=== PATIENT | female | born 1975 | race Caucasian/White ===

== ENCOUNTER 2022-08-02 11:06 | Emergency (ER) | payer MEDICARE, SELFPAY ==
--- NOTE | ~2022-08-02 | US_ITS ---
EXAMINATION: US ABDOMEN LIMITED CLINICAL INFORMATION: Right upper quadrant pain. COMPARISON: None available. TECHNIQUE: Real-time imaging of the right upper quadrant abdominal viscera. FINDINGS: PANCREAS: Normal. LIVER: Normal. The liver is normal in size. The liver contour is normal. Parenchymal echogenicity is normal. No focal hepatic lesion. There is no intrahepatic biliary duct dilatation seen. GALLBLADDER: Normal. The gallbladder is physiologically distended without evidence of stones, sludge, polyps, wall thickening or pericholecystic fluid. Sonographic Brock sign is negative. COMMON BILE DUCT: Normal in caliber measuring 0.6 cm in diameter. RIGHT KIDNEY: Normal. No hydronephrosis. No renal calculi or focal parenchymal lesions. The kidney measures 10.0 cm in maximum dimension. FREE FLUID: None. US/US abdomen limited IMPRESSION: Unremarkable right upper quadrant ultrasound.
[2022-08-02 11:28] VITALS: BP 122/85; PULSE 77; RESP 18; TEMP 36.6; O2SAT 98; BMI 21.5
[2022-08-02 12:12] LABS: MANUAL DIFF FLAG NO
[2022-08-02 12:16] LABS: Appearance Urine Clear; Color Urine Yellow; Glucose Urine UA Negative (Negative); Leukocyte Esterase Urine Negative (Negative); Nitrite Urine Negative (Negative); PH 7.5 (5.0-9.0); Specific Gravity - Urine 1.015 (1.005-1.025); UMIC TRIGGER UACC YES; Urine Blood Small (1+) (Negative); Urine Ketones Negative (Negative); Urine Protein Negative (Neg-Trace)
[2022-08-02 12:17] LABS: Basophils Absolute Auto 0.1 X10*3/uL (0.0-0.2); Basophils Percent Auto 0.8 % (0-2); Eosinophils Absolute Auto 0.3 X10*3/uL (0.0-0.4); Eosinophils Percent Auto 4.3 % (0-4); Hematocrit 44.4 % (37.0-47.0); Hemoglobin 14.7 g/dl (12.0-16.0); Imm Gran Abs Auto 0.02 X10*3/uL (0.00-0.03); Imm Gran Pct Auto 0.3 % (0.0-0.4); Lymphocytes Absolute Auto 2.8 X10*3/uL (1.2-4.9); Lymphocytes Percent Auto 35.8 % (20-40); Mean Corpuscular HGB Conc 33.1 g/dl (31.0-35.0); Mean Corpuscular Hemoglobin 31.6 pg (27.0-33.0); Mean Corpuscular Volume 95.5 fL (80.0-98.0); Mean Platelet Volume 10.1 fL (9.4-12.3); Monocytes Absolute Auto 0.5 X10*3/uL (0.1-1.2); Monocytes Percent Auto 6.8 % (2-11); Neutrophils Absolute Auto 4.1 x10*3/uL (2.0-8.3); Platelet Count 219 X10*3/uL (160-400); Red Blood Count 4.65 X10*6/uL (4.20-5.50); Red Cell Distribution Width 12.5 % (11.0-16.0); White Blood Count 7.9 X10*3/uL (4.8-10.8)
[2022-08-02 12:31] LABS: Bacteria Urine None Seen (None Seen); Hyaline Casts Urine 0-2 /LPF (0-2); Squamous Epithelial Cell Urine 0-2 /HPF (0-2); WBC Urine 0-5 /HPF (0-5)
[2022-08-02 12:32] LABS: Anion Gap 10 (12-20); Blood Urea Nitrogen 20 mg/dL (9-16); Calcium 10.3 mg/dL (8.4-10.2); Carbon Dioxide 31 mmol/L (22-29); Chloride 105 mmol/L (96-108); Creatinine Clr Calc Pharmacy 74.9; Estimated Glomerular Filt Rate > 60; Glucose Random 94 mg/dL (60-115); Potassium 5.1 mmol/L (3.3-5.1); Sodium 141 mmol/L (135-145)
--- OUTSIDE RECORDS SUMMARY | 2022-08-02 14:24 | XMS_ITS | Continuity of Care Document ---
Author Name Unknown Organization [facility] ter Address [address] [place] [address]- Care Team Providers Care Profile Mill Operator Tape Control Name Role Phone Itzel Martinez NP Primary Care Physician [phone] [id number] Date(s): 01/05/21 - 01/05/[address] [address]- Discharge Disposition: A-D/C Home Attending Physician: Jolly Armstrong MD Admitting Physician: Jolly Armstrong MD Referring Physician: Not on Staff, Referring MD Allergies, Adverse Reactions, Alerts Substance Reaction Severity Status sulfa drugs Active Medications Adderall By Mouth, 2 times a day, 0 Refills, Maintenance, 11/17/16 14:08:19 Start Date: 11/17/16 Status: Ordered aspirin 325 mg oral delayed release tablet 325 mg, 1, tablet, By Mouth, Daily, # 30 tablet, Refills 0, Maintenance, 01/04/21 11:31:00 EDT, Partial fill upon patient request if the prescription is for a schedule II opioid drug. Start Date: 01/04/21 Status: Ordered Coccyx Seat Cushion Coccyx Seat Cushion, See Instructions, # 1 units, Refills 0, Tot. Refills 0, Maintenance, Dispense 1 donut pillow to use PRN for tailbone pain. ICD-10 code: M53.3, 07/20/18 16:43:58 EDT, Compound Start Date: 07/20/18 Status: Ordered famotidine 20 mg oral tablet 20 mg, 1, tablet, By Mouth, Daily, # 30 tablet, Refills 0, Tot. Refills 0, Maintenance, 01/05/21 22:56:00 EDT, Route to Pharmacy Electronically, [facility] #[id number], Partial fill upon patientrequest if the prescription is for a schedule II op... Start Date: 01/05/21 Stop Date: 02/04/21 Status: Ordered ibuprofen 800 mg oral tablet 800 mg, 1, tablet, By Mouth, 3 times a day, # 90 tablet, Refills 0, Maintenance, 01/04/21 11:15:00 EDT, Partial fill upon patient request if the prescription is for a schedule II opioid drug. Start Date: 01/04/21 Status: Ordered oxyCODONE 5 mg oral capsule See Instructions, PRN as needed for pain, 1 capsule By Mouth Every 6 hours, 0 Refills, Maintenance,01/04/21 11:31:00 EDT, Capsule, Partial fill upon patient request if the prescription is for a schedule II opioid drug. Start Date: 01/04/21 Status: Ordered ProAir HFA 90 mcg/inh inhalation aerosol 1 puffs, Inhalation, 4 times a day, PRN as needed for wheezing, # 6.7 Gm, 0 Refills, Maintenance, 01/04/21 11:16:00 EDT, Aerosol, Partial fill upon patient request if the prescription is for a schedule II opioid drug. Start Date: 01/04/21 Status: Ordered Tums 500 mg oral tablet, chewable 250 mg, 0.5, tablet, Chew, 2 times a day, # 15 tablet, Refills 0, Maintenance, 01/04/21 11:16:00 EDT, Partial fill upon patient request if the prescription is for a schedule II opioid drug. Start Date: 01/04/21 Status: Ordered Results Radiology Reports * Exam Date Time Procedure Performing Provider Status 01/05/21 7:35 PM Chest 2 Views Frontal and Lat Ashley Quezada (Verified) Notes: (Chest 2 Views Frontal and Lat) Reason For Exam: dizziness, presyncope;Other: RESULT: Chest 2 Views Frontal and Lat Chest 2 Views Frontal and Lat Hx of Present Illness: Patient reports rectal bleedting this am. Had left knee surgery yesterday, spoke with the surgeon and anesthesiologist today, US performed with critical findings. Pt reports has had symptoms for appox 1 month- cramping, dizziness. Rectal bleeding last July; Reason: Other:; dizziness, presyncope; Clinical Question(s): Other: COMPARISON: None. FINDINGS: LINES AND TUBES: None. LUNGS AND PLEURA: Clear lungs. Normal pulmonary vascularity. No pleural effusion. No pneumothorax. HEART, MEDIASTINUM AND YONG: Heart is normal in size. Normal upper mediastinal and hilar contour. BONES AND SOFT TISSUES: No acute abnormality. IMPRESSION: No acute abnormality. WSN: [id number] Ordering Physician: Johnna Lopez Dictated By: Sofía Marie MD Dictated Date/Time: 01/05/21 7:36 pm Reviewed By: Sofía Marie MD Signed By: Sofía Marie MD Signed Date/Time: 01/05/21 7:36 pm Transcribed By: KALI Transcribed Date/Time: 01/05/21 7:35 pm Vital Signs Most recent to oldest [Reference Range]: 1 2 3 Height 163 cm (01/05/21 6:55 PM) 163 cm (01/05/21 5:17 PM) Weight 71.4 kg (01/05/21 6:55 PM) 71.4 kg (01/05/21 5:17 PM) Oxygen Saturation [94-100 %] 99 % (01/05/21 10:32 PM) 95 % (01/05/21 6:55 PM) 96 % (01/05/21 5:17 PM) Pulse Rate [55-90 bpm] 65 bpm (01/05/21 10:32 PM) 58 bpm (01/05/21 6:55 PM) 87 bpm (01/05/21 5:17 PM) Body Mass Index [18.5-24.99] 26.87 *H* (01/05/21 6:55 PM) Blood Pressure [90-138/55-84 mm Hg] 104/75mm Hg (01/05/21 10:32 PM) 123/78mm Hg (01/05/21 6:55 PM) 122/68mm Hg (01/05/21 5:17 PM) Respiratory Rate [16-30 br/min] 12 br/min *L* (01/05/21 10:32 PM) 11 br/min *L* (01/05/21 6:55 PM) 18 br/min (01/05/21 5:17 PM) Temperature [96.8-100.4 DegF] 98.3 DegF (01/05/21 10:32 PM) 98.4 DegF (01/05/21 5:17 PM) Mode of Delivery (Oxygen) Room air (01/05/21 10:32 PM) Room air (01/05/21 6:55 PM) Room air (01/05/21 5:17 PM) Blood pressure sites Arm, left (01/05/21 10:32 PM) Arm, left (01/05/21 6:55 PM) Arm, left (01/05/21 5:17 PM) Temperature Route Oral (01/05/21 10:32 PM) Oral (01/05/21 5:17 PM) Dry Weight 71.4 kg (01/05/21 6:55 PM) 71.4 kg (01/05/21 5:17 PM)
--- OUTSIDE RECORDS SUMMARY | 2022-08-02 14:24 | XMS_ITS | Continuity of Care Document ---
Author Name Unknown Organization [facility] Address [address] [place] [address]- Care Team Providers Care Welder Machine Operator Name Role Phone Juan MORATAYA, Itzel Kim Primary Care Physician Encounter [facility] Date(s): 05/27/20 - 06/03/20 [facility] [address] [place], [place] [address] Attending Physician: Diane Thakur DO Referring Physician: Itzel Martinez NP Allergies, Adverse Reactions, Alerts Substance Reaction Severity Status sulfa drugs Active Medications Adderall By Mouth, 2 times a day, 0 Refills, Maintenance, 11/17/16 14:08:19 Start Date: 11/17/16 Status: Ordered Coccyx Seat Cushion Coccyx Seat Cushion, See Instructions, # 1 units, Refills 0, Tot. Refills 0, Maintenance, Dispense 1 donut pillow to use PRN for tailbone pain. ICD-10 code: M53.3, 07/20/18 16:43:58 EDT, Compound Start Date: 07/20/18 Status: Ordered Naproxen By Mouth, 0 Refills, Maintenance, 01/04/17 11:11:35 Start Date: 01/04/17 Status: Ordered nortriptyline 25 mg oral capsule 25 mg, 1, capsule, By Mouth, Daily at bedtime, # 30 capsule, Refills 3, Tot. Refills 3, Maintenance, 03/19/17 8:34:50, Route to Pharmacy Electronically, [id number], [facility]- [address] Start Date: 03/19/17 Status: Ordered Vital Signs Most recent to oldest [Reference Range]: 1 Oxygen Saturation [94-100 %] 99 % (05/27/20 1:38 PM) Pulse Rate [55-90 bpm] 107 bpm *H* (05/27/20 1:38 PM) Blood Pressure [90-138/55-84 mm Hg] 131/ 75mm Hg (05/27/20 1:38 PM) Respiratory Rate [16-30 br/min] 16 br/mi n (05/27/20 1:38 PM) Temperature [96.8-100.4 DegF] 99.9 DegF (05/27/20 1:38 PM) Mode of Delivery (Oxygen) Room air (05/27/20 1:38 PM) Blood pressure sites Arm, right (05/27/20 1:38 PM) Temperature Route Temporal (05/27/20 1:38 PM)
--- OUTSIDE RECORDS SUMMARY | 2022-08-02 14:24 | XMS_ITS | Continuity of Care Document ---
Author Name Unknown Organization [facility] Address [address] [place], [place] [address], [address] [place] [address]- Care Team Providers Care Leveling Machine Operator Name Role Phone Itzel Martinez NP Primary Care Physician [phone] Encounter [facility] Date(s): 07/07/21 - 07/14/21 [facility] [address] [place] [address] Drive, [address] [place], [place] [address] Attending Physician: Abram Wilburn MD Referring Physician: Itzel Martinez NP Allergies, Adverse Reactions, Alerts Substance Reaction Severity Status erythromycin Active sulfa drugs Active Medications Adderall By Mouth, [...] 01/05/21 22:56:00 EDT, Route to Pharmacy Electronically, [facility] #[id number], Partial fill upon patientrequest if the prescription is for a schedule II op... Start Date: 01/05/21 Stop Date: 02/04/21 Status: Ordered fluticasone 50 mcg/inh inhalation powder Inhalation, 2 times a day, 0 Refills, Maintenance, 07/07/21 14:34:00 EDT, Partial fill upon patientrequest if the prescription is for a schedule II opioid drug. Start Date: 07/07/21 Status: Ordered ibuprofen 800 mg oral tablet [...] opioid drug. Start Date: 01/04/21 Status: Ordered Vital Signs Most recent to oldest [Reference Range]: 1 Height 163 cm (07/07/21 2:31 PM) Weight 71.4 kg (07/07/21 2:31 PM) Body Mass Index [18.5-24.99] 26.87 *H* (07/07/21 2:31 PM)
--- OUTSIDE RECORDS SUMMARY | 2022-08-02 14:24 | XMS_ITS | Continuity of Care Document ---
Author Name Unknown Organization [facility] Address [address] [place] [address] [address], [address] [place] [address]- Care Team Providers Care Mail Room Clerk Name Role Phone Itzel Martinez NP Primary Care Physician Encounter [facility] Date(s): 07/07/21 - 08/06/21 [facility] [address] [place] [address] Drive, [address] [place], [place] [address] Attending Physician: Robert Hyde Admitting Physician: AdmtrRobert Referring Physician: AdmtrRobert Allergies, Adverse Reactions, Alerts Substance Reaction Severity [...] 01/05/21 22:56:00 EDT, Route to Pharmacy Electronically, [facility] #[id number], Partial fill upon patientrequest if the prescription [...]
--- OUTSIDE RECORDS SUMMARY | 2022-08-02 14:24 | XMS_ITS | Continuity of Care Document ---
Author Name Unknown Organization [facility] Address [address] [place] [address]- Care Team Providers Care Clinical Lab Specialist Name Role Phone Juan MORATAYA, Itzel Kim Primary Care Physician Encounter [facility] Date(s): 05/27/20 - 06/26/20 [facility] [address] [place] [address]- Attending Physician: AdmRobert ortiz Admitting Physician: AdmtrRobert Referring Physician: Admtr, Ar8 Allergies, Adverse Reactions, Alerts Substance Reaction Severity [...] Maintenance, 03/19/17 8:34:50, Route to Pharmacy Electronically, [id number], [facility] [address] [facility] Start Date: 03/19/17 Status: Ordered
--- OUTSIDE RECORDS SUMMARY | 2022-08-02 14:24 | XMS_ITS | Continuity of Care Document ---
Author Name Unknown Organization [facility] Address [address] [place] [address] [address], [address] [place] [address]- Care Team Providers Care Cigar Wrapper Tender Automatic Name Role Phone Itzel Martinez NP Primary Care Physician Encounter [facility] [place] Date(s): 07/04/21 - 08/03/21 [facility] [address] [place] [address] Drive, [address] [place] [address]- Allergies, Adverse Reactions, Alerts Substance Reaction Severity [...] 01/05/21 22:56:00 EDT, Route to Pharmacy Electronically, [facility] #[id number], Partial fill upon patientrequest if the prescription [...]
--- OUTSIDE RECORDS SUMMARY | 2022-08-02 14:24 | XMS_ITS | Continuity of Care Document ---
Author Name Unknown Organization [facility] Address [address] [place] [address] [address], [address] [place] [address]- Care Team Providers Care Manager Internship Name Role Phone Itzel Martinez NP Primary Care Physician Encounter [facility] [facility] Date(s): 01/10/22 - 02/09/22 [facility] [address] [place] [address] Drive, [address] [place] [address]- Allergies, Adverse Reactions, Alerts Substance Reaction Severity [...] 01/05/21 22:56:00 EDT, Route to Pharmacy Electronically, [facility] #[id number], Partial fill upon patientrequest if the prescription [...] opioid drug. Start Date: 01/04/21 Status: Ordered Patient Care team information Care Team Personnel Name: Itzel Martinez NP Position: [facility] Outreach Member Role: PCP Address: Address: [address] [place] [address]- Care Team Related Persons Name: NORBERTO PAYNE Address: [address] [address]
[2022-08-02 14:56] LABS: Alanine Aminotransferase 22 U/L (0-31); Albumin Level 4.9 g/dL (3.5-5.0); Alkaline Phosphatase 79 U/L (39-117); Aspartate Amino Transferase 21 U/L (5-31); Bilirubin Direct 0.1 mg/dL (0.0-0.5); Bilirubin Total 0.6 mg/dL (0.0-1.0); Lipase 16 U/L (8-78); Total Protein 7.5 g/dL (6.5-8.0)
--- NOTE | 2022-08-02 14:58 | ED.ABDPAIN ---
HPI - Abdominal Pain General Chief Complaint: Abdominal Pain Stated Complaint: gal bladder attack Time Seen by Provider: 08/02/22 14:18 Source: patient and family () Mode of arrival: ambulatory History of Present Illness HPI narrative: 46-year-old female who presents with onset of sharp stabbing pain located in the right upper quadrant that she 1st experienced while in [place] of the past month. Patient then reports an additional 2 episodes without any associated fever, chills, nausea, vomiting. Patient states that she is on daily meloxicam for chronic neck pain as well as famotidine in the evening although she states that she has run out of this medication. Patient states she also occasionally has bourbon drinks as well as using spicy foods such as Tabasco. Related Data Previous Rx's Medication Instructions Recorded omeprazole 40 mg capsule,delayed 40 mg PO DAILY #30 caps 08/02/22 release Allergies Allergy/AdvReac Type Severity Reaction Status Date / Time erythromycin base Allergy Rash Verified 08/02/22 11:32 Sulfa (Sulfonamide Allergy Rash Verified 08/02/22 11:32 Antibiotics) Review of Systems Review of Systems Pertinent positives and negatives as stated in HPI PMFSH Past Medical History Source: nursing notes reviewed Social History Social History Alcohol intake: current Alcohol intake frequency: a few times a week Smoked in Last 30 Days: No Use of substances other than those prescribed or required for medical reasons: No Advance Directives: No Physical Exam ED Vital Signs: Vital Signs - 24 hr 08/02/22 11:28 Temperature 98 F Pulse Rate 77 Respiratory Rate 18 Blood Pressure 122/85 Pulse Oximetry 98 Oxygen Delivery Method Room Air BMI result Body Mass Index 21.5 VITAL SIGNS: Reviewed. GENERAL: Well developed, well nourished, in no acute distress. HEAD: Normocephalic/atraumatic EYES: PERRLA, EOMI EARS: Ext canals without abnormality OROPHARYNX: no oral lesions noted, posterior pharynx clear NECK: Supple, no adenopathy LUNGS: Normal breath sounds. No adventitious sounds or accessory muscle use. SpO2<98> CARDIOVASCULAR: Regular rate and rhythm without noted murmurs ABDOMEN: Soft, non-tender, non-distended with bowel sounds. MUSCULOSKELETAL: No tenderness, deformities, or effusions noted on gross inspection. EXTREMITIES: No cyanosis, clubbing or edema. SKIN: Inspection of the skin reveals no rashes NEUROLOGIC: Alert and oriented x 4. Strength and sensation to light touch were grossly intact x 4. Medical Decision Making Medical Decision Making MDM Narrative: 46-year-old female with history and clinical presentation suggestive of possible cholecystitis, pancreatitis, gastritis. Review of all investigations to include imaging studies and my interpretation is as patient has acute NSAID induced gastritis with possible beginnings ulcer. She is otherwise hemodynamically stable, is provided with a GI cocktail as well as Carafate. I have recommended to the patient that she hold off on using the meloxicam for 1 week, observed dietary changes, and start on the 40 mg of omeprazole that I have prescribed her daily. In addition, I have strongly recommended that she follow-up with her central supply supervisor. Differential Diagnosis Please see the discussion above Lab Data Please see the discussion above 08/02/22 11:57 08/02/22 11:57 Labs: Lab Results 08/02/22 08/02/22 08/02/22 Range/Units 11:57 11:57 11:57 WBC 7.9 (4.8-10.8) X10*3/uL RBC 4.65 (4.20-5.50) X10*6/uL Hgb 14.7 (12.0-16.0) g/dl Hct 44.4 (37.0-47.0) % MCV 95.5 (80.0-98.0) fL MCH 31.6 (27.0-33.0) pg MCHC 33.1 (31.0-35.0) g/dl RDW 12.5 (11.0-16.0) % Plt Count 219 (160-400) X10*3/uL MPV 10.1 (9.4-12.3) fL Immature Gran % (Auto) 0.3 (0.0-0.4) % Neut % (Auto) 52.0 (45-73) % Lymph % (Auto) 35.8 (20-40) % Mcnairy % (Auto) 6.8 (2-11) % Eos % (Auto) 4.3 H (0-4) % Baso % (Auto) 0.8 (0-2) % Lymph # (Auto) 2.8 (1.2-4.9) X10*3/uL Mcnairy # (Auto) 0.5 (0.1-1.2) X10*3/uL Eos # (Auto) 0.3 (0.0-0.4) X10*3/uL Baso # (Auto) 0.1 (0.0-0.2) X10*3/uL Abs Immat Gran (auto) 0.02 (0.00-0.03) X10*3/uL Absolute Neuts (auto) 4.1 (2.0-8.3) x10*3/uL Absolute Nucleated RBC 0.000 (0.0-0.012) X10*3/uL Nucleated RBC % (auto) 0.0 (0.0-0.2) /100WBC Sodium 141 (135-145) mmol/L Potassium 5.1 (3.3-5.1) mmol/L Chloride 105 (96-108) mmol/L Carbon Dioxide 31 H (22-29) mmol/L Anion Gap 10 L (12-20) BUN 20 H (9-16) mg/dL Creatinine 0.81 (0.5-1.4) mg/dL Estim Creat Clear Calc 74.9 Estimated GFR > 60 Random Glucose 94 (60-115) mg/dL Calcium 10.3 H (8.4-10.2) mg/dL Total Bilirubin 0.6 (0.0-1.0) mg/dL Direct Bilirubin 0.1 (0.0-0.5) mg/dL AST 21 (5-31) U/L ALT 22 (0-31) U/L Alkaline Phosphatase 79 (39-117) U/L Total Protein 7.5 (6.5-8.0) g/dL Albumin 4.9 (3.5-5.0) g/dL Lipase 16 (8-78) U/L Urine Color Yellow Urine Appearance Clear Urine pH 7.5 (5.0-9.0) Ur Specific [place] 1.015 (1.005-1.025) Urine Protein Negative (Neg-Trace) mg/dL Urine Glucose (UA) Negative (Negative) mg/dL Urine Ketones Negative (Negative) mg/dL Urine Blood Small (1+) H (Negative) Urine Nitrite Negative (Negative) Ur Leukocyte Esterase Negative (Negative) Urine RBC 3-5 H (0-2) /HPF Urine WBC 0-5 (0-5) /HPF Ur Squamous Epith Cells 0-2 (0-2) /HPF Urine Bacteria None Seen (None Seen) Hyaline Casts 0-2 (0-2) /LPF Radiology Impression Radiologist Impression: My interpretation is in agreement with radiology's impression of the imaging studies. Discharge Plan Discharge Clinical Impression: Gastritis, NSAID long-term use Patient Disposition: Home, Self-Care Instructions: Gastritis (ED), Diet for Stomach Ulcers and Gastritis (ED), Safe Use of NSAIDs (ED) Additional Instructions: 1. If possible sub using the meloxicam for 1 week and instead replace this with [id number] lidocaine patch as well as Tylenol 1000 mg every 6 hours. 2. I have given you a prescription for omeprazole, you should take this medication 30 minutes prior to eating or drinking anything 1st thing in the morning. 3. Please follow-up with your central supply supervisor in the next 1-2 days. Return to the ER for any worsening symptoms. Prescriptions: New omeprazole 40 mg capsule,delayed release(DR/EC) 40 mg PO DAILY Qty: 30 0RF Referrals: Itzel Martinez NP [Primary Care Provider] -
[2022-08-02] MEDS: Sucralfate Oral Suspension 1 GM/10 ML ORAL.SUSP PO (15:38)
[2022-08-02] MEDS: Acetaminophen 325 MG TABLET 975 MG PO (15:38)
[2022-08-02] MEDS: Lidocaine 4 % Patch ADH..PATCH 1 PATCH TRANSDERMA (15:38)
[2022-08-02] MEDS: Lidocaine HCl Viscous 2 % 15 ML SOLUTION 10 ML MUCOUS MEM (15:38)
[2022-08-02] MEDS: Magnesium Hydrox/Alum Hydrox 30 ML ORAL.SUSP PO (15:38)
== END 2022-08-02 15:50 | disposition home or self-care (01) ==
PROVIDERS: Emergency Provider Student in an Organized Health Care Education/Training Program; PCP Nurse Practitioner Family
DX: K29.70 Gastritis, unspecified, without bleeding (principal); Z79.1 Long term (current) use of non-steroidal anti-inflammatories (NSAID); R10.11 Right upper quadrant pain; Z79.899 Other long term (current) drug therapy
CPT/HCPCS: 36415; 76705; 80048; 80076; 81001; 83690; 85025; 99284

== ENCOUNTER 2024-04-08 11:23 | Outpatient (AMB) | payer MEDICARE, SELFPAY ==
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
[2024-04-08 11:36] VITALS: BP 98/68; PULSE 78; RESP 12; O2SAT 98; BMI 23.9
== END 2024-04-08 12:26 | disposition home or self-care (01) ==
PROVIDERS: PCP Internal Medicine; Visit Provider Internal Medicine
DX: Z76.89 Persons encountering health services in other specified circumstances (principal); M25.50 Pain in unspecified joint; E78.00 Pure hypercholesterolemia, unspecified

== ENCOUNTER 2024-04-08 12:38 | Outpatient (REF) | payer MEDICARE, SELFPAY ==
[2024-04-08 14:10] LABS: MANUAL DIFF FLAG NO
[2024-04-08 14:19] LABS: Basophils Percent Auto 0.5 % (0-2); Eosinophils Absolute Auto 0.2 X10*3/uL (0.0-0.4); Hematocrit 40.2 % (37.0-47.0); Hemoglobin 13.6 g/dl (12.0-16.0); Imm Gran Abs Auto 0.03 X10*3/uL (0.00-0.03); Imm Gran Pct Auto 0.4 % (0.0-0.4); Lymphocytes Absolute Auto 2.5 X10*3/uL (1.2-4.9); Lymphocytes Percent Auto 33.1 % (20-40); Mean Corpuscular HGB Conc 33.8 g/dl (31.0-35.0); Mean Corpuscular Hemoglobin 32.1 pg (27.0-33.0); Mean Corpuscular Volume 94.8 fL (80.0-98.0); Mean Platelet Volume 10.9 fL (9.4-12.3); Monocytes Absolute Auto 0.5 X10*3/uL (0.1-1.2); Monocytes Percent Auto 6.6 % (2-11); Neutrophils Absolute Auto 4.2 x10*3/uL (2.0-8.3); Neutrophils Percent Auto 56.4 % (45-73); Platelet Count 211 X10*3/uL (160-400); Red Blood Count 4.24 X10*6/uL (4.20-5.50); Red Cell Distribution Width 12.4 % (11.0-16.0); White Blood Count 7.4 X10*3/uL (4.8-10.8)
[2024-04-08 14:34] LABS: Estimated Average Glucose 103 mg/dL; Hemoglobin A1C 114.8535 umol/L; Hemoglobin A1c % 5.2 % (<6.0); Total Hemoglobin (HGBA1C) 3452.9138 umol/L
[2024-04-08 14:49] LABS: Alanine Aminotransferase 47 U/L (0-31); Albumin Level 4.6 g/dL (3.5-5.0); Alkaline Phosphatase 70 U/L (39-117); Anion Gap 8 (12-20); Aspartate Amino Transferase 32 U/L (5-31); Bilirubin Total 0.6 mg/dL (0.0-1.0); Blood Urea Nitrogen 20 mg/dL (9-16); Calcium 9.5 mg/dL (8.4-10.2); Carbon Dioxide 28 mmol/L (22-29); Chloride 110 mmol/L (96-108); Cholesterol 188 mg/dL (<200); Estimated Glomerular Filt Rate > 60; Glucose Random 88 mg/dL (60-115); HDL Cholesterol 64 mg/dL (>40); Iron 92 mcg/dL (30-160); LDL Cholesterol Calculated 112 mg/dL (<100); Percent Iron Saturation 28 % (15-50); Potassium 4.3 mmol/L (3.3-5.1); Sodium 142 mmol/L (135-145); Total Iron Binding Capacity 333 mcg/dL (228-428); Total Protein 6.9 g/dL (6.5-8.0); Triglycerides 60 mg/dL (<150); Unsaturated Iron Binding 241 ug/dL
[2024-04-08 14:56] LABS: TSH reflex Free T4 1.58 uIU/mL (0.32-4.0)
[2024-04-08 14:58] LABS: Erythrocyte Sedimentation Rate 3 MM/HR (0-20)
[2024-04-09 19:54] LABS: Lyme Abs Screen <0.90 index
[2024-04-09 20:13] LABS: CRP High Sensitivity 0.3 mg/L
[2024-04-11 15:39] LABS: Anti Nuclear Antibody Screen POSITIVE (NEGATIVE); Anti Nuclear Antibody Titer 1:40 titer
== END 2024-04-08 12:39 | disposition home or self-care (01) ==
LOC: HO.WFDLDS 12:38
PROVIDERS: Visit Provider Internal Medicine
DX: Z76.89 Persons encountering health services in other specified circumstances (principal); M25.50 Pain in unspecified joint; E78.00 Pure hypercholesterolemia, unspecified; R76.8 Other specified abnormal immunological findings in serum; M35.3 Polymyalgia rheumatica; R73.03 Prediabetes; Z13.0 Encounter for screening for diseases of the blood and blood-forming organs and certain disorders involving the immune mechanism
CPT/HCPCS: 80053; 80061; 83036; 83540; 84443; 85025; 85652; 86038; 86039; 86141; 86235; 86617; 86618; 96127; 99202

== ENCOUNTER 2024-04-29 10:26 | Outpatient (AMB) | payer MEDICARE, SELFPAY ==
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
[2024-04-29 10:38] VITALS: BP 98/68; PULSE 74; O2SAT 98; BMI 24.0
--- OUTSIDE RECORDS SUMMARY | 2024-04-29 11:25 | XMS_ITS | Encounter Summary ---
Author Organization [facility] Address [address] [place] [id number] Care Team Providers Care Second Cutter Name Role Phone No, Pcp (Do Not Change Name) Primary Care Provid er Unavailable Encounter Details Date Type Department Care Team (Late st Contact Info) Description 06/26/2018 Scanned Document [facility] at [address] [place] [address] [id number] Ramin Soares MD [address] [place] [id number] Social History Tobacco Use Types Packs/Day Years Used Date Smoking Tobacco: Never Assessed Comments Unknown Sex and Gender Information Value Date Recorded Sex Assigned at Not on file Legal Sex Female 12:53 PM EDT Gender Identity Not on file Sexual Orientation Not on file documented as of this encounter Plan of Treatment Not on file documented as of this encounter Visit Diagnoses Not on filedocumented in this encounter Care Teams Second Cutter Relationship Specialty Start Date End Date No, Pcp (Do Not Change Name) PCP - General 06/27/18 documented as of this encounter
--- OUTSIDE RECORDS SUMMARY | 2024-04-29 11:25 | XMS_ITS | Clinical Summary ---
Author Organization [address] Address [address] [place] [phone] Phone Care Team Providers Care Breadman Name Role Phone No, Pcp (Do Not Change Name) Primary Care Provid er Unavailable Allergies Active Allergy Reactions Criticality Noted Date Comments Erythromycin Rash Low 07/01/2018 Sulfa (Sulfonamide Antibiotics) Rash Low 0404/2018 Medications dextroamphetami ne-amphetamine (ADDERALL XR) 20 MG 24 hr capsule Take 20 mg by mouth Every morning @0700 Active naproxen (NAPROSYN) 500 MG tablet Take 500 mg by mouth 2 (two) times daily with breakfast and dinner Active albuterol (PROVENTIL, VENTOLIN) 2.5 mg /3 mL (0.083 %) nebulizer solution Take 1 ampule by nebulization every 6 (six) hours as needed for Wheezing Active fluticasone (VERAMYST) 27.5 mcg/actuation nasal spray 2 sprays by Nasal route daily Active Active Problems Problem Noted Date Diagnosed Date 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 Family History Medical History Relation Name Comments Cancer Father Hypertension Father Cancer Mother Relation Name Status Comments Father Mother Social History Tobacco Use Types Packs/Day Years Used Date Smoking Tobacco: Never Smokeless Tobacco: Never Alcohol Use Standard Drinks/Week Comments Yes 0 (1 standard drink = 0.6 oz pur e alcohol) Comments Unknown Sex and Gender Information Value Date Recorded Sex Assigned at Not on file Legal Sex Female 12:53 PM EDT Gender Identity Not on file Sexual Orientation Not on file Last Filed Vital Signs Vital Sign Reading Time Taken Comments Blood Pressure 118/72 07/01/2018 11:21 AM EDT Pulse - - Temperature - - Respiratory Rate - - Oxygen Saturation - - Inhaled Oxygen Concentration - - Weight 65.7 kg (144 lb 12.8 oz) 019 11:21 AM EDT Height 162.6 cm (5' 4 ) 07/01/2018 11:2 1 AM EDT Body Mass Index 24.85 07/01/2018 11:21 AM EDT Plan of Treatment Health Maintenance Due Date Last Done Comments HIV screening 08/10/1988 Hepatitis C screening 08/10/1993 Tetanus adult (Td q 10,TDAP once) 1995 Cervical cancer screening 08/10/1996 Breast cancer screening 2015 Lipid disorder screening 2015 Colon cancer screening, Colonoscopy 08/10/2020 Diabetes screening 08/10/2020 Influenza vaccine 11/01/2023 Covid-19 vaccine series (2023- season) 2023 RSV Discussion (1 - 1-dose 7 5+ series) 08/10/2050 Meningococcal Vaccine Aged Out No mars rory eligible based on patient's age to complete this topic Pneumococcal Vaccine Aged Out No long er eligible based on patient's age to complete this topic Insurance COMMERCIAL GENERIC COMMERCIAL GENERIC COMMERCIAL GENERIC Care Teams Breadman Relationship Specialty Start Date End Date No, Pcp (Do Not Change Name) PCP - General 06/27/18
--- OUTSIDE RECORDS SUMMARY | 2024-04-29 11:25 | XMS_ITS | Clinical Summary ---
Author Organization [facility] ity Address [address] [place] [address] Care Team Providers Care Roll Clamp Operator Name Role Phone Itzel Martinez AMBULATORY CARE Primary Care Provider [phone] Surgical History Surgery Date Site/Laterality Comments LITHOTRIPSY PROCEDURE:LITHOTRIPSY LYMPHANGIOMA EXCISION PROCEDURE:LYMPHANGIOMA EXCISION Medical History Medical History Date Comments Asthma DX:Asthma Social History Tobacco Use Types Packs/Day Years Used Date Smoking Tobacco: Never Smokeless Tobacco: Never Sex and Gender Information Value Date Recorded Sex Assigned at Not on file Gender Identity Not on file Sexual Orientation Not on file Obstetrics History Plan of Treatment Health Maintenance Due Date Last Done Comments Breast Cancer Screening 1975 DTaP,Tdap,and Td Vaccines (1 - Tdap) 08/10/1994 Hepatitis B Vaccines (1 of 3 - 19+ 3-dose series) 08/10/1994 Cervical Cancer Screening: P ap Smear 08/10/1996 Colorectal Cancer Screening: Colonoscopy 03/05/2022 Depression Screening 03/05/2022 HIV Screening 03/05/2022 Hepatitis C Screening 03/05/2022 Social Influencers of Health Screening 03/05/2022 COVID-19 Vaccine ( - 2023-2 5 season) 2023 Influenza Vaccine (#1) 2023 HIB Vaccines Aged Out No longer eligi ble based on patient's age to complete this topic HPV Vaccines Aged Out No longer eligi ble based on patient's age to complete this topic Hepatitis A Vaccines Aged Out No long er eligible based on patient's age to complete this topic IPV Vaccines Aged Out No longer eligi ble based on patient's age to complete this topic MMR Vaccines Aged Out No longer eligi ble based on patient's age to complete this topic Meningococcal ACWY Vaccine Aged Out N o longer eligible based on patient's age to complete this topic Pneumococcal Vaccine: Pediat rics (0 to 5 Years) and At-Risk Patients (6 to 64 Years) Aged Out No longer eligible b ased on patient's age to complete this topic RSV Immunization Patients Un génesis 20 months Aged Out No longer eligible b ased on patient's age to complete this topic Varicella Vaccines Aged Out No longer eligible based on patient's age to complete this topic Care Teams Roll Clamp Operator Relationship Specialty Start Date End Date Itzel Martinez FNP [address] [place] [phone] PCP - General Family Medicine 05/10/18
--- OUTSIDE RECORDS SUMMARY | 2024-04-29 11:25 | XMS_ITS | Encounter Summary ---
Author Organization [facility] and [facility] Address [address] [place] [phone] Care Team Providers Care Fluid Power Mechanic Name Role Phone No, Pcp (Do Not Change Name) Primary Care Provid er Unavailable Encounter Details Date Type Department Care Team (Late st Contact Info) Description 06/26/2018 Scanned Document [facility] at [address] [place] [address] [phone] Ramin Soares MD [address] [place] [phone] Social History Tobacco Use Types Packs/Day Years Used Date Smoking Tobacco: Never Assessed Comments Unknown Sex and Gender Information Value Date Recorded Sex Assigned at Not on file Legal Sex Female 12:53 PM EDT Gender Identity Not on file Sexual Orientation Not on file documented as of this encounter Plan of Treatment Not on file documented as of this encounter Procedures Procedure Name Priority Date/Time Associated Diagnosis Comments MRI RESULT SCAN Routine 05/30/2018 documented in this encounter Results * MRI Result Scan (05/30/2018) us Historical Provider IMG SCAN REPORTS Final Resul t documented in this encounter Visit Diagnoses Not on filedocumented in this encounter Care Teams Fluid Power Mechanic Relationship Specialty Start Date End Date No, Pcp (Do Not Change Name) PCP - General 06/27/18 documented as of this encounter
--- OUTSIDE RECORDS SUMMARY | 2024-04-29 11:25 | XMS_ITS | Clinical Summary ---
Author Organization [facility] Address [address] [place] [address] Care Team Providers Care Specimen Technician Name Role Phone Itzel Martinez NP Primary Care Provider [phone] Allergies Active Allergy Reactions Criticality Noted Date Comments Erythromycin Rash Low 05/10/2018 Sulfa Antibiotics Rash Low 05/10/2018 Medications Medication Sig Dispensed Refills Start Date End Date Status PROAIR HFA 108 (90 Base) MCG/ACT inhaler 0 03/08/2018 Active valACYclovir (VALTREX) 1000 MG tablet Take 2,000 mg by mouth every 12 (twelve) hours. 0 03/07/2018 Active levonorgestrel (MIRENA, 52 MG,) 20 MCG/24HR IUD as directed Intrauterine 0 Active fluticasone (FLONASE) 50 MCG/ACT nasal spray instill 2 sprays into each nostril once daily 0 03/07/2018 Active ADDERALL XR, 20MG, 20 MG 24 hr capsule Take 20 mg by mouth daily. 0 05/02/2018 Active amphetamine-dextroa mphetamine (ADDERALL XR, 25MG,) 25 MG 24 hr capsule Orally 0 Active Social History Tobacco Use Types Packs/Day Years Used Date Smoking Tobacco: Never Smokeless Tobacco: Never Sex and Gender Information Value Date Recorded Sex Assigned at Female 05/10/2018 12:15 PM EST Gender Identity Female 05/10/2018 12:15 PM EST Sexual Orientation Not on file Last Filed Vital Signs Vital Sign Reading Time Taken Comments Blood Pressure 114/75 12/06/2018 8:33 AM EDT Pulse - - Temperature 36.8 ??C (98.2 ??F) 02/09/2020 1:09 PM ES T Respiratory Rate - - Oxygen Saturation - - Inhaled Oxygen Concentration - - Weight 67.1 kg (148 lb) 02/09/2020 1:09 PM EST Height - - Body Mass Index - - Plan of Treatment Health Maintenance Due Date Last Done Comments Hepatitis B Vaccines (1 of 3 - 3-dose series) 1975 Hepatitis C Screening 1975 COVID-19 Vaccine (#1) 02/11/1976 Depression Screening 1987 Preventative Health Evaluation 08/10/1993 DTap / Tdap / Td (1 - Tdap) 08/10/1994 Cervical Cancer Screening (P ap Smear) 08/10/1996 Colon Cancer Screening (Colonoscopy) 08/10/2020 Influenza Vaccine (#1) 2023 Pneumococcal Vaccine Aged Out No long er eligible based on patient's age to complete this topic RSV Ped < 20 months Aged Out No longe r eligible based on patient's age to complete this topic Care Teams Specimen Technician Relationship Specialty Start Date End Date Itzel Martinez NP [address] [place] [phone] PCP - General Family Medicine 05/10/18
--- OUTSIDE RECORDS SUMMARY | 2024-04-29 11:25 | XMS_ITS | Encounter Summary ---
Author Organization [facility] and [facility] Address [address] [place] [phone] Care Team Providers Care Wire Drawer Name Role Phone No, Pcp (Do Not Change Name) Primary Care Provid er Unavailable Encounter Details Date Type Department Care Team (Late st Contact Info) Description 10/24/2018 Scanned Document [facility] at [address] [place] [address] [phone] Ramin Soares MD [address] [place] [phone] Social History Tobacco Use Types Packs/Day Years [...] on filedocumented in this encounter Care Teams Wire Drawer Relationship Specialty Start Date End Date No, Pcp (Do Not Change Name) PCP - General 06/27/18 documented as of this encounter
--- OUTSIDE RECORDS SUMMARY | 2024-04-29 11:25 | XMS_ITS | Encounter Summary ---
Author Organization [facility] and [facility] Address [address] [place] [phone] Care Team Providers Care Personal Lines Advisor Name Role Phone No, Pcp (Do Not Change Name) Primary Care Provid er Unavailable Encounter Details Date Type Department Care Team (Late st Contact Info) Description 07/03/2018 Scanned Document [facility] at [address] [place] [phone] Ramin Soares MD [address] [place] [phone] Social History Tobacco Use Types Packs/Day Years Used Date Smoking Tobacco: Never Smokeless Tobacco: Never Comments Unknown Sex and Gender Information Value Date Recorded Sex Assigned at Not on file Legal Sex Female 12:53 PM EDT Gender Identity Not on file Sexual Orientation Not on file documented as of this encounter Plan of Treatment Not on file documented as of this encounter Visit Diagnoses Not on filedocumented in this encounter Care Teams Personal Lines Advisor Relationship Specialty Start Date End Date No, Pcp (Do Not Change Name) PCP - General 06/27/18 documented as of this encounter
== END 2024-04-29 11:28 | disposition home or self-care (01) ==
PROVIDERS: PCP Internal Medicine; Visit Provider Internal Medicine
DX: M54.12 Radiculopathy, cervical region (principal); M48.02 Spinal stenosis, cervical region; R31.29 Other microscopic hematuria; M25.50 Pain in unspecified joint

== ENCOUNTER 2024-04-29 11:32 | Outpatient (REF) | payer MEDICARE, SELFPAY ==
--- OUTSIDE RECORDS SUMMARY | 2024-04-29 12:47 | XMS_ITS | Encounter Summary ---
Author Organization [facility] and [facility] Address [address] [place] [phone] Care Team Providers Care Agronomy Teacher Name Role Phone No, Pcp (Do Not Change Name) Primary Care Provid er Unavailable Encounter Details Date Type Department Care Team (Late st Contact Info) Description 10/24/2018 Scanned Document [facility] at [address] [place] [address] [phone] Ramin Soares MD [address] [place] [phone] Social History Tobacco Use Types Packs/Day Years [...] on filedocumented in this encounter Care Teams Agronomy Teacher Relationship Specialty Start Date End Date No, Pcp (Do Not Change Name) PCP - General 06/27/18 documented as of this encounter
--- OUTSIDE RECORDS SUMMARY | 2024-04-29 12:47 | XMS_ITS | Encounter Summary ---
Author Organization [facility] and [facility] Address [address] [place] [phone] Care Team Providers Care Elevator Serviceman Name Role Phone No, Pcp (Do Not Change Name) Primary Care Provid er Unavailable Encounter Details Date Type Department Care Team (Late st Contact Info) Description 06/26/2018 Scanned Document [facility] at [address] [place] [phone] Ramin Soares MD [address] [place] [phone] Social History Tobacco Use Types Packs/Day Years [...] on filedocumented in this encounter Care Teams Elevator Serviceman Relationship Specialty Start Date End Date No, Pcp (Do Not Change Name) PCP - General 06/27/18 documented as of this encounter
--- OUTSIDE RECORDS SUMMARY | 2024-04-29 12:47 | XMS_ITS | Clinical Summary ---
Author Organization [address] Address [address] [place] [phone] Phone Care Team Providers Care Stockbroker Name Role Phone No, Pcp (Do Not [...] GENERIC COMMERCIAL GENERIC COMMERCIAL GENERIC Care Teams Stockbroker Relationship Specialty Start Date End Date No, Pcp (Do Not Change Name) PCP - General 06/27/18
--- OUTSIDE RECORDS SUMMARY | 2024-04-29 12:47 | XMS_ITS | Encounter Summary ---
Author Organization [facility] Address [address] [place] [phone] Care Team Providers Care Commercial Maintenance Technician Name Role Phone No, Pcp (Do Not Change Name) Primary Care Provid er Unavailable Encounter Details Date Type Department Care Team (Late st Contact Info) Description 07/03/2018 Scanned Document [facility] at [address] [place] [address] [phone] Ramin Soares MD [address] [place] [phone] Social History Tobacco Use Types Packs/Day Years [...] on filedocumented in this encounter Care Teams Commercial Maintenance Technician Relationship Specialty Start Date End Date No, Pcp (Do Not Change Name) PCP - General 06/27/18 documented as of this encounter
--- OUTSIDE RECORDS SUMMARY | 2024-04-29 12:47 | XMS_ITS | Clinical Summary ---
Author Organization [facility] Address [address] [place] [address] Care Team Providers Care Service Transformer Repair Supervisor Name Role Phone Itzel Martinez NP Primary Care Provider Allergies Active Allergy Reactions Criticality Noted Date [...] age to complete this topic Care Teams Service Transformer Repair Supervisor Relationship Specialty Start Date End Date Itzel Martinez NP [address] [place] [phone] PCP - General Family Medicine 05/10/18
--- OUTSIDE RECORDS SUMMARY | 2024-04-29 12:48 | XMS_ITS | Encounter Summary ---
Author Organization [facility] and [facility] Address [address] [place] [phone] Care Team Providers Care Station Engineer Main Line Name Role Phone No, Pcp (Do Not Change Name) Primary Care Provid er Unavailable Encounter Details Date Type Department Care Team (Late st Contact Info) Description 06/26/2018 Scanned Document [facility] at [address] [place] [address] [phone] Ramin Soares MD [address] [place] [phone] Social History Tobacco Use Types Packs/Day Years [...] on filedocumented in this encounter Care Teams Station Engineer Main Line Relationship Specialty Start Date End Date No, Pcp (Do Not Change Name) PCP - General 06/27/18 documented as of this encounter
--- OUTSIDE RECORDS SUMMARY | 2024-04-29 12:48 | XMS_ITS | Clinical Summary ---
Author Organization [facility] ity Address [address] [place] [address] Care Team Providers Care Snow Fence Erector Name Role Phone Itzel Martinez MANAGER PROGRAM Primary Care Provider Surgical History Surgery Date Site/Laterality Comments LITHOTRIPSY [...] age to complete this topic Care Teams Snow Fence Erector Relationship Specialty Start Date End Date Itzel Martinez FNP [address] [place] [phone] PCP - General Family Medicine 05/10/18
[2024-04-29 14:52] LABS: Anion Gap 11 (12-20); Blood Urea Nitrogen 24 mg/dL (9-16); Calcium 9.8 mg/dL (8.4-10.2); Carbon Dioxide 27 mmol/L (22-29); Chloride 106 mmol/L (96-108); Estimated Glomerular Filt Rate > 60; Glucose Random 86 mg/dL (60-115); Potassium 4.3 mmol/L (3.3-5.1); Sodium 140 mmol/L (135-145)
[2024-05-03 22:14] LABS: Centromere Protein A Ab <11 SI (<11); Centromere Protein B Ab <11 SI (<11); Fibrillarin Ab <11 SI (<11); PM SCL 100 Ab <11 SI (<11); PM SCL 75 Ab <11 SI (<11); RNA Polymerase III RP11 Ab <11 SI (<11); RNA Polymerase III RP155 Ab <11 SI (<11); SCL-70 Extractable Nuclear Ab <11 SI (<11); Th-To Ab <11 SI (<11); U1 SNRNP RNP 70KD <11 SI (<11); U1 SNRNP RNP A <11 SI (<11); U1 SNRNP RNP C <11 SI (<11)
== END 2024-04-29 11:33 | disposition home or self-care (01) ==
LOC: HO.WFDLDS 11:32
PROVIDERS: Visit Provider Internal Medicine
DX: M54.12 Radiculopathy, cervical region (principal); M48.02 Spinal stenosis, cervical region; R31.29 Other microscopic hematuria; M25.50 Pain in unspecified joint; E78.00 Pure hypercholesterolemia, unspecified; R76.8 Other specified abnormal immunological findings in serum; M35.3 Polymyalgia rheumatica; Z87.442 Personal history of urinary calculi
CPT/HCPCS: 36415; 80048; 84182; 86235; 96127; 99212

== ENCOUNTER → 2024-05-08 07:23 | Outpatient (BNV) | payer MEDICARE, SELFPAY | PROVIDERS: PCP Internal Medicine; Visit Provider Radiology Diagnostic Radiology | DX: M48.00 Spinal stenosis, site unspecified (principal); M25.511 Pain in right shoulder | CPT/HCPCS: 72141; 73221 ==

== ENCOUNTER 2024-05-26 11:43 | Outpatient (AMB) | payer MEDICARE, SELFPAY ==
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
[2024-05-26 11:52] VITALS: BP 106/78; PULSE 92; RESP 12; O2SAT 96; BMI 23.6
--- OUTSIDE RECORDS SUMMARY | 2024-05-26 13:34 | XMS_ITS | Encounter Summary ---
Author Organization [facility] Address [address] [place] [phone] Care Team Providers Care Almond Huller Name Role Phone No, Pcp (Do Not Change Name) Primary Care Provid er Unavailable Encounter Details Date Type Department Care Team (Late st Contact Info) Description 07/03/2018 Scanned Document [facility] [address] [place] [phone] Ramin Soares MD [address] [place] [phone] Social History Tobacco Use Types Packs/Day Years [...] on filedocumented in this encounter Care Teams Almond Huller Relationship Specialty Start Date End Date No, Pcp (Do Not Change Name) PCP - General 06/27/18 documented as of this encounter
--- OUTSIDE RECORDS SUMMARY | 2024-05-26 13:34 | XMS_ITS | Clinical Summary ---
Author Organization [address] Address [address] [place] [phone] Phone Care Team Providers Care Entry Level Receptionist Name Role Phone No, Pcp (Do Not [...] age to complete this topic Pneumococcal Vaccine (2 - 49 years) Aged Out No longer eligible based on patient's age to complete this topic Insurance COMMERCIAL GENERIC COMMERCIAL GENERIC COMMERCIAL GENERIC Care Teams Entry Level Receptionist Relationship Specialty Start Date End Date No, Pcp (Do Not Change Name) PCP - General 06/27/18
--- OUTSIDE RECORDS SUMMARY | 2024-05-26 13:34 | XMS_ITS | Encounter Summary ---
Author Organization [facility] and [facility] Address [address] [place] [phone] Care Team Providers Care Photovoltaic Fabrication Technician Name Role Phone No, Pcp (Do Not Change Name) Primary Care Provid er Unavailable Encounter Details Date Type Department Care Team (Late st Contact Info) Description 10/24/2018 Scanned Document [facility] at [address] [place] [phone] Ramin Soares MD [address] [place] [phone] Social History Tobacco Use Types Packs/Day Years [...] on filedocumented in this encounter Care Teams Photovoltaic Fabrication Technician Relationship Specialty Start Date End Date No, Pcp (Do Not Change Name) PCP - General 06/27/18 documented as of this encounter
--- OUTSIDE RECORDS SUMMARY | 2024-05-26 13:34 | XMS_ITS | Encounter Summary ---
Author Organization [facility] Address [address] [place] [phone] Care Team Providers Care Regional Administrative Assistant Name Role Phone No, Pcp (Do Not Change Name) Primary Care Provid er Unavailable Encounter Details Date Type Department Care Team (Late st Contact Info) Description 06/26/2018 Scanned Document [facility] at [address] [place] [phone] Ramin Soares MD [address] [place] [phone] Social History Tobacco Use Types Packs/Day Years [...] on filedocumented in this encounter Care Teams Regional Administrative Assistant Relationship Specialty Start Date End Date No, Pcp (Do Not Change Name) PCP - General 06/27/18 documented as of this encounter
--- OUTSIDE RECORDS SUMMARY | 2024-05-26 13:34 | XMS_ITS | Encounter Summary ---
Author Organization [facility] Address [address] [place] [phone] Care Team Providers Care Stem Cleaning Machine Feeder Name Role Phone No, Pcp (Do Not Change Name) Primary Care Provid er Unavailable Encounter Details Date Type Department Care Team (Late st Contact Info) Description 06/26/2018 Scanned Document [facility] at [address] [place] [address] [phone] Ramin Soares MD [address] [place] [phone] Social History Tobacco Use Types Packs/Day Years [...] on filedocumented in this encounter Care Teams Stem Cleaning Machine Feeder Relationship Specialty Start Date End Date No, Pcp (Do Not Change Name) PCP - General 06/27/18 documented as of this encounter
--- OUTSIDE RECORDS SUMMARY | 2024-05-26 13:34 | XMS_ITS | Clinical Summary ---
Author Organization [facility] Address [address] [place] [address] Care Team Providers Care Datawarehouse Developer Name Role Phone Itzel Martinez NP Primary Care Provider [phone] Allergies Active Allergy Reactions Criticality Noted Date [...] age to complete this topic Care Teams Datawarehouse Developer Relationship Specialty Start Date End Date Itzel Martinez NP [address] [place] [phone] PCP - General Family Medicine 05/10/18
--- OUTSIDE RECORDS SUMMARY | 2024-05-26 13:35 | XMS_ITS | Clinical Summary ---
Author Organization [facility] ity Address [address] [place] [address] Care Team Providers Care Telecommunications Network Engineer Name Role Phone Itzel Martinez PROTECTIVE SERVICES CASE WORKER Primary Care Provider [phone] Surgical History Surgery Date Site/Laterality Comments LITHOTRIPSY PROCEDURE:LITHOTRIPSY LYMPHANGIOMA EXCISION PROCEDURE:LYMPHANGIOMA EXCISION Medical History Medical History Date Comments Asthma DX:Asthma Social History Tobacco Use Types Packs/Day Years Used Date Smoking Tobacco: Never Smokeless Tobacco: Never Comments Unknown Sex and Gender Information Value Date Recorded Sex Assigned at Not on file Legal Sex Female 7:49 AM EST Gender Identity Not on file Sexual Orientation [...] patient's age to complete this topic Meningococcal B Vacine Aged Out No lo nger eligible based on patient's age to complete [...] age to complete this topic Care Teams Telecommunications Network Engineer Relationship Specialty Start Date End Date Itzel Martinez FNP [address] [place] [phone] PCP - General Family Medicine 05/10/18
== END 2024-05-26 16:14 | disposition home or self-care (01) ==
PROVIDERS: PCP Internal Medicine; Visit Provider Internal Medicine
DX: M25.511 Pain in right shoulder (principal); G89.29 Other chronic pain

== ENCOUNTER → 2024-05-26 11:43 | Outpatient (BNVA) | payer MEDICARE, SELFPAY | PROVIDERS: PCP Internal Medicine; Visit Provider Internal Medicine | DX: M25.511 Pain in right shoulder (principal); G89.29 Other chronic pain | CPT/HCPCS: 99212 ==

== ENCOUNTER 2024-06-26 07:50 | Outpatient (AMB) | payer MEDICARE, SELFPAY ==
--- OUTSIDE RECORDS SUMMARY | 2024-06-26 07:53 | XMS_ITS | Clinical Summary ---
Author Organization [address] Address [address] [place] [phone] Phone Care Team Providers Care Diversified Crops Farmer Name Role Phone No, Pcp (Do Not [...] 08/10/2020 Influenza vaccine 11/01/2023 Covid-19 vaccine series (2023-25 season) 2023 RSV Immunization (1 - 1-dose 75+ series) 08/10/2050 Meningococcal Vaccine Aged Out No mars rory eligible based on patient's age to complete this topic Pneumococcal Vaccine (2 - 49 years) Aged Out No longer eligible based on patient's age to complete this topic Insurance COMMERCIAL GENERIC COMMERCIAL GENERIC COMMERCIAL GENERIC Care Teams Diversified Crops Farmer Relationship Specialty Start Date End Date No, Pcp (Do Not Change Name) PCP - General 06/27/18
--- OUTSIDE RECORDS SUMMARY | 2024-06-26 07:53 | XMS_ITS | Encounter Summary ---
Author Organization [facility] and [facility] Address [address] [place] [phone] Care Team Providers Care Engine Lathe Operator Name Role Phone No, Pcp (Do Not Change Name) Primary Care Provid er Unavailable Encounter Details Date Type Department Care Team (Late st Contact Info) Description 07/03/2018 Scanned Document [facility] at [address] [place] [address] [phone] Ramin Soares MD [address] [place] [phone] Social History Tobacco Use Types Packs/Day Years [...] on filedocumented in this encounter Care Teams Engine Lathe Operator Relationship Specialty Start Date End Date No, Pcp (Do Not Change Name) PCP - General 06/27/18 documented as of this encounter
--- OUTSIDE RECORDS SUMMARY | 2024-06-26 07:53 | XMS_ITS | Clinical Summary ---
Author Organization [facility] Address [address] [place] [address] Care Team Providers Care Bleacher Kraft Pulp Name Role Phone Itzel Martinez NP Primary Care Provider [phone] Allergies Active Allergy Reactions Criticality Noted Date [...] age to complete this topic Care Teams Bleacher [employer]raft Pulp Relationship Specialty Start Date End Date Itzel Martinez NP [address] [place] [phone] PCP - General Family Medicine 05/10/18
--- OUTSIDE RECORDS SUMMARY | 2024-06-26 07:53 | XMS_ITS | Encounter Summary ---
Author Organization [facility] Address [address] [place] [phone] Care Team Providers Care Correctional Maintenance Technician Name Role Phone No, Pcp (Do Not Change Name) Primary Care Provid er Unavailable Encounter Details Date Type Department Care Team (Late st Contact Info) Description 10/24/2018 Scanned Document [facility] at [address] [place] [address] [phone] Ramin Soares MD [address] [place] [phone] Social History Tobacco Use Types Packs/Day Years [...] on filedocumented in this encounter Care Teams Correctional Maintenance Technician Relationship Specialty Start Date End Date No, Pcp (Do Not Change Name) PCP - General 06/27/18 documented as of this encounter
--- OUTSIDE RECORDS SUMMARY | 2024-06-26 07:53 | XMS_ITS | Encounter Summary ---
Author Organization [facility] and [facility] Address [address] [place] [phone] Care Team Providers Care Rehabilitation Services Manager Name Role Phone No, Pcp (Do Not Change Name) Primary Care Provid er Unavailable Encounter Details Date Type Department Care Team (Late st Contact Info) Description 06/26/2018 Scanned Document [facility] at [address] [place] [address] [phone] Ramin Soares MD [address] [place] [phone] Social History Tobacco Use Types Packs/Day Years [...] on filedocumented in this encounter Care Teams Rehabilitation Services Manager Relationship Specialty Start Date End Date No, Pcp (Do Not Change Name) PCP - General 06/27/18 documented as of this encounter
--- OUTSIDE RECORDS SUMMARY | 2024-06-26 07:53 | XMS_ITS | Encounter Summary ---
Author Organization [facility] and [facility] Address [address] [place] [phone] Care Team Providers Care Internet Site Designer Name Role Phone No, Pcp (Do Not Change Name) Primary Care Provid er Unavailable Encounter Details Date Type Department Care Team (Late st Contact Info) Description 06/26/2018 Scanned Document [facility] at [address] [place] [address] [phone] Ramin Soares MD [address] [place] [phone] Social History Tobacco Use Types Packs/Day Years [...] on filedocumented in this encounter Care Teams Internet Site Designer Relationship Specialty Start Date End Date No, Pcp (Do Not Change Name) PCP - General 06/27/18 documented as of this encounter
--- OUTSIDE RECORDS SUMMARY | 2024-06-26 07:53 | XMS_ITS | Clinical Summary ---
Author Organization [facility] ity Address [address] [place] [address] Care Team Providers Care Mechanic Recovery Name Role Phone Itzel Martinez THERMITE WELDER Primary Care Provider [phone] Surgical History Surgery Date Site/Laterality Comments LITHOTRIPSY [...] age to complete this topic Care Teams Mechanic Recovery Relationship Specialty Start Date End Date Itzel Martinez FNP [address] [place] [phone] PCP - General Family Medicine 05/10/18
--- NOTE | 2024-06-26 08:14 | A.OFFVIS_ITS ---
Intake Visit Reasons: history of kidney stones Intake Note: New patient presents today for initial visit for history of kidney stones Urology Medication:none Blood Thinner:none Antibiotic Allergies:Sulfa Allergies erythromycin base Allergy (Verified 06/26/24 08:31) Rash Sulfa (Sulfonamide Antibiotics) Allergy (Verified 06/26/24 08:31) Rash PFSH Medical History Broken bones Anxiety Asthma Rupture of rotator cuff of shoulder Back pain Neck pain GIANNA positive Herniated disc, cervical Back disorder High cholesterol Kidney stones Surgical History H/O knee surgery H/O lumpectomy Family History Mother Cancer Hypertension Paternal Grandfather Cancer Paternal Grandmother Cancer Diabetes Father Hypertension High cholesterol Cardiovascular disease Social History Household Members: None Both parents involved: No Caregiver staying overnight: No Housing: House Are you a primary director of health care marketing to a significant other at home: No Do you presently have visiting nurse or other home services: No 75 years or older and lives alone: No Alcohol intake: current Alcohol intake frequency: a few times a week Patient Tobacco Use Status: Never used Tobacco e-Cigarette/Vaping Use: Never Used Second Hand Smoke Exposure: No Current occupational status: disabled Cognitive needs: No Hearing needs: No Vision needs: No Results AMB Urinalysis, Automated UA Leukoctes 0 Elías/uL Last Edit by Kelly Shelton on 06/26/24 10:52 UA Nitrite Negative Last Edit by Kelly Shelton on 06/26/24 10:52 UA Urobilinogen 3.5 mg/dL Last Edit by Kelly Shelton on 06/26/24 10:52 UA Protein 0 mg/dL Last Edit by Kelly Shelton on 06/26/24 10:52 UA pH 6.5 Last Edit by Kelly Shelton on 06/26/24 10:52 UA Blood 10 Miguel/uL Last Edit by Kelly Shelton on 06/26/24 10:52 UA Specific Dilliner 1.005 Last Edit by Kelly Shelton on 06/26/24 10:52 UA Ketone Negative Last Edit by Kelly Shelton on 06/26/24 10:52 UA Bilirubin 0 mg/dL Last Edit by Kelly Shelton on 06/26/24 10:52 UA Glucose 0 mg/dL Last Edit by Kelly Shelton on 06/26/24 10:52 Assessment & Plan Assessment & Plan Orders: Orders AMB Urinalysis Automated Today Z13.9 - Encounter for screening, unspecified Coding
== END 2024-06-26 09:19 | disposition home or self-care (01) ==
LOC: HO.HUSH 07:51
PROVIDERS: PCP Internal Medicine; Visit Provider Urology
DX: Z13.9 Encounter for screening, unspecified (principal)

== ENCOUNTER → 2024-06-26 07:50 | Outpatient (BNVA) | payer MEDICARE, SELFPAY | PROVIDERS: PCP Internal Medicine; Visit Provider Urology | DX: R32 Unspecified urinary incontinence (principal); R31.9 Hematuria, unspecified | CPT/HCPCS: 81003; 99202 ==

== ENCOUNTER 2024-06-30 10:13 | Outpatient (REF) | payer MEDICARE, SELFPAY ==
--- NOTE | ~2024-06-30 | XR_ITS ---
EXAMINATION: XR HIP 2 OR MORE VIEWS LEFT, XR FEMUR 2 VIEWS LEFT, XR PELVIS 3 OR MORE VIEWS HISTORY: R10.2 - Pelvic and perineal pain COMPARISON: There are no prior studies for comparison. FINDINGS: AP and oblique views of the pelvis, 2 views of the left hip, and AP and lateral views of the left femur are submitted. Osseous mineralization is normal. There is no fracture or dislocation. The joint spaces are maintained. An IUD is noted in the midline of the pelvis. XR/XR hip LT min 2V IMPRESSION: No evidence of fracture of the pelvis, left hip, or left femur. Electronically signed by: Vikram Avendano MD 06/30/2024 12:24 PM EDT
--- NOTE | ~2024-06-30 | XR_ITS ---
EXAMINATION: XR HIP 2 OR MORE VIEWS LEFT, XR FEMUR 2 VIEWS LEFT, XR PELVIS 3 OR MORE VIEWS HISTORY: R10.2 - Pelvic and perineal pain COMPARISON: There are no prior studies for comparison. FINDINGS: AP and oblique views of the pelvis, 2 views of the left hip, and AP and lateral views of the left femur are submitted. Osseous mineralization is normal. There is no fracture or dislocation. The joint spaces are maintained. An IUD is noted in the midline of the pelvis. XR/XR pelvis min 3V IMPRESSION: No evidence of fracture of the pelvis, left hip, or left femur. Electronically signed by: Vikram Avendano MD 06/30/2024 12:24 PM EDT
--- NOTE | ~2024-06-30 | XR_ITS ---
EXAMINATION: XR HIP 2 OR MORE VIEWS LEFT, XR FEMUR 2 VIEWS LEFT, XR PELVIS 3 OR MORE VIEWS HISTORY: R10.2 - Pelvic and perineal pain COMPARISON: There are no prior studies for comparison. FINDINGS: AP and oblique views of the pelvis, 2 views of the left hip, and AP and lateral views of the left femur are submitted. Osseous mineralization is normal. There is no fracture or dislocation. The joint spaces are maintained. An IUD is noted in the midline of the pelvis. XR/XR femur LT 2V IMPRESSION: No evidence of fracture of the pelvis, left hip, or left femur. Electronically signed by: Vikram Avendano MD 06/30/2024 12:24 PM EDT
--- OUTSIDE RECORDS SUMMARY | 2024-06-30 13:27 | XMS_ITS | Clinical Summary ---
Author Organization [facility] Address [address] [place] [address] Care Team Providers Care Crocheter Hand Name Role Phone Itzel Martinez NP Primary Care Provider [phone] Allergies Active Allergy Reactions Criticality Noted Date [...] age to complete this topic Care Teams Crocheter Hand Relationship Specialty Start Date End Date Itzel Martinez NP [address] [place] [phone] PCP - General Family Medicine 05/10/18
--- OUTSIDE RECORDS SUMMARY | 2024-06-30 13:27 | XMS_ITS | Clinical Summary ---
Author Organization [address] Address [address] [place] [phone] Phone Care Team Providers Care Parking Line Painter Name Role Phone No, Pcp (Do Not [...] GENERIC COMMERCIAL GENERIC COMMERCIAL GENERIC Care Teams Parking Line Painter Relationship Specialty Start Date End Date No, Pcp (Do Not Change Name) PCP - General 06/27/18
--- OUTSIDE RECORDS SUMMARY | 2024-06-30 13:27 | XMS_ITS | Encounter Summary ---
Author Organization [facility] and [facility] Address [address] [place] [phone] Care Team Providers Care It Data Architect Name Role Phone No, Pcp (Do Not Change Name) Primary Care Provid er Unavailable Encounter Details Date Type Department Care Team (Late st Contact Info) Description 10/24/2018 Scanned Document [facility] at [address] [place] [address] [phone] Ramin Soares MD [address] [place] [phone] Social History Tobacco Use Types Packs/Day Years [...] on filedocumented in this encounter Care Teams It Data Architect Relationship Specialty Start Date End Date No, Pcp (Do Not Change Name) PCP - General 06/27/18 documented as of this encounter
--- OUTSIDE RECORDS SUMMARY | 2024-06-30 13:28 | XMS_ITS | Encounter Summary ---
Author Organization [facility] Address [address] [place] [phone] Care Team Providers Care Tobacco Sample Puller Name Role Phone No, Pcp (Do Not Change Name) Primary Care Provid er Unavailable Encounter Details Date Type Department Care Team (Late st Contact Info) Description 07/03/2018 Scanned Document [facility] at [address] [place] [address] [phone] Ramin Soares MD [address] [place] [phone] Social History Tobacco Use Types Packs/Day Years [...] on filedocumented in this encounter Care Teams Tobacco Sample Puller Relationship Specialty Start Date End Date No, Pcp (Do Not Change Name) PCP - General 06/27/18 documented as of this encounter
--- OUTSIDE RECORDS SUMMARY | 2024-06-30 13:28 | XMS_ITS | Encounter Summary ---
Author Organization [facility] and [facility] Address [address] [place] [phone] Care Team Providers Care Tobacco Baler Name Role Phone No, Pcp (Do Not Change Name) Primary Care Provid er Unavailable Encounter Details Date Type Department Care Team (Late st Contact Info) Description 06/26/2018 Scanned Document [facility] at [address] [place] [address] [phone] Ramin Soares MD [address] [place] [phone] Social History Tobacco Use Types Packs/Day Years [...] filedocumented in this encounter Care Teams Tobacco Baler Relationship Specialty Start Date End Date No, Pcp (Do Not Change Name) PCP - General 06/27/18 documented as of this encounter
--- OUTSIDE RECORDS SUMMARY | 2024-06-30 13:28 | XMS_ITS | Clinical Summary ---
Author Organization [facility] ity Address [address] [place] [address] Care Team Providers Care Energy Advisor Name Role Phone Itzel Martinez STAGE SETTINGS PAINTER Primary Care Provider [phone] Surgical History Surgery Date Site/Laterality Comments LITHOTRIPSY [...] age to complete this topic Care Teams Energy Advisor Relationship Specialty Start Date End Date Itzel Martinez FNP [address] [place] [phone] PCP - General Family Medicine 05/10/18
--- OUTSIDE RECORDS SUMMARY | 2024-06-30 13:28 | XMS_ITS | Encounter Summary ---
Author Organization [facility] Address [address] [place] [phone] Care Team Providers Care Despatch Clerk Name Role Phone No, Pcp (Do Not Change Name) Primary Care Provid er Unavailable Encounter Details Date Type Department Care Team (Late st Contact Info) Description 06/26/2018 Scanned Document [facility] at [address] [place] [address] [phone] Ramin Soares MD [address] [place] [phone] Social History Tobacco Use Types Packs/Day Years [...] on filedocumented in this encounter Care Teams Despatch Clerk Relationship Specialty Start Date End Date No, Pcp (Do Not Change Name) PCP - General 06/27/18 documented as of this encounter
== END 2024-06-30 10:14 | disposition home or self-care (01) ==
LOC: HO.HMGCX 10:13
PROVIDERS: PCP Internal Medicine; Visit Provider Internal Medicine
DX: M25.552 Pain in left hip (principal); R10.2 Pelvic and perineal pain; M51.9 Unspecified thoracic, thoracolumbar and lumbosacral intervertebral disc disorder; S73.02 Obturator subluxation and dislocation of hip; W01.0XXA Fall on same level from slipping, tripping and stumbling without subsequent striking against object, initial encounter; Y93.9 Activity, unspecified; Y92.59 Other trade areas as the place of occurrence of the external cause; Y99.9 Unspecified external cause status
CPT/HCPCS: 72190; 73502; 73552; 99212

== ENCOUNTER 2024-06-30 10:13 | Outpatient (AMB) | payer MEDICARE, SELFPAY ==
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
[2024-06-30 10:19] VITALS: BP 112/80; PULSE 93; RESP 14; O2SAT 97; BMI 23.3
--- OUTSIDE RECORDS SUMMARY | 2024-06-30 11:23 | XMS_ITS | Clinical Summary ---
Author Organization [address] Address [address] [place] [phone] Phone Care Team Providers Care Livestock Buyer Name Role Phone No, Pcp (Do Not [...] GENERIC COMMERCIAL GENERIC COMMERCIAL GENERIC Care Teams Livestock Buyer Relationship Specialty Start Date End Date No, Pcp (Do Not Change Name) PCP - General 06/27/18
--- OUTSIDE RECORDS SUMMARY | 2024-06-30 11:23 | XMS_ITS | Clinical Summary ---
Author Organization [facility] ity Address [address] [place] [address] Care Team Providers Care Art Framing Manager Name Role Phone Itzel Martinez TAPE WEAVER Primary Care Provider [phone] Surgical History Surgery Date Site/Laterality Comments LITHOTRIPSY [...] age to complete this topic Care Teams Art Framing Manager Relationship Specialty Start Date End Date Itzel Martinez FNP [address] [place] [phone] PCP - General Family Medicine 05/10/18
--- OUTSIDE RECORDS SUMMARY | 2024-06-30 11:23 | XMS_ITS | Encounter Summary ---
Author Organization [facility] Address [address] [place] [phone] Care Team Providers Care Chopper Feeder Name Role Phone No, Pcp (Do Not Change Name) Primary Care Provid er Unavailable Encounter Details Date Type Department Care Team (Late st Contact Info) Description 06/26/2018 Scanned Document [facility] at [address] [place] [phone] Ramin Soares MD [address] [place] [phone] Social History Tobacco Use Types Packs/Day Years [...] on filedocumented in this encounter Care Teams Chopper Feeder Relationship Specialty Start Date End Date No, Pcp (Do Not Change Name) PCP - General 06/27/18 documented as of this encounter
--- OUTSIDE RECORDS SUMMARY | 2024-06-30 11:23 | XMS_ITS | Encounter Summary ---
Author Organization [facility] Address [address] [place] [phone] Care Team Providers Care Animal Rescuer Name Role Phone No, Pcp (Do Not Change Name) Primary Care Provid er Unavailable Encounter Details Date Type Department Care Team (Late st Contact Info) Description 10/24/2018 Scanned Document [facility] at [address] [place] [address] [phone] Ramin Soares MD [address] [place] [phone] Social History Tobacco Use Types Packs/Day Years [...] on filedocumented in this encounter Care Teams Animal Rescuer Relationship Specialty Start Date End Date No, Pcp (Do Not Change Name) PCP - General 06/27/18 documented as of this encounter
--- OUTSIDE RECORDS SUMMARY | 2024-06-30 11:23 | XMS_ITS | Clinical Summary ---
Author Organization [facility] Address [address] [place] [address] Care Team Providers Care Real Estate Teacher Name Role Phone Itzel Martinez NP Primary Care Provider [phone] Allergies Active Allergy Reactions Criticality Noted Date [...] age to complete this topic Care Teams Real Estate Teacher Relationship Specialty Start Date End Date Itzel Martinez NP [address] [place] [phone] PCP - General Family Medicine 05/10/18
--- OUTSIDE RECORDS SUMMARY | 2024-06-30 11:23 | XMS_ITS | Encounter Summary ---
Author Organization [facility] Address [address] [place] [phone] Care Team Providers Care Certified Caregiver Name Role Phone No, Pcp (Do Not Change Name) Primary Care Provid er Unavailable Encounter Details Date Type Department Care Team (Late st Contact Info) Description 06/26/2018 Scanned Document [facility] at [address] [place] [address] [phone] Ramin Soares MD [address] [place] [phone] Social History Tobacco Use Types Packs/Day Years [...] on filedocumented in this encounter Care Teams Certified Caregiver Relationship Specialty Start Date End Date No, Pcp (Do Not Change Name) PCP - General 06/27/18 documented as of this encounter
--- OUTSIDE RECORDS SUMMARY | 2024-06-30 11:23 | XMS_ITS | Encounter Summary ---
Author Organization [facility] Address [address] [place] [phone] Care Team Providers Care Industrial Laborer Name Role Phone No, Pcp (Do Not Change Name) Primary Care Provid er Unavailable Encounter Details Date Type Department Care Team (Late st Contact Info) Description 07/03/2018 Scanned Document [facility] at [address] [place] [address] [phone] Ramin Soares MD [address] [place] [phone] Social History Tobacco Use Types Packs/Day Years [...] on filedocumented in this encounter Care Teams Industrial Laborer Relationship Specialty Start Date End Date No, Pcp (Do Not Change Name) PCP - General 06/27/18 documented as of this encounter
== END 2024-06-30 11:17 | disposition home or self-care (01) ==
LOC: HO.HMCFM 10:14
PROVIDERS: PCP Internal Medicine; Visit Provider Internal Medicine
DX: M51.9 Unspecified thoracic, thoracolumbar and lumbosacral intervertebral disc disorder (principal); R10.2 Pelvic and perineal pain; M25.552 Pain in left hip

== ENCOUNTER → 2024-06-30 11:51 | Outpatient (BNV) | payer MEDICARE, SELFPAY | PROVIDERS: PCP Internal Medicine; Visit Provider Radiology Diagnostic Radiology | DX: R10.2 Pelvic and perineal pain (principal); M25.552 Pain in left hip | CPT/HCPCS: 72190; 73502; 73552 ==

== ENCOUNTER 2024-07-28 16:15 | Outpatient (REF) | payer MEDICARE, SELFPAY ==
--- NOTE | ~2024-07-28 | US_ITS ---
EXAMINATION: US KIDNEY BILATERAL HISTORY: N20.0 - Calculus of kidney TECHNIQUE: Real-time grayscale ultrasound imaging of the kidneys was performed and images were reviewed. COMPARISON: Correlation is made with the right upper quadrant ultrasound dated 08/02/2022. FINDINGS: Right kidney: The right kidney measures 7.7 x 4.4 x 4.4 cm. Renal parenchymal echotexture and thickness are normal. There are no masses. There is no hydronephrosis or renal calculi. Left Kidney: The left kidney measures 10.0 x 4.6 x 4.4 cm. Renal parenchymal echotexture and thickness are normal. There are no masses. No calculi are identified. There is mild fullness of the pelvis without definite hydronephrosis. US/US renal BI IMPRESSION: Mild fullness of the left renal pelvis. Otherwise unremarkable renal ultrasound. Electronically signed by: Vikram Avendano MD 07/30/2024 12:50 PM EDT
--- OUTSIDE RECORDS SUMMARY | 2024-07-28 18:56 | XMS_ITS | Encounter Summary ---
Author Organization [facility] Address [address] [place] [phone] Care Team Providers Care Technical Business Analyst Name Role Phone No, Pcp (Do Not Change Name) Primary Care Provid er Unavailable Encounter Details Date Type Department Care Team (Late st Contact Info) Description 10/24/2018 Scanned Document [facility] at [address] [place] [address] [phone] Ramin Soares MD [address] [place] [phone] Social History Tobacco Use Types Packs/Day Years [...] on filedocumented in this encounter Care Teams Technical Business Analyst Relationship Specialty Start Date End Date No, Pcp (Do Not Change Name) PCP - General 06/27/18 documented as of this encounter
--- OUTSIDE RECORDS SUMMARY | 2024-07-28 18:56 | XMS_ITS | Encounter Summary ---
Author Organization [facility] Address [address] [place] [phone] Care Team Providers Care Registered Physical Therapist Name Role Phone No, Pcp (Do Not Change Name) Primary Care Provid er Unavailable Encounter Details Date Type Department Care Team (Late st Contact Info) Description 06/26/2018 Scanned Document [facility] at [address] [place] [address] [phone] Ramin Soares MD [address] [place] [phone] Social History Tobacco Use Types Packs/Day Years [...] on filedocumented in this encounter Care Teams Registered Physical Therapist Relationship Specialty Start Date End Date No, Pcp (Do Not Change Name) PCP - General 06/27/18 documented as of this encounter
--- OUTSIDE RECORDS SUMMARY | 2024-07-28 18:56 | XMS_ITS | Clinical Summary ---
Author Organization [address] Address [address] [place] [phone] Phone Care Team Providers Care Mental Health Assistant Name Role Phone No, Pcp (Do [...] cancer screening, Colonoscopy 08/10/2020 Diabetes screening 08/10/2020 Covid-19 vaccine series ( - 2023-25 season) 2023 Influenza vaccine 12/01/2024 RSV Immunization (1 - 1-dose 75+ series) 08/10/2050 Meningococcal Vaccine Aged Out No mars rory eligible based on patient's age to complete this topic Pneumococcal Vaccine (2 - 49 years) Aged Out No longer eligible based on patient's age to complete this topic Insurance COMMERCIAL GENERIC COMMERCIAL GENERIC COMMERCIAL GENERIC Care Teams Mental Health Assistant Relationship Specialty Start Date End Date No, Pcp (Do Not Change Name) PCP - General 06/27/18
--- OUTSIDE RECORDS SUMMARY | 2024-07-28 18:56 | XMS_ITS | Clinical Summary ---
Author Organization [facility] Address [address] [place] [address] Care Team Providers Care Route Sales Specialist Name Role Phone Itzel Martinez NP Primary Care Provider [phone] Allergies Active Allergy Reactions Criticality Noted Date [...] age to complete this topic Care Teams Route Sales Specialist Relationship Specialty Start Date End Date Itzel Martinez NP [address] [place] [phone] PCP - General Family Medicine 05/10/18
--- OUTSIDE RECORDS SUMMARY | 2024-07-28 18:56 | XMS_ITS | Encounter Summary ---
Author Organization [facility] Address [address] [place] [phone] Care Team Providers Care Scholastic Aptitude Test Grader Name Role Phone No, Pcp (Do Not Change Name) Primary Care Provid er Unavailable Encounter Details Date Type Department Care Team (Late st Contact Info) Description 06/26/2018 Scanned Document [facility] [address] [place] [phone] Ramin Soares MD [address] [place] [phone] Social History Tobacco Use Types Packs/Day Years [...] on filedocumented in this encounter Care Teams Scholastic Aptitude Test Grader Relationship Specialty Start Date End Date No, Pcp (Do Not Change Name) PCP - General 06/27/18 documented as of this encounter
--- OUTSIDE RECORDS SUMMARY | 2024-07-28 18:56 | XMS_ITS | Encounter Summary ---
Author Organization [facility] Address [address] [place] [phone] Care Team Providers Care Cigarette Examiner Name Role Phone No, Pcp (Do Not Change Name) Primary Care Provid er Unavailable Encounter Details Date Type Department Care Team (Late st Contact Info) Description 07/03/2018 Scanned Document [facility] at [address] [place] [phone] Ramin Soares MD [address] [place] [phone] Social History Tobacco Use Types Packs/Day Years [...] on filedocumented in this encounter Care Teams Cigarette Examiner Relationship Specialty Start Date End Date No, Pcp (Do Not Change Name) PCP - General 06/27/18 documented as of this encounter
--- OUTSIDE RECORDS SUMMARY | 2024-07-28 18:56 | XMS_ITS | Clinical Summary ---
Author Organization [facility] ity Address [address] [place] [address] Care Team Providers Care Last Marker Name Role Phone Itzel Martinez Primary Care Provider [phone] Surgical History Surgery Date Site/Laterality Comments LITHOTRIPSY [...] - 2023-2 5 season) 2023 Influenza Vaccine (Season Ended) 2024 HIB Vaccines Aged Out No longer eligi [...] age to complete this topic Meningococcal B Vaccine Aged Out No l onger eligible based on patient's age to complete [...] age to complete this topic Care Teams Last Marker Relationship Specialty Start Date End Date Itzel Martinez FNP [address] [place] [phone] PCP - General Family Medicine 05/10/18
== END 2024-07-28 16:16 | disposition home or self-care (01) ==
LOC: HO.US 16:15
PROVIDERS: PCP Internal Medicine; Visit Provider Urology
DX: N20.0 Calculus of kidney (principal)
CPT/HCPCS: 76775

== ENCOUNTER → 2024-07-28 16:18 | Outpatient (BNV) | payer MEDICARE, SELFPAY | PROVIDERS: PCP Internal Medicine; Visit Provider Radiology Diagnostic Radiology | DX: N20.0 Calculus of kidney (principal) | CPT/HCPCS: 76775 ==

== ENCOUNTER 2024-07-29 09:16 | Outpatient (AMB) | payer MEDICARE, SELFPAY ==
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
[2024-07-29 09:28] VITALS: BP 96/70; PULSE 74; RESP 12; O2SAT 97; BMI 23.9
--- OUTSIDE RECORDS SUMMARY | 2024-07-29 10:06 | XMS_ITS | Encounter Summary ---
Author Organization [facility] Address [address] [place] [phone] Care Team Providers Care Canvas Baster Jumpbasting Name Role Phone No, Pcp (Do Not Change Name) Primary Care Provid er Unavailable Encounter Details Date Type Department Care Team (Late st Contact Info) Description 10/24/2018 Scanned Document [facility] at [address] [place] [address] [phone] Ramin Soares MD [address] [place] [phone] Social History Tobacco Use Types Packs/Day Years [...] on filedocumented in this encounter Care Teams Canvas Baster Jumpbasting Relationship Specialty Start Date End Date No, Pcp (Do Not Change Name) PCP - General 06/27/18 documented as of this encounter
--- OUTSIDE RECORDS SUMMARY | 2024-07-29 10:06 | XMS_ITS | Clinical Summary ---
Author Organization [facility] ity Address [address] [place] [address] Care Team Providers Care Agile Tester Name Role Phone Itzel Martinez Primary Care Provider [phone] Surgical History Surgery Date Site/Laterality Comments LITHOTRIPSY [...] age to complete this topic Care Teams Agile Tester Relationship Specialty Start Date End Date Itzel Martinez FNP [address] [place] [phone] PCP - General Family Medicine 05/10/18
--- OUTSIDE RECORDS SUMMARY | 2024-07-29 10:06 | XMS_ITS | Clinical Summary ---
Author Organization [address] Address [address] [place] [phone] Phone Care Team Providers Care Patient Care Nursing Assistant Name Role Phone No, Pcp (Do [...] GENERIC COMMERCIAL GENERIC COMMERCIAL GENERIC Care Teams Patient Care Nursing Assistant Relationship Specialty Start Date End Date No, Pcp (Do Not Change Name) PCP - General 06/27/18
--- OUTSIDE RECORDS SUMMARY | 2024-07-29 10:06 | XMS_ITS | Encounter Summary ---
Author Organization [facility] Address [address] [place] [phone] Care Team Providers Care Obstetrics Tech Name Role Phone No, Pcp (Do Not Change Name) Primary Care Provid er Unavailable Encounter Details Date Type Department Care Team (Late st Contact Info) Description 07/03/2018 Scanned Document [facility] at [address] [place] [phone] Ramin Soares MD [address] [place] [phone] Social History Tobacco Use Types Packs/Day Years [...] on filedocumented in this encounter Care Teams Obstetrics Tech Relationship Specialty Start Date End Date No, Pcp (Do Not Change Name) PCP - General 06/27/18 documented as of this encounter
--- OUTSIDE RECORDS SUMMARY | 2024-07-29 10:06 | XMS_ITS | Clinical Summary ---
Author Organization [facility] Address [address] [place] [address] Care Team Providers Care Firmware Test Engineer Name Role Phone Itzel Martinez NP Primary Care Provider [phone] Allergies Active Allergy Reactions Criticality Noted Date [...] age to complete this topic Care Teams Firmware Test Engineer Relationship Specialty Start Date End Date Itzel Martinez NP [address] [place] [phone] PCP - General Family Medicine 05/10/18
--- OUTSIDE RECORDS SUMMARY | 2024-07-29 10:06 | XMS_ITS | Encounter Summary ---
Author Organization [facility] Address [address] [place] [phone] Care Team Providers Care Horseback Riding Instructor Name Role Phone No, Pcp (Do Not Change Name) Primary Care Provid er Unavailable Encounter Details Date Type Department Care Team (Late st Contact Info) Description 06/26/2018 Scanned Document [facility] at [address] [place] [address] [phone] Ramin Soares MD [address] [place] [phone] Social History Tobacco Use Types Packs/Day Years [...] on filedocumented in this encounter Care Teams Horseback Riding Instructor Relationship Specialty Start Date End Date No, Pcp (Do Not Change Name) PCP - General 06/27/18 documented as of this encounter
--- OUTSIDE RECORDS SUMMARY | 2024-07-29 10:06 | XMS_ITS | Encounter Summary ---
Author Organization [facility] Address [address] [place] [phone] Care Team Providers Care Bulk Folder Name Role Phone No, Pcp (Do Not Change Name) Primary Care Provid er Unavailable Encounter Details Date Type Department Care Team (Late st Contact Info) Description 06/26/2018 Scanned Document [facility] at [address] [place] [phone] Ramin Soares MD [address] [place] [phone] Social History Tobacco Use Types Packs/Day Years [...] on filedocumented in this encounter Care Teams Bulk Folder Relationship Specialty Start Date End Date No, Pcp (Do Not Change Name) PCP - General 06/27/18 documented as of this encounter
== END 2024-07-29 09:59 | disposition home or self-care (01) ==
LOC: HO.HMCFM 09:17
PROVIDERS: PCP Internal Medicine; Visit Provider Internal Medicine
DX: S73.12 Ischiocapsular (ligament) sprain of hip (principal); M67.951 Unspecified disorder of synovium and tendon, right thigh

== ENCOUNTER → 2024-07-29 09:16 | Outpatient (BNVA) | payer MEDICARE, SELFPAY | PROVIDERS: PCP Internal Medicine; Visit Provider Internal Medicine | DX: S73.12 Ischiocapsular (ligament) sprain of hip (principal); M67.951 Unspecified disorder of synovium and tendon, right thigh; M25.552 Pain in left hip; K58.9 Irritable bowel syndrome, unspecified; W01.0XXD Fall on same level from slipping, tripping and stumbling without subsequent striking against object, subsequent encounter | CPT/HCPCS: 99212 ==

== ENCOUNTER 2024-08-08 09:51 | Outpatient (AMB) | payer MEDICARE, SELFPAY ==
--- NOTE | 2024-08-08 10:06 | A.SPINEOV_ITS ---
Intake Visit Reasons: intervertebral disc disorder Intake Note: Ms. Rocha is here today c/o low back pain. 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 The pain is severe 12/10. The pain started after a fall with the mall on 06/20/2024. She fell on a puddle of water and since that time she is significantly reduced in her daily activities. ADL activities are hard to perform. She can not walk for prolonged distances. She states that she has numbness especially on the frontal side of her thighs. An electric shocks down predominantly her left leg. In the past, she was seen by Dr. Dickinson for neck problems and apparently she was offered an anterior diskectomy and fusion. She states that she has neck pain and difficulty using her arms. She has been trying all forms of conservative treatments. 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 She is currently also in physical therapy. She is involved in a lawsuit. PMH: Prediabetes, polymyalgia, polyarthralgia, right shoulder pain, right shoulder pain Medications: Atorvastatin, famotidine, meloxicam, valacyclovir Allergies: Erythromycin Social history: Nonsmoker. Two children. Physical Exam: She is able to get out of the chair without difficulties. She walks with small steps. She states it hurts in her lower back. Straight leg raise is negative bilaterally. There is grade 4/5 weakness of the right deltoid muscle. Remainder of muscle exam is intact. Sensory exam reviews diffuse numbness of her right leg and left anterior thigh. In fact, there is a sensory level approximately at T4. Reflexes are symmetrically intact. No pathological reflexes. Radiological Studies: MRI of the lumbar spine done at [facility] on 07/09/2024 shows mild degenerative changes. More importantly, there is no nerve or central canal stenosis. An MRI of the cervical spine of 02/16/2023 shows hyperintense signal in the dorsal spinal cord at C5-C6. There is no spinal cord compression. Impression/Plan: This patient has diffuse back pain, difficulty walking and bilateral leg pains with numbness without a surgical abnormality on the MRI. When I tried to explain to the patient that I am not able to help her surgically she got defensive and aggressive. She accused me of only asking if she had a lawsuit pendin and not examining her either. Both accusations were falls. She wanted to have a treatment plan. She is already doing all forms of conservative management and I again explained to her that I do not see he has surgical abnormality. She made various more accusations of me being a bad surgeon and that she will make sure I do not have a 5 star review anymore by putting up a bad review. She also accused me of working together with the insurance companies to make sure that she will not get paid any money. I told her I do not accept this aggressive behavior just because she was not satisfied with my answer that surgery is not indicated. She states she will go to [facility] and I hope she will find what she is looking for. She has just started from further follow-up. Thank you for allowing me to participate in your patients care. total time spent was 50 minutes in counseling ,coordination of plan, personal review of imaging, surgical decision making and subsequent plan Linden Segal MD, PhD Spine Fellowship Trained Neurosurgeon Director, [facility] Coding Level of Care Code New Pt Level 4 (62085) Diagnoses Acute bilateral back pain M54.9
--- OUTSIDE RECORDS SUMMARY | 2024-08-08 10:13 | XMS_ITS | Encounter Summary ---
Author Organization [facility] Address [address] [place] [phone] Care Team Providers Care Food And Beverage Director Name Role Phone No, Pcp (Do Not Change Name) Primary Care Provid er Unavailable Encounter Details Date Type Department Care Team (Late st Contact Info) Description 06/26/2018 Scanned Document [facility] at [address] [place] [address] [phone] Ramin Soares MD [address] [place] [phone] Social History Tobacco Use Types Packs/Day Years [...] on filedocumented in this encounter Care Teams Food And Beverage Director Relationship Specialty Start Date End Date No, Pcp (Do Not Change Name) PCP - General 06/27/18 documented as of this encounter
--- OUTSIDE RECORDS SUMMARY | 2024-08-08 10:13 | XMS_ITS | Clinical Summary ---
Author Organization [facility] Address [address] [place] [address] Care Team Providers Care Office Mover Name Role Phone Itzel Martinez NP Primary Care Provider [phone] Allergies Active Allergy Reactions Criticality Noted Date [...] age to complete this topic Care Teams Office Mover Relationship Specialty Start Date End Date Itzel Martinez NP [address] [place] [phone] PCP - General Family Medicine 05/10/18
--- OUTSIDE RECORDS SUMMARY | 2024-08-08 10:13 | XMS_ITS | Clinical Summary ---
Author Organization [address] Address [address] [place] [phone] Phone Care Team Providers Care Web Design Specialist Name Role Phone No, Pcp (Do Not [...] GENERIC COMMERCIAL GENERIC COMMERCIAL GENERIC Care Teams Web Design Specialist Relationship Specialty Start Date End Date No, Pcp (Do Not Change Name) PCP - General 06/27/18
--- OUTSIDE RECORDS SUMMARY | 2024-08-08 10:13 | XMS_ITS | Encounter Summary ---
Author Organization [facility] Address [address] [place] [phone] Care Team Providers Care Vice President Talent Management Name Role Phone No, Pcp (Do Not Change Name) Primary Care Provid er Unavailable Encounter Details Date Type Department Care Team (Late st Contact Info) Description 07/03/2018 Scanned Document [facility] at [address] [place] [address] [phone] Ramin Soares MD [address] [place] [phone] Social History Tobacco Use Types Packs/Day Years [...] on filedocumented in this encounter Care Teams Vice President Talent Management Relationship Specialty Start Date End Date No, Pcp (Do Not Change Name) PCP - General 06/27/18 documented as of this encounter
--- OUTSIDE RECORDS SUMMARY | 2024-08-08 10:13 | XMS_ITS | Clinical Summary ---
Author Organization [facility] ity Address [address] [place] [address] Care Team Providers Care Poultry Sexer Name Role Phone Itzel Martinez Primary Care Provider [phone] Surgical History Surgery Date Site/Laterality Comments LITHOTRIPSY [...] age to complete this topic Care Teams Poultry Sexer Relationship Specialty Start Date End Date Itzel Martinez FNP [address] [place] [phone] PCP - General Family Medicine 05/10/18
--- OUTSIDE RECORDS SUMMARY | 2024-08-08 10:13 | XMS_ITS | Encounter Summary ---
Author Organization [facility] and [facility] Address [address] [place] [phone] Care Team Providers Care Cartography/Mapping Technician Name Role Phone No, Pcp (Do Not Change Name) Primary Care Provid er Unavailable Encounter Details Date Type Department Care Team (Late st Contact Info) Description 10/24/2018 Scanned Document [facility] at [address] [place] [phone] Ramin Soares MD [address] [place] [phone] Social History Tobacco Use Types Packs/Day Years [...] on filedocumented in this encounter Care Teams Cartography/Mapping Technician Relationship Specialty Start Date End Date No, Pcp (Do Not Change Name) PCP - General 06/27/18 documented as of this encounter
--- OUTSIDE RECORDS SUMMARY | 2024-08-08 10:13 | XMS_ITS | Encounter Summary ---
Author Organization [facility] and [facility] Address [address] [place] [phone] Care Team Providers Care Ferry Terminal Supervisor Name Role Phone No, Pcp (Do Not Change Name) Primary Care Provid er Unavailable Encounter Details Date Type Department Care Team (Late st Contact Info) Description 06/26/2018 Scanned Document [facility] at [address] [place] [address] [phone] Ramin Soares MD [address] [place] [phone] Social History Tobacco Use Types Packs/Day Years [...] on filedocumented in this encounter Care Teams Ferry Terminal Supervisor Relationship Specialty Start Date End Date No, Pcp (Do Not Change Name) PCP - General 06/27/18 documented as of this encounter
== END 2024-08-08 10:31 | disposition home or self-care (01) ==
LOC: HO.HNS 09:52
PROVIDERS: PCP Internal Medicine; Visit Provider Neurological Surgery
DX: M54.9 Dorsalgia, unspecified (principal)
CPT/HCPCS: 99204

== ENCOUNTER → 2024-08-08 09:51 | Outpatient (BNVA) | payer MEDICARE, SELFPAY | PROVIDERS: PCP Internal Medicine; Visit Provider Neurological Surgery | DX: M54.9 Dorsalgia, unspecified (principal) | CPT/HCPCS: 99202 ==

== ENCOUNTER 2024-08-18 14:29 | Outpatient (AMB) | payer MEDICARE, SELFPAY ==
--- OUTSIDE RECORDS SUMMARY | 2024-08-18 14:33 | XMS_ITS | Encounter Summary ---
Author Organization [facility] Address [address] [place] [phone] Care Team Providers Care Photo Mask Cleaner Name Role Phone No, Pcp (Do Not Change Name) Primary Care Provid er Unavailable Encounter Details Date Type Department Care Team (Late st Contact Info) Description 10/24/2018 Scanned Document [facility] at [address] [place] [address] [phone] Ramin Soares MD [address] [place] [phone] Social History Tobacco Use Types Packs/Day Years [...] on filedocumented in this encounter Care Teams Photo Mask Cleaner Relationship Specialty Start Date End Date No, Pcp (Do Not Change Name) PCP - General 06/27/18 documented as of this encounter
--- OUTSIDE RECORDS SUMMARY | 2024-08-18 14:33 | XMS_ITS | Encounter Summary ---
Author Organization [facility] and [facility] Address [address] [place] [phone] Care Team Providers Care Document Reviewer Name Role Phone No, Pcp (Do Not Change Name) Primary Care Provid er Unavailable Encounter Details Date Type Department Care Team (Late st Contact Info) Description 06/26/2018 Scanned Document [facility] at [address] [place] [address] [phone] Ramin Soares MD [address] [place] [phone] Social History Tobacco Use Types Packs/Day Years [...] on filedocumented in this encounter Care Teams Document Reviewer Relationship Specialty Start Date End Date No, Pcp (Do Not Change Name) PCP - General 06/27/18 documented as of this encounter
--- OUTSIDE RECORDS SUMMARY | 2024-08-18 14:33 | XMS_ITS | Encounter Summary ---
Author Organization [facility] Address [address] [place] [phone] Care Team Providers Care Telephone Worker Name Role Phone No, Pcp (Do Not Change Name) Primary Care Provid er Unavailable Encounter Details Date Type Department Care Team (Late st Contact Info) Description 07/03/2018 Scanned Document [facility] at [address] [place] [address] [phone] Ramin Soares MD [address] [place] [phone] Social History Tobacco Use Types Packs/Day Years [...] on filedocumented in this encounter Care Teams Telephone Worker Relationship Specialty Start Date End Date No, Pcp (Do Not Change Name) PCP - General 06/27/18 documented as of this encounter
--- OUTSIDE RECORDS SUMMARY | 2024-08-18 14:33 | XMS_ITS | Clinical Summary ---
Author Organization [facility] Address [address] [place] [address] Care Team Providers Care Outside Machinist Supervisor Name Role Phone Itzel Martinez NP Primary Care Provider [phone] Allergies Active Allergy Reactions Criticality Noted Date [...] age to complete this topic Care Teams Outside Machinist Supervisor Relationship Specialty Start Date End Date Itzel Martinez NP [address] [place] [phone] PCP - General Family Medicine 05/10/18
--- OUTSIDE RECORDS SUMMARY | 2024-08-18 14:33 | XMS_ITS | Clinical Summary ---
Author Organization [facility] ity Address [address] [place] [address] Care Team Providers Care Auto Hiker Name Role Phone Itzel Martinez Primary Care Provider [phone] Surgical History Surgery Date Site/Laterality Comments LITHOTRIPSY [...] age to complete this topic Care Teams Auto Hiker Relationship Specialty Start Date End Date Itzel Martinez FNP [address] [place] [phone] PCP - General Family Medicine 05/10/18
--- OUTSIDE RECORDS SUMMARY | 2024-08-18 14:33 | XMS_ITS | Clinical Summary ---
Author Organization [address] Address [address] [place] [phone] Phone Care Team Providers Care Professional Poker Player Name Role Phone No, Pcp (Do Not [...] GENERIC COMMERCIAL GENERIC COMMERCIAL GENERIC Care Teams Professional Poker Player Relationship Specialty Start Date End Date No, Pcp (Do Not Change Name) PCP - General 06/27/18
--- OUTSIDE RECORDS SUMMARY | 2024-08-18 14:33 | XMS_ITS | Encounter Summary ---
Author Organization [facility] and [facility] Address [address] [place] [phone] Care Team Providers Care Exotic Dancer Name Role Phone No, Pcp (Do Not Change Name) Primary Care Provid er Unavailable Encounter Details Date Type Department Care Team (Late st Contact Info) Description 06/26/2018 Scanned Document [facility] at [address] [place] [address] [phone] Ramin Soares MD [address] [place] [phone] Social History Tobacco Use Types Packs/Day Years [...] on filedocumented in this encounter Care Teams Exotic Dancer Relationship Specialty Start Date End Date No, Pcp (Do Not Change Name) PCP - General 06/27/18 documented as of this encounter
--- NOTE | 2024-08-18 14:49 | MHC.OFFVIS ---
Intake Visit Reasons: Cysto/ US Intake Note: Patient presents today for a cystoscopy/US follow up Renal US 07/28 Urology Medication:none Blood Thinner:none Antibiotic Allergies:Sulfa Allergies erythromycin base Allergy (Verified 08/18/24 14:50) Rash Sulfa (Sulfonamide Antibiotics) Allergy (Verified 08/18/24 14:50) Rash Medication List - Last Reconciled 08/18/24 by Lindsey Kim MD acetaminophen (Tylenol Extra Strength) 500 mg PO Q6H PRN albuterol sulfate 90 mcg/actuation inhalation atorvastatin 20 mg PO DAILY famotidine 40 mg PO DAILY meloxicam 15 mg PO DAILY valacyclovir 4,000 mg PO ONCE vibegron (Gemtesa) 75 mg PO DAILY HPI Comments Details: 08/18/24--here for office cystoscopy. Yulisa was initially evaluated on 06/26/24 with complaints of urinary incontinence and hematuria. Cystoscopy findings-within normal limits. Discussed trial of gemtesa for lower urinary tract symptoms. Results: Renal US- Within normal limits: mild fullness of the pelvis left kidney, without definite hydronephrosis, not clinically significant. PFSH Medical History Broken bones Anxiety Asthma Rupture of rotator cuff of shoulder Back pain Neck pain GIANNA positive Herniated disc, cervical Back disorder High cholesterol Kidney stones Surgical History H/O knee surgery H/O lumpectomy Family History Mother Cancer Hypertension Paternal Grandfather Cancer Paternal Grandmother Cancer Diabetes Father Hypertension High cholesterol Cardiovascular disease Social History Household Members: None Both parents involved: No Caregiver staying overnight: No Housing: House Are you a primary resident care director to a significant other at home: No Do you presently have visiting nurse or other home services: No 75 years or older and lives alone: No Alcohol intake: current Alcohol intake frequency: a few times a week Patient Tobacco Use Status: Never used Tobacco e-Cigarette/Vaping Use: Never Used Second Hand Smoke Exposure: No Current occupational status: disabled Cognitive needs: No Hearing needs: No Vision needs: No Review of Systems Const All systems reviewed & are unremarkable except as noted in HPI and below Reports no additional complaints Eyes Reports no additional complaints ENT Reports no additional complaints Card Reports no additional complaints Resp Reports no additional complaints GI Reports no additional complaints Reports as per HPI Musc Reports no additional complaints Skin/Breast Reports system reviewed and no additional complaints, except as documented Neuro Reports no additional complaints Psych Reports no additional complaints Endo Reports no additional complaints Gian/Lymph Reports no additional complaints Aller/Immun Reports no additional complaints Office Procedures Cystoscopy Consent Discussed risk and benefit or proposed procedure with the patient. Information consent for procedure given to the patient. Discussed technical aspects, risks, benefits and alternatives in full. Addressed all of the patient's questions and concerns regarding the procedure. The patient demonstrated knowledge and understanding. They wish to proceed with this procedure. Preparation The patient was prepped in the usual manner. A analytics senior manager was present and in the room. Genitalia was prepped with betadine solution in a sterile manner. Lidocaine Jelly 2% was placed into the urethra and 16Fr flexible Olympus cystoscope was inserted into the meatus after adequate lubrication. Procedure Time out per protocol performed. Speculum used as indicated for adequate visualization of urethra, the flexible cystoscope is passed transurethrally: The bladder was inspected in its entirety with utilization retroflexion displaying: Tumor(s): no suspicious bladder lesions visualized Trabeculation: NA Mucosal Erthema: NA Orifices: normal shape and position Urethra: normal Cystoscopy findings: WNL [id number] DISPOSABLE SCOPE URO-G FLEXIBLE SCOPE Procedure code (CPT) selection complete Office Meds lidocaine HCl 2 % mucosal jelly in applicator Performing Provider: Lindsey Kim MD [facility] Administered by: Tigre Roberts LPN on 08/18/24 15:07 Dose Route Admin Location Dispensed Lot Number Expiration Date [facility] Critical Care Unit Nurse 10 mL intra-urethral 20 mL ciprofloxacin HCl 500 mg tablet Performing Provider: Lindsey Kim MD Performing [facility] Administered by: Tigre Roberts LPN on 08/18/24 15:07 Dose Route Admin Location Dispensed Lot Number Expiration Date [facility] Critical Care Unit Nurse 500 mg PO 1 tab phenazopyridine 200 mg tablet Performing Provider: Lindsey Kim MD Per[facility] Administered by: Tigre Roberts LPN on 08/18/24 15:07 Dose Route Admin Location Dispensed Lot Number Expiration Date [facility] Critical Care Unit Nurse 200 mg PO 1 tab Results AMB Urinalysis, Automated UA Leukoctes 0 Elías/uL Last Edit by Crystal Shelton on 08/18/24 16:38 UA Nitrite Negative Last Edit by Crystal Shelton on 08/18/24 16:38 UA Urobilinogen 3.5 mg/dL Last Edit by Crystal Shelton on 08/18/24 16:38 UA Protein 0 mg/dL Last Edit by Crystal Shelton on 08/18/24 16:38 UA pH 6.0 Last Edit by Crystal Shelton on 08/18/24 16:38 UA Blood 200 Miguel/uL Last Edit by Crystal Shelton on 08/18/24 16:38 UA Specific Hubbard 1.015 Last Edit by Crystal Shelton on 08/18/24 16:38 UA Ketone Negative Last Edit by Crystal Shelton on 08/18/24 16:38 UA Bilirubin 0 mg/dL Last Edit by Crystal Shelton on 08/18/24 16:38 UA Glucose 0 mg/dL Last Edit by Crystal Shelton on 08/18/24 16:38 Results Reviewed Results Reviewed: Laboratory Last Values Urine pH (Auto) 6.0 08/18/24 15:01 Specific Hubbard (Auto) 1.015 08/18/24 15:01 Urine Protein (Auto) 0 mg/dL 08/18/24 15:01 Glucose (UA)(Auto) 0 mg/dL 08/18/24 15:01 Urine Ketones (Auto) Negative 08/18/24 15:01 Urine Blood (Auto) 200 Miguel/uL 08/18/24 15:01 Urine Nitrite (Auto) Negative 08/18/24 15:01 Urine Bilirubin (Auto) 0 mg/dL 08/18/24 15:01 Urine Urobilinogen (Auto) 3.5 mg/dL 08/18/24 15:01 Leukocyte Esterase (Auto) 0 Elías/uL 08/18/24 15:01 Date of Service: 07/28/24 EXAMINATION: US KIDNEY BILATERAL HISTORY: N20.0 - Calculus of kidney TECHNIQUE: Real-time grayscale ultrasound imaging of the kidneys was performed and images were reviewed. COMPARISON: Correlation is made with the right upper quadrant ultrasound dated 08/02/2022. FINDINGS: Right kidney: The right kidney measures 7.7 x 4.4 x 4.4 cm. Renal parenchymal echotexture and thickness are normal. There are no masses. There is no hydronephrosis or renal calculi. Left Kidney: The left kidney measures 10.0 x 4.6 x 4.4 cm. Renal parenchymal echotexture and thickness are normal. There are no masses. No calculi are identified. There is mild fullness of the pelvis without definite hydronephrosis. IMPRESSION: Mild fullness of the left renal pelvis. Otherwise unremarkable renal ultrasound. Assessment & Plan Assessment & Plan (1) Urinary incontinence: Code(s): R32 - Unspecified urinary incontinence Category: Medical (2) Hematuria: Code(s): R31.9 - Hematuria, unspecified Category: Medical Plan gemtesa 75 mg daily Orders: Orders AMB Cystoscopy 08/18/24 R31.29 - Other microscopic hematuria AMB Urinalysis Automated 08/18/24 Z13.9 - Encounter for screening, unspecified Medications: New vibegron (Gemtesa) 75 mg PO DAILY 90 tabs 3RF meloxicam 15 mg PO DAILY 14 tabs 0RF Patient Instructions: The patient had an opportunity to ask questions regarding treatment plan. The patient expressed understanding and agreement with the above treatment plan. The patient is aware they should contact our office by phone for worsening of their current condition or the appearance of new symptoms. Compliance is encouraged with any medications and followup testing that is ordered. It is a privilege to be allowed the opportunity to participate in the urologic care of your patient. If you have any questions or concerns regarding treatment for the above conditions please do not hesitate to contact me. The office telephone contact is [phone]. This note is constructed in part using voice recognition software. While every effort has been made to ensure accuracy doctor of dental medicine errors may have been included. Yours sincerely, Lindsey Kim MD Coding Level of Care Code Est Pt Level 4 (78931) Diagnoses Urinary incontinence R32 Hematuria R31.9 CPT Codes Cystoscopy - CPT: 74370-[id number] ([id number])
== END 2024-08-18 16:10 | disposition home or self-care (01) ==
LOC: HO.HUSH 14:30
PROVIDERS: PCP Internal Medicine; Visit Provider Urology
DX: R31.29 Other microscopic hematuria (principal); Z13.9 Encounter for screening, unspecified
CPT/HCPCS: 52000; 99214

== ENCOUNTER → 2024-08-18 14:29 | Outpatient (BNVA) | payer MEDICARE, SELFPAY | PROVIDERS: PCP Internal Medicine; Visit Provider Urology | DX: R32 Unspecified urinary incontinence (principal); R31.9 Hematuria, unspecified | CPT/HCPCS: 52000; 81003; 99212 ==

== ENCOUNTER 2024-10-09 11:02 | Outpatient (AMB) | payer MEDICARE, SELFPAY ==
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
[2024-10-09 11:23] VITALS: BP 115/80; PULSE 71; O2SAT 99; BMI 24.3
--- OUTSIDE RECORDS SUMMARY | 2024-10-09 11:45 | XMS_ITS | Clinical Summary ---
Author Organization [facility] ity Address [address] [place] [address] Care Team Providers Care Casing Cleaner Name Role Phone Itzel Martinez AUDIO NARRATOR Primary Care Provider [phone] Surgical History Surgery Date Site/Laterality Comments LITHOTRIPSY [...] 2023-2 5 season) 2023 Influenza Vaccine (#1) 2024 HIB Vaccines Aged Out No longer [...] 5 Years) and At-Risk Patients (6 to 49 Years) Aged Out No longer eligible b ased on patient's age to complete this topic RSV Immunization Patients Un génesis 20 months Aged Out No longer eligible b ased on patient's age to complete this topic Varicella Vaccines Aged Out No longer eligible based on patient's age to complete this topic Care Teams Casing Cleaner Relationship Specialty Start Date End Date Itzel Martinez FNP [address] [place] [phone] PCP - General Family Medicine 05/10/18
--- OUTSIDE RECORDS SUMMARY | 2024-10-09 11:45 | XMS_ITS | Clinical Summary ---
Author Organization [facility] Address [address] [place] [address] Care Team Providers Care Cw Operator Name Role Phone Itzel Martinez NP Primary Care Provider [phone] Allergies Active Allergy Reactions Criticality Noted Date [...] AM EDT Pulse - - Temperature 36.8 C (98.2 F) 02/09/2020 1:09 PM EST Respiratory Rate - - Oxygen Saturation - [...] Cancer Screening (Colonoscopy) 08/10/2020 Influenza Vaccine (#1) 2024 Pneumococcal Vaccine Aged Out No long er eligible based on patient's age to complete this topic RSV Ped < 20 months Aged Out No longe r eligible based on patient's age to complete this topic Care Teams Cw Operator Relationship Specialty Start Date End Date Itzel Martinez NP [address] [place] [phone] PCP - General Family Medicine 05/10/18
--- OUTSIDE RECORDS SUMMARY | 2024-10-09 11:45 | XMS_ITS | Clinical Summary ---
Author Organization [address] Address [address] [place] [phone] Phone Care Team Providers Care Synthetic Chemist Name Role Phone No, Pcp (Do Not [...] GENERIC COMMERCIAL GENERIC COMMERCIAL GENERIC Care Teams Synthetic Chemist Relationship Specialty Start Date End Date No, Pcp (Do Not Change Name) PCP - General 06/27/18
== END 2024-10-09 12:14 | disposition home or self-care (01) ==
LOC: HO.RHE 11:03
PROVIDERS: PCP Internal Medicine; Visit Provider Student in an Organized Health Care Education/Training Program
DX: R76.8 Other specified abnormal immunological findings in serum (principal)
CPT/HCPCS: 99205

== ENCOUNTER → 2024-10-09 11:02 | Outpatient (BNVA) | payer MEDICARE, SELFPAY | PROVIDERS: PCP Internal Medicine; Visit Provider Student in an Organized Health Care Education/Training Program | DX: R76.8 Other specified abnormal immunological findings in serum (principal) | CPT/HCPCS: 99202 ==

== ENCOUNTER 2024-10-09 12:18 | Outpatient (REF) | payer MEDICARE, SELFPAY ==
[2024-10-09 13:08] LABS: Appearance Urine Clear; Glucose Urine UA Negative (Negative); PH >= 9.0 (5.0-9.0); Specific Gravity - Urine 1.020 (1.005-1.025); UMIC TRIGGER UA YES
[2024-10-09 13:31] LABS: Total Protein Urine Random < 7 mg/dL (<12)
[2024-10-10 19:18] LABS: SM/Ribonucleoprotein Ab <1.0 NEG AI (<1.0 NEG); Smith Protein <1.0 NEG AI (<1.0 NEG)
== END 2024-10-09 12:19 | disposition home or self-care (01) ==
LOC: HO.10HDL 12:18
PROVIDERS: Visit Provider Student in an Organized Health Care Education/Training Program
DX: R76.8 Other specified abnormal immunological findings in serum (principal)
CPT/HCPCS: 36415; 81001; 82570; 84156; 85652; 86140; 86160; 86225; 86235

== ENCOUNTER 2024-10-23 15:20 | Outpatient (AMB) | payer MEDICARE, SELFPAY ==
--- OUTSIDE RECORDS SUMMARY | 2024-10-23 15:24 | XMS_ITS | Clinical Summary ---
Author Organization [facility] Address [address] [place] [address] Care Team Providers Care Boat Motor Mechanic Name Role Phone Itzel Martinez NP Primary Care Provider [phone] Allergies Active Allergy Reactions Criticality Noted Date [...] age to complete this topic Care Teams Boat Motor Mechanic Relationship Specialty Start Date End Date Itzel Martinez NP [address] [place] [phone] PCP - General Family Medicine 05/10/18
--- OUTSIDE RECORDS SUMMARY | 2024-10-23 15:24 | XMS_ITS | Clinical Summary ---
Author Organization [facility] ity Address [address] [place] [address] Care Team Providers Care Seam Stayer Name Role Phone Itzel Martinez PRODUCTION COORDINATOR Primary Care Provider [phone] Surgical History Surgery Date Site/Laterality Comments LITHOTRIPSY [...] Smear 08/10/1996 Colorectal Cancer Screening: Colonoscopy 03/05/2022 HIV Screening 03/05/2022 Hepatitis C Screening 03/05/2022 Social Influencers of Health Screening 03/05/2022 COVID-19 Vaccine ( - 2023-2 5 season) 2023 Depression Screening 04/02/2024 Influenza Vaccine (#1) 2024 HIB Vaccines Aged [...] age to complete this topic Care Teams Seam Stayer Relationship Specialty Start Date End Date Itzel Martinez FNP [address] [place] [phone] PCP - General Family Medicine 05/10/18
--- OUTSIDE RECORDS SUMMARY | 2024-10-23 15:24 | XMS_ITS | Clinical Summary ---
Author Organization [facility] Address [address] [place] [address] Phone Care Team Providers Care Hydraulic Rubbish Compactor Mechanic Name Role Phone HowardJanae cartagena Primary Care Provider [phone] Encounters Date Type Department Care Team Description 10/08/2024 Telephone [facility] Medicine Department [address] [place] [phone] Claudio Fan MD 10/06/2024 10:43 AM EDT - 10/06/2024 11:59 PM EDT Hospital Encounter [facility] MRI [address] [place] [address] Senait Mars, Bilateral hip pain Discharge Disposition: Home 10/06/2024 10:21 AM EDT - 10/06/2024 10:42 AM EDT Hospital Encounter [facility] MRI [address] [place] [address] Senait Mars, RT Bilateral hip pain Discharge Disposition: Home 10/06/2024 Travel 09/25/2024 9:58 AM EDT - 09/25/2024 11:59 PM EDT Hospital Encounter [facility] [address] [place] [address] Bilateral hip pain Discharge Disposition: Home 09/25/2024 9:10 AM EDT Office Visit [facility] Sports Medicine Department [address] [place] [phone] 09/25/2024 8:30 AM EDT Consult [facility] Department [address] [place] [phone] Charlie De La O MD Sacroiliac dysfunction [M53.3] (Primary Dx); Bilateral hip pain; 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 09/25/2024 Travel from Last 3 Months Social History Tobacco Use Types Packs/Day Years Used Date Smoking Tobacco: Never Smokeless Tobacco: Never Tobacco Cessation:Counseling Given: Not Answered Comments Unknown Sex and Gender Information Value Date Recorded Sex Assigned at Not on file Legal Sex Female 11:10 AM EDT Gender Identity Not on file Sexual Orientation Not on file Last Filed Vital Signs Vital Sign Reading Time Taken Comments Blood Pressure - - Pulse - - Temperature 36.6 C (97.9 F) 09/25/2024 8:41 AM EDT Respiratory Rate - - Oxygen Saturation - - Inhaled Oxygen Concentration - - Weight 64 kg (141 lb 1.5 oz) 10/06/2024 10:47 AM EDT Height 163.5 cm (5' 4.37 ) 09/25/2024 8:41 AM ED T Body Mass Index 23.94 09/25/2024 8:41 AM EDT Plan of Treatment Upcoming Encounters Date Type Department Care Team (Late st Contact Info) Description 11/18/2024 3:30 PM EDT Office Visit [facility] Medicine Department [address] [place] [phone] Charlie De La O MD [address] [place] [address] Health Maintenance Due Date Last Done Comments HIV Screening 1975 MMR Vaccines (1 of 1 - Standard series) 08/10/1976 Varicella Vaccines (1 of 2 - 13+ 2-dose series) 08/10/1988 Hepatitis C Screening 08/10/1993 Hepatitis B Vaccines (1 of 3 - 19+ 3-dose series) 08/10/1994 COVID-19 Vaccine ( - season) 2023 04/12/2021, 08/26/2020, 08/04/2020 DTaP/Tdap/Td Vaccines (3 - Td or Tdap) 10/30/2024 05/02/2024, 09/21/2006 Influenza Vaccine (#1) 2024 , 03/22/2021, 12/12/2016, Additional history exists HIB Vaccines Aged Out No longer eligi [...] patient's age to complete this topic Meningococcal Vaccine Aged Out No mars rory eligible based on patient's age to complete this topic Pneumococcal Vaccine: Pediatrics (0 to 5 Years) and At-Risk Patients (6 to 49 Years) Aged Out No longer eligible based on patient's age to complete this topic Rotavirus Vaccines Aged Out No longer eligible based on patient's age to complete this topic Procedures Procedure Name Priority Date/Time Associated Diagnosis Comments MR HIP LEFT WO CONTRAST Routine 10/07/19 12:40 PM EDT Bilateral hip pain MR HIP RIGHT WO CONTRAST Routine 10/06/2024 12:39 PM EDT Bilateral hip pain CHG US GUIDANCE NEEDLE PLACEMENT IMG S&I Routine 09/25/2024 12:13 PM EDT Bilateral hip pain IL ARTHROCENTESIS ASPIR&/INJ MAJOR JT/BURSA W/US Routine 09/25/2024 11:25 AM EDT Bilateral hip pain XR PELVIS 3+ VIEWS Routine 09/25/2024 10 :11 AM EDT Bilateral hip pain US SPORTS MED. JOINT - LIMITED Routine 09/25/2024 9:05 AM EDT Bilateral hip pain from Last 3 Months Results * MR Hip Left WO Contrast (10/06/2024 12:40 PM EDT) Anatomical Region Laterality Modality Lower Extremities, Hip Left Magnetic Resonance 10/06/2024 12:1 0 PM EDT Impressions 10/07/2024 10:55 PM EDT IMPRESSION: 1. Labral degeneration as described. 2. May be tiny subchondral cyst along the anterior lip of the acetabulum. 3. Slightly diminished lateral acetabular coverage of the femoral head. 4. Mild convexity along the anterior femoral head-neck junction, which may predispose the patient to CAM type femoral acetabular impingement. END OF IMPRESSION Narrative 10/07/2024 10:55 PM EDT PROCEDURE: MR HIP LEFT WO CONTRAST ACTIONABLE FINDINGS: None INDICATION: chronic hip pain COMPARISON: Radiographs dated 05/28/2024 TECHNIQUE: Multiplanar, multisequence MR imaging was performed through the left hip. Some sequences contain the contralateral hip for comparison purposes. Axial T1 images were obtained through the femoral condyles for femoral anteversion calculation. FINDINGS: PROXIMAL FEMUR: The femoral head is spherical. There are no subchondral cysts. The bone marrow signal is normal. Radial reformats along the axis of the femoral neck reveal slight convexity along the anterior femoral head-neck junction (14:21, 18:2, 16:30). ACETABULUM: The acetabular contour is normal. Lateral femoral head coverage is slightly deficient. Anterior femoral head coverage is normal. There may be a tiny subchondral cyst along the anterior lip of the acetabulum (16:35). There are no rim osteophytes. ARTICULAR CARTILAGE: Femoral Head: No cartilage defects or areas of cartilage delamination. Acetabulum: No cartilage defects or areas of cartilage delamination. LABRUM: Intrasubstance intermediate signal is noted within the anterior labrum (14:20), likely degenerative. The anterior superior labrum appears diminutive in size (14:19), likely degenerative. The anterior inferior labrum demonstrates intrasubstance intermediate signal (18:12), likely degenerative. There are no paralabral cysts. Procedure Note Ranjit Alaniz MD - 10/07/2024 PROCEDURE: MR HIP LEFT WO CONTRAST ACTIONABLE FINDINGS: None INDICATION: chronic hip pain COMPARISON: Radiographs dated 05/28/2024 TECHNIQUE: Multiplanar, multisequence MR imaging was performed throughthe left hip. Some sequences contain the contralateral hip for comparisonpurposes. Axial T1 images were obtained through the femoral condyles forfemoral anteversion calculation. FINDINGS: PROXIMAL FEMUR: The femoral head is spherical. There are no subchondralcysts. The bone marrow signal is normal. Radial reformats along the axisof the femoral neck reveal slight convexity along the anterior femoralhead-neck junction (14:21, 18:2, 16:30). ACETABULUM: The acetabular contour is normal. Lateral femoral headcoverage is slightly deficient. Anterior femoral head coverage is normal.There may be a tiny subchondral cyst along the anterior lip of theacetabulum (16:35). There are no rim osteophytes. ARTICULAR CARTILAGE: Femoral Head: No cartilage defects or areas of cartilage delamination. Acetabulum: No cartilage defects or areas of cartilage delamination. LABRUM: Intrasubstance intermediate signal is noted within the anteriorlabrum (14:20), likely degenerative. The anterior superior labrum appearsdiminutive in size (14:19), likely degenerative. The anterior inferiorlabrum demonstrates intrasubstance intermediate signal (18:12), likelydegenerative. There are no paralabral cysts. IMPRESSION IMPRESSION: 1. Labral degeneration as described. 2. May be tiny subchondral cyst along the anterior lip of theacetabulum. 3. Slightly diminished lateral acetabular coverage of the femoral head. 4. Mild convexity along the anterior femoral head-neck junction, which maypredispose the patient to CAM type femoral acetabular impingement. END OF IMPRESSION Claudio Fan MD IMG MRI PROCEDURES Final Result * MR Hip Right WO Contrast (10/06/2024 12:39 PM EDT) Anatomical Region Laterality Modality Lower Extremities, Hip Right Magnetic Resonance 10/06/2024 11:4 7 AM EDT Impressions 10/07/2024 10:54 PM EDT IMPRESSION: 1. Labral degeneration with tear as described. 2. Mild lateral undercoverage of the femoral head. 3. Right ischiofemoral impingement. 4. Mild stress-related changes surrounding the left semimembranosus and conjoined tendons near their insertions onto the ischial tuberosity. 5. Mild chondromalacia of the posterior weightbearing articular surface. END OF IMPRESSION Narrative 10/07/2024 10:54 PM EDT PROCEDURE: MR HIP RIGHT WO CONTRAST ACTIONABLE FINDINGS: None INDICATION: chronic hip pain COMPARISON: Radiograph dated September 25, 2024 TECHNIQUE: Multiplanar, multisequence noncontrast MR imaging was performed through the right hip. Some sequences contain the contralateral hip for comparison purposes. Axial T1 images were obtained through the femoral condyles for femoral anteversion calculation. FINDINGS: PROXIMAL FEMUR: The femoral head is spherical. There are no subchondral cysts. The bone marrow signal is normal. Radial reformats along the axis of the femoral neck reveal normal head/neck junction anatomy. ACETABULUM: The acetabular contour is normal. Lateral femoral head coverage is slightly deficient. Anterior femoral head coverage is normal. There are no subchondral cystic changes. There are no rim osteophytes. ARTICULAR CARTILAGE: Femoral Head: No cartilage defects or areas of cartilage delamination. There may be mild cartilage thinning of the posterior weightbearing portion. Acetabulum: No cartilage defects or areas of cartilage delamination. There may be mild cartilage thinning of the posterior weightbearing portion. LABRUM: There are no paralabral cysts. The anterior labrum appears diminutive, with undercutting curvilinear high signal, likely representing a degenerative tear (17:2, 7:16). The anterior superior labrum appears diminutive in size with intrasubstance high signal (17:3), likely degenerative. The superior labrum appears somewhat hypertrophic with intermediate intrasubstance signal (17:7), which may be degenerative. OTHER: Edema is noted within the right quadratus femoris, with associated narrowing of the ischiofemoral interval, likely presenting ischiofemoral impingement. Mild edema is seen surrounding the left ischial tuberosity near the attachment of the semimembranosus and the conjoined tendons (23:20). Trace free fluid is noted in the deep pelvis, likely physiologic. There are likely multiple tiny nabothian cysts, with the largest measuring up to 5 mm in size. An IUD is noted within the uterus. FEMORAL VERSION: Right 23 degrees. Left 17 degrees. Procedure Note Ranjit Alaniz MD - 10/07/2024 PROCEDURE: MR HIP RIGHT WO CONTRAST ACTIONABLE FINDINGS: None INDICATION: chronic hip pain COMPARISON: Radiograph dated September 25, 2024 TECHNIQUE: Multiplanar, multisequence noncontrast MR imaging wasperformed through the right hip. Some sequences contain the contralateralhip for comparison purposes. Axial T1 images were obtained through thefemoral condyles for femoral anteversion calculation. FINDINGS: PROXIMAL FEMUR: The femoral head is spherical. There are no subchondralcysts. The bone marrow signal is normal. Radial reformats along the axisof the femoral neck reveal normal head/neck junction anatomy. ACETABULUM: The acetabular contour is normal. Lateral femoral headcoverage is slightly deficient. Anterior femoral head coverage is normal.There are no subchondral cystic changes. There are no rim osteophytes. ARTICULAR CARTILAGE: Femoral Head: No cartilage defects or areas of cartilage delamination.There may be mild cartilage thinning of the posterior weightbearingportion. Acetabulum: No cartilage defects or areas of cartilage delamination. Theremay be mild cartilage thinning of the posterior weightbearing portion. LABRUM: There are no paralabral cysts. The anterior labrum appearsdiminutive, with undercutting curvilinear high signal, likely representinga degenerative tear (17:2, 7:16). The anterior superior labrum appearsdiminutive in size with intrasubstance high signal (17:3), likelydegenerative. The superior labrum appears somewhat hypertrophic withintermediate intrasubstance signal (17:7), which may be degenerative. OTHER: Edema is noted within the right quadratus femoris, with associatednarrowing of the ischiofemoral interval, likely presenting ischiofemoralimpingement. Mild edema is seen surrounding the left ischial tuberositynear the attachment of the semimembranosus and the conjoined tendons(23:20). Trace free fluid is noted in the deep pelvis, likely physiologic. Thereare likely multiple tiny nabothian cysts, with the largest measuring up to5 mm in size. An IUD is noted within the uterus. FEMORAL VERSION: Right 23 degrees. Left 17 degrees. IMPRESSION IMPRESSION: 1. Labral degeneration with tear as described. 2. Mild lateral undercoverage of the femoral head. 3. Right ischiofemoral impingement. 4. Mild stress-related changes surrounding the left semimembranosus andconjoined tendons near their insertions onto the ischial tuberosity. 5. Mild chondromalacia of the posterior weightbearing articular surface. END OF IMPRESSION us Claudio Fan MD IMG MRI PROCEDURES Final Result * G US GUIDANCE NEEDLE PLACEMENT IMG S&I (09/25/2024 12:13 PM EDT) Charlie Browne MD - 09/25/2024 12:13 PM EDT Charlie De La O MD 09/26/2024 4:28 PM USG R SIJ injection on 09/25/2024 12:13 PM Hip muscles: R SI joint Indications: pain and diagnostic Details: 21 G needle, ultrasound-guided Medications: 40 mg methylPREDNISolone acetate 40 mg/mL; 10 mL ROPivacaine 5 mg/mL (0.5 %) Outcome: tolerated well, no immediate complications Procedure, treatment alternatives, risks and benefits explained, specific risks discussed. Consent was given by the patient. Immediately prior to procedure a time out was called to verify the correct patient, procedure, equipment, technician support association and site/side marked as required. Patient was prepped and draped in the usual sterile fashion. us Charlie De La O MD IN CLINIC/BEDSIDE ORDERA BLES Final Result * IL ARTHROCENTESIS ASPIR&/INJ MAJOR JT/BURSA W/US (09/25/2024 11:25 AM EDT) Charlie Browne MD - 09/25/2024 11:25 AM EDT Charlie De La O MD 09/26/2024 4:28 PM USG R hip injection on 09/25/2024 11:25 AM Indications: pain Details: 22 G needle, ultrasound-guided anterior approach Medications: 30 mg ketorolac 30 mg/mL (1 mL); 10 mL ROPivacaine 5 mg/mL (0.5 %) Outcome: tolerated well, no immediate complications Procedure, treatment alternatives, risks and benefits explained, specific risks discussed. Consent was given by the patient. Immediately prior to procedure a time out was called to verify the correct patient, procedure, equipment, technician support association and site/side marked as required. Patient was prepped and draped in the usual sterile fashion. us Charlie De La O MD IN CLINIC/BEDSIDE ORDERA BLES Final Result * XR Pelvis 3+ Views (09/25/2024 10:11 AM EDT) Anatomical Region Laterality Modality Body, Pelvis Digital Radiogra phy 09/25/2024 1:2 1 PM EDT Impressions 09/25/2024 1:23 PM EDT IMPRESSION: Normal pelvic radiographs. END OF IMPRESSION Narrative 09/25/2024 1:23 PM EDT PROCEDURE: XR PELVIS 3+ VIEWS ACTIONABLE FINDINGS: None INDICATION: hip pain COMPARISON: MRI dated 07/09/24. TECHNIQUE: 4 views of the pelvis. FINDINGS: Both femoral heads are round and project appropriately within the acetabula. Femoral head coverage is normal. Joint spaces are normal. No fracture or focal osseous lesions are seen. Other findings: None. Procedure Note Saulo Alexandre MD - 09/25/2024 PROCEDURE: XR PELVIS 3+ VIEWS ACTIONABLE FINDINGS: None INDICATION: hip pain COMPARISON: MRI dated 07/09/24. TECHNIQUE: 4 views of the pelvis. FINDINGS: Both femoral heads are round and project appropriately within theacetabula. Femoral head coverage is normal. Joint spaces are normal. No fracture or focal osseous lesions are seen. Other findings: None. IMPRESSION IMPRESSION: Normal pelvic radiographs. END OF IMPRESSION us Claudio Fan MD IMG XR PROCEDURES Final Result * US SM Joint - Limited (09/25/2024 9:05 AM EDT) Narrative [facility] - 09/25/2024 9:05 AM EDT Please see image section of visit note for details/results. us Charlie De La O MD IMG US PROCEDURES Final Result [facility] from Last 3 Months Insurance [facility] MEDICARE [facility] MEDICARE Care Teams Hydraulic Rubbish Compactor Mechanic Relationship Specialty Start Date End Date Janae Lawrence [address] [place] [id number] PCP - General 09/22/24
--- OUTSIDE RECORDS SUMMARY | 2024-10-23 15:24 | XMS_ITS | Clinical Summary ---
Author Organization [address] Address [address] [place] [phone] Phone Care Team Providers Care Correctional Counselor Name Role Phone No, Pcp (Do Not [...] GENERIC COMMERCIAL GENERIC COMMERCIAL GENERIC Care Teams Correctional Counselor Relationship Specialty Start Date End Date No, Pcp (Do Not Change Name) PCP - General 06/27/18
--- OUTSIDE RECORDS SUMMARY | 2024-10-23 15:24 | XMS_ITS | Encounter Summary ---
Author Organization [facility] Address [address] [place] [address] [place] [phone] Phone Care Team Providers Care Acid Blower Name Role Phone Tila Haile Leroy NURSING OFFICER Unavailable [phone] Gilma Carrasco MD Unavailable Itzel Martinez NURSING OFFICER Unavailable [phone] Itzel Martinez NP Primary Care Provider [phone] Janae Lawrence MD Primary Care Provider Encounter Details Date Type Department Care Team (Late st Contact Info) Description 10/05/2021 Procedure Pass [facility]oscopy Admitting Dept Virtual Department [address] [place] [id number] Social History Tobacco Use Types Packs/Day Years Used Date Smoking Tobacco: Never Smokeless Tobacco: Never Alcohol Use Standard Drinks/Week Comments Yes 0 (1 standard drink = 0.6 oz pur e alcohol) OCC Comments No Sex and Gender Information Value Date Recorded Sex Assigned at Female 03/08/2020 9:32 AM EST Legal Sex Female 4:40 PM EST Gender Identity Female 03/08/2020 9:32 AM EST Sexual Orientation Don't know 01/28/2024 2: 03 PM EDT documented as of this encounter Plan of Treatment Upcoming Encounters Date Type Department Care Team (Late st Contact Info) Description 10/31/2024 8:45 AM EDT Office Visit [facility] [address] [place] [address] [place] [address] Janae Lawrence MD [address] [place] [address] Toney Loco, PT [address] [place] [address] 11/06/2024 10:15 AM EDT Office Visit [facility] [address] [place] [address] Janae Lawrence MD [address] [place] [address] Toney Loco, PT [address] [place] [address] 11/13/2024 9:30 AM EDT Office Visit [facility] [address] [place] [address] Janae Lawrence MD [address] [place] [address] Toney Lcoo, PT [address] [place] [address] 11/19/2024 10:15 AM EDT Office Visit [facility] [address] [place] [address] Janae Lawrence MD [address] [place] [address] Toney Loco, PT [address] [place] [address] 11/21/2024 8:45 AM EDT Office Visit [facility] [address] [place] [address] Janae Lawrence MD [address] [place] [address] Toney Loco, PT [address] [place] [address] 11/25/2024 9:30 AM EDT Office Visit [facility] [address] [place] [address] Janae Lawrence MD [address] [place] [address] Toeny Loco, PT [address] [place] [address] 11/27/2024 8:45 AM EDT Office Visit [facility] [address] [place] [address] aJnae Lawrence MD [address] [place] [address] Toney Loco, PT [address] [place] [address] documented as of this encounter Visit Diagnoses Not on filedocumented in this encounter Care Teams Acid Blower Relationship Specialty Start Date End Date Itzel Martinez NP [address] [place] [address] PCP - General Family Medicine 02/09/17 04/15/24 Janae Lawrence MD [address] [place] [address] PCP - General Internal Medicine 04/16/24 Tila Haile NP [address] [place] [phone] Historical LMR Provider 01/21/17 Gilma Carrasco MD 22 [facility], [address] [address] Historical LMR Provider 01/21/17 Itzel Martinez NP [address] [place] [address] Historical LMR Provider 01/21/17 documented as of this encounter Additional Source Comments The information contained in this document represents components of the legal health record. It is not the complete legal health record.[facility]
[2024-10-23 15:25] VITALS: BP 112/62; PULSE 75; O2SAT 98; BMI 24.3
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
== END 2024-10-23 15:58 | disposition home or self-care (01) ==
LOC: HO.RHE 15:21
PROVIDERS: PCP Internal Medicine; Visit Provider Student in an Organized Health Care Education/Training Program
DX: R76.8 Other specified abnormal immunological findings in serum (principal); R31.29 Other microscopic hematuria
CPT/HCPCS: 99212

== ENCOUNTER → 2024-10-23 15:20 | Outpatient (BNVA) | payer MEDICARE, SELFPAY | PROVIDERS: PCP Internal Medicine; Visit Provider Student in an Organized Health Care Education/Training Program | DX: R76.8 Other specified abnormal immunological findings in serum (principal); M25.50 Pain in unspecified joint; R31.29 Other microscopic hematuria | CPT/HCPCS: 99212 ==

== ENCOUNTER 2024-10-27 07:56 | Outpatient (AMB) | payer MEDICARE, SELFPAY ==
--- NOTE | 2024-10-27 07:59 | A.OFFVIS_ITS ---
Intake Visit Reasons: medication review Intake Note: Patient presents today for a follow up on medications * Renal US 07/28 Urology Medication:Gemtesa Blood Thinner:none Antibiotic Allergies:Sulfa Combo Welder Required: No Accompanied by: Self / Same As Patient Allergies erythromycin base Allergy (Verified 10/27/24 08:00) Rash Sulfa (Sulfonamide Antibiotics) Allergy (Verified 10/27/24 08:00) Rash Medication List - Last Reconciled 10/27/24 by Lindsey Kim MD acetaminophen (Tylenol Extra Strength) 500 mg PO Q6H PRN albuterol sulfate 90 mcg/actuation inhalation atorvastatin 20 mg PO DAILY famotidine 40 mg PO DAILY meloxicam 15 mg PO DAILY valacyclovir 4,000 mg PO ONCE vibegron (Gemtesa) 75 mg PO DAILY HPI Comments Details: 10/27/24-- Yulisa is a 49-year-old female who is followed for microscopic hematuria and overactive bladder symptoms. She had office cystoscopy on 08/18/2024 which was within normal limits. Renal ultrasound on 07/29/2024 within normal limits. She was started on Gemtesa for overactive bladder symptoms. 08/18/24--here for office cystoscopy. Yulisa was initially evaluated on 06/26/24 with complaints of urinary incontinence and hematuria. Cystoscopy findings-within normal limits. Discussed trial of gemtesa for lower urinary tract symptoms. Results: Renal US- Within normal limits: mild fullness of the pelvis left kidney, without definite hydronephrosis, not clinically significant. [facility] Medical History Broken bones Anxiety Asthma Rupture of rotator cuff of shoulder Back pain Neck pain GIANNA positive Herniated disc, cervical Back disorder High cholesterol Kidney stones Surgical History H/O knee surgery H/O lumpectomy Family History Mother Cancer Hypertension Paternal Grandfather Cancer Paternal Grandmother Cancer Diabetes Father Hypertension High cholesterol Cardiovascular disease Social History Household Members: None Both parents involved: No Caregiver staying overnight: No Housing: House Are you a primary care assistant to a significant other at home: No Do you presently have visiting nurse or other home services: No 75 years or older and lives alone: No Alcohol intake: current Comment: A few times a year. Patient Tobacco Use Status: Never used Tobacco e-Cigarette/Vaping Use: Never Used Second Hand Smoke Exposure: No Current occupational status: disabled Cognitive needs: No Hearing needs: No Vision needs: No Results AMB Urinalysis, Automated UA Leukoctes 0 Elías/uL Last Edit by Kelly Shelton on 10/27/24 16:32 UA Nitrite Negative Last Edit by Kelly Shelton on 10/27/24 16:32 UA Urobilinogen 3.5 mg/dL Last Edit by Kelly Shelton on 10/27/24 16:32 UA Protein 0 mg/dL Last Edit by Kelly Shelton on 10/27/24 16:32 UA pH 6.0 Last Edit by Kelly Shelton on 10/27/24 16:32 UA Blood 25 Miguel/uL Last Edit by Kelly Shelton on 10/27/24 16:32 UA Specific [place] 1.005 Last Edit by Kelly Shelton on 10/27/24 16:32 UA Ketone Negative Last Edit by Kelly Shelton on 10/27/24 16:32 UA Bilirubin 0 mg/dL Last Edit by Kelly Shelton on 10/27/24 16:32 UA Glucose 0 mg/dL Last Edit by Kelly Shelton on 10/27/24 16:32 Results Reviewed Results Reviewed: Date of Service: 07/28/24 EXAMINATION: US KIDNEY BILATERAL HISTORY: N20.0 - Calculus of kidney TECHNIQUE: Real-time grayscale ultrasound imaging of the kidneys was performed and images were reviewed. COMPARISON: Correlation is made with the right upper quadrant ultrasound dated 08/02/2022. FINDINGS: Right kidney: The right kidney measures 7.7 x 4.4 x 4.4 cm. Renal parenchymal echotexture and thickness are normal. There are no masses. There is no hydronephrosis or renal calculi. Left Kidney: The left kidney measures 10.0 x 4.6 x 4.4 cm. Renal parenchymal echotexture and thickness are normal. There are no masses. No calculi are identified. There is mild fullness of the pelvis without definite hydronephrosis. IMPRESSION: Mild fullness of the left renal pelvis. Otherwise unremarkable renal ultrasound. Assessment & Plan Assessment & Plan (1) Kidney stones: Code(s): N20.0 - Calculus of kidney Category: Medical (2) Hematuria: Code(s): R31.9 - Hematuria, unspecified Category: Medical (3) Hematuria: Code(s): R31.9 - Hematuria, unspecified Category: Medical (4) Hematuria: Code(s): R31.9 - Hematuria, unspecified Category: Medical Orders: Orders Urine Cytology Today R31.29 - Other microscopic hematuria Basic Metabolic Panel Today R31.9 - Hematuria, unspecified Blood Urea Nitrogen Today R31.9 - Hematuria, unspecified CT urogram Today R31.9 - Hematuria, unspecified Creatinine Today R31.9 - Hematuria, unspecified AMB Urinalysis Automated Today Z13.9 - Encounter for screening, unspecified Coding Diagnoses Kidney stones N20.0 Hematuria R31.9
--- OUTSIDE RECORDS SUMMARY | 2024-10-27 07:59 | XMS_ITS | Clinical Summary ---
Author Organization [facility] Address [address] [place] [address] Care Team Providers Care Implementation Project Coordinator Name Role Phone Itzel Martinez NP Primary Care Provider [phone] Allergies Active Allergy Reactions Criticality Noted Date [...] age to complete this topic Care Teams Implementation Project Coordinator Relationship Specialty Start Date End Date Itzel Martinez NP [address] [place] [phone] PCP - General Family Medicine 05/10/18
--- OUTSIDE RECORDS SUMMARY | 2024-10-27 07:59 | XMS_ITS | Clinical Summary ---
Author Organization [facility] ity Address [address] [place] [address] Care Team Providers Care Planetarium Technician Name Role Phone Itzel Martinez LIVE GAMES DEALER Primary Care Provider [phone] Surgical History Surgery Date Site/Laterality Comments LITHOTRIPSY [...] age to complete this topic Care Teams Planetarium Technician Relationship Specialty Start Date End Date Itzel Martinez FNP [address] [place] [phone] PCP - General Family Medicine 05/10/18
--- OUTSIDE RECORDS SUMMARY | 2024-10-27 07:59 | XMS_ITS | Clinical Summary ---
Author Organization [facility] Address [address] [place] [address] Phone Care Team Providers Care Marketing Budget Analyst Name Role Phone HowardJanae cartagena Primary Care Provider Encounters Date Type Department Care Team Description 10/08/2024 Telephone [facility] Sports Medicine Department [address] [place] [phone] Claudio Fan MD 10/06/2024 10:43 AM EDT - 10/06/2024 11:59 PM EDT Hospital Encounter [facility] [address] [place] [address] Senait Mars, Bilateral hip pain Discharge Disposition: Home 10/06/2024 10:21 AM EDT - 10/06/2024 10:42 AM EDT Hospital Encounter [facility] [address] [place] [address] Senait Mars, RT Bilateral hip pain Discharge Disposition: Home 10/06/2024 Travel 09/25/2024 9:58 AM EDT - 09/25/2024 11:59 PM EDT Hospital Encounter [facility] [address] [place] [address] Bilateral hip pain Discharge Disposition: Home 09/25/2024 9:10 AM EDT Office Visit [facility] Medicine Department [address] [place] [phone] 09/25/2024 8:30 AM EDT Consult [facility] Department [address] [place] [address] Charlie De La O MD Sacroiliac dysfunction [...] Description 11/18/2024 3:30 PM EDT Office Visit [facility] Medicine Department [address] [place] [phone] Charlie De La O MD [address] [place] [address] Health Maintenance Due Date Last Done Comments [...] 09/25/2024 12:13 PM EDT Bilateral hip pain [place] ARTHROCENTESIS ASPIR&/INJ MAJOR JT/BURSA W/US Routine 09/25/2024 [...] type femoral acetabular impingement. END OF IMPRESSION Clauido Fan MD IMG MRI PROCEDURES Final Result [...] to verify the correct patient, procedure, equipment, desktop support technician and site/side marked as required. Patient was prepped and draped in the usual sterile fashion. us Charlie De La O MD IN CLINIC/BEDSIDE ORDERA BLES Final Result * [place] ARTHROCENTESIS ASPIR&/INJ MAJOR JT/BURSA W/US (09/25/2024 11:25 [...] to verify the correct patient, procedure, equipment, desktop support technician and site/side marked as required. Patient was [...] - Limited (09/25/2024 9:05 AM EDT) Narrative [facility] - 09/25/2024 9:05 AM EDT Please see image section of visit note for details/results. us Charlie De La O MD IMG US PROCEDURES Final Result [facility] from Last 3 Months Insurance [facility] MEDICARE [facility] MEDICARE Care Teams Marketing Budget Analyst Relationship Specialty Start Date End Date Janae Lawrence [address] [place] [id number] PCP - General 09/22/24
--- OUTSIDE RECORDS SUMMARY | 2024-10-27 07:59 | XMS_ITS | Clinical Summary ---
Author Organization [address] Address [address] [place] [phone] Phone Care Team Providers Care Medical Record Clerk Name Role Phone No, Pcp (Do [...] GENERIC COMMERCIAL GENERIC COMMERCIAL GENERIC Care Teams Medical Record Clerk Relationship Specialty Start Date End Date No, Pcp (Do Not Change Name) PCP - General 06/27/18
== END 2024-10-27 08:48 | disposition home or self-care (01) ==
LOC: HO.HUSH 07:57
PROVIDERS: PCP Internal Medicine; Visit Provider Urology
DX: Z13.9 Encounter for screening, unspecified (principal)

== ENCOUNTER 2024-10-27 07:56 | Outpatient (REF) | payer MEDICARE, SELFPAY ==
--- OUTSIDE RECORDS SUMMARY | 2024-10-27 08:47 | XMS_ITS | Encounter Summary ---
Author Organization [facility] Address [address] [place] [address] [place] [address] Phone Care Team Providers Care Shellfish Dredge Operator Name Role Phone Tila Haile Leroy FORWARDER OPERATOR Unavailable [phone] Gilma Carrasco MD Unavailable Itzel Martinez FORWARDER OPERATOR Unavailable [phone] Itzel Martinez NP Primary Care Provider [phone] Janae Lawrence MD Primary Care Provider [phone] Encounter Details Date Type Department Care Team (Late st Contact Info) Description 10/05/2021 Procedure Pass [facility] Endoscopy Admitting Dept Virtual Department [address] [place] [address] Social History Tobacco Use Types Packs/Day Years [...] Description 10/31/2024 8:45 AM EDT Office Visit [facility] [address] [place] [address] [place] [id number] Janae Lawrence MD [address] [place] [address] Toney Loco, PT [address] [place] [address] [email or web address] 11/06/2024 10:15 AM EDT Office Visit [facility] [address] [place] [address] Janae Lawrence MD [address] [place] [address] Toney Loco, PT [address] [place] [address] [email or web address] 11/13/2024 9:30 AM EDT Office Visit [facility] [address] [place] [address] Janae Lawrence MD [address] [place] [address] Toney Loco, PT [address] [place] [address] [email or web address] 11/19/2024 10:15 AM EDT Office Visit [facility] [address] [place] [address] Janae Lawrence MD [address] [place] [address] Toney Loco, PT [address] [place] [address] [email or web address] 11/21/2024 8:45 AM EDT Office Visit [facility] [address] [place] [address] Janae Lawrence MD [address] [place] [address] Toney Loco, PT [address] [place] [address] 11/25/2024 9:30 AM EDT Office Visit [facility] [address] [place] [address] Janae Lawrence MD [address] [place] [address] Toney Loco, PT [address] [place] [address] 11/27/2024 8:45 AM EDT Office Visit [facility] [address] [place] [address] Janae Lawrence MD [address] [place] [address] Toney Loco, PT [address] [place] [address] documented as of this encounter Visit Diagnoses Not on filedocumented in this encounter Care Teams Shellfish Dredge Operator Relationship Specialty Start Date End Date Itzel Martinez NP [address] [place] [address] PCP - General Family Medicine 02/09/17 04/15/24 Janae Lawrence MD [address] [place] [address] PCP - General Internal Medicine 04/16/24 Tila Haile NP [address] [place] [address] Historical LMR Provider 01/21/17 Gilma Carrasco MD 22 [facility], [address] [address] Historical LMR Provider 01/21/17 Itzel Martinez NP [address] [place] [address] Historical LMR Provider 01/21/17 documented as of this encounter Additional Source Comments The information contained in this document represents components of the legal health record. It is not the complete legal health record.[facility]
== END 2024-10-27 07:57 | disposition home or self-care (01) ==
LOC: HO.LAB 07:56
PROVIDERS: PCP Internal Medicine; Visit Provider Urology
DX: R31.29 Other microscopic hematuria (principal); N20.0 Calculus of kidney; Z13.9 Encounter for screening, unspecified; Z79.899 Other long term (current) drug therapy
CPT/HCPCS: 81003; 88112; 99212

== ENCOUNTER 2024-11-04 09:48 | Outpatient (REF) | payer MEDICARE, SELFPAY ==
--- OUTSIDE RECORDS SUMMARY | 2024-11-04 10:14 | XMS_ITS | Clinical Summary ---
Author Organization [address] Address [address] [place] [phone] Phone Care Team Providers Care Office Rental Clerk Name Role Phone No, Pcp (Do [...] GENERIC COMMERCIAL GENERIC COMMERCIAL GENERIC Care Teams Office Rental Clerk Relationship Specialty Start Date End Date No, Pcp (Do Not Change Name) PCP - General 06/27/18
--- OUTSIDE RECORDS SUMMARY | 2024-11-04 10:14 | XMS_ITS | Clinical Summary ---
Author Organization [facility] Address [address] [place] [address] Phone Care Team Providers Care Radiologic Technician Name Role Phone Itzel Martinez HAIRSPRING STAKER Primary Care Provider [phone] Surgical History Surgery Date Site/Laterality Comments LITHOTRIPSY [...] on file Obstetrics History Plan of Treatment Upcoming Encounters Date Type Department Care Team (Late st Contact Info) Description 11/12/2024 1:00 PM EDT Office Visit Neurosurgery [facility] [address] [place] [address] Thomas Enriquez, [address] [place] [address] [place], [place] [id number] 12/08/2024 8:30 AM EDT Office Visit Orthopedic Surgery - [place] [address] [place] [address] Thomas Ramos MD [address] [place] [address] [place], [place] [id number] Health Maintenance Due Date Last Done Comments Breast Cancer Screening 1975 DTaP,Tdap,and Td Vaccines (1 - Tdap) 08/10/1994 Hepatitis B Vaccines (1 of 3 - 19+ 3-dose series) 08/10/1994 Cervical Cancer Screening: P ap Smear 08/10/1996 Colorectal Cancer Screening: Colonoscopy 03/05/2022 HIV Screening 03/05/2022 Hepatitis C Screening 03/05/2022 Medicare Annual Wellness Visit 03/05/2022 Social Influencers of Health Screening 03/05/2022 COVID-19 Vaccine (1 - 2023-2 5 season) 2023 Depression Screening [...] patient's age to complete this topic Insurance MEDICARE BLUE CROSS - [place] MEDICARE ADVANTAGE Care Teams Radiologic Technician Relationship Specialty Start Date End Date Itzel Martinez FNP [address] [place] [phone] PCP - General Family Medicine 05/10/18
--- OUTSIDE RECORDS SUMMARY | 2024-11-04 10:14 | XMS_ITS | Clinical Summary ---
Author Organization [facility] Address [address] [place] [address] Care Team Providers Care Rehabilitation Services Aide Name Role Phone Itzel Martinez NP Primary Care Provider [phone] Allergies Active Allergy Reactions Criticality Noted Date [...] age to complete this topic Care Teams Rehabilitation Services Aide Relationship Specialty Start Date End Date Itzel Martinez NP [address] [place] [phone] PCP - General Family Medicine 05/10/18
--- OUTSIDE RECORDS SUMMARY | 2024-11-04 10:14 | XMS_ITS | Encounter Summary ---
Author Organization [facility] Address [address] [place] [address] [place] [phone] Phone Care Team Providers Care Clin Asst Name Role Phone Tila Haile Leroy CARTRIDGE LOADER Unavailable [phone] Gilma Carrasco MD Unavailable Itzel Martinez CARTRIDGE LOADER Unavailable [phone] Itzel Martinez NP Primary Care Provider [phone] Janae Lawrence MD Primary Care Provider [phone] Encounter Details Date Type Department Care Team (Late st Contact Info) Description 10/05/2021 Procedure Pass [facility] Endoscopy Admitting Dept Virtual Department [address] [place] [address] Social History Tobacco Use Types Packs/Day Years [...] Encounters Date Type Department Care Team (Late Contact Info) Description 11/06/2024 10:15 AM EDT Office Visit [facility] [address] [place] [address] Janae Lawrence MD [address] [place] [address] Toney Loco, PT [address] [place] [address] 11/13/2024 9:30 AM EDT Office Visit [facility] [address] [place] [address] Janae Lawrence MD [address] [place] [address] Toney Loco, PT [address] [place] [address] 11/19/2024 10:15 AM EDT Office Visit [facility] [address] [place] [address] Janae Lawrence MD [address] [place] [address] Toney Loco, PT [address] [place] [address] 11/21/2024 8:45 AM EDT Office Visit [facility] [address] [place] [address] Janae Lawrence MD [address] [place] [address] Toney Loco, PT [address] [place] [address] 11/25/2024 9:30 AM EDT Office Visit [facility] [address] [place] [address] Janae Lawrence MD [address] [place] [address] Toney Loco, PT [address] [place] [address] 11/27/2024 8:45 AM EDT Office Visit [facility] [address] [place] [address] Janae Lawrence MD [address] [place] [address] Toney Loco, PT [address] [place] [address] documented as of this encounter Visit Diagnoses Not on filedocumented in this encounter Care Teams Clin Asst Relationship Specialty Start Date End Date Itzel Martinez NP [address] [place] [address] PCP - General Family Medicine 02/09/17 04/15/24 Janae Lawrence MD [address] [place] [address] PCP - General Internal Medicine 04/16/24 Tila Haile NP [address] [place] [address] Historical LMR Provider 01/21/17 Gilma Carrasco MD 22 [facility], [address] [address] Historical LMR Provider 01/21/17 Itzel Martinez NP [address] [place] [address] Historical LMR Provider 01/21/17 documented as of this encounter Additional Source Comments The information contained in this document represents components of the legal health record. It is not the complete legal health record.[facility]
[2024-11-04 11:01] LABS: Anion Gap 9 (12-20); Blood Urea Nitrogen 14 mg/dL (9-16); Calcium 9.2 mg/dL (8.4-10.2); Carbon Dioxide 28 mmol/L (22-29); Chloride 108 mmol/L (96-108); Estimated Glomerular Filt Rate > 60; Potassium 4.0 mmol/L (3.3-5.1); Sodium 141 mmol/L (135-145)
== END 2024-11-04 09:49 | disposition home or self-care (01) ==
LOC: HO.10HDL 09:48
PROVIDERS: Visit Provider Urology
DX: R31.9 Hematuria, unspecified (principal)
CPT/HCPCS: 36415; 80048

== ENCOUNTER 2024-12-16 15:28 | Outpatient (AMB) | payer MEDICARE, SELFPAY ==
--- OUTSIDE RECORDS SUMMARY | 2024-05-02 16:30 | XMS_ITS | Encounter Summary ---
Author Organization [facility] Address [address] [facility] [address] [place] [address] Phone Care Team Providers Care Conduit Mechanic Name Role Phone MicTila foster Leroy WHITE SOURER Unavailable [phone] Gilma Carrasco MD Unavailable Itzel Martinez WHITE SOURER Unavailable [phone] Janae Lawrence MD Primary Care Provider Encounter Details Date Type Department Care Team (Late st Contact Info) Description 05/02/2024 3:30 PM [facility] Hospital Encounter [facility] [address] [place] [address] [phone] Talia Moy, COUNSELOR AIDE [address] [place] [address] [email or web address] Social History Tobacco Use Types Packs/Day Years [...] 7:02 AM EDT Agustina Mckeon RN * [place] Suicide Severity Rating Scale (Screener/Recent Self-Report) Question Answer Date of Assessment Author 1. Wish to be (Past 1 Month) No 06/22/2024 7:02 AM EDT Matthieu Dillon RN 2. Non-Specific Active Suicidal Thoughts (Past 1 Month) No 06/22/2024 7:02 AM EDT Matthieu Dillon RN 6. Suicidal Behavior (Lifetime) No 06/22/2024 7:02 AM EDT Matthieu Dillon RN documented as of this encounter Plan of Treatment Upcoming Encounters Date Type Department Care Team (Late st Contact Info) Description 12/18/2024 10:00 AM EDT Office Visit [facility] [address] [place] [address] Janae Lawrence MD [address] [place] [address] [phone] Mindy Genao, PT 8 [place] [address] 12/25/2024 1:00 PM EDT Office Visit [facility] [address] [place] [address] Janae Lawrence MD [address] [place] [address] Mindy Genao, PT 8 [place] [address] 12/30/2024 2:00 PM EDT Office Visit [facility] [address] [place] [address] Janae Lawrence MD [address] [place] [address] Toney Loco, PT [address] [place] [address] 01/15/2025 8:45 AM EDT Office Visit [facility] [address] [place] [address] Janae Lawrence MD [address] [place] [address] Toney Loco, PT [address] [place] [address] 01/22/2025 8:00 AM EDT Office Visit [facility] [address] [place] [address] Janae Lawrence MD [address] [place] [address] Toney Loco, PT 8 [place] [address] 01/27/2025 8:00 AM EDT Office Visit [facility] [address] [place] [address] Jnaae Lawrence MD [address] [place] [address] Toney Loco, PT [address] [place] [address] [email or web address] 02/03/2025 11:00 AM EST Office Visit [facility] [address] [place] [address] Janae Lawrence MD [address] [place] [address] Toney Loco, PT [address] [place] [address] [email or web address] 02/06/2025 8:00 AM EST Office Visit [facility] [address] [place] [address] Janae Lawrence MD [address] [place] [address] Toney Loco, PT [address] [place] [address] documented as of this encounter Procedures Procedure [...] clinician's provided indication for this examination in Epic: Trauma; r/o retained cat claw COMPARISON: None available. Procedure Note Nahid Goel MBBS - 05/02/2024 XR HAND 3 OR MORE VIEWS (RIGHT) Referring clinician's provided indication for this examination in [facility]:Trauma; r/o retained cat claw COMPARISON: None available. IMPRESSION: FINDINGS/IMPRESSION: No fracture. Normal alignment. Normal joint spaces. No soft tissueswelling. No Radiopaque foreign body. Talia Moy COUNSELOR AIDE IMG XR UPPER EXTREMITY Final Result documented in this encounter Visit Diagnoses Not on filedocumented in this encounter Care Teams Conduit Mechanic Relationship Specialty Start Date End Date Janae Lawrence MD [address] [place] [address] PCP - General Internal Medicine 04/16/24 Tila Haile NP [address] [place] [address] Historical LMR Provider 01/21/17 Gilma Carrasco MD [address] [place] [address] Historical LMR Provider 01/21/17 Itzel Martinez NP [address] [place] [address] Historical LMR Provider 01/21/17 documented as of this encounter Additional Source Comments The information contained in this document represents components of the legal health record. It is not the complete legal health record.[facility]
--- OUTSIDE RECORDS SUMMARY | 2024-12-08 09:20 | XMS_ITS | Encounter Summary ---
Author Organization [facility] Address [address] [place] [address] [place] [address] Phone Care Team Providers Care Cupola Melter Name Role Phone Tila Haile Leroy HALF BACKER Unavailable [phone] Gilma Carrasco MD Unavailable Itzel Martinez HALF BACKER Unavailable [phone] Janae Lawrence MD Primary Care Provider Reason for Visit * Reason Comments Sinusitis With puffy face and ear crackling and pain and pressure in the face x 3 weeks Encounter Details Date Type Department Care Team (Late st Contact Info) Description 12/08/2024 9:20 AM EDT Office Visit [facility] at [address] [address] Nelly Mcneil, [address] [address] [email or web address] Acute bacterial sinusitis (Primary Dx) Social History Tobacco Use Types Packs/Day Years Used Date Smoking Tobacco: Never Smokeless Tobacco: Never Tobacco Cessation:Counseling Given: Not Answered Alcohol Use Standard Drinks/Week Comments Yes 0 [...] PM EDT documented as of this encounter Last Filed Vital Signs Vital Sign Reading Time Taken Comments Blood Pressure 113/81 12/08/2024 9:26 AM EDT Pulse 64 12/08/2024 9:26 AM EDT Temperature 37.3 C (99.1 F) 12/08/2024 9:26 AM EDT Respiratory Rate 16 12/08/2024 9:26 AM EDT Oxygen Saturation 96% 12/08/2024 9:26 AM EDT Inhaled Oxygen Concentration - - Weight 67.1 kg (148 lb) 12/08/2024 9:26 AM EDT Height 162.6 cm (5' 4 ) 12/08/2024 9:26 AM EDT Body Mass Index 25.4 12/08/2024 9:26 AM EDT documented in this encounter Patient Instructions * Patient Instructions* Nelly Mcneil FNP - 12/08/2024 9:20 AM EDT REST DRINK PLENTY OF FLUIDS.STAY WELL HYDRATED. WARM SALT WATER GARGLES 4 X A DAY. TYLENOL SUDAFED FLONASE SALINE NASAL SPRAY DRINK HOT WATER WITH SLICE OF FRESH NAVYA, FRESH LEMON AND HONEY IN IT. WARM COMPRESSES TO FACE. * Attachments The following attachments cannot be sent through Care Everywhere. * Sinusitis: Acute ([place]ri [place]ankan) documented in this encounter Progress Notes * Nelly Mcneil FNP - 12/08/2024 9:20 AM EDT Images from the original note were not included. Subjective: Patient ID: Yulisa Rocha is a 49 y.o. female. Pt complain of 3 weeks of nasal congestion, pressure/pain face, puffy around the eyes, ears crackling. Review of Systems Constitutional: Positive for fatigue. Negative for fever. HENT: Positive for congestion and ear pain. Negative for sore throat. Eyes: Negative for pain. Respiratory: Negative for cough and shortness of breath. Cardiovascular: Negative for chest pain. Gastrointestinal: Negative for abdominal pain, constipation, diarrhea, nausea and vomiting. Genitourinary: Negative for dysuria and flank pain. Neurological: Negative for dizziness, light-headedness and headaches. Hematological: Negative for adenopathy. All other systems reviewed and are negative. Skin: Negative for color change. Musculoskeletal: Negative for joint pain, back pain and neck pain. Vitals: 12/08/24 0926 BP: 113/81 BP Location: Left arm Pulse: 64 Resp: 16 Temp: 37.3 ??C (99.1 ??F) TempSrc: Temporal SpO2: 96% Weight: 67.1 kg (148 lb) Height: 162.6 cm (5' 4 ) Objective: Physical Exam Vitals and nursing note reviewed. Constitutional: General: She is not in acute distress. Appearance: Normal appearance. She is not ill-appearing, toxic-appearing or diaphoretic. HENT: Head: Normocephalic and atraumatic. Right Ear: Tympanic membrane, ear canal and external ear normal. Left Ear: Tympanic membrane, ear canal and external ear normal. Nose: Congestion and rhinorrhea present. Comments: Injected nares Mouth/Throat: Mouth: Mucous membranes are moist. Pharynx: Oropharynx is clear. No oropharyngeal exudate or posterior oropharyngeal erythema. Eyes: General: Right eye: No discharge. Left eye: No discharge. Extraocular Movements: Extraocular movements intact. Conjunctiva/sclera: Conjunctivae normal. Pupils: Pupils are equal, round, and reactive to light. Comments: Puffy below eyes Cardiovascular: Rate and Rhythm: Normal rate and regular rhythm. Pulses: Normal pulses. Heart sounds: Normal heart sounds. Pulmonary: Effort: Pulmonary effort is normal. Breath sounds: Normal breath sounds. Abdominal: General: Abdomen is flat. Musculoskeletal: General: Normal range of motion. Cervical back: Normal range of motion and neck supple. No tenderness. Lymphadenopathy: Cervical: No cervical adenopathy. Skin: General: Skin is warm and dry. Neurological: General: No focal deficit present. Mental Status: She is alert and oriented to person, place, and time. Mental status is at baseline. Psychiatric: Mood and Affect: Mood normal. Behavior: Behavior normal. Thought Content: Thought content normal. Judgment: Judgment normal. Results for orders placed or performed in visit on 12/08/24 POCT COVID-19 RT-PCR/Influenza A & B/RSV (DVS Intelestreamheid) Result Value Ref Range RSV PCR Negative Negative SARS-CoV-2 (COVID-19) Negative Negative POC Influenza A PCR Negative Negative POC Influenza B PCR Negative Negative Procedure: Procedures Assessment/Plan: Diagnosis Plan 1. Acute bacterial sinusitis Assessment and Plan: Well appearing pt in nad complaining of sinusitis symptoms for 3 weeks. Rx augmentin Discussed and agreed on pharm and non pharm plan of care. Recheck if worsening or no better 2-3 days. documented in this encounter Plan of Treatment Upcoming Encounters Date Type Department Care Team (Late st Contact Info) Description 12/18/2024 10:00 AM EDT Office Visit [facility] [address] [place] [address] Janae Lawrence MD [address] [place] [address] Mindy Genao, PT [address] [place] [address] 12/25/2024 1:00 PM EDT Office Visit [facility] [address] [place] [address] Janae Lawrence MD [address] [place] [address] Mindy Genao, PT [address] [place] [address] 12/30/2024 2:00 PM EDT Office Visit [facility] [address] [place] [address] Janae Lawrence MD [address] [place] [address] Toney Loco, PT [address] [place] [address] 01/15/2025 8:45 AM EDT Office Visit [facility] [address] [place] [address] Janae Lawrence MD [address] [place] [address] Toney Loco, PT [address] [place] [address] 01/22/2025 8:00 AM EDT Office Visit [facility] [address] [place] [address] Janae Lawrence MD [address] [place] [address] Toney Loco, PT [address] [place] [address] 01/27/2025 8:00 AM EDT Office Visit [facility] [address] [place] [address] Janae Lawrence MD [address] [place] [address] Toney Loco, PT [address] [place] [address] [email or web address] 02/03/2025 11:00 AM EST Office Visit [facility] [address] [place] [address] Janae Lawrence MD [address] [place] [address] Toney Loco, PT [address] [place] [address] [email or web address] 02/06/2025 8:00 AM EST Office Visit [facility] [address] [place] [address] Janae Lawrence MD [address] [place] [address] Toney Loco, PT [address] [place] [address] [email or web address] documented as of this encounter Procedures Procedure Name Priority Date/Time Associated Diagnosis Comments POCT COVID-19 RT-PCR/INFLUENZA A & B/RSV CEPHEID Routine 12/08/2024 9:32 AM EDT documented in this encounter Results * POCT COVID-19 RT-PCR/Influenza A & B/RSV (Cepheid) (12/08/2024 9:32 AM EDT) [facility] RSV PCR Negative Negative [facility] SARS-CoV-2 (COVID-19) Negative Negative [facility] Influenza A PCR Negative Negative [facility] Influenza B PCR Negative Negative [facility] 12/08/2024 9:32 AM EDT 12/08/2024 10:12 AM EDT Nelly Mcneil ELECTRONIC ASSEMBLER POINT OF CARE TEST ORDERABL ES Final Result [facility] [address] [address], [facility] [phone] documented in this encounter Visit Diagnoses Diagnosis Acute bacterial sinusitis- Primary Acute sinusitis, unspecified documented in this encounter Care Teams Cupola Melter Relationship Specialty Start Date End Date Janae Larwence MD [address] [place] [address] PCP - General Internal Medicine 04/16/24 Tila Haile NP [address] [place] [address] Historical LMR Provider 01/21/17 Gilma Carrasco MD [address] [place] [address] [address] [place] [address] Historical LMR Provider 01/21/17 Itzel Martinez NP [address] [place] [address] Historical LMR Provider 01/21/17 documented as of this encounter Additional Source Comments The information contained in this document represents components of the legal health record. It is not the complete legal health record.[facility]
--- OUTSIDE RECORDS SUMMARY | 2024-12-11 13:15 | XMS_ITS | Encounter Summary ---
Author Organization [facility] Address [address] [facility] [address] [place] [address] Phone Care Team Providers Care Avionics Engineer Name Role Phone MicTila foster Leroy NUT PROCESS HELPER Unavailable [phone] Gilma Carrasco MD Unavailable Itzel Martinez NUT PROCESS HELPER Unavailable [phone] Janae Lawrence MD Primary Care Provider [phone] Reason for Visit * Physical Therapy (Routine) - Authorized Specialty Diagnoses / Procedures Referred By Contac t Referred To Contact Physical Therapy Diagnoses Encounter for rehabilitation Fabiana Brandt, NUT PROCESS HELPER [address] [place] [address] Phone: tel: fax: [facility] [address] [place] [address] Phone: tel: Referral ID Status Reason Start Date Expiration Date V isits Requested Visits Authorized [id number] Authorized 02/19/2024 02/18/2025 99 99 Encounter Details Date Type Department Care Team (Late st Contact Info) Description 12/11/2024 1:15 PM EDT Office Visit [facility] [address] [place] [address] Janae Lawrence MD [address] [place], [place] [id number] Toney Loco, PT [address] [place] [address] [email or web address] Acute bilateral low back pain, unspecified whether sciatica present (Primary Dx) Social History Tobacco Use Types [...] PM EDT documented as of this encounter Progress Notes * Toney Loco, PT - 12/11/2024 1:15 PM EDT Physical Therapy Treatment Note Patient Name: Yulisa Rocha Date of : 1975 This patient has attended 20 visits since the onset Physical Therapy. Referring MD: Janae Lawrence MD [address] [place] [address] Acute bilateral low back pain, unspecified whether sciatica present [M54.50] Precautions: Pain Subjective comments: Did well after my appointment with Mindy. I had some relief after that treatment. It lasted until late the next day. I feel like the effects of the shot in the hip has worn off. It's back to really hurting again and I continue to struggle with walking. I also had an episode of severe pain in my leftlower leg that woke me up a few nights ago. It was pretty bad. It last about 20min. I was able to go back to sleep and it didn't come back. Pain comments pre-treatment: - 6/10 in (B)ischial - 7/10 in LB Objective Measures: N/A Interventions: See encounter report for minutes associated with each intervention. Self-care: - Discussed pt's current status and symptoms since previous session - Pt detailing most recent interaction with new Doctor regarding her hip diagnoses - Pt expressing Manual: - Pt supine: Deep STM to (B)paracervicals, UT and suboccipitals - Manual cervical traction Not performed: Manual: - Pt sidelying (R): Deep STM to (L)paralumbars, QL - Manual stretch to (L)QL Traction: - 55lb max/25lb min, 90sec on/10sec off x 15min at 90/90 w/ 20deg angle of pull Self-care: - Discussion of pt's current status and progress to date Exercise: - Pt supine: Deep STM to (B)quad, TFL - Long axis distraction to (B)acetabular joint - Pt supine: Grade 3 inferior glide mobs to (R)acetabular joint - Grade 3 lateral glide stretch to (R)acetabular joint - Garde 3 inferolateral glides to (R)acetabular joint - Deep STM to (R)psoas - Active release to (R)psoas Exercise: - VR of HEP - Abdominal bracing with stabilizer 5reps x 10sec - Supine may w/ stabilizer 2 x 2reps each leg - Standing hip abd 2 x 5reps(B) - Standing hip ext 2 x 5reps(B) - Instructed pt in lumbar self-traction in hooklying - Cues for proper technique - Dispensed HEP sheet Exercise: - Supine clamshell L1 2 x 6reps - Isometric hip add 1 x 10reps w/ 5sec holds - Abdominal bracing 1 x 5reps w/ 5sec holds - Cues for proper technique - Dispensed HEP sheet for above exercises plus glue sets Manual: - Pt supine: MET to pelvis for (R)posterior innominate rotation correction - MET to pelvis for (L)anterior innominate rotation correction - MET to pelvis for (R)inflare correction - Deep STM to (B)iliopsoas, emphasis on (R) - Deep STM to (R)quad and TFL - Long axis distraction (R) acetabular joint Manual: - Pt supine: Deep STM to (R)quad, TFL w/ rolling pin - Long axis distraction to (R))acetabular joints - Grade 3 inferior glides to (R)acetabular joint - Grade 3 lateral glides to (R)acetabular joint Home Exercise Program: Exercises - Supine Gluteal Sets - 1 x daily - 7 x weekly - 3 sets - 5 reps - 5sec hold - Supine Transversus Abdominis Bracing - Hands on Stomach - 1 x daily - 7 x weekly - 3 sets - 5 reps - 10sec hold - Supine Hip Adduction Isometric with Ball - 1 x daily - 3-4 x weekly - 3 sets - 5 reps - 5sec hold - Hooklying Clamshell with Resistance - 1 x daily - 3-4 x weekly - 3 sets - 5 reps - 1-2sec hold - Supine Bridge - 1 x daily - 3-4 x weekly - 3 sets - 5 reps - 5sec hold - Hooklying Lumbar Traction - 1 x daily - 7 x weekly - 1 sets - 10 reps - 15sec hold - Standing Hip Abduction with Resistance at Ankles and Counter Support - 1 x daily - 3 x weekly - 2-3 sets - 5 reps - 1-2sec hold - Standing 3-Way Leg Reach with Resistance at Ankles and Counter Support - 1 x daily - 3 x weekly -2-3 sets - 5 reps - 1-2sec hold - Marching with Resistance - 1 x daily - 3 x weekly - 3 sets - 5 reps - 1-2sec hold Assessment: Tolerated treatment well. Pt reporting successful treatment session with Mindy Genao who was able toaddress SI joint dysfunction as well as provide some relief from LBP. Unfortunately, symptom reliefonly lasting approx 2days. Would benefit from continued treatment while navigating healthcare system in trying to obtain surgical intervention. Plan: Manual therapy to pelvis to address SI joint dysfunction, LBP and cervical pain. Toney Loco, [place] [id number] documented in this encounter Plan of Treatment Upcoming Encounters Date Type Department Care Team (Late st Contact Info) Description 12/18/2024 10:00 AM EDT Office Visit [address] [address] Janae Lawrence MD [address] [place] [address] Mindy Genao, PT [address] [place] [address] 12/25/2024 1:00 PM EDT Office Visit [address] [place] [address] Janae Lawrecne MD [address] [place] [address] Mindy Genao, PT [address] [place] [address] 12/30/2024 2:00 PM EDT Office Visit [address] [address] Janae Lawrence MD [address] [place] [address] Toney Loco, PT [address] [place] [address] 01/15/2025 8:45 AM EDT Office Visit [address] [place] [address] Janae Lawrence MD [address] [place] [address] Toney Loco, PT [address] [place] [address] 01/22/2025 8:00 AM EDT Office Visit [facility] [address] [place] [address] Janae Lawrence MD [address] [place] [address] Toney Loco, PT [address] [place] [address] 01/27/2025 8:00 AM EDT Office Visit [facility] [address] [place] [address] Janae Lawrence MD [address] [place] [address] Toney Loco, PT [address] [place] [address] 02/03/2025 11:00 AM EST Office Visit [facility] [address] [place] [address] Janae Lawrence MD [address] [place] [address] Toney Loco, PT [address] [place] [address] 02/06/2025 8:00 AM EST Office Visit [facility] [address] [place] [address] Janae Lawrence MD [address] [place] [address] Toney Loco, PT [address] [place] [address] documented as of this encounter Visit Diagnoses Diagnosis Acute bilateral low back pain, unspecified whether sciatica present- Primary documented in this encounter Care Teams Avionics Engineer Relationship Specialty Start Date End Date Janae Lawrence MD [address] [place] [address] PCP - General Internal Medicine 04/16/24 Tila Haile NP [address] [place] [address] [email or web address] Historical LMR Provider 01/21/17 Gilma Carrasco MD [address] [place] [id number] [email or web address] Historical LMR Provider 01/21/17 Itzel Martinez NP [address] [place] [address] Historical LMR Provider 01/21/17 documented as of this encounter Additional Source Comments The information contained in this document represents components of the legal health record. It is not the complete legal health record.[facility]
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
[2024-12-16 15:36] VITALS: BP 144/82; PULSE 73; RESP 12; TEMP 37; BMI 25.1
[2024-12-16 15:39] VITALS: BP 128/76
--- OUTSIDE RECORDS SUMMARY | 2024-12-16 18:50 | XMS_ITS | Encounter Summary ---
Author Organization [facility] Address [address] [facility] [address] [place] [address] Phone Care Team Providers Care Drug Inspector Name Role Phone MicTila foster Leroy HEALTH INFORMATION DIRECTOR Unavailable [phone] Gilma Carrasco MD Unavailable Itzel Martinez HEALTH INFORMATION DIRECTOR Unavailable [phone] Janae Lawrence MD Primary Care Provider Encounter Details Date Type Department Care Team (Late st Contact Info) Description 06/22/2024 Procedure Pass [facility], [address] [address] Social History Tobacco Use Types Packs/Day Years [...] 7:02 AM EDT Agustina Mckeon RN * [place] Suicide Severity Rating Scale (Screener/Recent Self-Report) Question Answer Date of Assessment Author 1. Wish to be (Past 1 Month) No 06/22/2024 7:02 AM EDT Matthieu Dillon, CHARO 2. Non-Specific Active Suicidal Thoughts (Past 1 Month) No 06/22/2024 7:02 AM EDT Matthieu Dillon, CHARO 6. Suicidal Behavior (Lifetime) No 06/22/2024 7:02 AM EDT Matthieu Dillon RN documented as of this encounter Plan of Treatment Upcoming Encounters Date Type Department Care Team (Late st Contact Info) Description 12/18/2024 10:00 AM EDT Office Visit [facility] [address] [place] [address] Janae Lawrence MD [address] [place] [address] Mindy Genao, PT [address] [place] [address] 12/25/2024 1:00 PM EDT Office Visit [facility] [address] [place] [address] Janae Lawrence MD [address] [place] [address] Mindy Genao, PT [address] [place] [address] [email or web address] 12/30/2024 2:00 PM EDT Office Visit [facility] [address] [place] [address] Janae Lawrence MD [address] [place] [address] Toney Loco, PT [address] [place] [address] [email or web address] 01/15/2025 8:45 AM EDT Office Visit [facility] [address] [place] [address] Janae Lawrence MD [address] [place] [address] Toney Loco, PT [address] [place] [address] [email or web address] 01/22/2025 8:00 AM EDT Office Visit [facility] [address] [place] [address] Janae Lawrence MD [address] [place] [address] Toney Loco, PT [address] [place] [address] [email or web address] 01/27/2025 8:00 AM EDT Office Visit [address] [place] [address] Janae Lawrence MD [address] [place] [address] Toney Loco, PT [address] [place] [address] 02/03/2025 11:00 AM EST Office Visit [facility] [address] [place] [address] Janae Lawrence MD [address] [place] [address] Toney Loco, PT [address] [place] [address] 02/06/2025 8:00 AM EST Office Visit [facility] [address] [place] [address] Janae Lawrence MD [address] [place] [address] Toney Loco, PT [address] [place] [address] documented as of this encounter Visit Diagnoses Not on filedocumented in this encounter Care Teams Drug Inspector Relationship Specialty Start Date End Date Janae Lawrence MD [address] [place] [address] PCP - General Internal Medicine 04/16/24 Tila Haile NP [address] [place] [address] Historical LMR Provider 01/21/17 Gilma Carrasco MD [address] [address] Historical LMR Provider 01/21/17 Itzel Martinez NP [address] [place] [address] Historical LMR Provider 01/21/17 documented as of this encounter Additional Source Comments The information contained in this document represents components of the legal health record. It is not the complete legal health record.[facility]
--- OUTSIDE RECORDS SUMMARY | 2024-12-16 18:50 | XMS_ITS | Encounter Summary ---
Author Organization [facility] Address [address] [facility] [address] [place] [address] Phone Care Team Providers Care Tomb Maker Helper Name Role Phone Tila Haile HEAD CAGER Unavailable [phone] Gilma Carrasco MD Unavailable Itzel Martinez HEAD CAGER Unavailable [phone] Itzel Martinez NP Primary Care Provider [phone] Janae Lawrence MD Primary Care Provider Encounter Details Date Type Department Care Team (Late st Contact Info) Description 02/22/2024 Procedure Pass [facility] - [address] [place] [address] Social History Tobacco Use Types Packs/Day Years [...] as food, clothing, or medical care? No 01/28/2024 In the past 12 months have y ou been in a relationship with a person who hurts, threatens, or tries to control you? No 01/28/2024 Are you denied basic needs s uch as food, clothing, or medical care? No 01/28/2024 In the past 12 months have y ou been in a relationship with a person who hurts, threatens, or tries to control you? No 01/28/2024 Comments No Sex and Gender Information Value [...] Description 12/18/2024 10:00 AM EDT Office Visit [address] [place] [address] Janae Lawrence MD [address] [place] [address] Mindy Genao, PT [address] [place] [address] 12/25/2024 1:00 PM EDT Office Visit [address] [place] [address] Janae Lawrence MD [address] [place] [address] Mindy Genao, PT [address] [place] [address] 12/30/2024 2:00 PM EDT Office Visit [address] [place] [address] Janae Lawrence MD [address] [place] [address] Toney Loco, PT [address] [place] [address] 01/15/2025 8:45 AM EDT Office Visit [facility] [address] [place] [address] Janae Lawrence MD [address] [place] [address] Toney Loco, PT [address] [place] [address] 01/22/2025 8:00 AM EDT Office Visit [facility] [address] [place] [address] Janae Lawrence MD [address] [place] [address] Toney Loco, PT [address] [place] [address] 01/27/2025 8:00 AM EDT Office Visit [facility] [address] [place] [address] Janae Lawrence MD [address] [place] [address] Toney Loco, PT [address] [place] [address] 02/03/2025 11:00 AM EST Office Visit [facility] [address] [place] [address] Janae Lawrence MD [address] [place] [address] Toney Loco, PT [address] [place] [address] 02/06/2025 8:00 AM EST Office Visit [facility] [address] [place] [address] Janae Lawrence MD [address] [place] [address] Toney Loco, PT [address] [place] [address] [email or web address] documented as of this encounter Visit Diagnoses Not on filedocumented in this encounter Care Teams Tomb Maker Helper Relationship Specialty Start Date End Date Itzel Martinez, HEAD CAGER [address] [place] [address] PCP - General Family Medicine 02/09/17 04/15/24 Janae Lawrence MD [address] [place] [address] PCP - General Internal Medicine 04/16/24 Tila Haile NP [address] [place] [address] [email or web address] Historical LMR Provider 01/21/17 Gilma Carrasco MD [address] [facility], [address] [place] [address] Historical LMR Provider 01/21/17 Itzel Martinez NP [address] [place] [address] Historical LMR Provider 01/21/17 documented as of this encounter Additional Source Comments The information contained in this document represents components of the legal health record. It is not the complete legal health record.[facility]
--- OUTSIDE RECORDS SUMMARY | 2024-12-16 18:50 | XMS_ITS | Encounter Summary ---
Author Organization [facility] Address [address] [place] [address] [place] [address] Phone Care Team Providers Care Chisel Worker Name Role Phone Mariam Cooper CNM Unavailable Tila Haile PHARMACEUTICAL PROCESS ENGINEER Unavailable [phone] Katelynn Ruiz PHARMACEUTICAL PROCESS ENGINEER Unavailable Tang Reed MD Unavailable Gilma Carrasco MD Unavailable Itzel Martinez PHARMACEUTICAL PROCESS ENGINEER Unavailable [phone] Elena Eason MD Unavailable [phone] Cruz Roberson MD Unavailable Nova Acevedo MD Unavailable Mar Keene MD Unavailable Rachel Saleem MD Unavailable [phone] Itzel Martinez PHARMACEUTICAL PROCESS ENGINEER Primary Care Provider Robert Michele MD Unavailable Cecil Barillas MD Unavailable Janae Lawrence MD Primary Care Provider [phone] Reason for Referral * MRI/CAT Scan - Closed Specialty Diagnoses / Procedures Referred By Contac t Referred To Contact Radiology Diagnoses Coccyx pain Procedures CT Pelvis Jose Dickinson MD Phone: tel: Referral ID Status Reason Start Date Expiration Date Visits Re quested Visits Authorized [id number] Closed 08/08/2018 08/09/2019 1 1 Encounter Details Date Type Department Care Team (Late Contact Info) Description 08/05/2018 Ancillary Orders Virtual Department [address] [place] [address] Jose Dickinson MD [address] [place] [address] Coccyx pain Social History Tobacco Use Types Packs/Day Years Used Date Smoking Tobacco: Never Assessed Comments Unknown Sex and Gender Information Value Date Recorded Sex Assigned at Female 03/08/2020 9:32 AM EST Legal Sex Female 4:40 PM EST Gender Identity Female 03/08/2020 9:32 AM EST Sexual Orientation Don't know 01/28/2024 2: 03 PM EDT documented as of this encounter Functional Status documented as of this encounter Plan of Treatment Upcoming Encounters Date Type Department Care Team (Late st Contact Info) Description 12/18/2024 10:00 AM EDT Office Visit [facility] [address] [place] [address] Janae Lawrence MD [address] [place] [address] Mindy Genao, PT 8 [place] [address] 12/25/2024 1:00 PM EDT Office Visit [facility] [address] [place] [address] Janae Lawrence MD [address] [place] [address] Mindy Genao, PT 8 [place] [address] 12/30/2024 2:00 PM EDT Office Visit [facility] [address] [place] [address] Janae Lawrence MD [address] [place] [address] Toney Loco, PT 8 [place] [address] 01/15/2025 8:45 AM EDT Office Visit [facility] [address] [place] [address] Janae Lawrence MD [address] [place] [address] Toney Loco, PT 8 [place] [address] 01/22/2025 8:00 AM EDT Office Visit [facility] [address] [place] [address] Janae Lawrence MD [address] [place] [address] Toney Loco, PT 8 [place] [address] 01/27/2025 8:00 AM EDT Office Visit [facility] [address] [place] [address] Janae Lawrence MD [address] [place] [address] Toney Loco, PT 8 [place] [address] 02/03/2025 11:00 AM EST Office Visit [facility] [address] [place] [address] Janae Lawrence MD [address] [place] [address] Toney Loco, PT 8 [place] [address] 02/06/2025 8:00 AM EST Office Visit [facility] [address] [place] [address] Janae Lawrence MD [address] [place] [address] Toney Loco, PT 8 [place] [address] documented as of this encounter Results * CT PELVIS WITHOUT CONTRAST (08/12/2018 1:55 PM EDT) Anatomical Region Laterality Modality Pelvis Computed Tomogra phy 08/12/2018 1:47 PM EDT Impressions 08/12/2018 2:11 PM EDT No findings to account for the patient's coccygeal pain. TOTAL CTDIvol: 6.2 mGy POS - [id number] Narrative 08/12/2018 2:11 PM EDT COMPARISON: Lumbar spine radiographs 02/09/2017. CT abdomen pelvis 10/19/2008. TECHNIQUE: CT pelvis without IV/oral contrast. Multiplanar reformatted images generated. Automated exposure control utilized. 3-D rendering was performed not requiring post processing on an independent workstation with concurrent supervision. 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 Genitourinary: Bladder is nondistended. No adnexal masses. Retroflexed uterus with IUD in place. Uterine volume has significantly decreased in size. No discrete mass identified. Gastrointestinal tract: Normal. Peritoneum/retroperitoneum: No ascites, fluid collections or lymphadenopathy. Incidental multiple pelvic phleboliths again noted Musculoskeletal: Decrease in size of the small umbilical hernia. No significant bony degenerative changes. No suspicious lytic/blastic bone lesions or acute fracture. Procedure Note Blossom Green MD - 08/12/2018 COMPARISON: Lumbar spine radiographs 02/09/2017. CT abdomen [id number]/19/2008. TECHNIQUE: CT pelvis without IV/oral contrast. Multiplanar reformattedimages generated. Automated exposure control utilized. 3-D rendering wasperformed not requiring post processing on an independent workstation withconcurrent supervision. 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 Genitourinary: Bladder is nondistended. No adnexal masses. Retroflexeduterus with IUD in place. Uterine volume has significantly decreased insize. No discrete mass identified. Gastrointestinal tract: Normal. Peritoneum/retroperitoneum: No ascites, fluid collections orlymphadenopathy. Incidental multiple pelvic phleboliths again noted Musculoskeletal: Decrease in size of the small umbilical hernia. Nosignificant bony degenerative changes. No suspicious lytic/blastic bonelesions or acute fracture. IMPRESSION: No findings to account for the patient's coccygeal pain. TOTAL CTDIvol: 6.2 mGy POS - [id number] Jose Dickinson MD IMG CT XSPECIALTY OR DERABLES Final Result documented in this encounter Visit Diagnoses Diagnosis Coccyx pain Other disorder of coccyx Coccyx pain Other disorder of coccyx documented in this encounter Care Teams Chisel Worker Relationship Specialty Start Date End Date Itzel Martinez NP [address] [place] [address] PCP - General Family Medicine 02/09/17 04/15/24 Janae Lawrence MD [address] [facility] [address] [place] [address] PCP - General Internal Medicine 04/16/24 Mariam Cooper CNM [address] [place] [address] Historical LMR Provider 01/21/17 2 Tila Haile NP 30 [place] [address] [email or web address] Historical LMR Provider 01/21/17 Katelynn Ruiz NP [address] [place] [address] [email or web address] Historical LMR Provider 01/21/17 04/09/21 Tang Reed MD [address] [place] [address], 2nd [place] [address] Historical LMR Provider 01/21/17 04/09/21 Gilma Carrasco MD [address] [place] [address] Historical LMR Provider 01/21/17 Itzel Martinez NP [address] [place] [address] Historical LMR Provider 01/21/17 Elena Eason MD [address] [place] [address] Historical LMR Provider 01/21/17 2 Cruz Roberson MD [address] [place] [address] Historical LMR Provider 01/21/17 04/09/21 Nova Acevedo MD [address] [place] [phone] Historical LMR Provider 01/21/17 2 Mar Keene MD 22 [facility], [address] [place] [address] [email or web address] Historical LMR Provider 01/21/17 04/09/21 Rachel Saleem MD [address] [place] [phone] Historical LMR Provider 01/21/17 2 Robert Michele MD 70 [place] [address] [email or web address] Insurance Assigned Provider 07/06/18 12/07/18 Cecil Barillas MD [address] [place] [address] [address] [place] [address] [email or web address] Insurance Assigned Provider 12/07/18 07/09/19 documented as of this encounter Additional Source Comments The information contained in this document represents components of the legal health record. It is not the complete legal health record.[facility]
--- OUTSIDE RECORDS SUMMARY | 2024-12-16 18:50 | XMS_ITS | Encounter Summary ---
Author Organization [facility] Address [address] [place] [address] [place] [address] Phone Care Team Providers Care Hip Hop Dancer Name Role Phone Mariam Cooper CNM Unavailable Tila Haile AUTOMATION TENDER Unavailable [phone] Katelynn Ruiz NP Unavailable Tang Reed MD Unavailable Gilma Carrasco MD Unavailable Itzel Martinez AUTOMATION TENDER Unavailable [phone] Elena Eason MD Unavailable [phone] Cruz Roberson MD Unavailable Nova Acevedo MD Unavailable Mar Keene MD Unavailable Rachel Saleem MD Unavailable [phone] Itzel Martinez AUTOMATION TENDER Primary Care Provider Janae Lawrence MD Primary Care Provider Encounter Details Date Type Department Care Team (Late st Contact Info) Description 02/15/2021 Ancillary Orders [facility] [address] Floor, [address] [place], [place] [phone] Itzel Martinez, AUTOMATION TENDER [address] [place] [address] Near syncope Social History Tobacco Use Types Packs/Day Years [...] Description 12/18/2024 10:00 AM EDT Office Visit [place] [facility] [address] [place] [address] Janae Lawrence MD [address] [place] [address] Mindy Gneao, PT 8 [place] [address] 12/25/2024 1:00 PM EDT Office Visit [place] [facility] [address] [place] [address] Janae Lawrence MD [address] [place] [address] Mindy Genao, PT 8 [place] [address] 12/30/2024 2:00 PM EDT Office Visit [place] [facility] [address] [place] [address] Janae Lawrence MD [address] [place] [address] Toney Loco, PT 8 [place] [address] 01/15/2025 8:45 AM EDT Office Visit [place] [facility] [address] [place] [address] Janae Lawrence MD [address] [place] [address] Tnoey Loco, PT 8 [place] [address] 01/22/2025 8:00 AM EDT Office Visit [place] [facility] [address] [place] [address] Janae Lawrence MD [address] [place] [address] Toney Loco, PT 8 [place] [address] 01/27/2025 8:00 AM EDT Office Visit [place] [facility] [address] [place] [address] Janae Lawrence MD [address] [place] [address] Toney Loco, PT 8 [place] [address] 02/03/2025 11:00 AM EST Office Visit [place] [facility] [address] [place] [address] Janae Lawrence MD [address] [place] [address] Toney Loco, PT 8 [place] [address] 02/06/2025 8:00 AM EST Office Visit [place] [facility] [address] [place] [address] Janae Lawrence MD [address] [place] [address] Toney Loco, PT 8 [place] [address] [email or web address] Scheduled Orders Name Type Priority Associated Diagnoses Orddann r Schedule MCT (Mobile Cardiac Telemetry) Cardiac Monitors Routine Near syncope Expected: 01/10/2021, Expires: 07/11/2021 documented as of this encounter Visit Diagnoses Diagnosis Near syncope documented in this encounter Care Teams Hip Hop Dancer Relationship Specialty Start Date End Date Itzel Martinez NP 70 [place] [address] PCP - General Family Medicine 02/09/17 04/15/24 Janae Lawrence MD [address] [place] [phone] PCP - General Internal Medicine 04/16/24 Mariam Cooper CNM [address] [place] [address] Historical LMR Provider 01/21/17 2 Tila Haile NP [address] [place] [address] [email or web address] Historical LMR Provider 01/21/17 Katelynn Ruiz NP [address] [place] [address] [email or web address] Historical LMR Provider 01/21/17 04/09/21 Tang Reed MD [address] [place] [address], 2[address] [place] [address] [email or web address] Historical LMR Provider 01/21/17 04/09/21 Gilma Carrasco MD [address] [place] [address], [address] [place] [address] Historical LMR Provider 01/21/17 Itzel Martinez NP [address] [place] [address] Historical LMR Provider 01/21/17 Elena Eason MD [address], [place] [address] Historical LMR Provider 01/21/17 2 Cruz Roberson MD [address] [place] [address] Historical LMR Provider 01/21/17 04/09/21 Nova Acevedo MD [address] [place] [phone] Historical LMR Provider 01/21/17 2 Mar Keene MD [address] [place] [address] Historical LMR Provider 01/21/17 04/09/21 Rachel Saleem MD [address], [place] [address] Historical LMR Provider 01/21/17 2 documented as of this encounter Additional Source Comments The information contained in this document represents components of the legal health record. It is not the complete legal health record.[facility]
--- OUTSIDE RECORDS SUMMARY | 2024-12-16 18:50 | XMS_ITS | Encounter Summary ---
Author Organization [facility] Address [address] [place] [address] [place] [address] Phone Care Team Providers Care Government Auditor Name Role Phone Mariam Cooper CNM Unavailable Tila Haile BAND HEAD SAW OPERATOR Unavailable [phone] Katelynn Ruiz BAND HEAD SAW OPERATOR Unavailable Tang Reed MD Unavailable Gilma Carrasco MD Unavailable Itzel Martinez BAND HEAD SAW OPERATOR Unavailable [phone] Elena Eason MD Unavailable Cruz Roberson MD Unavailable Nova Acevedo MD Unavailable Mar Keene MD Unavailable Rachel Saleem MD Unavailable [phone] Itzel Martinez BAND HEAD SAW OPERATOR Primary Care Provider Janae Lawrence MD Primary Care Provider Encounter Details Date Type Department Care Team (Late st Contact Info) Description 03/14/2021 Procedure [facility] [address] [place] [address] Social History Tobacco Use Types Packs/Day Years [...] Description 12/18/2024 10:00 AM EDT Office Visit [facility] [address] [place] [address] Janae Lawrence MD 140 [place] [address] Mindy Genao, PT 8 [place] [address] 12/25/2024 1:00 PM EDT Office Visit [facility] [address] [place] [address] Janae Lawrence MD 140 [place] [address] Mindy Genao, PT 8 [place] [address] 12/30/2024 2:00 PM EDT Office Visit [facility] [address] [place] [address] Janae Lawrence MD 140 [place] [address] Toney Loco, PT 8 [place] [address] 01/15/2025 8:45 AM EDT Office Visit [facility] [address] [place] [address] Janae Lawrence MD 140 [place] [address] Toney Loco, PT 8 [place] [address] 01/22/2025 8:00 AM EDT Office Visit [facility] [address] [place] [address] Janae Lawrence MD 140 [place] [address] Toney Loco, PT 8 [place] [address] 01/27/2025 8:00 AM EDT Office Visit [facility] [address] [place] [address] Janae Lawrence MD 140 [place] [address] Toney Loco, PT 8 [place] [address] 02/03/2025 11:00 AM EST Office Visit [facility] [address] [place] [address] Janae Lawrence MD 140 [place] [address] Toney Loco, PT 8 [place] [address] 02/06/2025 8:00 AM EST Office Visit [facility] [address] [place] [address] Janae Lawrence MD 140 [place] [address] Toney Loco, PT 8 [place] [address] documented as of this encounter Visit Diagnoses Not on filedocumented in this encounter Care Teams Government Auditor Relationship Specialty Start Date End Date Itzel Martinez BAND HEAD SAW OPERATOR [address] [place] [address] PCP - General Family Medicine 02/09/17 04/15/24 Janae Lawrence MD [address] [place] [phone] PCP - General Internal Medicine 04/16/24 Mariam Cooper CNM [address] [place] [address] Historical LMR Provider 01/21/17 2 Tila Haile NP [address] [place] [address] [email or web address] Historical LMR Provider 01/21/17 Katelynn Ruiz NP [address] [place] [address] [email or web address] Historical LMR Provider 01/21/17 04/09/21 Tang Reed MD [address] [place] [address], 2nd [place] [address] Historical LMR Provider 01/21/17 04/09/21 Gilma Carrasco MD [address] [place] [address] Historical LMR Provider 01/21/17 Itzel Martinez BAND HEAD SAW OPERATOR [address] [place] [address] Historical LMR Provider 01/21/17 Elena Eason MD [address] [place] [address] Historical LMR Provider 01/21/17 2 Cruz Roberson MD [address] [place] [address] Historical LMR Provider 01/21/17 04/09/21 Nova Acevedo MD [address] [place] [phone] Historical LMR Provider 01/21/17 2 Mar Keene MD [address] [place] [address] Historical LMR Provider 01/21/17 04/09/21 Rachel Sale[facility] [place] [address] Historical LMR Provider 01/21/17 2 documented as of this encounter Additional Source Comments The information contained in this document represents components of the legal health record. It is not the complete legal health record.[facility]
--- OUTSIDE RECORDS SUMMARY | 2024-12-16 18:50 | XMS_ITS | Encounter Summary ---
Author Organization [facility] Address [address] [place] [address] [place] [address] Phone Care Team Providers Care Ios Architect Name Role Phone Mariam Cooper CNM Unavailable Tila Haile RN CHRONIC Unavailable [phone] Katelynn Ruiz RN CHRONIC Unavailable Tang Reed MD Unavailable Gilma Carrasco MD Unavailable Itzel Martinez RN CHRONIC Unavailable [phone] Elena Eason MD Unavailable [phone] Cruz Roberson MD Unavailable Nova Acevedo MD Unavailable Mar Keene MD Unavailable Rachel Saleem MD Unavailable [phone] Itzel Martinez RN CHRONIC Primary Care Provider Janae Lawrence MD Primary Care Provider [phone] Encounter Details Date Type Department Care Team (Latest Contact Info) Description 03/07/2021 Transcribe Orders [facility] [address] [place], [place] [phone] Lorraine Membreno PA [address] [place], [place] [phone] Diarrhea, unspecified type (Primary Dx) Social History Tobacco Use Types [...] Description 12/18/2024 10:00 AM EDT Office Visit [facility] [address] [place] [address] Janae Lawrence MD 140 [place] [address] Mindy Genao, PT 8 [place] [address] 12/25/2024 1:00 PM EDT Office Visit [address] [place] [address] Janae Lawrence MD [address] [place] [address] Mindy Genao, PT 8 [place] [address] 12/30/2024 2:00 PM EDT Office Visit [address] [place] [address] Janae Lawrence MD [address] [place] [address] Toney Loco, PT 8 [place] [address] 01/15/2025 8:45 AM EDT Office Visit [facility] [address] [place] [address] Janae Lawrence MD [address] [place] [address] Toney Loco, PT 8 [place] [address] 01/22/2025 8:00 AM EDT Office Visit [facility] [address] [place] [address] Janae Lawrence MD [address] [place] [address] Toney Loco, PT 8 [place] [address] 01/27/2025 8:00 AM EDT Office Visit [facility] [address] [place] [address] Janae Lawrence MD [address] [place] [address] Toney Loco, PT 8 [place] [address] 02/03/2025 11:00 AM EST Office Visit [facility] [address] [place] [address] Janae Lawrence MD 140 [place] [address] Toney Loco, PT 8 [place] [address] 02/06/2025 8:00 AM EST Office Visit [facility] [address] [place] [address] Janae Lawrence MD [address] [place] [address] Toney Loco, PT 8 [place] [address] [email or web address] documented as of this encounter Results * (ABNORMAL) CBC and differential (03/07/2021 12:23 PM EST) WBC 6.92 4.00 - 11.00 K/uL [facility] RBC 4.45 3.72 - 5.30 M/uL [facility] HGB 15.0 10.6 - 15.5 g/dL [facility] HCT 44.2 32.0 - 45.0 % [facility] PLT 243 140 - 430 K/uL [facility] MCV 99.3(H) 78.0 - 97.0 fL [facility] MCH 33.7(H) 25.0 - 33.0 pg [facility] MCHC 33.9 32.0 - 36.0 g/dL [facility] RDW 12.1 11.0 - 16.0 % [facility] MPV 11.1 8.4 - 12.8 fl [facility] NRBC 0.00 0 /100 WBCs [facility] ABSOLUTE NRBC 0.00 0 K/uL [facility] DIFF METHOD Auto [facility] NEUTS 66.9 43.0 - 75.0 % [facility] LYMPHS 23.4 18.2 - 47.4 % [facility] MONOS 6.6 4.00 - 11.00 % [facility] EOS 2.2 0.0 - 8.0 % [facility] BASOS 0.6 0.0 - 2.0 % [facility] Granulocytes, immature (%) 0.3 0.0 - 0.9 % [facility] ABSOLUTE NEUTS 4.63 1.80 - 7.70 K/uL [facility] ABSOLUTE LYMPHS 1.62 1.00 - 3.10 K/uL [facility] ABSOLUTE MONOS 0.46 0.20 - 0.80 K/uL [facility] ABSOLUTE EOS 0.15 0.00 - 0.80 K/uL [facility] ABSOLUTE BASOS 0.04 0.00 - 0.09 K/uL [facility] Granulocytes, immature 0.02 0.00 - 0.05 K/uL [facility] Blood 03/07/2021 12:2 3 PM EST 03/07/2021 12:27 PM EST Lorraine GUDINO [facility] BLOOD ORDERABLES Final Result Performing Organization Address [facility] de Phone Number [address] [address] * Immunoglobulin A (03/07/2021 12:23 PM EST) IgA 292 70 - 400 mg/dL [facility] Blood 03/07/2021 12:2 3 PM EST 03/07/2021 12:27 PM EST Lorraine GUDINO LAB BLOOD ORDERABLES Final Result Performing Organization Address [facility] de Phone Number [address] [address] * Tissue transglutaminase IgA (03/07/2021 12:23 PM EST) TTG IGA ANTIBODY <1.2 <4.0 (Negative) U/mL [facility] Blood 03/07/2021 12:2 3 PM EST 03/07/2021 12:27 PM EST Lorraine GUDINO LAB BLOOD ORDERABLES Final Result Performing Organization Address [facility] de Phone Number [facility] [address] [place] [address] documented in this encounter Visit Diagnoses Diagnosis Diarrhea, unspecified type- Primary documented in this encounter Care Teams Ios Architect Relationship Specialty Start Date End Date Itzel Martinez NP [address] [place] [address] PCP - General Family Medicine 02/09/17 04/15/24 Janae Lawrence MD [address] [place] [address] PCP - General Internal Medicine 04/16/24 Mariam Cooper CNM [address] [place] [address] Historical LMR Provider 01/21/17 2 Tila Haile NP 30 [place] [address] [email or web address] Historical LMR Provider 01/21/17 Katelynn Ruiz NP [address] [place] [address] [email or web address] Historical LMR Provider 01/21/17 04/09/21 Tang Reed MD [address] [place] [address], [address] [place] [address] Historical LMR Provider 01/21/17 04/09/21 Gilma Carrasco MD [address] [place] [address] Historical LMR Provider 01/21/17 Itzel Martinez NP [address] [place] [address] Historical LMR Provider 01/21/17 Elena Eason MD [address] [address] Historical LMR Provider 01/21/17 2 Cruz Roberson MD [address] [place] [address] [email or web address] Historical LMR Provider 01/21/17 04/09/21 Nova Acevedo MD [address] [place] [phone] Historical LMR Provider 01/21/17 2 Mar Keene MD [address] [place] [address] [email or web address] Historical LMR Provider 01/21/17 04/09/21 Rachel Saleem MD [address] [address] Historical LMR Provider 01/21/17 2 documented as of this encounter Additional Source Comments The information contained in this document represents components of the legal health record. It is not the complete legal health record.[facility]
--- OUTSIDE RECORDS SUMMARY | 2024-12-16 18:50 | XMS_ITS | Encounter Summary ---
Author Organization [facility] Address [address] [place] [id number] Care Team Providers Care After School Program Director Name Role Phone No, Pcp (Do Not Change Name) Primary Care Provid er Unavailable Encounter Details Date Type Department Care Team (Late st Contact Info) Description 06/26/2018 Scanned Document [facility] [address] [place] [phone] Ramin Soares MD [address] [place] [phone] Social History Tobacco Use Types Packs/Day Years [...] on filedocumented in this encounter Care Teams After School Program Director Relationship Specialty Start Date End Date No, Pcp (Do Not Change Name) PCP - General 06/27/18 documented as of this encounter
--- OUTSIDE RECORDS SUMMARY | 2024-12-16 18:50 | XMS_ITS | Encounter Summary ---
Author Organization [facility] Address [address] [place] [address] [place] [phone] Phone Care Team Providers Care Grievance And Appeals Coordinator Name Role Phone Mic, Tila Harper SUPERVISOR [employer] Unavailable [phone] Gilma Carrasco MD Unavailable Itzel Martinez SUPERVISOR [employer] Unavailable [phone] Itzel Martinez NP Primary Care Provider [phone] Janae Lawrence MD Primary Care Provider Encounter Details Date Type Department Care Team (Latest Contact Info) Description 09/27/2021 Transcribe Orders [facility] [address] [place] [address] Thomas Ray MD [address] [address] [email or web address] Diarrhea, unspecified type (Primary Dx) Social History [...] Description 12/18/2024 10:00 AM EDT Office Visit [facility] [address] [place] [address] Janae Lawrence MD [address] [place] [address] Mindy Genao, PT [address] [place] [address] 12/25/2024 1:00 PM EDT Office Visit [facility] [address] [place] [address] Janae Lawrence MD [address] [place] [address] Mindy Genao, PT [address] [place] [address] 12/30/2024 2:00 PM EDT Office Visit [facility] [address] [place] [address] Janae Lawrence MD [address] [place] [address] Toney Loco, PT [address] [place] [address] 01/15/2025 8:45 AM EDT Office Visit [facility] [address] [place] [address] Janae Lawrence MD [address] [place] [address] Toney Loco, PT [address] [place] [address] 01/22/2025 8:00 AM EDT Office Visit [facility] [address] [place] [address] Janae Lawrence MD [address] [place] [address] Toney Loco, PT [address] [place] [address] 01/27/2025 8:00 AM EDT Office Visit [facility] [address] [place] [address] Janae Lawrence MD [address] [place] [address] Toney Loco, PT [address] [place] [address] 02/03/2025 11:00 AM EST Office Visit [facility] [address] [place] [address] Janae Lawrence MD [address] [place] [address] Toney Loco, PT [address] [place] [address] 02/06/2025 8:00 AM EST Office Visit [facility] [address] [place] [address] Janae Lawrence MD [address] [place] [address] Toney Loco, PT [address] [place] [address] documented as of this encounter Results * C-Reactive Protein (09/27/2021 10:27 AM EDT) C REACTIVE PROTEIN <3.0 0.0 - 4.0 mg/L [facility] Blood 09/27/2021 10:2 7 AM EDT 09/27/2021 10:29 AM EDT us Thomas Ray MD LAB BLOOD ORDERABLES Final Res ult Performing Organization Address [facility] Co de Phone Number [address] [address] * CBC (09/27/2021 10:27 AM EDT) WBC 6.28 4.00 - 11.00 K/uL [facility] RBC 4.19 3.72 - 5.30 M/uL [facility] HGB 13.5 10.6 - 15.5 g/dL [facility] HCT 40.3 32.0 - 45.0 % [facility] PLT 235 140 - 430 K/uL [facility] MCV 96.2 78.0 - 97.0 fL [facility] MCH 32.2 25.0 - 33.0 pg [facility] MCHC 33.5 32.0 - 36.0 g/dL [facility] RDW 11.8 11.0 - 16.0 % [facility] MPV 11.1 8.4 - 12.8 fl [facility] NRBC 0.00 0 /100 WBCs [facility] ABSOLUTE NRBC 0.00 0 K/uL [facility] Blood 09/27/2021 10:2 7 AM EDT 09/27/2021 10:29 AM EDT us Thomas Ray MD LAB BLOOD ORDERABLES Final Res ult Performing Organization Address [facility] Co de Phone Number [address] [address] documented in this encounter Visit Diagnoses Diagnosis Diarrhea, unspecified type- Primary documented in this encounter Care Teams Grievance And Appeals Coordinator Relationship Specialty Start Date End Date Itzel Martinez NP [address] [place] [address] PCP - General Family Medicine 02/09/17 04/15/24 Janae Lawrence MD [address] [place] [address] PCP - General Internal Medicine 04/16/24 Tila Haile NP [address] [place] [address] [email or web address] Historical LMR Provider 01/21/17 Gilma Carrasco MD 22 [facility] [address] [place] [address] [email or web address] Historical LMR Provider 01/21/17 Itzel Martinez NP [address] [place] [address] Historical LMR Provider 01/21/17 documented as of this encounter Additional Source Comments The information contained in this document represents components of the legal health record. It is not the complete legal health record.[facility]
--- OUTSIDE RECORDS SUMMARY | 2024-12-16 18:50 | XMS_ITS | Encounter Summary ---
Author Organization [facility] Address [address] [place] [phone] Care Team Providers Care Railroad Track Repair Supervisor Name Role Phone No, Pcp (Do Not Change Name) Primary Care Provid er Unavailable Encounter Details Date Type Department Care Team (Late st Contact Info) Description 06/26/2018 Scanned Document [facility] at [address] [place] [phone] Ramin Soares MD [address] [place] [phone] Social History Tobacco Use Types Packs/Day Years [...] on filedocumented in this encounter Care Teams Railroad Track Repair Supervisor Relationship Specialty Start Date End Date No, Pcp (Do Not Change Name) PCP - General 06/27/18 documented as of this encounter
--- OUTSIDE RECORDS SUMMARY | 2024-12-16 18:50 | XMS_ITS | Clinical Summary ---
Author Organization [facility] Address [address] [place] [address] [place] [phone] Phone Care Team Providers Care Accounting Support Specialist Name Role Phone Mic Tila Harper PODIATRY TEACHER Unavailable [phone] Gilma Carrasco MD Unavailable Kennedy Alegre PODIATRY TEACHER Unavailable [phone] Janae Lawrence MD Primary Care Provider Allergies Active Allergy Reactions Criticality Noted Date Comments Erythromycin Rash Low 08/05/2018 Sulfa (Sulfonamide Antibiotics) Rash Low 08/2018 Medications naproxen (NAPROSYN) 500 MG tablet Take 500 mg by mouth 2 (two) times a day with meals. Active albuterol 90 mcg/actuation inhaler Inhale 2 puffs into the lungs every 6 (six) hours as needed for wheezing. Active fluticasone propionate (FLONASE) 50 mcg/actuation nasal spray 03/07/20 18 Active ADDERALL XR 20 mg 24 hr capsule Take by mouth daily. 0 10/24/19 19 Active levonorgestrel (MIRENA) 20 mcg/24 hours (5 yrs) 52 mg intrauterine device as directed Intrauterine Active acyclovir (ZOVIRAX) 5 % ointment Apply topically as needed. Active ibuprofen (ADVIL,MOTRIN) 800 MG tablet Take 800 mg by mouth every 6 (six) hours as needed for pain (specific location in comments). Active famotidine (PEPCID) 40 MG tablet Take 40 mg by mouth daily. Active TURMERIC ORAL Take 1 capsule by mouth daily. Active atorvastatin (LIPITOR) 20 MG tablet Take 20 mg by mouth daily. 09/24/19 22 Active dicyclomine (BENTYL) 20 mg tablet 10/27/19 22 Active albuterol sulfate (PROAIR HFA INHL) Inhale into the lungs. 01/05/20 21 Active lactulose bulk (CONSTULOSE) 10 gram/15 mL solution TAKE 15ML BY MOUTH ONCE FOR 1 DAY 12/13/19 22 Active traMADoL (ULTRAM) 50 mg tablet 12/30/19 22 Active meloxicam (MOBIC) 15 MG tablet Take 1 tablet by mouth every morning. 05/27/19 24 Active triamcinolone acetonide 0.1 % cream 06/01/19 24 Active meloxicam (MOBIC) 15 MG tablet Take 1 tablet (15 mg total) by mouth daily. 30 tablet 06/23/19 25 Active vibegron (GEMTESA) 75 mg tablet Take 75 mg by mouth. 08/19/19 25 Active amoxicillin-clav ulanate (AUGMENTIN) 875-125 mg per tablet Take 1 tablet (875 mg of amoxicillin total) by mouth 2 (two) times a day for 10 days. Take w food, yogurt, probiotics. Finish all. 20 tablet 12/09/19 25 025 Active valACYclovir (VALTREX) 1000 MG tablet 12/19/19 20 025 Discontinu ed(No longer taking) valACYclovir (VALTREX) 500 MG tablet Take 1 tablet (500 mg total) by mouth 2 (two) times a day for 3 days. 6 tablet 12/09/19 25 025 Hospital, Clinic, or Other Facility Administered Medication Ordered Dose Route Frequency Start Date End Date Status levonorgestreL (MIRENA) 20 mcg/24 hours (7 yrs) 52 mg intrauterine device 1 each 1 each Utrn Every 6 years 10/27/2021 Active Active Problems Problem Noted Date Diagnosed Date Hypocomplementemia 03/09/2020 Assessment & Plan (03/09/2020 7:47 PM EST): I have explained to Yulisa that low complements may have been present since because I do not have any prior readings for comparison. It may be a risk factor for her to develop one of the systemic rheumatic diseases associated with positive GIANNA and low complements such as systemic lupus erythematosus, Sjogren's syndrome, mixed connective tissue disease, rheumatoid arthritis, vasculitis, polymyositis or dermatomyositis or others. I have reassured her that at this time she does not have any of those diseases and offered her a second opinion rheumatology consultation if interested. She prefers to get a new set of lab work and review them with me in person. Hyperglycemia 03/09/2020 Assessment & Plan (03/09/2020 7:56 PM EST): Yulisa reported that she fasted on the day of testing and her glucose is slightly higher than normal. I encouraged her to follow low concentrated sugars diet and if glucose remains elevated consider formal HbA1c checkup and PCP/diabetic nurse educator/gauge machine operator consult. GIANNA positive 03/08/2020 Assessment & Plan (03/09/2020 7:35 PM EST): I have reviewed with Yulisa that borderline positive GIANNA in itself does not constitute any diagnosis however may put her at risk for developing one of the systemic rheumatic diseases associated with positive GIANNA such as systemic lupus erythematosus, Sjogren's syndrome, scleroderma, rheumatoid arthritis, polymyositis, dermatomyositis etc. at some point in the future. I stressed importance of well-balanced nutritionally diet. Proper hydration. Adherence to age-appropriate screenings and preventive strategies. Daily sun protection particularly during spring and summer months to avoid sunburns. Gentle, regular exercise routine as tolerated and periodic checkup every 6-12 months or earlier if necessary. Family history of rheumatoid arthritis 0 Assessment & Plan (03/09/2020 7:45 PM EST): I reviewed with Yulisa the fact that having first-degree family member with rheumatoid arthritis increases her own risk by about 25% however she has a second degree family member with rheumatoid arthritis which is putting her at much smaller risk for developing it. I did agree to order rheumatoid factor and CCP antibody. Osteoarthritis of multiple joints 02/09/2020 Assessment & Plan (03/09/2020 7:38 PM EST): I reviewed with Yulisa that most of her symptoms suggest progressive osteoarthritis however several features make it suspicious for possible inflammatory component therefore I took the liberty of getting x-rays of her hands along with labs-she has not done them yet. Due to her complaints of severe pain within the clavicles and acromioclavicular joints I requested x-rays of those joints today. Joint protection, energy conservation. Gentle, regular exercise routine. Avoid falls, injuries, overuse. Keep body weight in ideal range for her height. She may benefit from topical cream such as Arnica, Biofreeze, Aspercreme versus medicated patches such as salonpas, icy hot patch 2-3 times daily and if necessary at bedtime x 3 weeks. Assessment & Plan (02/10/2020 10:25 AM EST): I reviewed with Yulisa that most of her symptoms suggest progressive osteoarthritis however several features make it suspicious for possible inflammatory component therefore I took the liberty of getting x-rays of her hands along with new labs. Joint protection, energy conservation. Gentle, regular exercise routine. Avoid falls, injuries, overuse. Keep body weight in ideal range for her height. She may benefit from topical cream such as Arnica, Biofreeze, Aspercreme versus medicated patches such as salonpas, icy hot patch 2-3 times daily and if necessary at bedtime x 3 weeks. Spinal stenosis of cervical region 02/09/2020 Assessment & Plan (03/09/2020 7:40 PM EST): She wants to search for a neurosurgeon in [place] since her prior surgeon is moving to [place]. She hopes to discuss possible surgical approach since she failed extensive PT, chiropractic treatments, traction and epidural steroid injections. Assessment & Plan (02/10/2020 10:28 AM EST): She is scheduled to meet with neurosurgeon later today to address possible surgical approach since she failed extensive PT, chiropractic treatments, traction and epidural steroid injections. Brachial plexopathy 02/09/2020 Assessment & Plan (03/09/2020 7:43 PM EST): Per her report secondary to cervical spinal stenosis-hoping for improvement after discussing surgical options with neurosurgeon. Due to progressing and severe pain in multiple regions of her body I offered her a small dose of amitriptyline 5-10 mg nightly and provided her with pamphlet on its side effects to review and discuss what ever we did not get to it since she was preoccupied with missing values from her lab reports, lack of results for cryoglobulins and urinalysis ... Assessment & Plan (02/10/2020 10:43 AM EST): Per her report secondary to cervical spinal stenosis-hoping for improvement after discussing surgical options with neurosurgeon. Due to progressing and severe pain in multiple regions of her body I offered her a small dose of amitriptyline 5-10 mg nightly and provided her with pamphlet on its side effects to review and discuss on next visit in 2 weeks. Hiatal hernia 02/09/2020 Assessment & Plan (02/10/2020 10:27 AM EST): Avoid late, large and spicy meals. Avoid oral NSAID, coffee, chocolate, Coke, soda etc. Mild intermittent asthma without complication Assessment & Plan (02/10/2020 10:23 AM EST): To new inhalers as prescribed. Avoid known allergens. Kidney stones 02/09/2020 Assessment & Plan (02/10/2020 10:30 AM EST): Proper hydration reviewed and strongly encouraged. [facility] current use of non -steroidal anti-inflammatories (NSAID) 02/09/2020 Assessment & Plan (03/09/2020 7:57 PM EST): Take the lowest dose, with least frequency, for shortest time. Remember to take it always with food. Favor topical over oral preparations. Assessment & Plan (02/10/2020 10:33 AM EST): Take the lowest dose, with least frequency, for shortest time. Remember to take it always with food. Favor topical over oral preparations. 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 Hair loss 02/09/2020 Assessment & Plan (02/10/2020 10:32 AM EST): Proper vitamins from group B intake and if unable to via diet consider additional supplementation-particularly B1, B2 and B6 Raynaud's disease without gangrene 02/09/2020 Assessment & Plan (02/10/2020 10:22 AM EST): Keep warm, dress in layers. Optimize stress management strategies. Avoid vasoconstrictors in OTC products for cold/flu and sinus. Migraine with aura and without status migrainosu s 02/09/2020 Assessment & Plan (02/10/2020 10:30 AM EST): Keep diary of headaches with modifying factors. Proper hydration. Icing, resting, sleep hygiene, regular relaxation/meditation sessions. Recognize early signs of aura to prevent headache from developing. Vitamin D insufficiency 02/09/2020 Assessment & Plan (02/10/2020 10:23 AM EST): Serum level requested to make sure that she does not need adjustment in supplementation. Myalgia 02/09/2020 Assessment & Plan (02/10/2020 10:31 AM EST): Gentle, regular stretching and muscle strengthening exercises as tolerated. Well-balanced nutritionally diet-rich in fresh fruits and vegetables, electrolytes, micro and ultra elements. Chronic fatigue 02/09/2020 Assessment & Plan (02/10/2020 10:33 AM EST): Balance rest and activity. Sleep hygiene. Well-balanced nutritionally diet. Proper hydration. Keep up-to-date with age-appropriate screenings and preventive strategies. Avoid sick contacts, falls, injuries. Gentle, regular exercise as tolerated. Keep engaged in regular hobbies/favorite activities. Cervical high risk HPV (human papillomavirus) te st positive 08/15/2018 Overview (07/18/2023): 2019 - letter sent advising pap in one year, also on recall list 09/2021 - NILM/HPV+ --> neg ECC 06/2023 -NILM/HPV neg Repeat in 1 year Encounters Date Type Department Care Team Description 12/11/2024 1:15 PM EDT Office Visit [facility] [address] [place] [address] Janae Lawrence MD West, Teingo, PT Acute bilateral low back pain, unspecified whether sciatica present (Primary Dx) 12/08/2024 9:20 AM EDT Office Visit [facility] at [address] [address] Nelly Mcneil, STEAM TRAP MAN Acute bacterial sinusitis (Primary Dx) 12/04/2024 8:30 AM EDT Office Visit [facility] [address] [place] [address] Janae Lawrence MD Engel, Lori A, PT Acute bilateral low back pain, unspecified whether sciatica present (Primary Dx) 11/27/2024 8:45 AM EDT Office Visit [facility] [address] [place] [address] Janae Lawrence MD West, Teingo, PT Acute bilateral low back pain, unspecified whether sciatica present (Primary Dx); Bilateral hip pain 11/25/2024 9:55 AM EDT Office Visit [address] [place] [address] Janae Lawrence MD West, Teingo, PT Acute bilateral low back pain, unspecified whether sciatica present (Primary Dx) 11/19/2024 10:15 AM EDT Office Visit [facility] [address] [place] [address] Janae Lawrence MD West, Teingo, PT Bilateral hip pain (Primary Dx); Acute bilateral low back pain, unspecified whether sciatica present 11/13/2024 9:30 AM EDT Office Visit [facility] [address] [place] [address] Janae Lawrence MD West, Teingo, PT Bilateral hip pain (Primary Dx); Acute bilateral low back pain, unspecified whether sciatica present 11/06/2024 10:15 AM EDT Office Visit [facility] [address] [place] [address] Janae Lawrence MD West, Teingo, PT Bilateral hip pain (Primary Dx); Acute bilateral low back pain, unspecified whether sciatica present 10/31/2024 8:45 AM EDT Office Visit [facility] [address] [place] [address] Janae Lawrence MD West, Teingo, PT Bilateral hip pain (Primary Dx); Acute bilateral low back pain, unspecified whether sciatica present 10/31/2024 Plan of Care Documentation [facility] [address] [place] [address] 10/23/2024 8:45 AM EDT Office Visit [address] [place] [address] Janae Lawrence MD West, Teingo, PT Bilateral hip pain (Primary Dx); Acute bilateral low back pain, unspecified whether sciatica present 10/10/2024 8:00 AM EDT Office Visit [facility] [address] [place] [address] Janae Lawrence MD West, Teingo, PT Bilateral hip pain (Primary Dx); Acute bilateral low back pain, unspecified whether sciatica present 10/08/2024 3:30 PM EDT Office Visit [facility] [address] [place] [address] Janae Lawrence MD West, Teingo, PT Bilateral hip pain (Primary Dx) 09/26/2024 8:45 AM EDT Office Visit [facility] [address] [place] [address] Janae Lawrence MD West, Teingo, PT Bilateral hip pain (Primary Dx); Acute bilateral low back pain, unspecified whether sciatica present 09/24/2024 3:30 PM EDT Office Visit [facility] [address] [place] [address] Janae Lawrence MD West, Teingo, PT Bilateral hip pain (Primary Dx) 09/17/2024 3:30 PM EDT Office Visit [facility] [address] [place] [address] Janae Lawrence MD West, Teingo, PT Bilateral hip pain (Primary Dx) from Last 3 Months Immunizations Immunization Administration Dates Next Due COVID-19 (Pre-01/22) Pfizer Vaccine, mRNA, PF 08/04/2020 [id number] 03/01/2009 INFLUENZA, SPLIT VIRUS, TRIV ALENT W/ PRESERVATIVE IM 12/15/2012,12/14/2010 Influenza Quadrivalent Prese rvative Free IM 04/13/2022,03/22/2021,12/12/2016,2015,02/12/2015 Tdap 05/02/2024,09/21/2006 Family History Medical History Relation Comments Hypertension Father Colon cancer Paternal Grandfather Skin cancer Paternal Grandmother Relation Status Comments Father Maternal Grandfather Maternal Grandmother Paternal Grandfather Paternal Grandmother Social History Tobacco Use Types Packs/Day Years [...] Don't know 01/28/2024 2: 03 PM EDT Last Filed Vital Signs Vital Sign Reading [...] Mass Index 25.4 12/08/2024 9:26 AM EDT Plan of Treatment Upcoming Encounters Date Type Department Care Team (Late st Contact Info) Description 12/18/2024 10:00 AM EDT Office Visit [address] [place] [address] Janae Lawrence MD [address] [place] [address] Mindy Genao, PT [address] [place] [address] 12/25/2024 1:00 PM EDT Office Visit [address] [place] [address] Janae Lawrence MD [address] [place] [address] Mindy Genao, PT [address] [place] [address] 12/30/2024 2:00 PM EDT Office Visit [facility] [address] [place] [address] Janae Lawrence MD [address] [place] [address] Toney Loco, PT [address] [place] [address] 01/15/2025 8:45 AM EDT Office Visit [facility] [address] [place] [address] Janae Lawrence MD [address] [place] [address] Toney Loco, PT [address] [place] [address] 01/22/2025 8:00 AM EDT Office Visit [facility] [address] [place] [address] Janae Lawrence MD [address] [place] [address] Toney Loco, PT [address] [place] [address] 01/27/2025 8:00 AM EDT Office Visit [facility] [address] [place] [address] Janae Lawrence MD [address] [place] [address] Toney Loco, PT [address] [place] [address] 02/03/2025 11:00 AM EST Office Visit [facility] [address] [place] [address] Janae Lawrence MD [address] [place] [address] Toney Loco, PT [address] [place] [address] [email or web address] 02/06/2025 8:00 AM EST Office Visit [facility] [address] [place] [address] Janae Lawrence MD [address] [place] [address] Toney Loco, PT [address] [place] [address] Health Maintenance Due Date Last Done Comments MENINGOCOCCAL VACCINES (ACWY) (1 - Risk 2-dose series) 08/10/1977 MENINGOCOCCAL VACCINES (B) (1 of 5 - Increased Risk) 08/10/1985 DEPRESSION SCREENING 1987 PNEUMOCOCCAL VACCINES (0-49 years) (1 of 2 - PCV) 08/10/1994 COLOGUARD 08/10/2020 FIT TEST 08/10/2020 FOBT 08/10/2020 SIGMOIDOSCOPY 08/10/2020 VIRTUAL COLONOSCOPY 08/10/2020 LIPID PANEL 12/12/2021 12/12/2016 SCREENING FOR DIABETES 02/18/2023 02/19/2020 PAP SMEAR 06/06/2024 06/07/2023, 10/01, 08/06/2018, Additional history exists INFLUENZA VACCINE (#1) 2024 , 03/22/2021, 12/12/2016, Additional history exists COVID-19 VACCINE (2024- season) 2024 04/12/2021, 08/26/2020, 08/04/2020 MAMMOGRAM 08/12/2026 08/12/2024, 11/01, 11/22/2021 IUD 10/27/2029 10/27/2021 COLONOSCOPY 10/06/2031 10/05/2021, 12/11/2018 COLORECTAL CANCER SCREENING 10/06/2031 Adult Td,Tdap Booster 05/02/2034 05/02/2024, 007 HEPATITIS C SCREENING Completed 07/18/2023 HIV ONE-TIME SCREENING (18-65 YEARS) Completed 07/18/2023 SMOKING STATUS SCREENING (Once After 26 Yrs) Completed 12/08/2024 HEPATITIS A VACCINES Aged Out No long er eligible based on patient's age to complete this topic HIB VACCINES Aged Out No longer eligi ble based on patient's age to complete this topic Medical Devices Implanted Type Area Banking Representative Device Identifier Shelf Expiration Date Model / Serial / Lot Iud Implanted: (Quantity not on file) Intrauterine Device Procedures Procedure Name Priority Date/Time Associated Diagnosis Comments POCT COVID-19 RT-PCR/INFLUENZA A & B/RSV CEPHEID Routine 12/08/2024 9:32 AM EDT BI MAMMOGRAM SCREENING WITH TOMOSYNTHESIS WITH CAD (BILATERAL) Routine 08/12/2024 9:59 AM EDT Breast screening HEPATITIS C ANTIBODY, QUALITATIVE Routine 07/18/2023 10:04 AM EDT Need for hepatitis C screening test PAP TEST Routine 06/07/2023 12:00 AM EST ENDOSCOPY, COLON 10/05/2021 11:2 5 AM EDT from Last 3 Months or Most Recently Relevant to Health Maintenance Results * POCT COVID-19 RT-PCR/Influenza A & B/RSV (Cepheid) (12/08/2024 9:32 AM EDT) [facility] RSV PCR Negative Negative [facility] SARS-CoV-2 (COVID-19) Negative Negative [facility] Influenza A PCR Negative Negative [facility] Influenza B PCR Negative Negative [facility] 12/08/2024 9:32 AM EDT 12/08/2024 10:12 AM EDT us Nellyivy Mcneil STEAM TRAP MAN POINT OF CARE TEST ORDERABL ES Final Result [facility] AT [address] [address], [facility] [phone] * BI MAMMOGRAM SCREENING WITH TOMOSYNTHESIS WITH CAD (BILATERAL) (08/12/2024 9:59 AM EDT) Anatomical Region Laterality Modality Breast Left, Breast Right, Breast Bilateral Bila teral Mammography 08/13/2024 5:56 AM EDT Impressions 08/13/2024 5:57 AM EDT No mammographic evidence of malignancy in either breast. Annual screening mammography is recommended. BI-RADS 1 NEGATIVE The patient will be notified of the results and recommendations. Narrative 08/13/2024 5:57 AM EDT BI MAMMOGRAM SCREENING WITH TOMOSYNTHESIS WITH CAD (BILATERAL) Additional patient information: Screening. COMPARISON: Comparison is made with relevant prior imaging. Breast composition: The breasts are heterogeneously dense, which may obscure small masses. FINDINGS: No abnormal masses, suspicious calcifications, or other significant findings are identified mammographically in either breast. Procedure Note Korin Cisneros MD - 08/13/2024 BI MAMMOGRAM SCREENING WITH TOMOSYNTHESIS WITH CAD (BILATERAL) Additional patient information: Screening. COMPARISON: Comparison is made with relevant prior imaging. Breast composition: The breasts are heterogeneously dense, which mayobscure small masses. FINDINGS: No abnormal masses, suspicious calcifications, or other significantfindings are identified mammographically in either breast. IMPRESSION: No mammographic evidence of malignancy in either breast. Annual screening mammography is recommended. BI-RADS 1 NEGATIVE The patient will be notified of the results and recommendations. us Kennedy Alegre PODIATRY TEACHER IMG MG EXAMS Final Result * Hepatitis C antibody, qualitative (07/18/2023 10:04 AM EDT) HCV NON-REACTIV E NON-REACTI VE [facility] Blood 07/18/2023 10:0 4 AM EDT 07/18/2023 10:06 AM EDT us Mar Keene MD LAB BLOOD ORDERABLES Final Result [address] [address] * Pap Test (06/07/2023 12:00 AM EST) 06/07/2023 06/08/2023 9:0 5 AM EST Narrative SEE NARRATIVE - 06/19/2023 12:24 PM EDT [address] [address] Taximeter Repairer: Ellen Martinez MD STOPE MINER Cytology Report FINAL DIAGNOSIS A. PAP SMEAR (SUREPATH) CE: SPECIMEN ADEQUACY: Satisfactory for evaluation; transformation zone present. INTERPRETATION: NEGATIVE FOR INTRAEPITHELIAL LESION OR MALIGNANCY. Electronically Signed Out By: Ellen Martinez MD By his/her signature above, the pathologist listed as making the Final Diagnosis certifies that he/she has personally reviewed this case and confirmed or corrected the diagnosis. The Pap test is a screening test primarily for squamous cancers and precursors and has associated false-negative and false-positive results. New technologies such as liquid-based preparations may decrease but will not eliminate all false-negative results. Regular sampling and follow-up of unexplained clinical signs and symptoms are recommended to minimize false negative results. PROCEDURES/ADDENDA HPV Testing (Requested) Ordered Date: 06/08/2023 A. PAP SMEAR (SUREPATH) CE: Human Papilloma Virus Test NEGATIVE for high-risk Human Papilloma Virus types 16, 18, 45 and the Other high risk probe set (Includes 31, 33, 35, 39, 51, 52, 56, 58, 59, 66, 68) Note: Testing performed by [employer]fung[employer] HR-HPV analysis. Clinical correlation is advised. This HPV test was performed at [facility], [address] [place] [address]. This test has been FDA approved for both SurePath and ThinPrep cervical cytology specimens. The accuracy and precision of this test for all other specimen sources has been verified in the Cytopathology Laboratory of the [facility] and has not been cleared or approved by the U.S. Food and Drug Administration. Clinical correlation is advised. CLINICAL HISTORY Date of Last Menstrual Period: Not Provided Menstrual History: Loly-Menopausal Unknown Contraceptive History: IUD Infection History: HPV: OTHER HIGH RISK, 2021 Other Clinical Conditions: Screening Pap SPECIMEN SOURCE A: PAP SMEAR (SUREPATH) CE Patient Name: MARCELALAYULISA : 1975 (Age: 47) Sex: F Institution: [facility] Location: [facility] Date of Collection: 06/07/2023 Date of Reported: 06/19/2023 12:24 Results to: Mar Keene MD Mar Keene MD CYTOLOGY ORDERABLES Final Result SEE NARRATIVE * ENDOSCOPY, COLON (10/05/2021 11:25 AM EDT) Narrative Transcriptions Jacqui Ray MD - 10/05/2021 11:25 AM EDT Patient Name: Yulisa Rocha Attending MD:: JACQUI RAY MD Procedure Date: 10/05/2021 11:25 AM Date of : 1975 Age: 46 Admit Type: Outpatient Gender: Female Room: [facility] EN 04 Referring MD: KENNEDY ALEGRE NP Exam Type: Colonoscopy Indications: Abdominal pain in the left lower quadrant,Abdominal pain in the left upper quadrant, Chronic diarrhea, Hematochezia, Weight loss Medications: Propofol per Anesthesia Procedure: Informed consent was obtained from the patientafter discussion of the indications, limitations, alternatives, benefits, and risks of the procedure. Risks specifically discussed include but are not limited to medication reactions, missed lesions, bleeding, perforation, or the need for emergent surgery. Throughout the procedure, the patient's blood pressure, pulse, end-tidal CO2, and oxygensaturations were monitored continuously. The Olympus pediatric variable colonoscopePCF-[id number] #4 was introduced through the anus and advanced tothe terminal ileum, with identification of theappendiceal orifice and IC valve. The colonoscopy was performed without difficulty. The patient tolerated the procedure well. The quality of the bowelpreparation was good. The terminal ileum, ileocecal valve, appendiceal orifice, and rectum werephotographed. Complications: No immediate complications. Estimated blood loss: Minimal. Findings: The perianal and digital rectal examinations were normal. Pertinent negatives include normalsphincter tone. The terminal ileum appeared normal. A 10 mm polyp was found in the cecum. The polyp was sessile. The polyp was removed with a cold snare. Resection and retrieval were complete. Estimatedblood loss was minimal. Normal mucosa was found in the entire colon.Biopsies for histology were taken with a cold forceps fromthe ascending colon, transverse colon and descendingcolon for evaluation of microscopic colitis. Estimatedblood loss: 5 mL. Retroflexion in the right colon was performed. Non-bleeding internal hemorrhoids were found during retroflexion. The hemorrhoids were moderate andGrade II (internal hemorrhoids that prolapse but reduce spontaneously). A few small-mouthed diverticula were found in the descending colon. The exam was otherwise without abnormality ondirect and retroflexion views. Impression: - The examined portion of the ileum was normal. - One 10 mm polyp in the cecum, removed with a cold snare. Resected and retrieved. - Normal mucosa in the entire examined colon.Biopsied. - Non-bleeding internal hemorrhoids. - Diverticulosis in the descending colon. - The examination was otherwise normal on directand retroflexion views. Recommendation: - I will send results of your biopsy to you andyour referring physician or provider. If you do notreceive notification within 3 weeks, please call ouroffice. - Repeat colonoscopy in 5 years for surveillancebased on pathology results. - Return to GI office as previously scheduled. JACQUI RAY MD 10/05/2021 11:51:34 AM This report has been signed electronically. Number of Addenda: 0 Note Initiated On: 10/05/2021 11:25 AM Procedure Code(s): --- Professional --- 28371, Colonoscopy, flexible; with removal of tumor(s), polyp(s), or other lesion(s) by snare technique 45463, 59, Colonoscopy, flexible; with biopsy, single or multiple --- Technical --- 31710, Colonoscopy, flexible; with removal of tumor(s), polyp(s), or other lesion(s) by snare technique 25611, 59, Colonoscopy, flexible; with biopsy, single or multiple Diagnosis Code(s): --- Professional --- K64.1, Second degree hemorrhoids K63.5, Polyp of colon R10.32, Left lower quadrant pain R10.12, Left upper quadrant pain K52.9, Noninfective gastroenteritis and colitis, unspecified K92.1, Melena (includes Hematochezia) R63.4, Abnormal weight loss K57.30, Diverticulosis of large intestine without perforation or abscess without bleeding --- Technical --- K64.1, Second degree hemorrhoids K63.5, Polyp of colon R10.32, Left lower quadrant pain R10.12, Left upper quadrant pain K52.9, Noninfective gastroenteritis and colitis, unspecified K92.1, Melena (includes Hematochezia) R63.4, Abnormal weight loss K57.30, Diverticulosis of large intestine without perforation or abscess without bleeding CPT copyright 2020 [employer]. All rights reserved. The codes documented in this report are preliminary and upon cartridge loading operator reviewmay be revised to meet current compliance requirements. Procedure Date: 10/05/2021 11:25:[address] [place] [address] Kennedy Alegre NP GI PROCEDURE ORDERABLES Final R esult from Last 3 Months or Most Recently Relevant to Health Maintenance Insurance MEDICARE PART A & B [employer] MEDEX SUPPLEMENT MEDICARE PART A & B [employer] MEDEX SUPPLEMENT MEDICARE PART A & B [employer] MEDEX SUPPLEMENT MEDICARE PART A & B [employer] MEDEX SUPPLEMENT MEDICARE PART A & B [employer] MEDEX SUPPLEMENT MEDICARE PART A & B [facility] MEDEX SUPPLEMENT MEDICARE PART A & B [employer] MEDEX SUPPLEMENT MEDICARE PART A & B [employer] MEDEX SUPPLEMENT MEDICARE PART A & B [employer] MEDEX SUPPLEMENT [facility] MEDICARE PART A & B Group [employer] CROSS MEDEX SUPPLEMENT Care Teams Accounting Support Specialist Relationship Specialty Start Date End Date Janae Lawrence MD [address] [place] [address] PCP - General Internal Medicine 04/16/24 Tila Haile NP [address] [place] [address] [email or web address] Historical LMR Provider 01/21/17 Gilma Carrasco MD [address] [place] [address] [address] [place] [address] Historical LMR Provider 01/21/17 Kennedy Alegre NP [address] [place] [address] Historical LMR Provider 01/21/17 Additional Source Comments The information contained in this document represents components of the legal health record. It is not the complete legal health record.[facility]
--- OUTSIDE RECORDS SUMMARY | 2024-12-16 18:50 | XMS_ITS | Encounter Summary ---
Author Organization [facility] Address [address] [facility] [address] [place] [address] Phone Care Team Providers Care Salon Leader Name Role Phone MiciTla foster Leroy HOOK AND EYE ATTACHER Unavailable [phone] Gilma Carrasco MD Unavailable Itzel Martinez HOOK AND EYE ATTACHER Unavailable [phone] Janae Lawrence MD Primary Care Provider Encounter Details Date Type Department Care Team (Late st Contact Info) Description 06/22/2024 Procedure Pass [facility], Ct Scan - [address] [id number] Social History Tobacco Use Types Packs/Day Years [...] 7:02 AM EDT Agustina Mckeon RN * Mower Suicide Severity Rating Scale (Screener/Recent Self-Report) Question [...] Description 12/18/2024 10:00 AM EDT Office Visit [facility] [address] [place] [address] Janae Lawrence MD [address] [place] [address] Mindy Genao, PT 8 [place] [address] 12/25/2024 1:00 PM EDT Office Visit [facility] [address] [place] [address] Janae Lawrence MD [address] [place] [address] Mindy Genao, PT 8 [place] [address] 12/30/2024 2:00 PM EDT Office Visit [facility] 8 [place] [address] Janae Lawrence MD [address] [place] [address] Toney Loco, PT 8 [place] [address] 01/15/2025 8:45 AM EDT Office Visit [facility] 8 [place] [address] Janae Lawrence MD [address] [place] [address] Toney Loco, PT 8 [place] [address] 01/22/2025 8:00 AM EDT Office Visit [facility] 8 [place] [address] Janae Lawrence MD [address] [place] [address] Toney Loco, PT 8 [place] [address] 01/27/2025 8:00 AM EDT Office Visit [facility] 8 [place] [address] Janae Lawrence MD [address] [place] [address] Toney Loco, PT 8 [place] [address] 02/03/2025 11:00 AM EST Office Visit [facility] [address] [place] [address] Janae Lawrence MD [address] [place] [address] Toney Loco, PT 8 [place] [address] 02/06/2025 8:00 AM EST Office Visit [facility] [address] [place] [address] Janae Lawrence MD [address] [place] [address] Toney Loco, PT 8 [place] [address] documented as of this encounter Visit Diagnoses Not on filedocumented in this encounter Care Teams Salon Leader Relationship Specialty Start Date End Date Janae Lawrence MD 70 [place] [address] PCP - General Internal Medicine 04/16/24 Tila Haile NP [address] [place] [address] Historical LMR Provider 01/21/17 Gilma Carrasco MD [address] [address] Historical LMR Provider 01/21/17 Itzel Martinez NP 70 [place] [address] Historical LMR Provider 01/21/17 documented as of this encounter Additional Source Comments The information contained in this document represents components of the legal health record. It is not the complete legal health record.[facility]
--- OUTSIDE RECORDS SUMMARY | 2024-12-16 18:50 | XMS_ITS | Encounter Summary ---
Author Organization [facility] Address [address] [place] [address] [place] [address] Phone Care Team Providers Care Sex Therapist Name Role Phone Tila Haile Leroy HARVESTING CONTRACTOR Unavailable [phone] Gilma Carrasco MD Unavailable Itzel Martinez HARVESTING CONTRACTOR Unavailable [phone] Itzel Martinez NP Primary Care Provider [phone] Janae Lawrence MD Primary Care Provider Encounter Details Date Type Department Care Team (Late st Contact Info) Description 10/05/2021 Procedure Pass [facility] Endoscopy Admitting Dept Virtual Department 30 [place] [address] Social History Tobacco Use Types Packs/Day Years [...] Department Care Team (Late Contact Info) Description 12/18/2024 10:00 AM EDT Office Visit [facility] [address] [place] [address] [place] [address] Janae Lawrence MD [address] [place] [address] Mindy Genao, PT 8 [place] [address] [email or web address] 12/25/2024 1:00 PM EDT Office Visit [facility] [address] [place] [address] Janae Lawrence MD [address] [place] [address] Mindy Genao, PT 8 [place] [address] [email or web address] 12/30/2024 2:00 PM EDT Office Visit [address] [place] [address] Janae Lawrence MD [address] [place] [address] Toney Loco, PT 8 [place] [address] [email or web address] 01/15/2025 8:45 AM EDT Office Visit [facility] [address] [place] [address] Janae Lawrence MD [address] [place] [address] Toney Loco, PT 8 [place] [address] [email or web address] 01/22/2025 8:00 AM EDT Office Visit [address] [place] [address] Janae Lawrence MD [address] [place] [address] Toney Loco, PT 8 [place] [address] [email or web address] 01/27/2025 8:00 AM EDT Office Visit [facility] [address] [place] [address] Janae Lawrence MD [address] [place] [address] Toney Loco, PT 8 [place] [address] [email or web address] 02/03/2025 11:00 AM EST Office Visit [facility] [address] [place] [address] Janae Lawrence MD [address] [place] [address] Toney Loco, PT 8 [place] [address] 02/06/2025 8:00 AM EST Office Visit [facility] [address] [place] [address] Janae Lawrence MD [address] [place] [address] Toney Loco, PT 8 [place] [address] documented as of this encounter Visit Diagnoses Not on filedocumented in this encounter Care Teams Sex Therapist Relationship Specialty Start Date End Date Itzel Martinez NP 70 [place] [address] PCP - General Family Medicine 02/09/17 04/15/24 Janae Lawrence MD 70 [place] [address] PCP - General Internal Medicine 04/16/24 Tila Haile NP 30 [place] [address] [email or web address] Historical LMR Provider 01/21/17 Gilma Carrasco MD 22 [facility] 102 [place] [address] [email or web address] Historical LMR Provider 01/21/17 Itzel Martinez NP [address] [place] [address] Historical LMR Provider 01/21/17 documented as of this encounter Additional Source Comments The information contained in this document represents components of the legal health record. It is not the complete legal health record.[facility]
--- OUTSIDE RECORDS SUMMARY | 2024-12-16 18:50 | XMS_ITS | Encounter Summary ---
Author Organization [facility] Address [address] [place] [address] [place] [address] Phone Care Team Providers Care Engineer Rf Deployment Name Role Phone Mariam Cooper CNM Unavailable Tila Haile ACUTE CARE REGISTERED NURSE Unavailable [phone] Katelynn Ruiz ACUTE CARE REGISTERED NURSE Unavailable Tang Reed MD Unavailable Gilma Carrasco MD Unavailable Itzel Martinez ACUTE CARE REGISTERED NURSE Unavailable [phone] Elena Eason MD Unavailable [phone] Cruz Roberson MD Unavailable Nova Acevedo MD Unavailable Mar Keene MD Unavailable Rachel Saleem MD Unavailable [phone] Itzel Martinez ACUTE CARE REGISTERED NURSE Primary Care Provider Robert Michele MD Unavailable Cecil Barillas MD Unavailable Janae Lawrence MD Primary Care Provider Encounter Details Date Type Department Care Team (Late st Contact Info) Description 08/07/2018 Ancillary Orders Virtual Department 30 [place] [address] Liss Florian MD 70 [place] [address] Flank pain Social History Tobacco Use Types Packs/Day Years Used Date Smoking Tobacco: Never Smokeless Tobacco: Never Alcohol Use Standard Drinks/Week Comments Yes 0 (1 standard drink = 0.6 oz pur e alcohol) Comments No Sex and Gender Information Value [...] Description 12/18/2024 10:00 AM EDT Office Visit [address] [place] [address] Janae Lawrence MD 140 [place] [address] Mindy Genao, PT 8 [place] [address] [email or web address] 12/25/2024 1:00 PM EDT Office Visit [facility] [address] [place] [address] Janae Lawrence MD 140 [place] [address] Mindy Genao, PT 8 [place] [address] [email or web address] 12/30/2024 2:00 PM EDT Office Visit [address] [place] [address] Janae Lawrence MD [address] [place] [address] Toney Loco, PT 8 [place] [address] [email or web address] 01/15/2025 8:45 AM EDT Office Visit [facility] [address] [place] [address] Janae Lawrence MD [address] [place] [address] Toney Loco, PT 8 [place] [address] 01/22/2025 8:00 AM EDT Office Visit [facility] [address] [place] [address] Janae Lawrence MD 140 [place] [address] Toney Loco, PT 8 [place] [address] 01/27/2025 8:00 AM EDT Office Visit [facility] [address] [place] [address] Janae Lawrence MD [address] [place] [address] Toney Loco, PT 8 [place] [address] [email or web address] 02/03/2025 11:00 AM EST Office Visit [facility] [address] [place] [address] Janae Lawrence MD 140 [place] [address] Toney Loco, PT 8 [place] [address] [email or web address] 02/06/2025 8:00 AM EST Office Visit [facility] [address] [place] [address] Janae Lawrence MD 140 [place] [address] Toney Loco, PT 8 [place] [address] [email or web address] documented as of this encounter Visit Diagnoses Diagnosis Flank pain Abdominal pain, unspecified site documented in this encounter Care Teams Engineer Rf Deployment Relationship Specialty Start Date End Date Itzel Martinez NP 70 [place] [address] PCP - General Family Medicine 02/09/17 04/15/24 Janae Lawrence MD [address] [place] [phone] PCP - General Internal Medicine 04/16/24 Mariam Cooper CNM [address] [place] [address] Historical LMR Provider 01/21/17 2 Tila Haile NP [address] [place] [address] [email or web address] Historical LMR Provider 01/21/17 Katelynn Ruiz NP [address] [place] [address] [email or web address] Historical LMR Provider 01/21/17 04/09/21 Tang Reed MD [address] [facility] 2nd [place] [address] [email or web address] Historical LMR Provider 01/21/17 04/09/21 Gilma Carrasco MD [address] [place] [address] [email or web address] Historical LMR Provider 01/21/17 Itzel Martinez NP [address] [place] [address] Historical LMR Provider 01/21/17 Elena Eason MD [address], [place] [address] Historical LMR Provider 01/21/17 2 Cruz Roberson MD [address] [place] [address] [email or web address] Historical LMR Provider 01/21/17 04/09/21 Nova Acevedo MD [address] [place] [phone] Historical LMR Provider 01/21/17 2 Mar Keene MD [address] [place] [address] [email or web address] Historical LMR Provider 01/21/17 04/09/21 Rachel Saleem MD [address], [place] [address] Historical LMR Provider 01/21/17 2 Robert Michele MD [address] [place] [address] [email or web address] Insurance Assigned Provider 07/06/18 12/07/18 Cecil Barillas MD [address] [facility] [address] [place] [address] [email or web address] Assigned Provider 12/07/18 07/09/19 documented as of this encounter Additional Source Comments The information contained in this document represents components of the legal health record. It is not the complete legal health record.[facility]
--- OUTSIDE RECORDS SUMMARY | 2024-12-16 18:50 | XMS_ITS | Encounter Summary ---
Author Organization [facility] Address [address] [place] [address] [place] [address] Phone Care Team Providers Care Paid Search Manager Name Role Phone Tila Haile FOOD TRAY ASSEMBLER Unavailable [phone] Gilma Carrasco MD Unavailable Itzel Martinez FOOD TRAY ASSEMBLER Unavailable [phone] Itzel Martinez NP Primary Care Provider [phone] Janae Lawrence MD Primary Care Provider Encounter Details Date Type Department Care Team (Latest Contact Info) Description 10/24/[address] [facility] [address] 2[address] [place] [address] Thomas Ray MD [address] [address] [email or web address] Diarrhea, unspecified type (Primary Dx); Blood in stool Social History Tobacco Use Types Packs/Day Years [...] Description 12/18/2024 10:00 AM EDT Office Visit [facility] [address] [place] [address] Janae Lawrence MD 140 [place] [address] Mindy Genao, PT 8 [place] [address] 12/25/2024 1:00 PM EDT Office Visit [facility] [address] [place] [address] Janae Lawrence MD 140 [place] [address] Mindy Genao, PT 8 [place] [address] 12/30/2024 2:00 PM EDT Office Visit [facility] [address] [place] [address] Janae Lawrence MD 140 [place] [address] Toney Loco, PT 8 [place] [address] 01/15/2025 8:45 AM EDT Office Visit [facility] [address] [place] [address] Janae Lawrence MD 140 [place] [address] Toney Loco, PT 8 [place] [address] 01/22/2025 8:00 AM EDT Office Visit [facility] [address] [place] [address] Janae Lawrence MD 140 [place] [address] Toney Loco, PT 8 [place] [address] 01/27/2025 8:00 AM EDT Office Visit [facility] [address] [place] [address] Janae Lawrence MD 140 [place] [address] Toney Loco, PT 8 [place] [address] 02/03/2025 11:00 AM EST Office Visit [facility] [address] [place] [address] Janae Lawrence MD 140 [place] [address] Toney Loco, PT 8 [place] [address] 02/06/2025 8:00 AM EST Office Visit [facility] [address] [place] [address] Janae Lawrence MD 140 [place] [address] Toney Loco, PT 8 [place] [address] documented as of this encounter Results * Pancreatic Elastase, Stool (10/25/2021 7:51 AM EDT) Pancreatic Elastase, Feces >500 >200 (Normal) mcg/g [facility]/PATH [address]PERIOR DR Stool (Stool) 10/25/2021 7:5 1 AM EDT 10/25/2021 7:53 AM EDT us Thomas Ray MD BODY FLUIDS AND STOOLS ORDERAB LES Final Result Performing Organization Address City/[facility]/ZIP Co de Phone Number [facility] [address] [place] [address] * Calprotectin, stool (10/25/2021 7:51 AM EDT) STOOL CALPROTECTIN 22 mcg/g [facility] Comment: (NOTE) Reference Range: <50 Normal 50-120 Borderline >120 Elevated Calprotectin in Crohn's disease and ulcerative colitis can be five to several thousand times above the reference population (50 mcg/g or less). Levels are usually 50 mcg/g or less in healthy patients and with irritable bowel syndrome. Repeat testing in 4-6 weeks is suggested for borderline values. Stool (Stool) 10/25/2021 7:5 1 AM EDT 10/25/2021 7:53 AM EDT us Thomas Ray MD BODY FLUIDS AND STOOLS ORDERAB LES Final Result Performing Organization Address [facility] Co de Phone Number [employer]/[facility] [address] [place] [address] documented in this encounter Visit Diagnoses Diagnosis Diarrhea, unspecified type- Primary Blood in stool documented in this encounter Care Teams Paid Search Manager Relationship Specialty Start Date End Date Itzel Martinez NP [address] [place] [address] PCP - General Family Medicine 02/09/17 04/15/24 Janea Lawrence MD 70 [place] [address] PCP - General Internal Medicine 04/16/24 Tila Haile NP [address] [place] [address] [email or web address] Historical LMR Provider 01/21/17 Gilma Carrasco MD 22 [facility] [address] [place] [address] [email or web address] Historical LMR Provider 01/21/17 Itzel Martinez NP [address] [place] [address] Historical LMR Provider 01/21/17 documented as of this encounter Additional Source Comments The information contained in this document represents components of the legal health record. It is not the complete legal health record.[facility]
--- OUTSIDE RECORDS SUMMARY | 2024-12-16 18:50 | XMS_ITS | Clinical Summary ---
Author Organization [address] Address [address] [place] [phone] Phone Care Team Providers Care Airplane Pilot Supervisor Name Role Phone No, Pcp (Do [...] 08/10/2020 Diabetes screening 08/10/2020 Covid-19 vaccine series (2023- season) 2024 Influenza vaccine 12/01/2024 RSV Immunization (1 - 1-dose 75+ series) 08/10/2050 Meningococcal B Vaccine Aged Out No l onger eligible based on patient's age to complete this topic Meningococcal Vaccine Aged Out No mars rory eligible based on patient's age to complete this topic Pneumococcal Vaccine (2 - 49 years) Aged Out No longer eligible based on patient's age to complete this topic Insurance COMMERCIAL GENERIC COMMERCIAL GENERIC COMMERCIAL GENERIC Care Teams Airplane Pilot Supervisor Relationship Specialty Start Date End Date No, Pcp (Do Not Change Name) PCP - General 06/27/18
--- OUTSIDE RECORDS SUMMARY | 2024-12-16 18:50 | XMS_ITS | Encounter Summary ---
Author Organization [facility] Address [address] [place] [address] [place] [address] Phone Care Team Providers Care Radioisotope Technician Name Role Phone Mariam Cooper CNM Unavailable Tila Haile SEWER CLEANER Unavailable [phone] Katelynn Ruiz SEWER CLEANER Unavailable aTng Reed MD Unavailable Gilma Carrasco MD Unavailable Itzel Martinez SEWER CLEANER Unavailable [phone] Elena Eason MD Unavailable Cruz Roberson MD Unavailable Nova Acevedo MD Unavailable Mar Keene MD Unavailable Rachel Saleem MD Unavailable [phone] Itzel Martinez SEWER CLEANER Primary Care Provider Robert Michele MD Unavailable Cecil Barillas MD Unavailable Janae Lawrence MD Primary Care Provider [phone] Encounter Details Date Type Department Care Team (Late st Contact Info) Description 02/08/2017 Ancillary Orders [facility], X-Ray - [address] [id number] Dusty Wu PA [address] [place] [address] Lumbar sprain, subsequent encounter Social History Tobacco Use Types Packs/Day Years [...] Description 12/18/2024 10:00 AM EDT Office Visit [facility] [address] [place] [address] Janae Lawrence MD [address] [place] [address] Mindy Genao, PT 8 [place] [address] 12/25/2024 1:00 PM EDT Office Visit [facility] [address] [place] [address] Janae Lawrence MD [address] [place] [address] Mindy Genao, PT 8 [place] [address] 12/30/2024 2:00 PM EDT Office Visit [facility] [address] [place] [address] Janae Lawrence MD [address] [place] [address] Toney Loco, PT 8 [place] [address] 01/15/2025 8:45 AM EDT Office Visit [facility] [address] [place] [address] Janae Lawrence MD [address] [place] [address] Toney Loco, PT 8 [place] [address] [email or web address] 01/22/2025 8:00 AM EDT Office Visit [facility] [address] [place] [address] Janae Lawrence MD [address] [place] [address] Toney Loco, PT 8 [place] [address] [email or web address] 01/27/2025 8:00 AM EDT Office Visit [facility] [address] [place] [address] Janae Lawrence MD [address] [place] [address] Toney Loco, PT 8 [place] [address] [email or web address] 02/03/2025 11:00 AM EST Office Visit [facility] [address] [place] [address] Janae Lawrence MD [address] [place] [address] Toney Loco, PT 8 [place] [address] [email or web address] 02/06/2025 8:00 AM EST Office Visit [facility] [address] [place] [address] Janae Lawrence MD [address] [place] [address] Toney Loco, PT [address] [place] [address] [email or web address] documented as of this encounter Results * XR LUMBOSACRAL SPINE 4 OR MORE VIEWS (02/09/2017 12:48 PM EST) Anatomical Region Laterality Modality L-spine Radiographic Katie ging 02/09/2017 12:5 6 PM EST Impressions 02/09/2017 12:59 PM EST Stable appearance relative to prior outside imaging. Mild degenerative changes/spurring in the lumbar spine noted along the endplates. No compression fracture or acute subluxation is seen. S/S: Lumbar sprain and strain, low back pain POS - [id number] Narrative 02/09/2017 12:59 PM EST COMPARISON: Outside lumbar spine x-ray November 06, 2014 FINDINGS: AP, lateral, both oblique, and coned-down views of the lumbar spine are obtained. There is mild diffuse lumbar spurring present which is similar to that seen previously. There is preservation of disc space height. No compression fracture or acute subluxation is seen. No pars defects are noted. An IUD is evident. The SI joints are unremarkable. The pedicles appear intact. Procedure Note Jonn Rocha MD - 02/09/2017 COMPARISON: Outside lumbar spine x-ray November 06, 2014 FINDINGS: AP, lateral, both oblique, and coned-down views of the lumbar spine areobtained. There is mild diffuse lumbar spurring present which is similar to thatseen previously. There is preservation of disc space height. No compression fracture or acute subluxation is seen. No pars defects are noted. An IUD is evident. The SI joints are unremarkable. The pedicles appear intact. IMPRESSION: Stable appearance relative to prior outside imaging. Mild degenerativechanges/spurring in the lumbar spine noted along the endplates. Nocompression fracture or acute subluxation is seen. S/S: Lumbar sprain and strain, low back pain POS - [id number] us Dusty GUDINO IMG XR SPINE Final Result documented in this encounter Visit Diagnoses Diagnosis Lumbar sprain, subsequent encounter Lumbar sprain, subsequent encounter documented in this encounter Care Teams Radioisotope Technician Relationship Specialty Start Date End Date Itzel Martinez NP [address] [place] [address] PCP - General Family Medicine 02/09/17 04/15/24 Janae Lawrence MD 230 [facility] [address] [place] [address] PCP - General Internal Medicine 04/16/24 Mariam Cooper CNM [address] [place] [address] Historical LMR Provider 01/21/17 2 Tila Haile NP [address] [place] [address] [email or web address] Historical LMR Provider 01/21/17 Katelynn Ruiz NP [address] [place] [address] [email or web address] Historical LMR Provider 01/21/17 04/09/21 Tang Reed MD [address] [place] [address], [address] [place] [address] Historical LMR Provider 01/21/17 04/09/21 Gilma Carrasco MD [address] [place] [address], [address] [place] [address] Historical LMR Provider 01/21/17 Itzel Martinez NP [address] [place] [address] Historical LMR Provider 01/21/17 Elena Eason MD [address], [place] [address] Historical LMR Provider 01/21/17 2 Cruz Roberson MD [address] [place] [address] [email or web address] Historical LMR Provider 01/21/17 04/09/21 Nova Acevedo MD [address] [place] [phone] Historical LMR Provider 01/21/17 2 Mar Keene MD [address] [place] [address] [email or web address] Historical LMR Provider 01/21/17 04/09/21 Rachel Saleem MD [address], [place] [address] Historical LMR Provider 01/21/17 2 Robert Michele MD [address] [place] [address] [email or web address] Insurance Assigned Provider 07/06/18 12/07/18 Cecil Barillas MD [address] [place] [address] [place] [address] [email or web address] Assigned Provider 12/07/18 07/09/19 documented as of this encounter Additional Source Comments The information contained in this document represents components of the legal health record. It is not the complete legal health record.[facility]
--- OUTSIDE RECORDS SUMMARY | 2024-12-16 18:50 | XMS_ITS | Encounter Summary ---
Author Organization [facility] Address [address] [place] [phone] Care Team Providers Care Driver Trainer Name Role Phone No, Pcp (Do Not Change Name) Primary Care Provid er Unavailable Encounter Details Date Type Department Care Team (Late st Contact Info) Description 07/03/2018 Scanned Document [facility] [address] [place] [phone] Ramin Soares MD [address] [place] [phone] Social History Tobacco Use Types Packs/Day Years [...] on filedocumented in this encounter Care Teams Driver Trainer Relationship Specialty Start Date End Date No, Pcp (Do Not Change Name) PCP - General 06/27/18 documented as of this encounter
--- OUTSIDE RECORDS SUMMARY | 2024-12-16 18:50 | XMS_ITS | Encounter Summary ---
Author Organization [facility] Address [address] [facility] [address] [place] [address] Phone Care Team Providers Care Complaint Adjuster Name Role Phone MicTila foster Leroy MEDICAL TECHNOLOGIST PRN Unavailable [phone] Gilma Carrasco MD Unavailable Itzel Martinez MEDICAL TECHNOLOGIST PRN Unavailable [phone] Janae Lawrence MD Primary Care Provider Encounter Details Date Type Department Care Team (Late st Contact Info) Description 06/22/2024 Procedure Pass [facility], Ct Scan - [address] [id number] Social History Tobacco Use Types Packs/Day Years [...] 7:02 AM EDT Agustina Mckeon RN * Richardson Suicide Severity Rating Scale (Screener/Recent Self-Report) Question [...] Description 12/18/2024 10:00 AM EDT Office Visit [facility] [address] [place] [address] Janae Lawrence MD [address] [place] [address] Mindy Genao, PT 8 [place] [address] 12/25/2024 1:00 PM EDT Office Visit [facility] [address] [place] [address] Janae Lawrence MD [address] [place] [address] Mindy Genao, PT 8 [place] [address] 12/30/2024 2:00 PM EDT Office Visit [facility] [address] [place] [address] Janae Lawrence MD [address] [place] [address] Toney Loco, PT 8 [place] [address] 01/15/2025 8:45 AM EDT Office Visit [facility] 8 [place] [address] Janae Lawrence MD [address] [place] [address] Toney Loco, PT 8 [place] [address] 01/22/2025 8:00 AM EDT Office Visit [facility] 8 [place] [address] Janae Lawrence MD [address] [place] [address] Toney Loco, PT 8 [place] [address] 01/27/2025 8:00 AM EDT Office Visit [facility] [address] [place] [address] Janae Lawrence MD [address] [place] [address] Toney Loco, PT 8 [place] [address] 02/03/2025 11:00 AM EST Office Visit [facility] [address] [place] [address] Janae Lawrence MD [address] [place] [address] Toney Loco, PT 8 [place] [address] 02/06/2025 8:00 AM EST Office Visit [facility] [address] [place] [address] Janae Lawrence MD [address] [place] [address] Toney Loco, PT 8 [place] [address] documented as of this encounter Visit Diagnoses Not on filedocumented in this encounter Care Teams Complaint Adjuster Relationship Specialty Start Date End Date Janae Lawrence MD 70 [place] [address] PCP - General Internal Medicine 04/16/24 Tila Haile NP [address] [place] [address] Historical LMR Provider 01/21/17 Gilma Carrasco MD [address] [address] Historical LMR Provider 01/21/17 Itzel Martinez NP 70 [place] [address] Historical LMR Provider 01/21/17 documented as of this encounter Additional Source Comments The information contained in this document represents components of the legal health record. It is not the complete legal health record.[facility]
--- OUTSIDE RECORDS SUMMARY | 2024-12-16 18:50 | XMS_ITS | Encounter Summary ---
Author Organization [facility] Address [address] [place] [address] [place] [address] Phone Care Team Providers Care Drapery Worker Name Role Phone Mariam Cooper CNM Unavailable Tila Haile INSURANCE ASSOCIATE Unavailable [phone] Katelynn Ruiz INSURANCE ASSOCIATE Unavailable Tang Reed MD Unavailable Gilma Carrasco MD Unavailable Itzel Martinez INSURANCE ASSOCIATE Unavailable [phone] Elena Eason MD Unavailable Cruz Roberson MD Unavailable Nova Acevedo MD Unavailable Mar Keene MD Unavailable Rachel Saleem MD Unavailable [phone] Itzel Martinez INSURANCE ASSOCIATE Primary Care Provider Robert Michele MD Unavailable Cecil Barillas MD Unavailable Janae Lawrence MD Primary Care Provider Encounter Details Date Type Department Care Team (Late st Contact Info) Description 08/07/2018 Ancillary Orders Virtual Department [address] [place] [address] Liss Florian MD [address] [place] [address] Flank pain; Calculus of kidney with calculus of ureter Social History Tobacco Use Types Packs/Day Years [...] Description 12/18/2024 10:00 AM EDT Office Visit [address] [place] [address] Janae Lawrence MD [address] [place] [address] Mindy Genao, PT 8 [place] [address] 12/25/2024 1:00 PM EDT Office Visit [address] [address] Janae Lawrence MD [address] [place] [address] Mindy Genao, PT 8 [place] [address] 12/30/2024 2:00 PM EDT Office Visit [address] [place] [address] Janae Lawrence MD [address] [place] [address] Toney Loco, PT 8 [place] [address] 01/15/2025 8:45 AM EDT Office Visit [facility] [address] [place] [address] Janae Lawrence MD [address] [place] [address] Toney Loco, PT 8 [place] [address] 01/22/2025 8:00 AM EDT Office Visit [facility] [address] [place] [address] Janae Lawrence MD [address] [place] [address] Toney Loco, PT 8 [place] [address] 01/27/2025 8:00 AM EDT Office Visit [facility] [address] [place] [address] Janae Lawrence MD [address] [place] [address] Toney Loco, PT 8 [place] [address] 02/03/2025 11:00 AM EST Office Visit [facility] [address] [place] [address] Janae Lawrence MD [address] [place] [address] Toney Loco, PT 8 [place] [address] 02/06/2025 8:00 AM EST Office Visit [facility] 8 [place] [address] Janae Lawrence MD [address] [place] [address] Toney Loco, PT 8 [place] [address] documented as of this encounter Results * US Kidneys (08/08/2018 10:28 AM EDT) Anatomical Region Laterality Modality Abdomen, Kidney Ultrasound 08/08/2018 4:23 PM EDT Impressions 08/08/2018 4:26 PM EDT 1. Nonobstructing left lower pole renal calculus measures 0.4 cm. 2. Multiple additional bilateral echogenic foci without shadowing or twinkle artifact could represent tiny nonobstructing stones. POS - [id number] Narrative 08/08/2018 4:26 PM EDT EXAM: US KIDNEYS ULTRASOUND KIDNEYS COMPARISON: None FINDINGS: RIGHT KIDNEY: The right kidney is within normal limits for size and measures 10.2 cm in sagittal dimension. Parenchyma is within normal limits. Cortical thickness and echogenicity are within normal limits. No hydronephrosis, focal lesions, or shadowing stones. Multiple echogenic foci seen without shadowing or twinkle artifact. LEFT KIDNEY: The left kidney is within normal limits for size and measures 11.1 cm in sagittal dimension. Parenchyma is within normal limits. Cortical thickness and echogenicity are within normal limits. No hydronephrosis or focal lesions. Echogenic focus with typical artifact in the upper pole of the left kidney measuring 0.4 cm. Multiple additional echogenic foci seen without shadowing or twinkle artifact. Procedure Note Carlos Arias MD - 08/08/2018 EXAM: US KIDNEYS ULTRASOUND KIDNEYS COMPARISON: None FINDINGS: RIGHT KIDNEY: The right kidney is within normal limits for size andmeasures 10.2 cm in sagittal dimension. Parenchyma is within normallimits. Cortical thickness and echogenicity are within normal limits. Nohydronephrosis, focal lesions, or shadowing stones. Multiple echogenicfoci seen without shadowing or twinkle artifact. LEFT KIDNEY: The left kidney is within normal limits for size and [id number] cm in sagittal dimension. Parenchyma is within normal limits.Cortical thickness and echogenicity are within normal limits. Nohydronephrosis or focal lesions. Echogenic focus with typical artifact inthe upper pole of the left kidney measuring 0.4 cm. Multiple additionalechogenic foci seen without shadowing or twinkle artifact. IMPRESSION: 1. Nonobstructing left lower pole renal calculus measures 0.4 cm. 2. Multiple additional bilateral echogenic foci without shadowing ortwinkle artifact could represent tiny nonobstructing stones. POS - [id number] Liss Florian MD [facility] US RENAL Final Result documented in this encounter Visit Diagnoses Diagnosis Flank pain Abdominal pain, unspecified site Calculus of kidney with calculus of ureter Flank pain Abdominal pain, unspecified site Calculus of kidney with calculus of ureter documented in this encounter Care Teams Drapery Worker Relationship Specialty Start Date End Date Itzel Martinez NP [address] [place] [address] PCP - General Family Medicine 02/09/17 04/15/24 Janae Lawrence MD 230 [facility] [address] [place] [phone] PCP - General Internal Medicine 04/16/24 Mariam Cooper CNM [address] [place] [address] Historical LMR Provider 01/21/17 2 Tila Haile NP 30 [place] [address] [email or web address] Historical LMR Provider 01/21/17 Katelynn Ruiz NP [address] [place] [address] [email or web address] Historical LMR Provider 01/21/17 04/09/21 Tang Reed MD [address] [place] [address], [address] [place] [address] Historical LMR Provider 01/21/17 04/09/21 Gilma Carrasco MD [address] [place] [address] Historical LMR Provider 01/21/17 Itzel Martinez NP [address] [place] [address] Historical LMR Provider 01/21/17 Elena Eason MD [address], [place] [address] Historical LMR Provider 01/21/17 2 Cruz Roberson MD [address] [place] [address] Historical LMR Provider 01/21/17 04/09/21 Nova Acevedo MD [address] [place] [phone] Historical LMR Provider 01/21/17 2 Mar Keene MD [address] [place] [address] [email or web address] Historical LMR Provider 01/21/17 04/09/21 Rachel Saleem MD [address], [place] [phone] Historical LMR Provider 01/21/17 2 Robert Michele MD [address] [place] [address] [email or web address] Insurance Assigned Provider 07/06/18 12/07/18 Cecil Barillas MD [address] [place] [phone] [email or web address] Insurance Assigned Provider 12/07/18 07/09/19 documented as of this encounter Additional Source Comments The information contained in this document represents components of the legal health record. It is not the complete legal health record.[facility]
--- OUTSIDE RECORDS SUMMARY | 2024-12-16 18:50 | XMS_ITS | Clinical Summary ---
Author Organization [facility] Address [address] [place] [address] Phone Care Team Providers Care Manager Latin Name Role Phone Janae [place] Primary Care Provider [phone] Encounters Date Type Department Care Team Description 11/21/2024 9:01 AM EDT - 11/21/2024 11:59 PM EDT Hospital Encounter [address] [address] Mindy Catalan RT Bilateral hip pain Discharge Disposition: Home 11/21/2024 Travel 11/18/2024 3:40 PM EDT Office Visit [facility] Department [address] [place] [phone] 11/18/2024 3:30 PM EDT Office Visit [facility] Department [address] [place] [phone] Charlie De La O MD Hip impingement syndrome, right [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] (Primary Dx); Bilateral hip pain; Psoas tendinitis, right hip [M76.11] 11/18/2024 Travel 11/14/2024 Orders Only [facility] Department [address] [place] [phone] Mee Kim PA-C 10/08/2024 Telephone [facility] Department [address] [place] [phone] Claudio Fan MD 10/06/2024 10:43 AM EDT - 10/06/2024 11:59 PM EDT Hospital Encounter [facility] [address] [place] [address] Senait Mars, RT Bilateral hip pain Discharge Disposition: Home 10/06/2024 10:21 AM EDT - 10/06/2024 10:42 AM EDT Hospital Encounter [facility] MRI [address] [place] [address] Senait Mars, RT Bilateral hip pain Discharge Disposition: Home 10/06/2024 Travel 09/25/2024 9:58 AM EDT - 09/25/2024 11:59 PM EDT Hospital Encounter [facility] [address] [place] [address] Bilateral hip pain Discharge Disposition: Home 09/25/2024 9:10 AM EDT Office Visit [facility] Department [address] [place] [address] 09/25/2024 8:30 AM EDT Consult [facility] Department [address] [place] [address] Charlie De La O MD Sacroiliac dysfunction [...] Pressure - - Pulse - - Temperature 37.4 C (99.3 F) 11/18/2024 3:29 PM EDT Respiratory Rate - - Oxygen Saturation - - Inhaled Oxygen Concentration - - Weight 64 kg (141 lb 1.5 oz) 10/06/2024 10:47 AM EDT Height 163.5 cm (5' 4.37 ) 09/25/2024 8:41 AM ED T Body Mass Index 23.94 09/25/2024 8:41 AM EDT Plan of Treatment Upcoming Encounters Date Type Department Care Team (Late st Contact Info) Description 12/24/2024 1:30 PM EDT Consult [facility] Department [address] [place] [address] Mansoor Mccullough MD [address] [place] [address] Health Maintenance Due Date Last Done Comments HIV Screening 1975 MMR Vaccines (1 of 1 - Standard series) 08/10/1976 Varicella Vaccines (1 of 2 - 13+ 2-dose series) 08/10/1988 Hepatitis C Screening 08/10/1993 Hepatitis B Vaccines (1 of 3 - 19+ 3-dose series) 08/10/1994 DTaP/Tdap/Td Vaccines (3 - Td or Tdap) 10/30/2024 05/02/2024, 09/21/2006 Influenza Vaccine (#1) 2024 3, 03/22/2021, 12/12/2016, Additional history exists HIB Vaccines Aged Out No longer eligi ble based on patient's age to complete this topic HPV Vaccines (No Doses Required) Completed Hepatitis A Vaccines Aged Out No long [...] Procedure Name Priority Date/Time Associated Diagnosis Comments CT HIPS JAIMES BILATERAL WO IV CONTRAST POST PROC Routine 11/21/2024 11:00 AM EDT Bilateral hip pain [facility] AMB ORT TENDON SHEATH INJECTION Routine 11/18/2024 4:20 PM EDT Hip impingement syndrome, right [M25.851] Psoas tendinitis, right hip [M76.11] [employer]. JOINT - LIMITED Routine 11/18/2024 3:35 PM EDT Bilateral hip pain MR HIP LEFT WO CONTRAST Routine 10/06/2024 12:40 PM EDT Bilateral hip pain MR HIP RIGHT WO CONTRAST Routine 10/06/2024 12:39 PM EDT Bilateral hip pain CHG US GUIDANCE NEEDLE PLACEMENT IMG S&I Routine 09/25/2024 12:13 PM EDT Bilateral hip pain NH ARTHROCENTESIS ASPIR&/INJ MAJOR JT/BURSA W/US Routine 09/25/2024 11:25 AM EDT Bilateral hip pain XR PELVIS 3+ VIEWS Routine 09/25/2024 10 :11 AM EDT Bilateral hip pain [employer] ([employer]) MED. JOINT - LIMITED Routine 09/25/2024 9:05 AM EDT Bilateral hip pain from Last 3 Months Results * CT Hips Jaimes Bilateral WO IV Contrast Post Proc (11/21/2024 11:00 AM EDT) Anatomical Region Laterality Modality Lower Extremities, Hip Left Computed Tomography 11/21/2024 11:1 8 AM EDT Impressions 11/21/2024 11:39 PM EDT IMPRESSION: Femoral and acetabular version as described. END OF IMPRESSION Narrative 11/21/2024 11:39 PM EDT PROCEDURE: CT HIPS JAIMES BILATERAL WO IV CONTRAST POST PROC ACTIONABLE FINDINGS: None INDICATION: Vinod protocol. Eval right hip anatomy 3D bone model for consideration of hip arthroscopy vs. replacement. COMPARISON: Bilateral hip MRI studies on 10/06/2024. TECHNIQUE: Helical 3mm images were performed from the acetabular roofs through the femoral condyles without IV contrast. 3D models with volume rendering and MIP were performed on an independent workstation. FINDINGS: Right: Femoral version 2D (Vinod Method): 36 degrees. Femoral version 3D (Reikeras Method): 26 Acetabular version (1 cm below the acetabular dome): anteverted. Acetabular version (center of femoral head): anteverted. Femoral head/neck offset (radial reformat): Normal offset, with an alpha angle of approximately 49 degrees (13:41). Decreased lateral coverage of the femoral head by the acetabulum. Left: Femoral version 2D (Jaimes Method): 30 degrees. Femoral version 3D (Reikeras Method): 22 degrees Acetabular version (1 cm below the acetabular dome): anteverted. Acetabular version (center of femoral head): anteverted. Femoral head/neck offset (radial reformat): Normal offset, with an alpha angle of proximal 51 degrees (14:35). Borderline decreased lateral coverage of the femoral head by the acetabulum. The 3D models better demonstrate the femoroacetabular relationships. Other observations: -Mild degenerative changes of the bilateral sacroiliac joints along the anterior inferior aspects. -Narrowing of the right ischiofemoral interval, similar to prior. -Evidence of enthesopathy along the iliac crest. Mild endplate bony proliferative changes of the lumbar spine. -IUD within the uterus. Multiple phleboliths. Small fat-containing periumbilical hernia. Procedure Note Claudio Charlton MD PhD - 11/21/2024 PROCEDURE: CT HIPS JAIMES BILATERAL WO IV CONTRAST POST PROC ACTIONABLE FINDINGS: None INDICATION: Vinod protocol. Eval right hip anatomy 3D bone model forconsideration of hip arthroscopy vs. replacement. COMPARISON: Bilateral hip MRI studies on 10/06/2024. TECHNIQUE: Helical 3mm images were performed from the acetabular roofsthrough the femoral condyles without IV contrast. 3D models with volumerendering and MIP were performed on an independent workstation. FINDINGS: Right: Femoral version 2D (Jaimes Method): 36 degrees. Femoral version 3D (Reikeras Method): 26 Acetabular version (1 cm below the acetabular dome): anteverted. Acetabular version (center of femoral head): anteverted. Femoral head/neck offset (radial reformat): Normal offset, with an alphaangle of approximately 49 degrees (13:41). Decreased lateral coverage of the femoral head by the acetabulum. Left: Femoral version 2D (Jaimes Method): 30 degrees. Femoral version 3D (Reikeras Method): 22 degrees Acetabular version (1 cm below the acetabular dome): anteverted. Acetabular version (center of femoral head): anteverted. Femoral head/neck offset (radial reformat): Normal offset, with an alphaangle of proximal 51 degrees (14:35). Borderline decreased lateral coverage of the femoral head by theacetabulum. The 3D models better demonstrate the femoroacetabular relationships. Other observations: -Mild degenerative changes of the bilateral sacroiliac joints along theanterior inferior aspects. -Narrowing of the right ischiofemoral interval, similar to prior. -Evidence of enthesopathy along the iliac crest. Mild endplate bonyproliferative changes of the lumbar spine. -IUD within the uterus. Multiple phleboliths. Small fat-containingperiumbilical hernia. IMPRESSION IMPRESSION: Femoral and acetabular version as described. END OF IMPRESSION us Charlie De La O MD IMG CT PROCEDURES Final Result * Tendon Sheath Injection (11/18/2024 4:20 PM EDT) [facility] Charlie De La O MD - 11/18/2024 4:20 PM EDT Charlie De La O MD 11/18/2024 5:24 PM Tendon Sheath Injection (Right hip psoas and ischiofemoral spcace) on 11/18/2024 4:20 PM Indications: pain, diagnostic and therapeutic benefit Details: 25 G needle, ultrasound-guided Medications: 7 mg ROPivacaine 0.2 %; 7 mL lidocaine PF 1 %; 30 mg ketorolac 30 mg/mL (1 mL); 40 mg methylPREDNISolone acetate 40 mg/mL Outcome: tolerated well, no immediate complications Procedure, treatment alternatives, risks and benefits explained, specific risks discussed. Consent was given by the patient. Immediately prior to procedure a time out was called to verify the correct patient, procedure, equipment, support teacher and site/side marked as required. Patient was prepped and draped in the usual sterile fashion. us Charlie De La O MD IN CLINIC/BEDSIDE ORDERA BLES Final Result * US SM Joint - Limited (11/18/2024 3:35 PM EDT) Only the most recent of2 resultswithin the time period is included. Narrative [facility] - 11/18/2024 3:35 PM EDT Please see image section of visit note for details/results. us Charlie De La O MD IMG US PROCEDURES Final Result [facility] * MR Hip Left WO Contrast (10/06/2024 [...] impingement. END OF IMPRESSION Claudio Fan MD IM MRI PROCEDURES Final Result * MR Hip [...] MD IMG MRI PROCEDURES Final Result * CHG US GUIDANCE NEEDLE PLACEMENT IMG S&I (09/25/2024 [...] to verify the correct patient, procedure, equipment, support teacher and site/side marked as required. Patient was [...] to verify the correct patient, procedure, equipment, support teacher and site/side marked as required. Patient was prepped and draped in the usual sterile fashion. us Charlie De La O MD IN CLINIC/BEDSIDE ORDERA BLES Final Result * XR Pelvis 3+ Views (09/25/2024 10:11 AM EDT) Anatomical Region Laterality Modality Body, Pelvis Digital Radiogra phy 09/25/2024 1:21 PM EDT Impressions 09/25/2024 1:23 PM EDT [...] Fan MD IMG XR PROCEDURES Final Result from Last 3 Months Insurance [facility] MEDICARE [facility] MEDICARE Care Teams Manager Latin Relationship Specialty Start Date End Date Janae [place] [address] [place] [id number] [facility] - General 09/22/24
--- OUTSIDE RECORDS SUMMARY | 2024-12-16 18:50 | XMS_ITS | Encounter Summary ---
Author Organization [facility] Address [address] [place] [address] [place] [address] Phone Care Team Providers Care Scalper Operator Name Role Phone Mariam Cooper CNM Unavailable Tila Haile FISHING ROD ASSEMBLER Unavailable [phone] Katelynn Ruiz FISHING ROD ASSEMBLER Unavailable Tang Reed MD Unavailable Gilma Carrasco MD Unavailable Itzel Martinez FISHING ROD ASSEMBLER Unavailable [phone] Elena Eason MD Unavailable [phone] Cruz Roberson MD Unavailable Nova Acevedo MD Unavailable Mar Keene MD Unavailable [phone] Rachel Saleem MD Unavailable Itzel Martinez FISHING ROD ASSEMBLER Primary Care Provider Robert Michele MD Unavailable Cecil Barillas MD Unavailable Janae [place] MD Primary Care Provider Reason for Referral * MRI/CAT Scan - Closed Specialty Diagnoses / Procedures Referred By Contac t Referred To Contact Radiology Diagnoses Blood in stool Mucus in stool Change in stool Procedures CT Abdomen/Pelvis Thomas Ray MD Phone: tel: fax: [email or web address] Referral ID Status Reason Start Date Expiration Date Visits Re quested Visits Authorized [id number] Closed 08/07/2018 08/08/2019 1 1 Encounter Details Date Type Department Care Team (Latest Contact Info) Description 11/28/2018 Transcribe Orders Virtual Department [address] [place] [address] Thomas Ray MD [address] [address] [email or web address] Blood in stool (Primary Dx); Mucus in stool; Change in stool Social History Tobacco Use Types [...] Description 12/18/2024 10:00 AM EDT Office Visit [facility] [address] [place] [address] Janae [place] MD [address] [place] [address] Mindy Genao, PT [address] [place] [address] 12/25/2024 1:00 PM EDT Office Visit [facility] [address] [place] [address] Janae [place] MD [address] [place], [place] [phone] Mindy Genao, PT [address] [place] [address] [email or web address] 12/30/2024 2:00 PM EDT Office Visit [facility] [address] [place] [address] Janae [place] MD [address] [place] [address] Toney Loco, PT [address] [place] [address] [email or web address] 01/15/2025 8:45 AM EDT Office Visit [facility] [address] [place] [address] Janae [place] MD [address] [place] [address] Toney Loco, PT [address] [place] [address] [email or web address] 01/22/2025 8:00 AM EDT Office Visit [facility] [address] [place] [address] Janae [place] MD [address] [place] [address] Toney Loco, PT [address] [place] [address] [email or web address] 01/27/2025 8:00 AM EDT Office Visit [facility] [address] [place] [address] Janae [place] MD [address] [place] [address] Toney Loco, PT [address] [place] [address] [email or web address] 02/03/2025 11:00 AM EST Office Visit [facility] [address] [place] [address] Janae [place] MD [address] [place] [address] Toney Loco, PT [address] [place] [address] [email or web address] 02/06/2025 8:00 AM EST Office Visit [facility] [address] [place] [address] Janae [place] MD [address] [place] [address] Toney Loco, PT [address] [place] [address] [email or web address] documented as of this encounter Results * CT ABDOMEN/PELVIS WITH CONTRAST (12/17/2018 11:35 AM EDT) Anatomical Region Laterality Modality Abdomen, Pelvis Computed Tomogra phy 12/17/2018 12:3 9 PM EDT Impressions 12/17/2018 1:04 PM EDT 1. No evidence of acute pathology in the abdomen or pelvis. No explanation for the patient's signs and symptoms. 2. Nonobstructing bilateral nephrolithiasis, more extensive on the left than right. 3. The distal portion of the IUD is intimately associated with the wall of the fundus of the uterus anteriorly to the left of midline. This may be clinically insignificant but can be correlated clinically. TOTAL CTDIvol: 5.70 mGy POS - [id number] Narrative 12/17/2018 1:04 PM EDT HISTORY: Abdominal pain, change in bowel habits, heme positive stool. COMPARISON: CT pelvis 08/12/[address] abdomen/pelvis 10/19/2008. TECHNIQUE: CT abdomen and pelvis with IV and oral contrast. Multiplanar reformatted images generated. Automated exposure control utilized. FINDINGS: Lower hemithoraces: No significant abnormalities. GI: No marked bowel distention or evidence of bowel wall thickening. No free air or organized collections. Liver/spleen: Liver and spleen appear normal. Pancreas/biliary: The pancreas appears normal. No evidence of biliary ductal dilatation. Adrenals/: Adrenals appear normal. Kidneys remain normal in size and enhance normally. Probable 2 mm calculus in the upper pole of the right kidney near the junction with the interpolar region. Approximately four calculi demonstrated within the left kidney. One is linear in shape, located in the upper pole, measuring 5 mm x 2 mm. The others measure 2-3 mm. No pelvocaliectasis. Ureters normal in caliber. New tiny calcification closely associated with the anterior superior wall of the urinary bladder. IUD present within the uterus. The uterus is retroverted. A distal portion of the IUD is intimately associated with the anterior aspect of the wall of the fundus of the uterus to the left of midline. Lymph node/lymphatics: No measurable lymphadenopathy. Cardiovascular: No significant abnormalities. Musculoskeletal: Subcentimeter sclerotic focus within the right side of the body of L3, possibly a bone island. Procedure Note Watson Thompson MD - 12/17/2018 HISTORY: Abdominal pain, change in bowel habits, heme positive stool. COMPARISON: CT pelvis 08/12/[address] abdomen/pelvis 10/19/2008. TECHNIQUE: CT abdomen and pelvis with IV and oral contrast. Multiplanarreformatted images generated. Automated exposure control utilized. FINDINGS: Lower hemithoraces: No significant abnormalities. GI: No marked bowel distention or evidence of bowel wall thickening. Nofree air or organized collections. Liver/spleen: Liver and spleen appear normal. Pancreas/biliary: The pancreas appears normal. No evidence of biliaryductal dilatation. Adrenals/: Adrenals appear normal. Kidneys remain normal in size andenhance normally. Probable 2 mm calculus in the upper pole of the rightkidney near the junction with the interpolar region. Approximately fourcalculi demonstrated within the left kidney. One is linear in shape,located in the upper pole, measuring 5 mm x 2 mm. The others measure 2-3mm. No pelvocaliectasis. Ureters normal in caliber. New tinycalcification closely associated with the anterior superior wall of theurinary bladder. IUD present within the uterus. The uterus isretroverted. A distal portion of the IUD is intimately associated withthe anterior aspect of the wall of the fundus of the uterus to the left ofmidline. Lymph node/lymphatics: No measurable lymphadenopathy. Cardiovascular: No significant abnormalities. Musculoskeletal: Subcentimeter sclerotic focus within the right side ofthe body of L3, possibly a bone island. IMPRESSION: 1. No evidence of acute pathology in the abdomen or pelvis. Noexplanation for the patient's signs and symptoms. 2. Nonobstructing bilateral nephrolithiasis, more extensive on the leftthan right. 3. The distal portion of the IUD is intimately associated with the wallof the fundus of the uterus anteriorly to the left of midline. This maybe clinically insignificant but can be correlated clinically. TOTAL CTDIvol: 5.70 mGy POS - [id number] Thomas Ray MD IMG CT ABD/PELVIS Final Result documented in this encounter Visit Diagnoses Diagnosis Blood in stool- Primary Mucus in stool Nonspecific abnormal finding in stool contents Change in stool Blood in stool Mucus in stool Nonspecific abnormal finding in stool contents Change in stool documented in this encounter Care Teams Scalper Operator Relationship Specialty Start Date End Date Itzel Martinez NP [address] [place] [address] PCP - General Family Medicine 02/09/17 04/15/24 Janae [place] MD [address] [facility] [address] [place] [phone] PCP - General Internal Medicine 04/16/24 Mariam Cooper CNM [address] [place] [address] Historical LMR Provider 01/21/17 2 Tila Haile NP [address] [place] [address] [email or web address] Historical LMR Provider 01/21/17 Katelynn Ruiz NP [address] [place] [address] [email or web address] Historical LMR Provider 01/21/17 04/09/21 Tang Reed MD [address] [place] [address], [address] [place] [address] Historical LMR Provider 01/21/17 04/09/21 Gilma Carrasco MD [address] [place] [address] Historical LMR Provider 01/21/17 Itzel Martinez NP [address] [place] [address] Historical LMR Provider 01/21/17 Elena Eason MD [address], [place] [address] Historical LMR Provider 01/21/17 2 Cruz Roberson MD [address] [place] [address] Historical LMR Provider 01/21/17 04/09/21 Nova Acevedo MD [address] [place] [address] Historical LMR Provider 01/21/17 2 Mar Keene MD 22 [facility] [address] [place] [address] [email or web address] Historical LMR Provider 01/21/17 04/09/21 Rachel Saleem MD [address] [place] [phone] Historical LMR Provider 01/21/17 2 Robert Michele MD [address] [place] [address] [email or web address] Insurance Assigned Provider 07/06/18 12/07/18 Cecil Barillas MD [address] [place] [address] [address] [place] [phone] [email or web address] Insurance Assigned Provider 12/07/18 07/09/19 documented as of this encounter Additional Source Comments The information contained in this document represents components of the legal health record. It is not the complete legal health record.[facility]
--- OUTSIDE RECORDS SUMMARY | 2024-12-16 18:50 | XMS_ITS | Encounter Summary ---
Author Organization [facility] Address [address] [place] [address] [place] [address] Phone Care Team Providers Care Network Development Coordinator Name Role Phone Tila Haile Leroy PATIENT CARE NURSING ASSISTANT Unavailable [phone] Gilma Carrasco MD Unavailable Itzel Martinez PATIENT CARE NURSING ASSISTANT Unavailable [phone] Itzel Martinez NP Primary Care Provider [phone] Janae [place] MD Primary Care Provider Encounter Details Date Type Department Care Team (Late st Contact Info) Description 10/27/2021 Procedure Pass [facility] [address] [place] [address] Social History Tobacco Use Types Packs/Day Years [...] Description 12/18/2024 10:00 AM EDT Office Visit [facility] [address] [place] [address] Janae [place] MD [address] [place] [address] Mindy Genao, PT [address] [place] [address] 12/25/2024 1:00 PM EDT Office Visit [facility] [address] [place] [address] Janae [place] MD [address] [place] [address] Mindy Genao, PT [address] [place] [address] 12/30/2024 2:00 PM EDT Office Visit [facility] [address] [place] [address] Janae [place] MD [address] [place] [address] Toney Loco, PT [address] [place] [address] 01/15/2025 8:45 AM EDT Office Visit [facility] [address] [place] [address] Janae [place] MD [address] [place] [address] Toney Loco, PT 8 [place] [address] 01/22/2025 8:00 AM EDT Office Visit [facility] [address] [place] [address] Janae [place] MD [address] [place] [address] Toney Loco, PT [address] [place] [address] 01/27/2025 8:00 AM EDT Office Visit [facility] [address] [place] [address] Janae [place] MD [address] [place] [address] Toney Loco, PT [address] [place] [address] 02/03/2025 11:00 AM EST Office Visit [facility] [address] [place] [address] Janae [place] MD [address] [place] [address] Toney Loco, PT [address] [place] [address] 02/06/2025 8:00 AM EST Office Visit [facility] [address] [place] [address] Janae [place] MD [address] [place] [address] Toney Loco, PT [address] [place] [address] documented as of this encounter Visit Diagnoses Not on filedocumented in this encounter Care Teams Network Development Coordinator Relationship Specialty Start Date End Date Itzel Martinez NP [address] [place] [address] PCP - General Family Medicine 02/09/17 04/15/24 Janae [place] MD [address] [place] [address] PCP - General Internal Medicine 04/16/24 Tila Haile NP [address] [place] [address] [email or web address] Historical LMR Provider 01/21/17 Gilma Carrasco MD [address] [place] [address] [address] [place] [address] [email or web address] Historical LMR Provider 01/21/17 Itzel Martinez NP [address] [place] [address] Historical LMR Provider 01/21/17 documented as of this encounter Additional Source Comments The information contained in this document represents components of the legal health record. It is not the complete legal health record.[facility]
--- OUTSIDE RECORDS SUMMARY | 2024-12-16 18:50 | XMS_ITS | Encounter Summary ---
Author Organization [facility] Address [address] [place] [id number] Care Team Providers Care Utilization Review Specialist Name Role Phone No, Pcp (Do Not Change Name) Primary Care Provid er Unavailable Encounter Details Date Type Department Care Team (Late st Contact Info) Description 10/24/2018 Scanned Document [facility] at [address] [place] [id number] Ramin Soares MD [address] [place] [phone] Social History Tobacco Use Types Packs/Day Years [...] on filedocumented in this encounter Care Teams Utilization Review Specialist Relationship Specialty Start Date End Date No, Pcp (Do Not Change Name) PCP - General 06/27/18 documented as of this encounter
--- OUTSIDE RECORDS SUMMARY | 2024-12-16 18:50 | XMS_ITS | Encounter Summary ---
Author Organization [facility] Address [address] [place] [address] [place] [address] Phone Care Team Providers Care Upholstery Instructor Name Role Phone Mariam Cooper CNM Unavailable Tila Haile ELECTRICIAN RECTIFIER MAINTENANCE Unavailable [phone] Katelynn Ruiz NP Unavailable Tang Reed MD Unavailable Gilma Carrasco MD Unavailable Itzel Martinez ELECTRICIAN RECTIFIER MAINTENANCE Unavailable [phone] Elena Eason MD Unavailable [phone] Cruz Roberson MD Unavailable Nova Acevedo MD Unavailable Mar Keene MD Unavailable Rachel Saleem MD Unavailable [phone] Itzel Martinez ELECTRICIAN RECTIFIER MAINTENANCE Primary Care Provider Robert Michele MD Unavailable Cecil Barillas MD Unavailable Janae [place] MD Primary Care Provider [phone] Encounter Details Date Type Department Care Team (Latest Contact Info) Description 02/09/2017 Transcribe Orders [facility] [address] [place] [address] Itzel Martinez, ELECTRICIAN RECTIFIER MAINTENANCE [address] [place] [address] Fatigue, unspecified type (Primary Dx) Social History Tobacco [...] Description 12/18/2024 10:00 AM EDT Office Visit [facility] [address] [place] [address] Janae [place] MD 140 [place] [address] Mindy Genao, PT 8 [place] [address] 12/25/2024 1:00 PM EDT Office Visit [facility] [address] [place] [address] Janae [place] MD [address] [place] [address] Mindy Genao, PT 8 [place] [address] 12/30/2024 2:00 PM EDT Office Visit [facility] [address] [place] [address] Janae [place] MD [address] [place] [address] Toney Loco, PT 8 [place] [address] 01/15/2025 8:45 AM EDT Office Visit [facility] [address] [place] [address] Janae [place] MD [address] [place] [address] Toney Loco, PT 8 [place] [address] 01/22/2025 8:00 AM EDT Office Visit [facility] [address] [place] [address] Janae [place] MD 140 [place] [address] Toney Loco, PT 8 [place] [address] 01/27/2025 8:00 AM EDT Office Visit [facility] [address] [place] [address] Janae [place] MD [address] [place] [address] Toney Loco, PT 8 [place] [address] 02/03/2025 11:00 AM EST Office Visit [facility] [address] [place] [address] Janae [place] MD [address] [place] [address] Toney Loco, PT 8 [place] [address] 02/06/2025 8:00 AM EST Office Visit [facility] [address] [place] [address] Janae [place] MD [address] [place] [address] Toney Loco, PT 8 [place] [address] [email or web address] documented as of this encounter Results * (ABNORMAL) Basic metabolic panel (02/09/2017 1:46 PM EST) SODIUM 137 133 - 146 mmol/L [facility] CHLORIDE 99 96 - 108 mmol/L [facility] POTASSIUM 3.6 3.3 - 5.1 mmol/L [facility] CO2 26 21 - 35 mmol/L [facility] BUN 12 6 - 19 mg/dL [facility] CREATININE 0.60 0.5 - 1.5 mg/dL [facility] GLUCOSE 100(H) 70 - 99 mg/dL [facility] CALCIUM 8.8 8.4 - 10.3 mg/dL [facility] EGFR >60 60 - 1000 mL/min/1.7 3m2 [facility] Comment:Abnormal if <60. If patient is -Irish, multiply the result by 1.21. ANION GAP 16 10 - 20 mmol/L [facility] Blood 02/09/2017 1:46 PM EST 02/09/2017 1:48 PM EST us Itzel Martinez NP LAB BLOOD ORDERABLES Final Resu lt [facility] [address] [place] [address] documented in this encounter Visit Diagnoses Diagnosis Fatigue, unspecified type- Primary documented in this encounter Care Teams Upholstery Instructor Relationship Specialty Start Date End Date Itzel Martinez NP [address] [place] [address] PCP - General Family Medicine 02/09/17 04/15/24 Janae [place] MD [address] [facility] [address] [place] [address] PCP - General Internal Medicine 04/16/24 Mariam Cooper CNM [address] [place] [address] Historical LMR Provider 01/21/17 2 Tila Haile ELECTRICIAN RECTIFIER MAINTENANCE [address] [place] [address] [email or web address] Historical LMR Provider 01/21/17 Katelynn Ruiz NP [address] [place] [address] [email or web address] Historical LMR Provider 01/21/17 04/09/21 Tang Reed MD [address] [place] [address], [address] [place] [address] [email or web address] Historical LMR Provider 01/21/17 04/09/21 Gilma Carrasco MD [address] [place] [address] Historical LMR Provider 01/21/17 Itzel Martinez NP 70 [place] [address] Historical LMR Provider 01/21/17 Elena Eason MD [address], [place] [address] Historical LMR Provider 01/21/17 2 Cruz Roberson MD [address] [place] [address] Historical LMR Provider 01/21/17 04/09/21 Nova Acevedo MD [address] [place] [address] Historical LMR Provider 01/21/17 2 Mar Keene MD [address] [facility], [address] [place] [address] [email or web address] Historical LMR Provider 01/21/17 04/09/21 Rachel Saleem MD [address], [place] [address] Historical LMR Provider 01/21/17 2 Robert Michele MD 70 [place] [address] [email or web address] Insurance Assigned Provider 07/06/18 12/07/18 Cecil Barillas MD [address] [phone] [email or web address] Insurance Assigned Provider 12/07/18 07/09/19 documented as of this encounter Additional Source Comments The information contained in this document represents components of the legal health record. It is not the complete legal health record.[facility]
--- OUTSIDE RECORDS SUMMARY | 2024-12-16 18:50 | XMS_ITS | Clinical Summary ---
Author Organization [facility] Address [address] [place] [address] Phone Care Team Providers Care Leak Gang Supervisor Name Role Phone Itzel Martinez MELISSA Primary Care Provider [phone] Allergies Active Allergy Reactions Criticality Noted Date Comments Erythromycin Rash Low 05/10/2018 Sulfa (Sulfonamide Antibiotics) Rash Low 04/2023 Medications meloxicam (MOBIC) 15 mg tablet Take 1 tablet (15 mg total) by mouth 1 (one) time each day. Active atorvastatin (LIPITOR) 20 mg tablet Take 1 tablet (20 mg total) by mouth 1 (one) time each day. Active amphetamine-dext roamphetamine XR (Adderall XR) 20 mg 24 hr capsule Take by mouth daily. 05/02/2018 Active famotidine (PEPCID) 40 mg tablet Take 1 tablet (40 mg total) by mouth 1 (one) time each day. Active Gemtesa 75 mg tablet tablet Take 1 tablet (75 mg total) by mouth 1 (one) time each day. 08/18/2024 Active Encounters Date Type Department Care Team Description 11/14/2024 9:00 AM EDT Office Visit [facility] [address] [place] [address] Christian Mariano MD Femoroacetabular impingement of both hips (Primary Dx) 11/12/2024 1:00 PM EDT Office Visit Neurosurgery [facility] [address] [place] [address] Thomas Enriquez, DO Radiculopathy, lumbosacral region; Spinal stenosis, cervical region from Last 3 Months Surgical History Surgery Date Site/Laterality Comments LITHOTRIPSY [...] Sexual Orientation Not on file Obstetrics History Last Filed Vital Signs Vital Sign Reading Time Taken Comments Blood Pressure 119/84 11/14/2024 8:33 AM EDT Pulse 69 11/14/2024 8:33 AM EDT Temperature 36.1 C (96.9 F) 11/12/2024 1:10 PM EDT Respiratory Rate - - Oxygen Saturation 99% 11/14/2024 8:33 AM EDT Inhaled Oxygen Concentration - - Weight 65.8 kg (145 lb) 11/12/2024 1:10 PM EDT Height 170.2 cm (5' 7 ) 11/12/2024 1:10 PM EDT Body Mass Index 22.71 11/12/2024 1:10 PM EDT Plan of Treatment Health Maintenance Due Date Last Done Comments Hepatitis B Vaccines (1 of 3 - 19+ 3-dose series) 08/10/1994 Pneumococcal Vaccine: Pediatrics (0 to 5 Years) and At-Risk Patients (6 to 49 Years) (1 of 2 - PCV) 08/10/1994 Cervical Cancer Screening: Pap Smear 08/10/1996 COVID-19 Vaccine (2 - Pfizer risk series) 08/25/2020 08/04/2020 Colorectal Cancer Screening: Colonoscopy 03/05/2022 HIV Screening 03/05/2022 Medicare Annual Wellness Visit 03/05/2022 Social Influencers of Health Screening 03/05/2022 Depression Screening 04/02/2024 Influenza Vaccine (#1) 2024 , 03/22/2021, 12/12/2016, Additional history exists Breast Cancer Screening 08/12/2026 08/12/2024 DTaP,Tdap,and Td Vaccines (3 - Td or Tdap) 05/02/2034 05/02/2024, 09/21/2006 Hepatitis C Screening Completed 07/18/2023 HIB Vaccines Aged Out No longer eligi [...] to complete this topic RSV Immunization Patients Under 20 months Aged Out No longer eligible based on patient's age to complete this topic Varicella Vaccines Aged Out No longer eligible based on patient's age to complete this topic Procedures Procedure Name Priority Date/Time Associated Diagnosis Comments MR CERVICAL SPINE WO CONTRAST Routine 11/21/2024 11:34 AM EDT from Last 3 Months Results * MR Cervical Spine wo Contrast (11/21/2024 11:34 AM EDT) Anatomical Region Laterality Modality C-spine, Spine Magnetic Resonan ce Historical Provider MD SILVA MRI PROCEDURES Final Result from Last 3 Months Insurance MEDICARE [facility] Care Teams Leak Gang Supervisor Relationship Specialty Start Date End Date Itzel Martinez FNP [address] [place] [address] PCP - General Family Medicine 05/10/18
--- OUTSIDE RECORDS SUMMARY | 2024-12-16 18:50 | XMS_ITS | Encounter Summary ---
Author Organization [facility] Address [address] [place] [address] [place] [address] Phone Care Team Providers Care Cane Flume Watcher Name Role Phone Mariam Cooper CNM Unavailable Tila Haile COMMERCIAL ASSISTANT Unavailable [phone] Katelynn Ruiz COMMERCIAL ASSISTANT Unavailable Tang Reed MD Unavailable Gilma Carrasco MD Unavailable Itzel Martinez COMMERCIAL ASSISTANT Unavailable [phone] Elena Eason MD Unavailable [phone] Cruz Roberson MD Unavailable Nova Acevedo MD Unavailable Mar Keene MD Unavailable Rachel Saleem MD Unavailable [phone] Itzel Martinez COMMERCIAL ASSISTANT Primary Care Provider Robert Michele MD Unavailable Cecil Barillas MD Unavailable Janae [place] MD Primary Care Provider Encounter Details Date Type Department Care Team (Latest Contact Info) Description 11/07/2018 Transcribe Orders [facility] Laboratory [address] [phone] Diane Arrieta PA [address] [place] [address] Occult blood in stools (Primary Dx) Social History Tobacco Use Types [...] Description 12/18/2024 10:00 AM EDT Office Visit [address] [place] [address] Janae [place] MD [address] [place] [address] Mindy Genao, PT 8 [place] [address] [email or web address] 12/25/2024 1:00 PM EDT Office Visit [address] [place] [address] Janae [place] MD [address] [place] [address] Mindy Genao, PT 8 [place] [address] 12/30/2024 2:00 PM EDT Office Visit [address] [place] [address] Janae [place] MD [address] [place] [address] Toney Loco, PT 8 [place] [address] [email or web address] 01/15/2025 8:45 AM EDT Office Visit [facility] [address] [place] [address] Janae [place] MD [address] [place] [address] Toney Loco, PT 8 [place] [address] 01/22/2025 8:00 AM EDT Office Visit [facility] [address] [place] [address] Janae [place] MD [address] [place] [address] Toney Loco, PT 8 [place] [address] 01/27/2025 8:00 AM EDT Office Visit [facility] [address] [place] [address] Janae [place] MD [address] [place] [address] Toney Loco, PT 8 [place] [address] 02/03/2025 11:00 AM EST Office Visit [facility] [address] [place] [address] Janae [place] MD [address] [place] [address] Toney Loco, PT 8 [place] [address] 02/06/2025 8:00 AM EST Office Visit [facility] [address] [place] [address] Janae [place] MD [address] [place] [address] Toney Loco, PT 8 [place] [address] [email or web address] documented as of this encounter Results * (ABNORMAL) CBC and differential (11/07/2018 11:44 AM EDT) WBC 9.80 3.40 - 11.20 K/uL [facility] RBC 4.43 3.80 - 4.80 M/uL [facility] HGB 14.4 12.0 - 15.0 g/dL [facility] HCT 42.3 36.0 - 46.0 % [facility] PLT 221 130 - 400 K/uL [facility] MCV 95.5 79.0 - 98.0 fL [facility] MCH 32.5 27.0 - 34.8 pg [facility] MCHC 34.0 31.5 - 36.0 g/dL [facility] RDW 12.5 10.8 - 14.6 % [facility] MPV 10.6 9.4 - 12.4 fl [facility] NRBC 0.00 0.00 /100 WBCs [facility] ABSOLUTE NRBC 0.00 0.00 K/uL [facility] DIFF METHOD Auto [facility] NEUTS 68.4 45.30 - 77.70 % [facility] LYMPHS 21.5 12.30 - 39.70 % [facility] MONOS 8.6 4.10 - 12.80 % [facility] EOS 1.0 0 - 7.2 % [facility] BASOS 0.4 0 - 2.80 % [facility] Granulocytes, immature (%) 0.1 0.0 - 0.9 % [facility] ABSOLUTE NEUTS 6.70 1.40 - 7.70 K/uL [facility] ABSOLUTE LYMPHS 2.11 0.60 - 3.20 K/uL [facility] ABSOLUTE MONOS 0.84(H) 0.11 - 0.59 K/uL [facility] ABSOLUTE EOS 0.10 0.01 - 0.50 K/uL [facility] ABSOLUTE BASOS 0.04 0.00 - 0.08 K/uL [facility] Granulocytes, immature 0.01 0.00 - 0.05 K/uL [facility] Blood 11/07/2018 11:4 4 AM EDT 11/07/2018 11:49 AM EDT Diane GUDINO LAB BLOOD ORDERABLES Final Result Performing Organization Address City/State/[facility] Co de Phone Number [address] [phone] documented in this encounter Visit Diagnoses Diagnosis Occult blood in stools- Primary Nonspecific abnormal finding in stool contents documented in this encounter Care Teams Cane Flume Watcher Relationship Specialty Start Date End Date Itzel Martinez NP [address] [place] [address] PCP - General Family Medicine 02/09/17 04/15/24 Janae [place] MD [address] [place] [phone] PCP - General Internal Medicine 04/16/24 Mariam Cooper CNM [address] [place] [address] Historical LMR Provider 01/21/17 2 Tila Haile NP [address] [place] [address] [email or web address] Historical LMR Provider 01/21/17 Katelynn Ruiz NP [address] [place] [address] [email or web address] Historical LMR Provider 01/21/17 04/09/21 Tang [place] MD [address] [place] [address] 2[address] [place] [address] Historical LMR Provider 01/21/17 04/09/21 Gilma Carrasco MD [address] [place] [address] Historical LMR Provider 01/21/17 Itzel Martinez COMMERCIAL ASSISTANT [address] [place] [address] Historical LMR Provider 01/21/17 Elena Eason MD [address] [place] [address] Historical LMR Provider 01/21/17 2 Cruz Roberson MD [address] [place] [address] [email or web address] Historical LMR Provider 01/21/17 04/09/21 Nova Acevedo MD [address] [place] [phone] Historical LMR Provider 01/21/17 2 Mar Keene MD [address] [place] [address] Historical LMR Provider 01/21/17 04/09/21 Rachel Saleem MD [address], [place] [address] Historical LMR Provider 01/21/17 2 Robert Michele MD [address] [place] [address] [email or web address] Insurance Assigned Provider 07/06/18 12/07/18 Cecil Barillas MD [address] [place] [phone] [email or web address] Assigned Provider 12/07/18 07/09/19 documented as of this encounter Additional Source Comments The information contained in this document represents components of the legal health record. It is not the complete legal health record.[facility]
--- OUTSIDE RECORDS SUMMARY | 2024-12-16 18:51 | XMS_ITS ---
Author Name [facility] Organization Unknown History of Medication Use Medication Directions Dispensed Refills Start Date End Date Stat us Gemtesa 75 mg tablet tablet Take 1 tablet (75 mg total) by mouth 1 (one) time each day. 08/18/2024 active amphetamine-dextroamp hetamine XR (Adderall XR) 20 mg 24 hr capsule Take by mouth daily. 05/02/2018 active atorvastatin (LIPITOR) 20 mg tablet Take 1 tablet (20 mg total) by mouth 1 (one) time each day. active famotidine (PEPCID) 40 mg tablet Take 1 tablet (40 mg total) by mouth 1 (one) time each day. active meloxicam (MOBIC) 15 mg tablet Take 1 tablet (15 mg total) by mouth 1 (one) time each day. active Allergies Allergen Reaction Severity Comment Documented Date Source Statu s SULFA (SULFONAMIDE ANTIBIOTICS) RASH 05/03/2023 [facility] active ERYTHROMYCIN RASH 05/10/2018 [facility] activ e Problems Problem Status Onset Date Problem Type Date of Resolution Source Radiculopathy, lumbosacral region active EncounterDiagnosisAct [facility] Spinal stenosis, cervical region active EncounterDiagnosisAct [facility] Encounters Encounter Type Encounter Reason Primary Diagnosis Location Date [facility] 11/14/2024 Ambulatory Radiculopathy, lumbosacral region Radiculopathy, lumbosacral region [facility] 11/12/2024 Care Team Organization Name Specialty Phone Email Start Date End Da te [facility] 11/17/2024 [facility] 11/12/2024
--- OUTSIDE RECORDS SUMMARY | 2024-12-16 18:51 | XMS_ITS | Encounter Summary ---
Author Organization [facility] Address [address] [place] [address] [place] [address] Phone Care Team Providers Care Irrigation Service Technician Name Role Phone MicTila foster Leroy APPLICATION DEFENSE MANAGER Unavailable [phone] Gilma Carrasco MD Unavailable Itzel Martinez APPLICATION DEFENSE MANAGER Unavailable [phone] Itzel Martinez NP Primary Care Provider [phone] Janae [place] MD Primary Care Provider Encounter Details Date Type Department Care Team (Late st Contact Info) Description 12/20/2021 Procedure Pass [address] [place] [address] Social History Tobacco Use Types Packs/Day Years [...] Description 12/18/2024 10:00 AM EDT Office Visit [facility] [address] [place] [address] Janae [place] MD [address] [place] [address] Mindy Genao, PT 8 [place] [address] 12/25/2024 1:00 PM EDT Office Visit [facility] [address] [place] [address] Janae [place] MD 140 [place] [address] Mindy Genao, PT 8 [place] [address] 12/30/2024 2:00 PM EDT Office Visit [address] [place] [address] Janae [place] MD [address] [place] [address] Toney Loco, PT 8 [place] [address] 01/15/2025 8:45 AM EDT Office Visit [facility] [address] [place] [address] Janae [place] MD 140 [place] [address] Toney Loco, PT 8 [place] [address] 01/22/2025 8:00 AM EDT Office Visit [address] [place] [address] Janae [place] MD [address] [place] [address] Toney Loco, PT 8 [place] [address] 01/27/2025 8:00 AM EDT Office Visit [facility] [address] [place] [address] Janae [place] MD [address] [place] [address] Toney Loco, PT 8 [place] [address] 02/03/2025 11:00 AM EST Office Visit [facility] [address] [place] [address] Janae [place] MD [address] [place] [address] Toney Loco, PT 8 [place] [address] 02/06/2025 8:00 AM EST Office Visit [facility] [address] [place] [address] Janae [place] MD [address] [place] [address] Toney Loco, PT 8 [place] [address] documented as of this encounter Visit Diagnoses Not on filedocumented in this encounter Care Teams Irrigation Service Technician Relationship Specialty Start Date End Date Itzel Martinez NP [address] [place] [address] PCP - General Family Medicine 02/09/17 04/15/24 Janae [place] MD 70 [place] [address] PCP - General Internal Medicine 04/16/24 Tila Haile NP [address] [place] [address] [email or web address] Historical LMR Provider 01/21/17 Gilma Carrasco MD 22 [facility] [address] [place] [address] [email or web address] Historical LMR Provider 01/21/17 Itzel Martinez NP [address] [place] [address] Historical LMR Provider 01/21/17 documented as of this encounter Additional Source Comments The information contained in this document represents components of the legal health record. It is not the complete legal health record.[facility]
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
--- OUTSIDE RECORDS SUMMARY | 2024-12-16 18:51 | XMS_ITS | Encounter Summary ---
Author Organization [facility] Address [address] [place] [address] [place] [address] Phone Care Team Providers Care Event Attendant Name Role Phone Mic Tila Harper HEALTH TYPE TECHNICIAN Unavailable [phone] Gilma Carrasco MD Unavailable Itzel Martinez HEALTH TYPE TECHNICIAN Unavailable [phone] Itzel Martinez NP Primary Care Provider [phone] Janae Lawrence MD Primary Care Provider [phone] Encounter Details Date Type Department Care Team (Late st Contact Info) Description 09/20/2022 Procedure Pass [facility], [address] [address] Social History Tobacco Use Types Packs/Day Years [...] with a working camera? Not on file Comments No Sex and Gender Information Value [...] Description 12/18/2024 10:00 AM EDT Office Visit [facility] [address] [place] [address] Janae Lawrence MD [address] [place] [address] Mindy Genao, PT 8 [place] [address] [email or web address] 12/25/2024 1:00 PM EDT Office Visit [facility] [address] [place] [address] Janae Lawrence MD [address] [place] [address] Mindy Genao, PT 8 [place] [address] [email or web address] 12/30/2024 2:00 PM EDT Office Visit [facility] 8 [place] [address] Janae Lawrence MD [address] [place] [address] Toney Loco, PT 8 [place] [address] 01/15/2025 8:45 AM EDT Office Visit [address] [place] [address] Janae Lawrence MD [address] [place] [address] Toney Loco, PT 8 [place] [address] [email or web address] 01/22/2025 8:00 AM EDT Office Visit [facility] [address] [place] [address] Janae Lawrence MD [address] [place] [address] Toney Loco, PT 8 [place] [address] [email or web address] 01/27/2025 8:00 AM EDT Office Visit [facility] [address] [place] [address] Janae Lawrence MD [address] [place] [address] Toney Loco, PT 8 [place] [address] [email or web address] 02/03/2025 11:00 AM EST Office Visit [facility] [address] [place] [address] Janae Lawrence MD [address] [place] [address] Toney Loco, PT 8 [place] [address] [email or web address] 02/06/2025 8:00 AM EST Office Visit [facility] [address] [place] [address] Janae Lawrence MD [address] [place] [address] Toney Loco, PT 8 [place] [address] [email or web address] documented as of this encounter Visit Diagnoses Not on filedocumented in this encounter Care Teams Event Attendant Relationship Specialty Start Date End Date Itzel Martinez NP [address] [place] [address] PCP - General Family Medicine 02/09/17 04/15/24 Janae Lawrence MD [address] [place] [address] PCP - General Internal Medicine 04/16/24 Tila Haile NP [address] [place] [address] [email or web address] Historical LMR Provider 01/21/17 Gilma Carrasco MD [address] [place] [address], [address] [address] [email or web address] Historical LMR Provider 01/21/17 Itzel Martinez NP [address] [place] [address] Historical LMR Provider 01/21/17 documented as of this encounter Additional Source Comments The information contained in this document represents components of the legal health record. It is not the complete legal health record.[facility]
--- OUTSIDE RECORDS SUMMARY | 2024-12-16 18:51 | XMS_ITS | Encounter Summary ---
Author Organization [facility] Address [address] [place] [address] [place] [address] Phone Care Team Providers Care Spool Cleaner Name Role Phone Mariam Cooper CNM Unavailable Tila Haile PILLOW CLEANER Unavailable [phone] Katelynn Ruiz PILLOW CLEANER Unavailable Tang Reed MD Unavailable Gilma Carrasco MD Unavailable Itzel Martinez PILLOW CLEANER Unavailable [phone] Elena Eason MD Unavailable [phone] Cruz Roberson MD Unavailable Nova Acevedo MD Unavailable Mar Keene MD Unavailable Rachel Saleem MD Unavailable [phone] Itzel Martinez PILLOW CLEANER Primary Care Provider Cecil Barillas MD Unavailable Janae Lawrence MD Primary Care Provider Encounter Details Date Type Department Care Team (Late st Contact Info) Description 12/11/2018 Procedure Pass [facility] Admitting Dept [facility] Department [address] [place], [place] [id number] Social History Tobacco Use Types Packs/Day Years [...] Description 12/18/2024 10:00 AM EDT Office Visit [facility] [address] [place] [address] Janae Lawrence MD [address] [place] [address] Mindy Genao, PT 8 [place] [address] 12/25/2024 1:00 PM EDT Office Visit [facility] [address] [place] [address] Janae Lawrence MD [address] [place] [address] Mindy Genao, PT [address] [place] [address] 12/30/2024 2:00 PM EDT Office Visit [facility] [address] [place] [address] Janae Lawrence MD [address] [place] [address] Toney Loco, PT [address] [place] [address] 01/15/2025 8:45 AM EDT Office Visit [facility] [address] [place] [address] Janae Lawrence MD [address] [place] [address] Toney Loco, PT [address] [place] [address] 01/22/2025 8:00 AM EDT Office Visit [facility] [address] [place] [address] Janae Lawrence MD [address] [place] [address] Toney Loco, PT [address] [place] [address] 01/27/2025 8:00 AM EDT Office Visit [facility] [address] [place] [address] Janae Lawrence MD [address] [place] [address] Toney Loco, PT 8 [place] [address] 02/03/2025 11:00 AM EST Office Visit [facility] [address] [place] [address] Janae Lawrence MD [address] [place] [address] Toney Loco, PT [address] [place] [address] 02/06/2025 8:00 AM EST Office Visit [facility] [address] [place] [address] Janae Lawrence MD [address] [place] [address] Toney Loco, PT [address] [place] [address] [email or web address] documented as of this encounter Visit Diagnoses Not on filedocumented in this encounter Care Teams Spool Cleaner Relationship Specialty Start Date End Date Itzel Martinez, PILLOW CLEANER [address] [place] [address] PCP - General Family Medicine 02/09/17 04/15/24 Janae Lawrence MD [address] [place] [address] [address] [place] [phone] PCP - General Internal Medicine 04/16/24 Mariam Cooper CNM [address] [place] [address] Historical LMR Provider 01/21/17 2 Tila Haile NP [address] [place] [address] [email or web address] Historical LMR Provider 01/21/17 Katelynn Ruiz NP [address] [place] [address] [email or web address] Historical LMR Provider 01/21/17 04/09/21 Tang Reed MD [address] [place] [address], [address] [place] [address] Historical LMR Provider 01/21/17 04/09/21 Gilma Carrasco MD [address] [place] [address], [address] [place] [address] Historical LMR Provider 01/21/17 Itzel Martinez NP [address] [place] [address] Historical LMR Provider 01/21/17 Elena Eason MD [address] [place] [address] Historical LMR Provider 01/21/17 2 Cruz Roberson MD [address] [place] [address] [email or web address] Historical LMR Provider 01/21/17 04/09/21 Nova Acevedo MD [address] [place] [phone] Historical LMR Provider 01/21/17 2 Mar Keene MD [address] [address] [email or web address] Historical LMR Provider 01/21/17 04/09/21 Rachel Saleem MD [address] [place] [address] Historical LMR Provider 01/21/17 2 Cecil Barillas MD [address] [place] [address] [place] [phone] [email or web address] Provider 12/07/18 07/09/19 documented as of this encounter Additional Source Comments The information contained in this document represents components of the legal health record. It is not the complete legal health record.[facility]
--- OUTSIDE RECORDS SUMMARY | 2024-12-16 18:51 | XMS_ITS | Encounter Summary ---
Author Organization [facility]ly [facility] Address [address] [place] [address] [place] [address] Phone Care Team Providers Care Log Driver Name Role Phone Mariam Cooper CNM Unavailable Tila Haile FIELD HEALTH OFFICER Unavailable [phone] Katelynn Ruiz NP Unavailable Tang Reed MD Unavailable Gilma Carrasco MD Unavailable Itzel Martinez NP Unavailable [phone] Elena Eason MD Unavailable [phone] Cruz Roberson MD Unavailable [phone] Nova Acevedo MD Unavailable [phone] Mar Keene MD Unavailable [phone] Rachel Saleem MD Unavailable Itzel Martinez NP Primary Care Provider Janae Lawrence MD Primary Care Provider Reason for Referral * Physical Therapy (Elective) - Closed Specialty Diagnoses / Procedures Referred By Marlon t Referred To Contact Physical Therapy Diagnoses Encounter for rehabilitation Itzel Martinez NP Phone: tel: [address] [address] Phone: tel: Referral ID Status Reason Start Date Expiration Date Visits Re quested Visits Authorized [id number] Closed 09/24/2020 04/01/2021 99 99 Encounter Details Date Type Department Care Team (Latest Contact Info) Description 09/24/2020 Transcribe Orders [facility] [address] [place] [address] Itzel Martinez NP [address] [place] [address] Encounter for rehabilitation (Primary Dx) Social History Tobacco Use Types [...] Description 12/18/2024 10:00 AM EDT Office Visit [address] [place] [address] Janae Lawrence MD [address] [place] [address] Mindy Genao, PT 8 [place] [address] 12/25/2024 1:00 PM EDT Office Visit [facility] [address] [place] [address] Janae Lawrence MD [address] [place] [address] Mindy Genao, PT 8 [place] [address] 12/30/2024 2:00 PM EDT Office Visit [facility] [address] [place] [address] Janae Lawrence MD [address] [place] [address] Toney Loco, PT 8 [place] [address] 01/15/2025 8:45 AM EDT Office Visit [facility] [address] [place] [address] Janae Lawrence MD [address] [place] [address] Toney Loco, PT 8 [place] [address] 01/22/2025 8:00 AM EDT Office Visit [facility] [address] [place] [address] Janae Lawrence MD [address] [place] [address] Toney Loco, PT 8 [place] [address] 01/27/2025 8:00 AM EDT Office Visit [facility] [address] [place] [address] Janae Lawrence MD [address] [place] [address] Toney Loco, PT 8 [place] [address] 02/03/2025 11:00 AM EST Office Visit [facility] [address] [place] [address] Janae Lawrence MD [address] [place] [address] Toney Loco, PT 8 [place] [address] [email or web address] 02/06/2025 8:00 AM EST Office Visit [facility] 8 [place] [address] Janae Lawrence MD [address] [place] [address] Toney Loco, PT 8 [place] [address] [email or web address] Scheduled Referrals Name Type Priority Associated Diagnoses Orde r Schedule Ambulatory referral to [facility] Physical Therapy Outpatient Referral Routine Encounter for rehabilitation Ordered: 09/24/2020 documented as of this encounter Visit Diagnoses Diagnosis Encounter for rehabilitation- Primary documented in this encounter Care Teams Log Driver Relationship Specialty Start Date End Date Itzel Martinez NP [address] [place] [address] PCP - General Family Medicine 02/09/17 04/15/24 Janae Lawrence MD [address] [address] PCP - General Internal Medicine 04/16/24 Mariam Cooper CNM [address] [place] [address] Historical LMR Provider 01/21/17 2 Tila Haile NP 30 [place] [address] [email or web address] Historical LMR Provider 01/21/17 Katelynn Ruiz NP [address] [place] [address] [email or web address] Historical LMR Provider 01/21/17 04/09/21 Tang Reed MD [address] [place] [address], [address] [place] [address] Historical LMR Provider 01/21/17 04/09/21 Gilma Carrasco MD [address] [place] [address] Historical LMR Provider 01/21/17 Itzel Martinez NP [address] [place] [address] Historical LMR Provider 01/21/17 Elena Eason MD [address] [address] Historical LMR Provider 01/21/17 2 Cruz Roberson MD [address] [place] [address] Historical LMR Provider 01/21/17 04/09/21 Nova Acevedo MD [address] [place] [phone] Historical LMR Provider 01/21/17 2 Mar Keene MD [address] [place] [address] Historical LMR Provider 01/21/17 04/09/21 Rachel Saleem [facility] [place] [id number] Historical LMR Provider 01/21/17 2 documented as of this encounter Additional Source Comments The information contained in this document represents components of the legal health record. It is not the complete legal health record.[facility]
--- OUTSIDE RECORDS SUMMARY | 2024-12-16 18:51 | XMS_ITS | Encounter Summary ---
Author Organization [facility] Address [address] [place] [address] [place] [address] Phone Care Team Providers Care Glost Placer Name Role Phone Mariam Cooper CNM Unavailable Tila Haile SENIOR TAX ANALYST Unavailable [phone] Katelynn Ruiz SENIOR TAX ANALYST Unavailable Tang Reed MD Unavailable Gilma Carrasco MD Unavailable Itzle Martinez SENIOR TAX ANALYST Unavailable [phone] Elena Eason MD Unavailable [phone] Cruz Roberson MD Unavailable Nova Acevedo MD Unavailable Mar Keene MD Unavailable Rachel Saleem MD Unavailable [phone] Itzel Martinez SENIOR TAX ANALYST Primary Care Provider Janae Lawrence MD Primary Care Provider Encounter Details Date Type Department Care Team (Late st Contact Info) Description 07/09/2020 Ancillary Orders Virtual Department 30 [place] [address] Ciara Snyder MD [address] [place] [phone] [email or web address] Dysphagia, unspecified type Social History Tobacco Use Types Packs/Day Years [...] Description 12/18/2024 10:00 AM EDT Office Visit [facility] [address] [place] [address] Janae Lawrence MD 140 [place] [address] Mindy Genao, PT 8 [place] [address] [email or web address] 12/25/2024 1:00 PM EDT Office Visit [facility] [address] [place] [address] Janae Lawrence MD 140 [place] [address] Mindy Genao, PT 8 [place] [address] 12/30/2024 2:00 PM EDT Office Visit [facility] [address] [place] [address] Janae Lawrence MD 140 [place] [address] Toney Loco, PT 8 [place] [address] 01/15/2025 8:45 AM EDT Office Visit [facility] [address] [place] [address] Janae Lawrence MD 140 [place] [address] Toney Loco, PT 8 [place] [address] [email or web address] 01/22/2025 8:00 AM EDT Office Visit [facility] [address] [place] [address] Janae Lawrence MD 140 [place] [address] Toney Loco, PT 8 [place] [address] [email or web address] 01/27/2025 8:00 AM EDT Office Visit [facility] [address] [place] [address] Janae Lawrence MD 140 [place] [address] Toney Loco, PT 8 [place] [address] [email or web address] 02/03/2025 11:00 AM EST Office Visit [facility] [address] [place] [address] Janae Lawrence MD 140 [place] [address] Tonye Loco, PT 8 [place] [address] [email or web address] 02/06/2025 8:00 AM EST Office Visit [facility] [address] [address] Janae Lawrence MD [address] [place] [address] Claudy Toney, PT 8 [place] [address] [email or web address] documented as of this encounter Visit Diagnoses Diagnosis Dysphagia, unspecified type documented in this encounter Care Teams Glost Placer Relationship Specialty Start Date End Date Itzel Martinez NP 70 [place] [address] PCP - General Family Medicine 02/09/17 04/15/24 Janae Lawrence MD [address], [place] [address] PCP - General Internal Medicine 04/16/24 Mariam Cooper CNM 30 [place] [address] Historical LMR Provider 01/21/17 2 Tila Haile NP [address] [place] [address] [email or web address] Historical LMR Provider 01/21/17 Katelynn Ruiz NP [address] [place] [address] [email or web address] Historical LMR Provider 01/21/17 04/09/21 Tang Reed MD [address] [place] [address], [address] [place] [address] [email or web address] Historical LMR Provider 01/21/17 04/09/21 Gilma Carrasco MD [address] [place] [address], [address] [place] [address] Historical LMR Provider 01/21/17 Itzel Martinez NP [address] [place] [address] Historical LMR Provider 01/21/17 Elena Eason MD [address], [place] [address] Historical LMR Provider 01/21/17 2 Cruz Roberson MD [address] [place] [address] [email or web address] Historical LMR Provider 01/21/17 04/09/21 Nova Acevedo MD [address] [place] [phone] Historical LMR Provider 01/21/17 2 Mar Keene MD [address] [place] [address] [email or web address] Historical LMR Provider 01/21/17 04/09/21 Rachel Saleem MD [address] [place] [address] Historical LMR Provider 01/21/17 2 documented as of this encounter Additional Source Comments The information contained in this document represents components of the legal health record. It is not the complete legal health record.[facility]
--- OUTSIDE RECORDS SUMMARY | 2024-12-16 18:51 | XMS_ITS | Encounter Summary ---
Author Organization [facility] Address [address] [place] [address] [place] [address] Phone Care Team Providers Care Audio Video Mechanic Name Role Phone MicTila foster Leroy WELL REACTIVATOR OPERATOR Unavailable [phone] Gilma Carrasco MD Unavailable Itzel Martinez WELL REACTIVATOR OPERATOR Unavailable [phone] Itzel Martinez NP Primary Care Provider [phone] Janae Lawrence MD Primary Care Provider Encounter Details Date Type Department Care Team (Late st Contact Info) Description 12/20/2021 Procedure Pass [address] [place] [address] Social History Tobacco Use Types Packs/Day Years [...] Description 12/18/2024 10:00 AM EDT Office Visit [facility] [address] [place] [address] Janae Lawrence MD [address] [place] [address] Mindy Genao, PT 8 [place] [address] [email or web address] 12/25/2024 1:00 PM EDT Office Visit [facility] [address] [place] [address] Janae Lawrence MD [address] [place] [address] Mindy Genao, PT 8 [place] [address] [email or web address] 12/30/2024 2:00 PM EDT Office Visit [address] [place] [address] Janae Lawrence MD [address] [place] [address] Toney Loco, PT 8 [place] [address] [email or web address] 01/15/2025 8:45 AM EDT Office Visit [facility] [address] [place] [address] Janae Lawrence MD [address] [place] [address] Toney Loco, PT 8 [place] [address] [email or web address] 01/22/2025 8:00 AM EDT Office Visit [address] [place] [address] Janae Lawrence MD [address] [place] [address] Toney Loco, PT 8 [place] [address] [email or web address] 01/27/2025 8:00 AM EDT Office Visit [facility] [address] [place] [address] Janae Lawrence MD [address] [place] [address] Toney Loco, PT 8 [place] [address] [email or web address] 02/03/2025 11:00 AM EST Office Visit [facility] [address] [place] [address] Janae Lawrence MD [address] [place] [address] Toney Loco, PT 8 [place] [address] 02/06/2025 8:00 AM EST Office Visit [facility] [address] [place] [address] Janae Lawrence MD [address] [place] [address] Toney Loco, PT 8 [place] [address] documented as of this encounter Visit Diagnoses Not on filedocumented in this encounter Care Teams Audio Video Mechanic Relationship Specialty Start Date End Date Itzel Martinez NP 70 [place] [address] PCP - General Family Medicine 02/09/17 04/15/24 Janae Lawrence MD 70 [place] [address] PCP - General Internal Medicine 04/16/24 Tila Haile NP 30 [place] [address] [email or web address] Historical LMR Provider 01/21/17 Gilma Carrasco MD 22 [facility] 102 [place] [address] [email or web address] Historical LMR Provider 01/21/17 Itzel Martinez NP [address] [place] [address] Historical LMR Provider 01/21/17 documented as of this encounter Additional Source Comments The information contained in this document represents components of the legal health record. It is not the complete legal health record.[facility]
--- OUTSIDE RECORDS SUMMARY | 2024-12-16 18:51 | XMS_ITS | Encounter Summary ---
Author Organization [facility] Address [address] [facility] [address] [place] [address] Phone Care Team Providers Care Heavy Equipment Rental Associate Name Role Phone Mic, Tila Harper JOB PRESS FEEDER Unavailable [phone] Gilma Carrasco MD Unavailable Itzel Martinez JOB PRESS FEEDER Unavailable [phone] Itzel Martinez NP Primary Care Provider [phone] Janae Lawrence MD Primary Care Provider Encounter Details Date Type Department Care Team (Latest Contact Info) Description 02/22/2024 Transcribe Orders Virtual Department 30 [place] [address] Itzel Martinez, JOB PRESS FEEDER [address] [place], [place] [phone] Breast screening (Primary Dx) Social History Tobacco Use Types [...] Description 12/18/2024 10:00 AM EDT Office Visit [facility] [address] [place] [address] Janae Lawrence MD 140 [place] [address] Mindy Genao, PT 8 [place] [address] [email or web address] 12/25/2024 1:00 PM EDT Office Visit [facility] [address] [place] [address] Janae Lawrence MD [address] [place] [address] Mindy Genao, PT 8 [place] [address] [email or web address] 12/30/2024 2:00 PM EDT Office Visit [facility] [address] [place] [address] Janae Lawrence MD [address] [place] [address] Toney Loco, PT 8 [place] [address] [email or web address] 01/15/2025 8:45 AM EDT Office Visit [facility] [address] [place] [address] Janae Lawrence MD [address] [place] [address] Toney Loco, PT 8 [place] [address] [email or web address] 01/22/2025 8:00 AM EDT Office Visit [facility] [address] [place] [address] Janae Lawrence MD [address] [place] [address] Toney Loco, PT 8 [place] [address] 01/27/2025 8:00 AM EDT Office Visit [facility] [address] [place] [address] Janae Lawrence MD [address] [place] [address] Toney Loco, PT 8 [place] [address] [email or web address] 02/03/2025 11:00 AM EST Office Visit [facility] [address] [place] [address] Janae Lawrence MD [address] [place] [address] Toney Loco, PT 8 [place] [address] 02/06/2025 8:00 AM EST Office Visit [facility] [address] [place] [address] Janae Lawrence MD [address] [address] Toney Loco, PT 8 [place] [address] documented as of this encounter Results * BI MAMMOGRAM SCREENING WITH TOMOSYNTHESIS WITH [...] be notified of the results and recommendations. Itzel Martinez JOB PRESS FEEDER IMG MG EXAMS Final Result documented in this encounter Visit Diagnoses Diagnosis Breast screening- Primary Breast screening, unspecified Breast screening Breast screening, unspecified documented in this encounter Care Teams Heavy Equipment Rental Associate Relationship Specialty Start Date End Date Itzel Martinez NP 70 [place] [address] PCP - General Family Medicine 02/09/17 04/15/24 Janae Lawrence MD 70 [place] [address] PCP - General Internal Medicine 04/16/24 Tila Haile NP [address] [place] [address] [email or web address] Historical LMR Provider 01/21/17 Gilma Carrasco MD [address] [place] [address] Historical LMR Provider 01/21/17 Itzel Martinez NP 70 [place] [address] Historical LMR Provider 01/21/17 documented as of this encounter Additional Source Comments The information contained in this document represents components of the legal health record. It is not the complete legal health record.[facility]
== END 2024-12-16 16:19 | disposition home or self-care (01) ==
LOC: HO.HMCFM 15:28
PROVIDERS: PCP Internal Medicine; Visit Provider Internal Medicine
DX: S73.12 Ischiocapsular (ligament) sprain of hip (principal); S73.191D Other sprain of right hip, subsequent encounter; M54.17 Radiculopathy, lumbosacral region; M54.12 Radiculopathy, cervical region

== ENCOUNTER → 2024-12-16 15:28 | Outpatient (BNVA) | payer MEDICARE, SELFPAY | PROVIDERS: PCP Internal Medicine; Visit Provider Internal Medicine | DX: S73.12 Ischiocapsular (ligament) sprain of hip (principal); S73.191D Other sprain of right hip, subsequent encounter; M54.17 Radiculopathy, lumbosacral region; M54.12 Radiculopathy, cervical region; M67.951 Unspecified disorder of synovium and tendon, right thigh | CPT/HCPCS: 99212 ==

== ENCOUNTER 2025-02-06 15:33 | Outpatient (AMB) | payer MEDICARE, SELFPAY ==
--- OUTSIDE RECORDS SUMMARY | 2024-05-02 15:30 | XMS_ITS | Encounter Summary ---
Author Organization [facility] Address [address] [facility] [address] [place] [address] Phone Care Team Providers Care Polystyrene Bead Molder Name Role Phone ElbertaTila foster Leroy SHELLFISH MANAGER Unavailable [phone] Gilma Carrasco MD Unavailable Itzel Martinez SHELLFISH MANAGER Unavailable [phone] Janae Lawrence MD Primary Care Provider Encounter Details Date Type Department Care Team (Late st Contact Info) Description 05/02/2024 3:30 PM [facility] Hospital Encounter [facility] [address] [place] [address] [phone] Talia Moy, HOSPITALITY WORKERS [address] [place] [address] [email or web address] Social History Tobacco Use Types Packs/Day Years Used Date Smoking Tobacco: Never Smokeless Tobacco: Never Alcohol Use Standard Drinks/Week Comments Yes 0 (1 standard drink = 0.6 oz pur e alcohol) OCC Education Answer Date Recorded Are you interested in more education? Not on linda e 07/28/2022 Are you concerned about learning? Not on file 07/28/2022 No 07/28/2022 No 07/28/2022 Digital Access Answer Date Recorded No 08/22/2022 No 08/22/2022 Reliable internet access at home? Not on file 08/22/2022 Device with a working camera? Not on file Intimate Partner Violence Answer Date R ecorded Are you denied basic needs s uch as food, clothing, or medical care? No 06/22/2024 In the past 12 months have y ou been in a relationship with a person who hurts, threatens, or tries to control you? No 06/22/2024 Are you denied basic needs s uch as food, clothing, or medical care? No 06/22/2024 In the past 12 months have y ou been in a relationship with a person who hurts, threatens, or tries to control you? No 06/22/2024 Comments No Sex and Gender Information Value Date Recorded Sex Assigned at Female 03/08/2020 9:32 AM EST Legal Sex Female 4:40 PM EST Gender Identity Female 03/08/2020 9:32 AM EST Sexual Orientation Don't know 01/28/2024 2: 03 PM EDT documented as of this encounter Functional Status * Calculated C-SSRS Risk Score (Lifetime/Recent) Answer Date of Assessment Author No Risk Indicated 06/22/2024 7:02 AM EDT Agustina Mckeon RN * Randall Suicide Severity Rating Scale (Screener/Recent Self-Report) Question Answer Date of Assessment Author 1. Wish to be (Past 1 Month) No 06/22/2024 7:02 AM MARIANNAT Matthieu Dillon RN 2. Non-Specific Active Suicidal Thoughts (Past 1 Month) No 06/22/2024 7:02 AM MARIANNAT Matthieu Dillon RN 6. Suicidal Behavior (Lifetime) No 06/22/2024 7:02 AM EDT Matthieu Dillon RN documented as of this encounter Plan of Treatment Upcoming Encounters Date Type Department Care Team (Late st Contact Info) Description 03/11/2025 9:30 AM EST Office Visit [facility] [address] [place] [address] Thomas Enriquez DO [address] [place] [address] [place] [address] Toney Loco, PT [address] [place] [address] 03/13/2025 9:15 AM EST Office Visit [facility] [address] [place] [address] Thomas Enriquez DO [address] [place] [address] [place] [address] Mindy Genao, PT 8 [place] [address] 03/18/2025 9:30 AM EST Office Visit [facility] [address] [place] [address] Thomas Enriquez DO [address] [place] [address] [place] [address] Toney Loco, PT 8 [place] [address] [email or web address] 03/20/2025 9:30 AM EST Office Visit [facility] 8 [place] [address] Thomas Enriquez DO [address] [place] [address] [place] [address] Toney Loco, PT 8 [place] [address] [email or web address] 03/24/2025 8:45 AM EST Office Visit [facility] 8 [place] [address] Thomas Enriquez DO [address] [place] [address] [place] [address] Toney Loco, PT 8 [place] [address] 03/30/2025 9:15 AM EST Office Visit [facility] [address] [place] [address] Thomas Enriquez, DO [address] [place] [address] [place] [address] Mindy Genao, PT 8 [place] [address] [email or web address] 04/01/2025 8:45 AM EST Office Visit [facility] 8 [place] [address] Thomas Enriquez, DO [address] [place] [address] [place] [address] Toney Loco, PT 8 [place] [address] [email or web address] 04/06/2025 9:15 AM EST Office Visit [facility] 8 [place] [address] Thomas Enriquez DO [address] [place] [address] [place] [address] Mindy Genao, PT 8 [place] [address] [email or web address] 04/08/2025 8:45 AM EST Office Visit [facility] 8 [place] [address] Thomas Enriquez DO [address] [place] [address] [place] [address] Toney Loco, PT 8 [place] [address] [email or web address] 04/14/2025 8:45 AM EST Office Visit [facility] [address] [place] [address] Thomas Enriquez DO [address] [place] [address] [place] [address] Toney Loco, PT 8 [place] [address] [email or web address] 04/16/2025 8:45 AM EST Office Visit [facility] 8 [place] [address] Thomas Enriquez, DO [address] [place] [address] [place] [address] Toney Loco, PT 8 [place] [address] [email or web address] 04/21/2025 8:45 AM EST Office Visit [facility] 8 [place] [address] Thomas Enriquez, DO [address] [place] [address] [place] [address] Toney Loco, PT 8 [place] [address] [email or web address] 04/23/2025 8:45 AM EST Office Visit [facility] 8 [place] [address] Thomas Enriquez, DO [address] [place] [address] [place] [address] Toney Loco, PT 8 [place] [address] [email or web address] 04/28/2025 8:45 AM EST Office Visit [facility] 8 [place] [address] Thomas Enriquez, DO [address] [place] [address] [place] [address] Toney Loco, PT 8 [place] [address] [email or web address] 04/30/2025 8:45 AM EST Office Visit [facility] [address] [place] [address] Thomas Enriquez, DO [address] [place] [address] [place] [address] Toney Loco, PT 8 [place] [address] 05/05/2025 8:45 AM EST Office Visit [facility] [address] [place] [address] Thomas Enriquez DO [address] [place] [address] [place] [address] Toney Loco, PT 8 [place] [address] [email or web address] 05/07/2025 8:45 AM EST Office Visit [facility] 8 [place] [address] Thomas Enriquez DO [address] [place] [address] [place] [address] Toney Loco, PT 8 [place] [address] [email or web address] 05/12/2025 8:45 AM EST Office Visit [facility] 8 [place] [address] Thomas Enriquez, DO [address] [place] [address] [place] [address] Toney Loco, PT 8 [place] [address] 05/14/2025 8:45 AM EST Office Visit [facility] [address] [place] [address] Thomas Enriquez, DO [address] [place] [address] [place], [place] [phone] Toney Loco, PT 8 [place] [address] 05/19/2025 8:45 AM EST Office Visit [facility] [address] [place] [address] Thomas Enriquez, DO [address] [place] [address] [place] [address] Toney Loco, PT 8 [place] [address] 05/21/2025 8:45 AM EST Office Visit [facility] [address] [place] [address] Thomas Enriquez, DO [address] [place] [address] [place] [address] Toney Loco, PT 8 [place] [address] [email or web address] documented as of this encounter Procedures Procedure Name Priority Date/Time Associated Diagnosis Comments XR HAND 3 OR MORE VIEWS (RIGHT) Urgent/patient waiting 05/02/2024 3:35 PM EST Cat scratch documented in this encounter Results * XR HAND 3 OR MORE VIEWS (RIGHT) (05/02/2024 3:35 PM EST) Anatomical Region Laterality Modality Hand Right Computed Radiogr aphy 05/02/2024 4:15 PM EST Impressions 05/02/2024 4:18 PM EST FINDINGS/IMPRESSION: No fracture. Normal alignment. Normal joint spaces. No soft tissue swelling. No Radiopaque foreign body. Narrative 05/02/2024 4:18 PM EST XR HAND 3 OR MORE VIEWS (RIGHT) Referring clinician's provided indication for this examination in [facility]: Trauma; r/o retained cat claw COMPARISON: None available. Procedure Note Nahid Goel MBBS - 05/02/2024 XR HAND 3 OR MORE VIEWS (RIGHT) Referring clinician's provided indication for this examination in [facility]:Trauma; r/o retained cat claw COMPARISON: None available. IMPRESSION: FINDINGS/IMPRESSION: No fracture. Normal alignment. Normal joint spaces. No soft tissueswelling. No Radiopaque foreign body. Talia Moy HOSPITALITY WORKERS IMG XR UPPER EXTREMITY Final Result documented in this encounter Visit Diagnoses Not on filedocumented in this encounter Care Teams Polystyrene Bead Molder Relationship Specialty Start Date End Date Janae Lawrence MD [address] [place] [address] PCP - General Internal Medicine 04/16/24 Tila Haile NP [address] [place] [address] [email or web address] Historical LMR Provider 01/21/17 Gilma Carrasco MD [address] [place] [address], [facility] [address] [place] [address] Historical LMR Provider 01/21/17 Itzel Martinez NP [address] [place] [address] Historical LMR Provider 01/21/17 documented as of this encounter Additional Source Comments The information contained in this document represents components of the legal health record. It is not the complete legal health record.[facility]
--- OUTSIDE RECORDS SUMMARY | 2025-02-02 13:45 | XMS_ITS | Encounter Summary ---
Author Organization [facility] Address [address] [place] [address] Phone Care Team Providers Care Perforating Machine Operator Name Role Phone Tila Haile Leroy FRACTIONATION PLANT SUPERVISOR Unavailable [phone] Gilma Carrasco MD Unavailable Itzel Martinez FRACTIONATION PLANT SUPERVISOR Unavailable [phone] Janae Lawrence MD Primary Care Provider [phone] Reason for Visit * Physical Therapy (Routine) - Authorized Specialty Diagnoses / Procedures Referred By Contac t Referred To Contact Physical Therapy Diagnoses Encounter for rehabilitation Fabiana Brandt, FRACTIONATION PLANT SUPERVISOR [address] [place] [address] Phone: tel: fax: [facility] [address] [place] [address] Phone: tel: Referral ID Status Reason Start Date Expiration Date V isits Requested Visits Authorized [id number] Authorized 02/19/2024 02/18/2025 99 99 Encounter Details Date Type Department Care Team (Late st Contact Info) Description 02/02/2025 1:45 PM EST Office Visit [facility] [address] [place] [address] Janae Lawrence MD [address] [place], [place] [phone] Mindy Genao, PT [address] [place] [address] [email or web address] Acute bilateral low back pain, unspecified whether sciatica present (Primary Dx); Bilateral hip pain Social History Tobacco Use Types Packs/Day [...] as of this encounter Progress Notes * Mindy Genao, PT - 02/02/2025 1:45 PM EST Physical Therapy Treatment Note Patient Name: Yulisa Rocha Date of : 1975 This patient has attended 26 visits since the onset Physical Therapy. Referring MD: Janae Lawrence MD [address] [place] [address] Acute bilateral low back pain, unspecified whether sciatica present [M54.50] Precautions: Pain Subjective comments: Got good pain relief from manual traction on low back -lasted a couple of days Having neck surgery on 02/23/25 (ACDF C5-C7) Finding lying on floor with legs on learning coach has helped with pain Tried to do some hip strengthening yesterday-with yellow TB-supine clamshells and a few bridges-feel stronger but flared things it Frustrated Neck pain/headaches constant-not sleeping through the night -wakes up 6-7x due to pain; napping 2-3hours due to pain/fatigue Pain comments pre-treatment: 10/09 in (R)hip-groin Low back 09/09 Neck 11/09; constant headache Post treatment LBP/R hip pain -09/09 Objective Measures: LIDIA sacral torsion TTP R side of sacrum/piriformis; quads/adductors TTP SO region R > L ; + dural tension at occiput 01/15/25 AROM: Hip ER = 25deg(R) w/ pain, 30deg(L) w/ pain; IR = 28deg(R) w/ pain, 20eg(L) w/ pain; Hip flex= 105deg(R) w/ pain, 87deg(L) w/ pain; Hip abd = 12deg(R) w/ pain, 22deg(L) w/ pain; Interventions: See encounter report for minutes associated with each intervention. Self-care: - Discussed pt's current symptoms and progress to date - Reiterated importance of avoiding prolonged sitting as this is clearly a trigger for her back pain - Advised pt to take frequent breaks during prolonged sitting to help break up the cycle - Also suggested pt spending time in 90/90 position which would hep to deload the lumbar spine. Manual: MET to correct LIDIA sacral torsion (R side lying) Prone Decompression L5/S1 Inf glide R side of sacrum MFR lumbar paraspinals SCS R QL Supine CHALK MOLDING MACHINE OPERATOR at occiput MFR temporalis/frontalis Therex Pelvic tilts Abdominal bracing Isometric hip adduction KTC stretching x 1 minute each leg Not performed: 02/02/25 Traction: - 50lb Static x 10min at 90/90 w/ ~ 5deg angle of pull Manual: Pt sidelying (L) w/ pillow between knees: Deep STM to (R)paralumbars and lower parathoracics - DTM to (R)QL - Manual stretch to (R)QL - Exercise: - VR of HEP - Abdominal bracing with stabilizer 5reps x 10sec - Supine march w/ stabilizer 2 x 2reps each leg Exercise: - Supine clamshell L1 2 x 6reps - Isometric hip add 1 x 10reps w/ 5sec holds - Abdominal bracing 1 x 5reps w/ 5sec holds Manual: - Pt supine: MET to pelvis for (R)posterior innominate rotation correction - MET to pelvis for (L)anterior innominate rotation correction - MET to pelvis for (R)inflare correction - Deep STM to (B)iliopsoas, emphasis on (R) - Deep STM to (R)quad and TFL - Long axis distraction (R) acetabular joint - Pt supine: Deep STM to (R)quad, [...] - 5 reps - 1-2sec hold Assessment: Good response to MET/MFR; pelvis symmetrical after MET; pt reported pain relief; advised continued use of lumbar off loading positions, heat for pain control and to resume neutral spine based exercises. Plan: Cont w/ manual therapy prn. Rev of isometric strengthening for pelvis and core. Cont w/ mechanical traction as tolerated. Mindy Genao, [place] [id number] documented in this encounter Plan of Treatment Upcoming Encounters Date Type Department Care Team (Late st Contact Info) Description 03/11/2025 9:30 AM EST Office Visit [address] [address] Thomas Enriquez DO [address] [place] [address] [place] [address] [phone] Toney Loco, PT 8 [place] [address] 03/13/2025 9:15 AM EST Office Visit [address] [address] Thomas Enriquez DO [address] [place] [address] [place] [address] Mindy Genao, PT 8 [place] [address] 03/18/2025 9:30 AM EST Office Visit [address] [address] Thomas Enriquez DO [address] [place] [address] [place] [address] [phone] Toney Loco, PT 8 [place] [address] 03/20/2025 9:30 AM EST Office Visit [address] [place] [address] Thomas Enriquez, DO [address] [place] [address] [place] [address] Toney Loco, PT 8 [place] [address] 03/24/2025 8:45 AM EST Office Visit [facility] [address] [place] [address] Thomas Enriquez, DO [address] [place] [address] [place] [address] Toney Loco, PT 8 [place] [address] 03/30/2025 9:15 AM EST Office Visit [facility] [address] [place] [address] Thomas Enriquez, DO [address] [address] Mindy Genao, PT 8 [place] [address] 04/01/2025 8:45 AM EST Office Visit [facility] [address] [place] [address] Thomas Enriquez DO [address] [address] Toney Loco, PT 8 [place] [address] 04/06/2025 9:15 AM EST Office Visit [facility] [address] [place] [address] Thomas Enriquez DO [address] [address] Mindy Genao, PT 8 [place] [address] 04/08/2025 8:45 AM EST Office Visit [facility] [address] [place] [address] Thomas Enriquez, DO [address] [place] [address] [place] [address] Toney Loco, PT 8 [place] [address] 04/14/2025 8:45 AM EST Office Visit [address] [address] Thomas Enriquez, DO [address] [place] [address] [place] [address] Toney Loco, PT 8 [place] [address] 04/16/2025 8:45 AM EST Office Visit [facility] [address] [place] [address] Thomas Enriquez, DO [address] [place] [address] [place] [address] Toney Loco, PT 8 [place] [address] 04/21/2025 8:45 AM EST Office Visit [address] [address] Thomas Enriquez, DO [address] [place] [address] [place] [address] Toney Loco, PT 8 [place] [address] 04/23/2025 8:45 AM EST Office Visit [facility] [address] [place] [address] Thomas Enriquez, DO [address] [place] [address] [place] [address] Toney Loco, PT 8 [place] [address] 04/28/2025 8:45 AM EST Office Visit [facility] [address] [place] [address] Thomas Enriquez, DO [address] [place] [address] [place] [address] Toney Loco, PT 8 [place] [address] 04/30/2025 8:45 AM EST Office Visit [facility] [address] [place] [address] Thomas Enriquez, DO [address] [place] [address] [place] [address] Toney Loco, PT 8 [place] [address] 05/05/2025 8:45 AM EST Office Visit [facility] [address] [place] [address] Thomas Enriquez, DO [address] [place] [address] [place] [address] Toney Loco, PT 8 [place] [address] 05/07/2025 8:45 AM EST Office Visit [facility] [address] [place] [address] Thomas Enriquez, DO [address] [place] [address] [place] [address] Toney Loco, PT 8 [place] [address] 05/12/2025 8:45 AM EST Office Visit [facility] [address] [place] [address] Thomas Enriquez, DO [address] [place] [address] [place] [address] Toney Loco, PT 8 [place] [address] 05/14/2025 8:45 AM EST Office Visit [facility] [address] [place] [address] Thomas Enriquez, DO [address] [place] [address] [place] [address] Toney Loco, PT 8 [place] [address] 05/19/2025 8:45 AM EST Office Visit [facility] [address] [place] [address] Thomas Enriquez, DO [address] [place] [address] [place] [address] Toney Loco, PT 8 [place] [address] 05/21/2025 8:45 AM EST Office Visit [facility] [address] [place] [address] Thomas Enriquez DO [address] [place] [address] [place] [address] Toney Loco, PT 8 [place] [address] [email or web address] documented as of this encounter Visit Diagnoses Diagnosis Acute bilateral low back pain, unspecified whether sciatica present- Primary Bilateral hip pain Pain in joint, pelvic region and thigh documented in this encounter Care Teams Perforating Machine Operator Relationship Specialty Start Date End Date Janae Lawrence MD [address] [place] [address] PCP - General Internal Medicine 04/16/24 Tila Haile NP [address] [place] [address] [email or web address] Historical LMR Provider 01/21/17 Gilma Carrasco MD [address] [facility], [address] [place] [address] [email or web address] Historical LMR Provider 01/21/17 Itzel Martinez NP [address] [place] [address] Historical LMR Provider 01/21/17 documented as of this encounter Additional Source Comments The information contained in this document represents components of the legal health record. It is not the complete legal health record.[facility]
--- OUTSIDE RECORDS SUMMARY | 2025-02-06 08:00 | XMS_ITS | Encounter Summary ---
Author Organization [facility] Address [address] [facility] [address] [place] [address] Phone Care Team Providers Care Pipe F[address] Service Name Role Phone [place]Tila foster Leroy MICRO COMPUTER DATA PROCESSOR Unavailable [phone] Gilma Carrasco MD Unavailable Itzel Martinez MICRO COMPUTER DATA PROCESSOR Unavailable [phone] Janae Lawrence MD Primary Care Provider [phone] Reason for Visit * Physical Therapy (Routine) - Authorized Specialty Diagnoses / Procedures Referred By Contac t Referred To Contact Physical Therapy Diagnoses Encounter for rehabilitation Fabiana Brandt, MICRO COMPUTER DATA PROCESSOR [address] [place] [address] Phone: tel: fax: [facility] [address] [place] [address] Phone: tel: Referral ID Status Reason Start Date Expiration Date V isits Requested Visits Authorized [id number] Authorized 02/19/2024 02/18/2025 99 99 Encounter Details Date Type Department Care Team (Late st Contact Info) Description 02/06/2025 8:00 AM EST Office Visit [facility] 8 [place] [address] Janae Lawrence MD [address] [place], [place] [phone] Toney Loco, PT [address] [place] [address] [email or web address] Acute bilateral low back pain, unspecified whether [...] Progress Notes * Toney Loco, PT - 02/06/2025 8:00 AM EST Physical Therapy Treatment Note Patient Name: Yulisa Rocha Date of : 1975 This patient has attended 27 visits since the onset Physical Therapy. Referring MD: Janae Lawrence MD [address] [place] [address] [place] [address] Acute bilateral low back pain, unspecified whether sciatica present [M54.50] Precautions: Pain Subjective comments: Strained my mid to upper back yesterday pushing open a sliding door awkwardly. It was quite painfuland very difficult to sleep because of it. I am a mess. Pain comments pre-treatment: Elevated in mid to upper back Objective Measures: Thoracic rotation observed to be restricted and painful (B), (L) > (R) Interventions: See encounter report for minutes associated with each intervention. Self-care: - Discussed pt's current symptoms and progress to date - Pt detailing incident yesterday with her sliding door and the effect on her back Manual: - Pt prone over pillows: Deep STM to (B)parathoracics, UT, levators f/b laminae release - DTM to (R)rhomboid w/ heel of hand - Grade 4 and 5 PA mobs to mid to upper T-spine - Pt sitting: Grade 3 rotational mobs to (B)mid to upper T-spine Not performed: - Pt sidelying (L) w/ pillow between knees: Deep STM to (R)paralumbars and lower parathoracics - DTM to (R)QL - Manual stretch to (R)QL Traction: - 50lb Static x 10min at 90/90 w/ ~ 5deg angle of pull Manual: - MET to correct LIDIA sacral torsion (R side lying) Prone Decompression L5/S1 Inf glide R side of sacrum MFR lumbar paraspinals SCS R QL Supine COMMERCIAL SALES DIRECTOR at occiput MFR temporalis/frontalis Therex Pelvic tilts Abdominal bracing Isometric hip adduction KTC stretching x 1 minute each leg Exercise: - VR of HEP - Abdominal [...] reps - 1-2sec hold Assessment: Tolerated treatment relatively well. Pt with report of decreased pain and show of improved ROM after manual. Pt advised to maintain ROM and mobility by use of heat as well as self-massage with foam roller and tennis ball. Plan: Cont w/ manual therapy prn. Rev of isometric strengthening for pelvis and core. Cont w/ mechanical traction as tolerated. Toney Loco PT [id number] documented in this encounter Plan of Treatment Upcoming Encounters Date Type Department Care Team (Late st Contact Info) Description 03/11/2025 9:30 AM EST Office Visit [facility] [address] [place] [address] Thomas Enriquez DO [address] [facility] [address] [place] [address] Toney Looc, PT 8 [place] [address] [email or web address] 03/13/2025 9:15 AM EST Office Visit [facility] [address] [place] [address] Thomas Enriquez, DO [address] [place] [address] [place] [address] Mindy Genao, PT 8 [place] [address] [email or web address] 03/18/2025 9:30 AM EST Office Visit [facility] [address] [place] [address] Thomas Enriquez, DO [address] [place] [address] [place] [address] Toney Loco, PT 8 [place] [address] [email or web address] 03/20/2025 9:30 AM EST Office Visit [facility] 8 [place] [address] Thomas Enriquez, DO [address] [place] [address] [place] [address] Toney Loco, PT 8 [place] [address] [email or web address] 03/24/2025 8:45 AM EST Office Visit [facility] [address] [place] [address] Thomas Enriquez, DO [address] [place] [address] [place] [address] Toney Loco, PT [address] [place] [address] [email or web address] 03/30/2025 9:15 AM EST Office Visit [facility] [address] [place] [address] Thomas Enriquez DO [address] [place] [address] [place] [address] Mindy Genao, PT 8 [place] [address] 04/01/2025 8:45 AM EST Office Visit [facility] [address] [place] [address] Thomas Enriquez, DO [address] [address] Toney Loco, PT 8 [place] [address] [email or web address] 04/06/2025 9:15 AM EST Office Visit [facility] [address] [place] [address] Thomas Enriquez, DO [address] [address] Mindy Genao, PT 8 [place] [address] 04/08/2025 8:45 AM EST Office Visit [facility] [address] [place] [address] Thomas Enriquez DO [address] [address] Toney Loco, PT 8 [place] [address] [email or web address] 04/14/2025 8:45 AM EST Office Visit [facility] [address] [place] [address] Thomas Enriquez, DO [address] [place] [address] [place] [address] Toney Loco, PT 8 [place] [address] [email or web address] 04/16/2025 8:45 AM EST Office Visit [facility] [address] [place] [address] Thomas Enriquez, DO [address] [place] [address] [place] [address] Toney Loco, PT 8 [place] [address] [email or web address] 04/21/2025 8:45 AM EST Office Visit [facility] 8 [place] [address] Thomas Enriquez, DO [address] [place] [address] [place] [address] Toney Loco, PT 8 [place] [address] [email or web address] 04/23/2025 8:45 AM EST Office Visit [facility] [address] [place] [address] Thomas Enriquez, DO [address] [place] [address] [place] [address] Toney Loco, PT 8 [place] [address] [email or web address] 04/28/2025 8:45 AM EST Office Visit [facility] [address] [place] [address] Thomas Enriquez, DO [address] [place] [address] [place] [address] Toney Loco, PT 8 [place] [address] [email or web address] 04/30/2025 8:45 AM EST Office Visit [facility] [address] [place] [address] Thomas Enriquez, DO [address] [address] Toney Loco, PT 8 [place] [address] [email or web address] 05/05/2025 8:45 AM EST Office Visit [address] [address] Thomas Enriquez, DO [address] [address] Toney Loco, PT 8 [place] [address] [email or web address] 05/07/2025 8:45 AM EST Office Visit [facility] 8 [place] [address] Thomas Enriquez, DO [address] [address] Toney Loco, PT 8 [place] [address] [email or web address] 05/12/2025 8:45 AM EST Office Visit [facility] 8 [place] [address] Thomas Enriquez, DO [address] [address] Toney Loco, PT 8 [place] [address] [email or web address] 05/14/2025 8:45 AM EST Office Visit [facility] 8 [place] [address] Thomas Enriquez, DO [address] [place] [address] [place] [address] Toney Loco, PT 8 [place] [address] [email or web address] 05/19/2025 8:45 AM EST Office Visit [address] [address] Thomas Enriquez, DO [address] [address] Toney Loco, PT 8 [place] [address] [email or web address] 05/21/2025 8:45 AM EST Office Visit [address] [address] Thomas Enriquez, DO [address] [address] Toney Loco, PT 8 [place] [address] [email or web address] documented as of this encounter Visit Diagnoses Diagnosis Acute bilateral low back pain, unspecified whether sciatica present- Primary documented in this encounter Care Teams Pipe Fitter Street Service Relationship Specialty Start Date End Date Janae Lawrence MD [address] [place] [address] PCP - General Internal Medicine 04/16/24 Tila Haile NP [address] [place] [address] [email or web address] Historical LMR Provider 01/21/17 Gilma Carrasco MD [address] [place] [address] [address] [place] [address] [email or web address] Historical LMR Provider 01/21/17 Itzel Martinez NP [address] [place] [address] Historical LMR Provider 01/21/17 documented as of this encounter Additional Source Comments The information contained in this document represents components of the legal health record. It is not the complete legal health record.[facility]
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
[2025-02-06 15:55] VITALS: BP 122/86; PULSE 86; RESP 14; O2SAT 98; BMI 26.4
--- OUTSIDE RECORDS SUMMARY | 2025-02-06 16:36 | XMS_ITS | Encounter Summary ---
Author Organization [facility] Address [address] [place] [address] [place] [address] Phone Care Team Providers Care Wood Scrap Handler Name Role Phone [place], Tila Leroy BANQUET SET UP PERSON Unavailable [phone] Gilma Carrasco MD Unavailable Itzel Martinez BANQUET SET UP PERSON Unavailable [phone] Itzel Martinez NP Primary Care Provider [phone] Janae Lawrence MD Primary Care Provider Encounter Details Date Type Department Care Team (Latest Contact Info) Description 09/27/2021 Transcribe Orders [facility] Phleb Ackerman [address] 2nd [place] [address] Thomas Ray MD [address] [address] Diarrhea, unspecified type (Primary Dx) Social History [...] Description 03/11/2025 9:30 AM EST Office Visit [facility] [address] [place] [address] Thomas Enriquez DO [address] [place] [address] [place] [address] Toney Loco, PT 8 [place] [address] 03/13/2025 9:15 AM EST Office Visit [facility] [address] [place] [address] Thomas Enriquez DO [address] [place] [address] [place] [address] Mindy Genao, PT 8 [place] [address] 03/18/2025 9:30 AM EST Office Visit [facility] [address] [place] [address] Thomas Enriquez DO [address] [place] [address] [place] [address] Toney Loco, PT 8 [place] [address] 03/20/2025 9:30 AM EST Office Visit [facility] [address] [place] [address] Thomas Enriquez DO [address] [place] [address] [place] [address] Toney Loco, PT 8 [place] [address] 03/24/2025 8:45 AM EST Office Visit [facility] [address] [place] [address] Thomas Enriquez, DO [address] [place] [address] [place] [address] Toney Loco, PT 8 [place] [address] 03/30/2025 9:15 AM EST Office Visit [facility] [address] [place] [address] Thomas Enriquez, DO [address] [place] [address] [place] [address] Mindy Genao, PT 8 [place] [address] 04/01/2025 8:45 AM EST Office Visit [facility] [address] [place] [address] Thomas Enriquez, DO [address] [place] [address] [place] [address] Toney Loco, PT 8 [place] [address] 04/06/2025 9:15 AM EST Office Visit [facility] [address] [place] [address] Thomas Enriquez DO [address] [place] [address] [place] [address] Mindy Genao, PT 8 [place] [address] 04/08/2025 8:45 AM EST Office Visit [facility] [address] [place] [address] Thomas Enriquez DO [address] [place] [address] [place] [address] Toney Loco, PT 8 [place] [address] 04/14/2025 8:45 AM EST Office Visit [facility] 8 [place] [address] Thomas Enriquez, DO [address] [place] [address] [place] [address] Toney Loco, PT 8 [place] [address] 04/16/2025 8:45 AM EST Office Visit [facility] 8 [place] [address] Thomas Enriquez, DO [address] [place] [address] [place] [address] Toney Loco, PT 8 [place] [address] 04/21/2025 8:45 AM EST Office Visit [facility] 8 [place] [address] Thomas Enriquez, DO [address] [place] [address] [place] [address] Toney Loco, PT 8 [place] [address] 04/23/2025 8:45 AM EST Office Visit [facility] 8 [place] [address] Thomas Enriquez, DO [address] [place] [address] [place] [address] Toney Loco, PT 8 [place] [address] 04/28/2025 8:45 AM EST Office Visit [facility] [address] [place] [address] Thomas Enriquez, DO [address] [place] [address] [place] [address] Toney Loco, PT 8 [place] [address] 04/30/2025 8:45 AM EST Office Visit [facility] [address] [place] [address] Thomas Enriquez, DO [address] [place] [address] [place] [address] Toney Loco, PT 8 [place] [address] 05/05/2025 8:45 AM EST Office Visit [facility] [address] [place] [address] Thomas Enriquez, DO [address] [place] [address] [place] [address] Toney Loco, PT 8 [place] [address] 05/07/2025 8:45 AM EST Office Visit [facility] [address] [place] [address] Thomas Enriquez DO [address] [address] Toney Loco, PT 8 [place] [address] 05/12/2025 8:45 AM EST Office Visit [facility] 8 [place] [address] Thomas Enriquez, DO [address] [place] [address] [place] [address] Toney Loco, PT 8 [place] [address] 05/14/2025 8:45 AM EST Office Visit [facility] 8 [place] [address] Thomas Enriquez, DO [address] [place] [address] Toney Loco, PT 8 [place] [address] 05/19/2025 8:45 AM EST Office Visit [facility] 8 [place] [address] Thomas Enriquez, DO [address] [place] [address] [place] [address] Toney Loco, PT 8 [place] [address] 05/21/2025 8:45 AM EST Office Visit [facility] 8 [place] [address] Thomas Enriquez, DO [address] [place] [address] [place] [address] Toney Loco, PT 8 [place] [address] documented as of this encounter Results * C-Reactive Protein (09/27/2021 10:27 AM EDT) C REACTIVE PROTEIN <3.0 0.0 - 4.0 mg/L [facility] Blood 09/27/2021 10:2 7 AM EDT 09/27/2021 10:29 AM EDT us Thomas Ray MD LAB BLOOD BKR ORDERABLES Final Result Performing Organization Address [facility] Co de Phone Number [address] [address] * CBC (09/27/2021 10:27 AM EDT) WBC 6.28 4.00 - 11.00 K/uL [facility] RBC 4.19 3.72 - 5.30 M/uL [facility] HGB 13.5 10.6 - 15.5 g/dL [facility] HCT 40.3 32.0 - 45.0 % [facility] PLT 235 140 - 430 K/uL [facility] MCV 96.2 78.0 - 97.0 fL [facility] MCH 32.2 25.0 - 33.0 pg [facility] MCHC 33.5 32.0 - 36.0 g/dL [facility] RDW 11.8 11.0 - 16.0 % [facility] MPV 11.1 8.4 - 12.8 fl [facility] NRBC 0.00 0 /100 WBCs [facility] ABSOLUTE NRBC 0.00 0 K/uL [facility] Blood 09/27/2021 10:2 7 AM EDT 09/27/2021 10:29 AM EDT us Thomas Ray MD LAB BLOOD BKR ORDERABLES Final Result Performing Organization Address [facility]/ZIP Co de Phone Number [address] [address] documented in this encounter Visit Diagnoses Diagnosis Diarrhea, unspecified type- Primary documented in this encounter Care Teams Wood Scrap Handler Relationship Specialty Start Date End Date Itzel Martinez NP [address] [place] [address] PCP - General Family Medicine 02/09/17 04/15/24 Janae Lawrence MD [address] [place] [address] PCP - General Internal Medicine 04/16/24 Tila Haile NP [address] [place] [address] [email or web address] Historical LMR Provider 01/21/17 Gilma Carrasco MD [address] [place] [address] [email or web address] Historical LMR Provider 01/21/17 Itzel Martinez NP [address] [place] [address] Historical LMR Provider 01/21/17 documented as of this encounter Additional Source Comments The information contained in this document represents components of the legal health record. It is not the complete legal health record.[facility]
--- OUTSIDE RECORDS SUMMARY | 2025-02-06 16:36 | XMS_ITS | Encounter Summary ---
Author Organization [facility] Address [address] [place] [address] [place] [address] Phone Care Team Providers Care Development System Efficiency Manager Name Role Phone Mariam Cooper CNM Unavailable Tila Haile RESIDENTIAL MORTGAGE UNDERWRITER Unavailable [phone] Katelynn Ruiz RESIDENTIAL MORTGAGE UNDERWRITER Unavailable Tang Reed MD Unavailable Gilma Carrasco MD Unavailable Itzel Martinez RESIDENTIAL MORTGAGE UNDERWRITER Unavailable [phone] Elena Eason MD Unavailable [phone] Cruz Roberson MD Unavailable Nova Acevedo MD Unavailable Mar Keene MD Unavailable Rachel Saleem MD Unavailable [phone] Itzel Martinez RESIDENTIAL MORTGAGE UNDERWRITER Primary Care Provider Janae Lawrence MD Primary Care Provider [phone] Encounter Details Date Type Department Care Team (Latest Contact Info) Description 03/07/2021 Transcribe Orders [facility] Phleb Sarina [address] [phone] Lorraine Membreno PA 10 [place], [place] [phone] Diarrhea, unspecified type (Primary Dx) Social History [...] Description 03/11/2025 9:30 AM EST Office Visit [address] [place] [address] Thomas Enriquez DO [address] [address] Toney Loco, PT 8 [place] [address] [email or web address] 03/13/2025 9:15 AM EST Office Visit [address] [place] [address] Thomas Enriquez DO [address] [address] Mindy Genao, PT 8 [place] [address] [email or web address] 03/18/2025 9:30 AM EST Office Visit [address] [place] [address] Thomas Enriquez DO [address] [address] Toney Loco, PT 8 [place] [address] [email or web address] 03/20/2025 9:30 AM EST Office Visit [facility] [address] [place] [address] Thomas Enriquez DO [address] [place] [address] [place] [address] Toney Loco, PT 8 [place] [address] [email or web address] 03/24/2025 8:45 AM EST Office Visit [facility] [address] [place] [address] Thomas Enriquez DO [address] [place] [address] [place] [address] Toney Loco, PT 8 [place] [address] [email or web address] 03/30/2025 9:15 AM EST Office Visit [facility] 8 [place] [address] Thomas Enriquez DO [address] [place] [address] [place] [address] Mindy Genao, PT 8 [place] [address] 04/01/2025 8:45 AM EST Office Visit [facility] 8 [place] [address] Thomas Enriquez DO [address] [place] [address] [place] [address] Toney Loco, PT 8 [place] [address] [email or web address] 04/06/2025 9:15 AM EST Office Visit [facility] [address] [place] [address] Fraser, Thomas, DO [address] [place] [address] Mindy Genao, PT 8 [place] [address] [email or web address] 04/08/2025 8:45 AM EST Office Visit [facility] 8 [place] [address] Thomas Enriquez, DO [address] [place] [place] [address] Toney Loco, PT 8 [place] [address] [email or web address] 04/14/2025 8:45 AM EST Office Visit [facility] 8 [place] [address] Thomas nEriquez, DO [address] [place] [place] [address] Toney Loco, PT 8 [place] [address] [email or web address] 04/16/2025 8:45 AM EST Office Visit [facility] 8 [place] [address] Thomas Enriquez, DO [address] [place] [place] [address] Toney Loco, PT 8 [place] [address] [email or web address] 04/21/2025 8:45 AM EST Office Visit [facility] 8 [place] [address] Thomas Enriquez, DO [address] [place] [address] [place] [address] Toney Loco, PT 8 [place] [address] [email or web address] 04/23/2025 8:45 AM EST Office Visit [facility] [address] [place] [address] Thomas Enriquez, DO [address] [place] [address] [place] [address] Toney Loco, PT 8 [place] [address] [email or web address] 04/28/2025 8:45 AM EST Office Visit [facility] 8 [place] [address] Thomas Enriquez, DO [address] [place] [address] [place] [address] Toney Loco, PT 8 [place] [address] [email or web address] 04/30/2025 8:45 AM EST Office Visit [facility] 8 [place] [address] Thomas Enriquez, DO [address] [place] [address] [place] [address] Toney Loco, PT 8 [place] [address] [email or web address] 05/05/2025 8:45 AM EST Office Visit [facility] 8 [place] [address] Thomas Enriquez, DO [address] [place] [address] [place] [address] Toney Loco, PT 8 [place] [address] [email or web address] 05/07/2025 8:45 AM EST Office Visit [facility] 8 [place] [address] Thomas Enriquez, DO [address] [place] [address] [place] [address] Toney Loco, PT 8 [place] [address] [email or web address] 05/12/2025 8:45 AM EST Office Visit [facility] [address] [place] [address] Thomas Enriquez DO [address] [place] [address] [place] [address] Toney Loco, PT 8 [place] [address] [email or web address] 05/14/2025 8:45 AM EST Office Visit [facility] 8 [place] [address] Thomas Enriquez, DO [address] [place] [address] [place] [address] Toney Loco, PT 8 [place] [address] [email or web address] 05/19/2025 8:45 AM EST Office Visit [facility] 8 [place] [address] Thomas Enriquez, DO [address] [place] [address] [place] [address] Toney Loco, PT 8 [place] [address] [email or web address] 05/21/2025 8:45 AM EST Office Visit [facility] 8 [place] [address] Thomas Enriquez DO [address] [place] [place] [address] Toney Loco, PT 8 [place] [address] [email or web address] documented as of this encounter Results * (ABNORMAL) CBC and differential (03/07/2021 12:23 PM EST) WBC 6.92 4.00 - 11.00 K/uL [facility] RBC 4.45 3.72 - 5.30 M/uL [facility] HGB 15.0 10.6 - 15.5 g/dL [facility] HCT 44.2 32.0 - 45.0 % [facility] PLT 243 140 - 430 K/uL [facility] MCV 99.3(H) 78.0 - 97.0 fL [facility] MCH 33.7(H) 25.0 - 33.0 pg [facility] MCHC 33.9 32.0 - 36.0 g/dL [facility] RDW 12.1 11.0 - 16.0 % [facility] MPV 11.1 8.4 - 12.8 fl [facility] NRBC 0.00 0 /100 WBCs [facility] ABSOLUTE NRBC 0.00 0 K/uL [facility] DIFF METHOD Auto [facility] NEUTS 66.9 43.0 - 75.0 % [facility] LYMPHS 23.4 18.2 - 47.4 % [facility] MONOS 6.6 4.00 - 11.00 % [facility] EOS 2.2 0.0 - 8.0 % [facility] BASOS 0.6 0.0 - 2.0 % [facility] Granulocytes, immature (%) 0.3 0.0 - 0.9 % [facility] ABSOLUTE NEUTS 4.63 1.80 - 7.70 K/uL [facility] ABSOLUTE LYMPHS 1.62 1.00 - 3.10 K/uL [facility] ABSOLUTE MONOS 0.46 0.20 - 0.80 K/uL [facility] ABSOLUTE EOS 0.15 0.00 - 0.80 K/uL [facility] ABSOLUTE BASOS 0.04 0.00 - 0.09 K/uL [facility] Granulocytes, immature 0.02 0.00 - 0.05 K/uL [facility] Blood 03/07/2021 12:2 3 PM EST 03/07/2021 12:27 PM EST Lorraine GUDINO LAB BLOOD BKR ORDERABLES Fi nal Result [address] [address] * Immunoglobulin A (03/07/2021 12:23 PM EST) IgA 292 70 - 400 mg/dL [facility] Blood 03/07/2021 12:2 3 PM EST 03/07/2021 12:27 PM EST Lorraine GUDINO LAB BLOOD BKR ORDERABLES Fi nal Result Performing Organization Address [facility] Co de Phone Number [address] [address] * Tissue transglutaminase IgA (03/07/2021 12:23 PM EST) TTG IGA ANTIBODY <1.2 <4.0 (Negative) U/mL [facility] Blood 03/07/2021 12:2 3 PM EST 03/07/2021 12:27 PM EST Lorraine GUDINO LAB BLOOD BKR ORDERABLES Fi nal Result Performing Organization Address City/[facility]/ZIP Co de Phone Number [facility] [address] [place] [address] documented in this encounter Visit Diagnoses Diagnosis Diarrhea, unspecified type- Primary documented in this encounter Care Teams Development System Efficiency Manager Relationship Specialty Start Date End Date Itzel Martinez NP [address] [place] [address] PCP - General Family Medicine 02/09/17 04/15/24 Janae Lawrence MD [address] [place] [address] PCP - General Internal Medicine 04/16/24 Mariam Cooper CNM 30 [place] [address] Historical LMR Provider 01/21/17 2 Tila Haile NP [address] [place] [address] [email or web address] Historical LMR Provider 01/21/17 Katelynn Ruiz NP [address] [place] [address] [email or web address] Historical LMR Provider 01/21/17 04/09/21 Tang Reed MD [address] [place] [address], [address] [place] [address] Historical LMR Provider 01/21/17 04/09/21 Gilma Carrasco MD [address] [place] [address], [address] [address] Historical LMR Provider 01/21/17 Itzel Martinez NP [address] [place] [address] Historical LMR Provider 01/21/17 Elena Eason MD [address], [place] [address] Historical LMR Provider 01/21/17 2 Cruz Roberson MD [address] [place] [address] [email or web address] Historical LMR Provider 01/21/17 04/09/21 Nova Acevedo MD [address] [place] [phone] Historical LMR Provider 01/21/17 2 Mar Keene MD [address] [place] [address] [email or web address] Historical LMR Provider 01/21/17 04/09/21 Rachel Saleem MD [address] [place] [phone] Historical LMR Provider 01/21/17 2 documented as of this encounter Additional Source Comments The information contained in this document represents components of the legal health record. It is not the complete legal health record.[facility]
--- OUTSIDE RECORDS SUMMARY | 2025-02-06 16:36 | XMS_ITS | Encounter Summary ---
Author Organization [facility] Address [address] [facility] [address] [place] [address] Phone Care Team Providers Care Glass Carrier Name Role Phone Bay CenterTila foster Leroy COMMUNITY ARTS CENTRE MANAGER Unavailable [phone] Gilma Carrasco MD Unavailable Itzel Martinez COMMUNITY ARTS CENTRE MANAGER Unavailable [phone] Janae Lawrence MD Primary Care Provider Encounter Details Date Type Department Care Team (Late st Contact Info) Description 06/22/2024 Procedure Pass [facility], Ct Scan - [address] [phone] Social History Tobacco Use Types Packs/Day Years [...] 7:02 AM EDT Agustina Mckeon RN * Elma Suicide Severity Rating Scale (Screener/Recent Self-Report) Question [...] Description 03/11/2025 9:30 AM EST Office Visit [facility] [address] [place] [address] Thomas Enriquez DO [address] [address] Toney Loco, PT 8 [place] [address] 03/13/2025 9:15 AM EST Office Visit [facility] [address] [place] [address] Thomas Enriquez DO [address] [address] Mindy Genao, PT 8 [place] [address] 03/18/2025 9:30 AM EST Office Visit [facility] [address] [place] [address] Thomas Enriquez, DO [address] [address] Toney Loco, PT 8 [place] [address] 03/20/2025 9:30 AM EST Office Visit [address] [address] Thomas Enriquez, DO [address] [address] Toney Loco, PT 8 [place] [address] 03/24/2025 8:45 AM EST Office Visit [address] [address] Thomas Enriquez, DO [address] [address] Toney Loco, PT 8 [place] [address] 03/30/2025 9:15 AM EST Office Visit [address] [address] Thomas Enriquez, DO [address] [address] Mindy Genao, PT 8 [place] [address] 04/01/2025 8:45 AM EST Office Visit [facility] [address] [place] [address] Thomas Enriquez, DO [address] [place] [address] [place] [address] Toney Loco, PT 8 [place] [address] 04/06/2025 9:15 AM EST Office Visit [address] [place] [address] Thomas Enriquez, DO [address] [place] [address] [place] [address] Mindy Genao, PT 8 [place] [address] 04/08/2025 8:45 AM EST Office Visit [facility] [address] [place] [address] Thomas Enriquez, DO [address] [place] [place] [address] Toney Loco, PT 8 [place] [address] 04/14/2025 8:45 AM EST Office Visit [address] [place] [address] Thomas Enriquez, DO [address] [place] [place] [address] Toney Loco, PT 8 [place] [address] 04/16/2025 8:45 AM EST Office Visit [facility] [address] [place] [address] Thomas Enriquez DO [address] [place] [address] Toney Loco, PT 8 [place] [address] 04/21/2025 8:45 AM EST Office Visit [facility] [address] [place] [address] Thomas Enriquez DO [address] [place] [address] Toney Loco, PT 8 [place] [address] 04/23/2025 8:45 AM EST Office Visit [facility] [address] [place] [address] Thomas Enriquez DO [address] [place] [address] Toney Loco, PT 8 [place] [address] 04/28/2025 8:45 AM EST Office Visit [facility] [address] [place] [address] Thomas Enriquez DO [address] [place] [address] Toney Loco, PT 8 [place] [address] 04/30/2025 8:45 AM EST Office Visit [facility] [address] [place] [address] Mina, Thomas, DO [address] [place] [place] [address] Toney Loco, PT 8 [place] [address] 05/05/2025 8:45 AM EST Office Visit [facility] [address] [place] [address] Thomas Enriquez, DO [address] [place] [place] [address] Toney Loco, PT 8 [place] [address] 05/07/2025 8:45 AM EST Office Visit [facility] 8 [place] [address] Thomas Enriquez, DO [address] [address] Toney Loco, PT 8 [place] [address] 05/12/2025 8:45 AM EST Office Visit [facility] 8 [place] [address] Thomas Enriquez, DO [address] [address] Toney Loco, PT 8 [place] [address] 05/14/2025 8:45 AM EST Office Visit [facility] 8 [place] [address] Thomas Enriquez, DO [address] [place] [address] [place] [address] Jed Locofranklyn, PT 8 [place] [address] 05/19/2025 8:45 AM EST Office Visit [facility] [address] [place] [address] Mina Thomas, DO [address] [place] [address] [place] [address] Toney Loco, PT 8 [place] [address] 05/21/2025 8:45 AM EST Office Visit [facility] 8 [place] [address] Thomas Enriquez, DO [address] [facility] [place] [address] Claudy Jedfranklyn, PT 8 [place] [address] documented as of this encounter Visit Diagnoses Not on filedocumented in this encounter Care Teams Glass Carrier Relationship Specialty Start Date End Date Janae Lawrence MD [address] [place] [address] PCP - General Internal Medicine 04/16/24 Tila Haile NP [address] [place] [address] Historical LMR Provider 01/21/17 Gilma Carrasco MD [address] [address] Historical LMR Provider 01/21/17 Itzel Martinez NP 70 [place] [address] Historical LMR Provider 01/21/17 documented as of this encounter Additional Source Comments The information contained in this document represents components of the legal health record. It is not the complete legal health record.[facility]
--- OUTSIDE RECORDS SUMMARY | 2025-02-06 16:36 | XMS_ITS | Encounter Summary ---
Author Organization [facility] Address [address] [place] [address] [place] [address] Phone Care Team Providers Care Cd Storage And Materials Make Up Helper Name Role Phone [place], Tila Leroy B2B OUTSIDE SALES REPRESENTATIVE Unavailable [phone] Gilma Carrasco MD Unavailable Itzel Martinez B2B OUTSIDE SALES REPRESENTATIVE Unavailable [phone] Itzel Martinez NP Primary Care Provider [phone] Janae Lawrence MD Primary Care Provider Encounter Details Date Type Department Care Team (Late st Contact Info) Description 10/27/2021 Procedure Pass [address] [address] Social History Tobacco Use Types Packs/Day Years [...] Description 03/11/2025 9:30 AM EST Office Visit [facility] [address] [place] [address] Mina, Thomas, DO [address] [place] [address] [place] [address] Toney Loco, PT 8 [place] [address] 03/13/2025 9:15 AM EST Office Visit [facility] 8 [place] [address] Thomas Enriquez, DO [address] [place] [address] [place] [address] Mindy Genao, PT 8 [place] [address] 03/18/2025 9:30 AM EST Office Visit [address] [address] Thomas Enriquez, DO [address] [place] [address] [place] [address] Toney Loco, PT 8 [place] [address] 03/20/2025 9:30 AM EST Office Visit [facility] 8 [place] [address] Thomas Enriquez, DO [address] [place] [address] [place] [address] Toney Loco, PT 8 [place] [address] 03/24/2025 8:45 AM EST Office Visit [facility] 8 [place] [address] Thomas Enriquez, DO [address] [address] Toney Loco PT 8 [place] [address] 03/30/2025 9:15 AM EST Office Visit [facility] [address] [place] [address] Thomas Enriquez, DO [address] [place] [address] [place] [address] Mindy Genao, PT 8 [place] [address] 04/01/2025 8:45 AM EST Office Visit [address] [place] [address] Thomas Enriquez, DO [address] [place] [address] [place] [address] Toney Loco, PT 8 [place] [address] 04/06/2025 9:15 AM EST Office Visit [facility] 8 [place] [address] Thomas Enriquez, DO [address] [place] [address] [place] [address] Mindy Genao, PT 8 [place] [address] 04/08/2025 8:45 AM EST Office Visit [address] [place] [address] Thomas Enriquez, DO [address] [place] [address] [place] [address] Toney Loco, PT 8 [place] [address] 04/14/2025 8:45 AM EST Office Visit [facility] [address] [place] [address] Thomas Enriquez DO [address] [place] [address] [place] [address] Toney Loco, PT 8 [place] [address] 04/16/2025 8:45 AM EST Office Visit [facility] [address] [place] [address] Thomas Enriquez DO [address] [place] [address] [place] [address] Toney Loco, PT 8 [place] [address] 04/21/2025 8:45 AM EST Office Visit [facility] 8 [place] [address] Thomas Enriquez DO [address] [place] [address] [place] [address] Toney Loco, PT 8 [place] [address] 04/23/2025 8:45 AM EST Office Visit [facility] 8 [place] [address] Thomas Enriquez DO [address] [place] [address] [place] [address] Toney Loco, PT 8 [place] [address] 04/28/2025 8:45 AM EST Office Visit [facility] [address] [place] [address] Thomas Enriquez, DO [address] [address] [place] [address] Toney Loco, PT 8 [place] [address] 04/30/2025 8:45 AM EST Office Visit [facility] 8 [place] [address] Thomas Enriquez, DO [address] [place] [address] [place] [address] Toney Loco, PT 8 [place] [address] 05/05/2025 8:45 AM EST Office Visit [facility] 8 [place] [address] Thomas Erniquez, DO [address] [place] [address] [place] [address] Toney Loco, PT 8 [place] [address] 05/07/2025 8:45 AM EST Office Visit [facility] 8 [place] [address] Thomas Enriquez, DO [address] [place] [address] [place] [address] Toney Loco, PT 8 [place] [address] 05/12/2025 8:45 AM EST Office Visit [facility] [address] [place] [address] Thomas Enriquez, DO [address] [address] [place] [address] Toney Loco, PT 8 [place] [address] 05/14/2025 8:45 AM EST Office Visit [facility] [address] [place] [address] Thomas Enriquez, DO [address] [address] [place] [address] Toney Loco, PT 8 [place] [address] 05/19/2025 8:45 AM EST Office Visit [address] [address] Thomas Enriquez, DO [address] [place] [address] [place] [address] Toney Loco, PT 8 [place] [address] 05/21/2025 8:45 AM EST Office Visit [facility] 8 [place] [address] Thomas Enriquez, DO [address] [address] [place] [address] Toney Loco, PT 8 [place] [address] documented as of this encounter Visit Diagnoses Not on filedocumented in this encounter Care Teams Cd Storage And Materials Make Up Helper Relationship Specialty Start Date End Date Itzel Martinez NP [address] [place] [address] PCP - General Family Medicine 02/09/17 04/15/24 Janae Lawrence MD [address] [place] [address] PCP - General Internal Medicine 04/16/24 Tila Haile NP [address] [place] [address] [email or web address] Historical LMR Provider 01/21/17 Gilma Carrasco MD [address] [facility], [address] [place] [address] [email or web address] Historical LMR Provider 01/21/17 Itzel Martinez NP [address] [place] [address] Historical LMR Provider 01/21/17 documented as of this encounter Additional Source Comments The information contained in this document represents components of the legal health record. It is not the complete legal health record.[facility]
--- OUTSIDE RECORDS SUMMARY | 2025-02-06 16:36 | XMS_ITS | Encounter Summary ---
Author Organization [facility] Address [address] [facility] [address] [place] [address] Phone Care Team Providers Care Order Packer Name Role Phone LowberTila foster Leroy SAFETY FIRE BOSS Unavailable [phone] Gilma Carrasco MD Unavailable Itzel Martinez SAFETY FIRE BOSS Unavailable [phone] Janae Lawrence MD Primary Care Provider Encounter Details Date Type Department Care Team (Late st Contact Info) Description 06/22/2024 Procedure Pass [facility], [address] [address] Social History Tobacco Use Types Packs/Day Years [...] 7:02 AM EDT Agustina Mckeon RN * [place] Suicide Severity Rating Scale (Screener/Recent Self-Report) Question [...] Description 03/11/2025 9:30 AM EST Office Visit [facility] [address] [place] [address] Thomas Enriquez DO [address] [place] [place] [address] Toney Loco, PT 8 [place] [address] 03/13/2025 9:15 AM EST Office Visit [facility] [address] [place] [address] Thomas Enriquez DO [address] [address] Mindy Genao, PT 8 [place] [address] [email or web address] 03/18/2025 9:30 AM EST Office Visit [address] [address] Thomas Enriquez, DO [address] [address] Toney Loco, PT 8 [place] [address] [email or web address] 03/20/2025 9:30 AM EST Office Visit [address] [address] Thomas Enriquez, DO [address] [address] Toney Loco, PT 8 [place] [address] [email or web address] 03/24/2025 8:45 AM EST Office Visit [address] [address] Thomas Enriquez, DO [address] [address] Toney Loco, PT 8 [place] [address] [email or web address] 03/30/2025 9:15 AM EST Office Visit [address] [address] Thomas Enriquez, DO [address] [address] Mindy Genao, PT 8 [place] [address] [email or web address] 04/01/2025 8:45 AM EST Office Visit [facility] [address] [place] [address] Thomas Enriquez, DO [address] [place] [address] Toney Loco, PT 8 [place] [address] [email or web address] 04/06/2025 9:15 AM EST Office Visit [address] [place] [address] Thomas Enriquez, DO [address] [place] [place] [address] Mindy Genao, PT 8 [place] [address] 04/08/2025 8:45 AM EST Office Visit [facility] 8 [place] [address] Thomas Enriquez, DO [address] [place] [place] [address] Toney Loco, PT 8 [place] [address] [email or web address] 04/14/2025 8:45 AM EST Office Visit [facility] [address] [place] [address] Thomas Enriquez, DO [address] [place] [address] [place] [address] Toney Loco, PT 8 [place] [address] 04/16/2025 8:45 AM EST Office Visit [facility] [address] [place] [address] Thomas Enriquez DO [address] [place] [place] [address] Toney Loco, PT 8 [place] [address] [email or web address] 04/21/2025 8:45 AM EST Office Visit [facility] [address] [place] [address] Thomas Enriquez DO [address] [place] [place] [address] Toney Loco, PT 8 [place] [address] [email or web address] 04/23/2025 8:45 AM EST Office Visit [facility] 8 [place] [address] Thomas Enriquez, DO [address] [place] [place] [address] Toney Loco, PT 8 [place] [address] [email or web address] 04/28/2025 8:45 AM EST Office Visit [facility] 8 [place] [address] Thomas Enriquez DO [address] [place] [address] Toney Loco, PT 8 [place] [address] [email or web address] 04/30/2025 8:45 AM EST Office Visit [facility] [address] [place] [address] Mina, Thomas, DO [address] [place] [address] Toney Loco, PT 8 [place] [address] [email or web address] 05/05/2025 8:45 AM EST Office Visit [facility] 8 [place] [address] Thomas Enriquez, DO [address] [place] [address] Toney Loco, PT 8 [place] [address] [email or web address] 05/07/2025 8:45 AM EST Office Visit [facility] 8 [place] [address] Thomas Enriquez, DO [address] [address] Toney Loco, PT 8 [place] [address] [email or web address] 05/12/2025 8:45 AM EST Office Visit [facility] 8 [place] [address] Thomas Enriquez, DO [address] [address] Toney Loco, PT 8 [place] [address] [email or web address] 05/14/2025 8:45 AM EST Office Visit [facility] 8 [place] [address] Thomas Enriquez, DO [address] [address] Jed Locofranklyn, PT 8 [place] [address] 05/19/2025 8:45 AM EST Office Visit [facility] 8 [place] [address] Thomas Enriquez, DO [address] [place] [address] Toney Loco, PT 8 [place] [address] 05/21/2025 8:45 AM EST Office Visit [facility] 8 [place] [address] Thomas Enriquez, DO [address] [facility] [place] [address] Claudy Jedfranklyn, PT 8 [place] [address] documented as of this encounter Visit Diagnoses Not on filedocumented in this encounter Care Teams Order Packer Relationship Specialty Start Date End Date Janae Lawrence MD 70 [place] [address] PCP - General Internal Medicine 04/16/24 Tila Haile NP [address] [place] [address] Historical LMR Provider 01/21/17 Gilma Carrasco MD [address] [place] [address] Historical LMR Provider 01/21/17 Itzel Martinez NP 70 [place] [address] Historical LMR Provider 01/21/17 documented as of this encounter Additional Source Comments The information contained in this document represents components of the legal health record. It is not the complete legal health record.[facility]
--- OUTSIDE RECORDS SUMMARY | 2025-02-06 16:36 | XMS_ITS | Encounter Summary ---
Author Organization [facility] Address [address] [facility] [address] [place] [address] Phone Care Team Providers Care Candy Feeder Name Role Phone [place]Tila foster Leroy INFORMATION DELIVERY ANALYST Unavailable [phone] Gilma Carrasco MD Unavailable Itzel Martinez INFORMATION DELIVERY ANALYST Unavailable [phone] Janae Lawrence MD Primary Care Provider [phone] Encounter Details Date Type Department Care Team (Late st Contact Info) Description 06/22/2024 Procedure Pass [facility] - [address] [id number] Social History Tobacco Use Types Packs/Day Years [...] 7:02 AM EDT Agustina Mckeon RN * [place] Suicide Severity Rating Scale (Screener/Recent Self-Report) Question [...] Description 03/11/2025 9:30 AM EST Office Visit [facility] [address] [place] [address] Thomas Enriquez DO [address] [address] Toney Loco, PT 8 [place] [address] 03/13/2025 9:15 AM EST Office Visit [facility] [address] [place] [address] Thomas Enriquez DO [address] [address] Mindy Genao, PT 8 [place] [address] 03/18/2025 9:30 AM EST Office Visit [facility] 8 [place] [address] Thomas Enriquez, DO [address] [address] Toney Loco, PT 8 [place] [address] 03/20/2025 9:30 AM EST Office Visit [address] [address] Thomas Enriquez, DO [address] [address] Toney Loco, PT 8 [place] [address] 03/24/2025 8:45 AM EST Office Visit [address] [address] Thomas Enriquez, DO [address] [address] Toney Loco, PT 8 [place] [address] 03/30/2025 9:15 AM EST Office Visit [address] [address] Thomas Enriquez, DO [address] [address] Mindy Genao, PT 8 [place] [address] 04/01/2025 8:45 AM EST Office Visit [facility] [address] [place] [address] Thomas Enriquez, DO [address] [address] [place] [address] Toney Loco, PT 8 [place] [address] 04/06/2025 9:15 AM EST Office Visit [address] [place] [address] Thomas Enriquez, DO [address] [place] [address] Mindy Genao, PT 8 [place] [address] 04/08/2025 8:45 AM EST Office Visit [facility] 8 [place] [address] Thomas Enriquez, DO [address] [place] [address] [place] [address] Toney Loco, PT 8 [place] [address] 04/14/2025 8:45 AM EST Office Visit [address] [place] [address] Thomas Enriquez, DO [address] [address] [place] [address] Toney Loco, PT 8 [place] [address] 04/16/2025 8:45 AM EST Office Visit [facility] [address] [place] [address] Thomas Enriquez DO [address] [address] [place] [address] Toney Loco, PT 8 [place] [address] 04/21/2025 8:45 AM EST Office Visit [facility] [address] [place] [address] Thomas Enriquez DO [address] [place] [address] Toney Loco, PT 8 [place] [address] 04/23/2025 8:45 AM EST Office Visit [facility] 8 [place] [address] Thomas Enriquez DO [address] [place] [address] Toney Loco, PT 8 [place] [address] 04/28/2025 8:45 AM EST Office Visit [facility] 8 [place] [address] Thomas Enriquez DO [address] [place] [address] Toney Loco, PT 8 [place] [address] 04/30/2025 8:45 AM EST Office Visit [facility] [address] [place] [address] Mina, Thomas, DO [address] [place] [address] Toney Loco, PT 8 [place] [address] 05/05/2025 8:45 AM EST Office Visit [facility] 8 [place] [address] Thomas Enriquez, DO [address] [place] [address] Toney Loco, PT 8 [place] [address] 05/07/2025 8:45 AM EST Office Visit [facility] 8 [place] [address] Thomas Enriquez, DO [address] [address] Toney Loco, PT 8 [place] [address] 05/12/2025 8:45 AM EST Office Visit [facility] 8 [place] [address] Thomas Enriquez, DO [address] [address] Toney Loco, PT 8 [place] [address] 05/14/2025 8:45 AM EST Office Visit [facility] 8 [place] [address] Thomas Enriquez, DO [address] [place] [address] Jed Locofranklyn, PT 8 [place] [address] 05/19/2025 8:45 AM EST Office Visit [facility] 8 [place] [address] Mina Thomas, DO [address] [place] [address] Toney Loco, PT 8 [place] [address] 05/21/2025 8:45 AM EST Office Visit [facility] 8 [place] [address] Thomas Enriquez, DO [address] [facility] [place] [address] Claudy Jedfranklyn, PT 8 [place] [address] documented as of this encounter Visit Diagnoses Not on filedocumented in this encounter Care Teams Candy Feeder Relationship Specialty Start Date End Date Janae Lawrence MD 70 [place] [address] PCP - General Internal Medicine 04/16/24 Tila Haile NP [address] [place] [address] Historical LMR Provider 01/21/17 Gilma Carrasco MD [address] [address] Historical LMR Provider 01/21/17 Itzel Martinez NP 70 [place] [address] Historical LMR Provider 01/21/17 documented as of this encounter Additional Source Comments The information contained in this document represents components of the legal health record. It is not the complete legal health record.[facility]
--- OUTSIDE RECORDS SUMMARY | 2025-02-06 16:36 | XMS_ITS | Encounter Summary ---
Author Organization [facility] Address [address] [place] [address] [place] [address] Phone Care Team Providers Care Bag Making Machine Tender Name Role Phone Mariam Cooper CNM Unavailable Tila Haile ARCHEOLOGIST CLASSICAL Unavailable [phone] Katelynn Ruiz NP Unavailable Tang Reed MD Unavailable Gilma Carrasco MD Unavailable Itzel Martinez ARCHEOLOGIST CLASSICAL Unavailable [phone] Elena Eason MD Unavailable [phone] Cruz Roberson MD Unavailable Nova Acevedo MD Unavailable Mar Keene MD Unavailable Rachel Saleem MD Unavailable [phone] Itzel Martinez ARCHEOLOGIST CLASSICAL Primary Care Provider Janae Lawrence MD Primary Care Provider Encounter Details Date Type Department Care Team (Late st Contact Info) Description 02/15/2021 Ancillary Orders [facility] [address]rd Floor, [address] [place], [place] [id number] Itzel Martinez, ARCHEOLOGIST CLASSICAL [address] [place] [address] Near syncope Social History Tobacco Use Types [...] Description 03/11/2025 9:30 AM EST Office Visit [facility] [address] [place] [address] Thomas Enriquez DO [address] [place] [address] [place] [address] Toney Loco, PT 8 [place] [address] 03/13/2025 9:15 AM EST Office Visit [facility] [address] [place] [address] Thomas Enriquez DO [address] [address] Mindy Genao, PT 8 [place] [address] 03/18/2025 9:30 AM EST Office Visit [facility] [address] [place] [address] Thomas Enriquez DO [address] [address] Toney Loco, PT 8 [place] [address] 03/20/2025 9:30 AM EST Office Visit [facility] 8 [place] [address] Thomas Enriquez, DO [address] [place] [address] [place] [address] Toney Loco, PT 8 [place] [address] 03/24/2025 8:45 AM EST Office Visit [facility] 8 [place] [address] Thomas Enriquez, DO [address] [place] [address] [place] [address] Toney Loco, PT 8 [place] [address] 03/30/2025 9:15 AM EST Office Visit [facility] 8 [place] [address] Thomas Enriquez, DO [address] [place] [address] [place] [address] Mindy Genao, PT 8 [place] [address] 04/01/2025 8:45 AM EST Office Visit [address] [address] Thomas Enriquez DO [address] [place] [address] [place] [address] Toney Loco, PT 8 [place] [address] 04/06/2025 9:15 AM EST Office Visit [facility] [address] [place] [address] Thomas Enriquez DO [address] [place] [address] [place] [address] Mindy Genao, PT 8 [place] [address] 04/08/2025 8:45 AM EST Office Visit [facility] 8 [place] [address] Thomas Enriquez, DO [address] [place] [address] [place] [address] Toney Loco, PT 8 [place] [address] 04/14/2025 8:45 AM EST Office Visit [address] [address] Thomas Enriquez, DO [address] [address] Toney Loco, PT 8 [place] [address] 04/16/2025 8:45 AM EST Office Visit [address] [address] Thomas Enriquez, DO [address] [address] Toney Loco, PT 8 [place] [address] 04/21/2025 8:45 AM EST Office Visit [address] [address] Thomas Enriquez, DO [address] [address] Toney Loco, PT 8 [place] [address] 04/23/2025 8:45 AM EST Office Visit [facility] [address] [place] [address] Thomas Enriquez, DO [address] [place] [address] [place] [address] Toney Loco, PT 8 [place] [address] 04/28/2025 8:45 AM EST Office Visit [facility] [address] [place] [address] Thomas Enriquez, DO [address] [place] [address] [place] [address] Toney Loco, PT 8 [place] [address] 04/30/2025 8:45 AM EST Office Visit [facility] 8 [place] [address] Thomas Enriquez, DO [address] [place] [address] [place] [address] Toney Loco, PT 8 [place] [address] 05/05/2025 8:45 AM EST Office Visit [facility] [address] [place] [address] Thomas Enriquez, DO [address] [place] [address] [place] [address] Toney Loco, PT 8 [place] [address] 05/07/2025 8:45 AM EST Office Visit [facility] [address] [place] [address] Thomas Enriquez DO [address] [place] [address] [place] [address] Toney Loco, PT 8 [place] [address] 05/12/2025 8:45 AM EST Office Visit [facility] [address] [place] [address] Thomas Enriquez, DO [address] [place] [address] [place] [address] Toney Loco, PT 8 [place] [address] 05/14/2025 8:45 AM EST Office Visit [facility] 8 [place] [address] Thomas Enriquez, DO [address] [place] [address] [place] [address] Toney Loco, PT 8 [place] [address] 05/19/2025 8:45 AM EST Office Visit [facility] 8 [place] [address] Thomas Enriquez DO [address] [place] [address] [place] [address] Toney Loco, PT 8 [place] [address] 05/21/2025 8:45 AM EST Office Visit [facility] [address] [place] [address] Thomas Enriquez DO [address] [place] [address] Claudy Toney, PT 8 [place] [address] [email or web address] Scheduled Orders Name Type Priority Associated Diagnoses Orde r Schedule MCT (Mobile Cardiac Telemetry) Cardiac Monitors Routine Near syncope Expected: 01/10/2021, Expires: 07/11/2021 documented as of this encounter Visit Diagnoses Diagnosis Near syncope documented in this encounter Care Teams Bag Making Machine Tender Relationship Specialty Start Date End Date Itzel Martinez NP [address] [place] [address] PCP - General Family Medicine 02/09/17 04/15/24 Janae Lawrence MD [address] [place] [address] PCP - General Internal Medicine 04/16/24 Mariam Cooper CNM [address] [place] [address] Historical LMR Provider 01/21/17 2 Tila Haile NP [address] [place] [address] [email or web address] Historical LMR Provider 01/21/17 Katelynn Ruiz NP [address] [place] [address] [email or web address] Historical LMR Provider 01/21/17 04/09/21 Tang Reed MD [address] [facility], 2nd [place] [address] Historical LMR Provider 01/21/17 04/09/21 Gilma Carrasco MD [address] [place] [address] Historical LMR Provider 01/21/17 Itzel Martinez NP [address] [place] [address] Historical LMR Provider 01/21/17 Elena Eason MD [address], [place] [address] Historical LMR Provider 01/21/17 2 Cruz Roberson MD [address] [place] [address] [email or web address] Historical LMR Provider 01/21/17 04/09/21 Nova Acevedo MD [address] [place] [phone] Historical LMR Provider 01/21/17 2 Mar Keene MD [address] [place] [address] Historical LMR Provider 01/21/17 04/09/21 Rachel Saleem MD [address] [place] [address] Historical LMR Provider 01/21/17 2 documented as of this encounter Additional Source Comments The information contained in this document represents components of the legal health record. It is not the complete legal health record.[facility]
--- OUTSIDE RECORDS SUMMARY | 2025-02-06 16:36 | XMS_ITS | Encounter Summary ---
Author Organization [facility] Address [address] [place] [address] [place] [address] Phone Care Team Providers Care Keno Clerk Name Role Phone Mariam Cooper CNM Unavailable Tila Haile FOREST BOTANY INSTRUCTOR Unavailable [phone] Katelynn Ruiz FOREST BOTANY INSTRUCTOR Unavailable Tang Reed MD Unavailable Gilma Carrasco MD Unavailable Itzel Martinez FOREST BOTANY INSTRUCTOR Unavailable [phone] Elena Eason MD Unavailable [phone] Cruz Roberson MD Unavailable Nova Acevedo MD Unavailable Mar Keene MD Unavailable Rachel Saleem MD Unavailable [phone] Itzel Martinez FOREST BOTANY INSTRUCTOR Primary Care Provider Janae Lawrence MD Primary Care Provider Encounter Details Date Type Department Care Team (Late st Contact Info) Description 03/14/2021 Procedure Pass [facility] [address] [place] [address] Social History Tobacco Use Types Packs/Day [...] Description 03/11/2025 9:30 AM EST Office Visit [facility] 8 [place] [address] Thomas Enriquez DO [address] [place] [address] [place] [address] Toney Loco, PT 8 [place] [address] 03/13/2025 9:15 AM EST Office Visit [facility] [address] [place] [address] Thomas Enriquez DO [address] [place] [address] [place] [address] Mindy Genao, PT 8 [place] [address] 03/18/2025 9:30 AM EST Office Visit [facility] [address] [place] [address] Thomas Enriquez DO [address] [place] [address] [place] [address] Toney Loco, PT 8 [place] [address] [email or web address] 03/20/2025 9:30 AM EST Office Visit [facility] [address] [place] [address] Thomas Enriquez DO [address] [address] Toney Loco, PT 8 [place] [address] 03/24/2025 8:45 AM EST Office Visit [facility] 8 [place] [address] Thomas Enriquez, DO [address] [address] Toney Loco, PT 8 [place] [address] 03/30/2025 9:15 AM EST Office Visit [address] [address] Thomas Enriquez, DO [address] [address] Mindy Genao, PT 8 [place] [address] 04/01/2025 8:45 AM EST Office Visit [facility] 8 [place] [address] Thomas Enriquez, DO [address] [address] Toney Loco, PT 8 [place] [address] 04/06/2025 9:15 AM EST Office Visit [facility] 8 [place] [address] Thomas Enriquez DO [address] [address] Mindy Genao, PT 8 [place] [address] 04/08/2025 8:45 AM EST Office Visit [facility] [address] [place] [address] Thomas Enriquez, DO [address] [place] [address] [place] [address] Toney Loco, PT 8 [place] [address] 04/14/2025 8:45 AM EST Office Visit [address] [address] Thomas Enriquez, DO [address] [place] [address] [place] [address] Toney Loco, PT 8 [place] [address] 04/16/2025 8:45 AM EST Office Visit [facility] 8 [place] [address] Thomas Enriquez, DO [address] [place] [address] [place] [address] Toney Loco, PT 8 [place] [address] 04/21/2025 8:45 AM EST Office Visit [facility] [address] [place] [address] Thomas Enriquez, DO [address] [place] [address] [place] [address] Toney Loco, PT 8 [place] [address] 04/23/2025 8:45 AM EST Office Visit [facility] [address] [place] [address] Thomas Enriquez DO [address] [place] [address] [place] [address] Toney Loco, PT 8 [place] [address] 04/28/2025 8:45 AM EST Office Visit [facility] [address] [place] [address] Thomas Enriquez, DO [address] [place] [address] [place] [address] Toney Loco, PT 8 [place] [address] 04/30/2025 8:45 AM EST Office Visit [facility] 8 [place] [address] Thomas Enriquez, DO [address] [place] [address] [place] [address] Toney Loco, PT 8 [place] [address] 05/05/2025 8:45 AM EST Office Visit [facility] [address] [place] [address] Thomas Enriquez DO [address] [place] [address] [place] [address] Toney Loco, PT 8 [place] [address] 05/07/2025 8:45 AM EST Office Visit [facility] [address] [place] [address] Mina, Thomas, DO [address] [place] [address] [place] [address] Toney Loco, PT 8 [place] [address] 05/12/2025 8:45 AM EST Office Visit [facility] 8 [place] [address] Thomas Enriquez, DO [address] [place] [address] [place] [address] Toney Loco, PT 8 [place] [address] 05/14/2025 8:45 AM EST Office Visit [address] [address] Thomas Enriquez, DO [address] [address] Toney Loco, PT 8 [place] [address] 05/19/2025 8:45 AM EST Office Visit [facility] 8 [place] [address] Thomas Enriquez, DO [address] [address] Toney Loco, PT 8 [place] [address] 05/21/2025 8:45 AM EST Office Visit [facility] 8 [place] [address] Thomas Enriquez DO [address] [address] Toney Loco, PT 8 [place] [address] [email or web address] documented as of this encounter Visit Diagnoses Not on filedocumented in this encounter Care Teams Keno Clerk Relationship Specialty Start Date End Date Itzel Martinez FOREST BOTANY INSTRUCTOR [address] [place] [address] PCP - General Family Medicine 02/09/17 04/15/24 Janae Lawrence MD [address] [address] PCP - General Internal Medicine 04/16/24 Mariam Cooper CNM 30 [place] [address] Historical LMR Provider 01/21/17 2 Tila Haile NP [address] [place] [address] [email or web address] Historical LMR Provider 01/21/17 Katelynn Ruiz NP [address] [place] [address] [email or web address] Historical LMR Provider 01/21/17 04/09/21 Tang Reed MD [address] [place] [address], 2nd [place] [address] Historical LMR Provider 01/21/17 04/09/21 Gilma Carrasco MD [address] [place] [address], [address] [place] [address] Historical LMR Provider 01/21/17 Itzel Martinez NP 70 [place] [address] Historical LMR Provider 01/21/17 Elena Eason MD [address] [place] [address] Historical LMR Provider 01/21/17 2 Cruz Roberson MD [address] [place] [address] Historical LMR Provider 01/21/17 04/09/21 Nova Acevedo MD [address] [place] [phone] Historical LMR Provider 01/21/17 2 Mar Keene MD [address] [place] [address] Historical LMR Provider 01/21/17 04/09/21 Rachel Saleem MD [address] [place] [address] Historical LMR Provider 01/21/17 2 documented as of this encounter Additional Source Comments The information contained in this document represents components of the legal health record. It is not the complete legal health record.[facility]
--- OUTSIDE RECORDS SUMMARY | 2025-02-06 16:37 | XMS_ITS | Encounter Summary ---
Author Organization [facility] Address [address] [place] [address] [place] [address] Phone Care Team Providers Care Natural Remedy Consultant Name Role Phone Mariam Cooper CNM Unavailable Tila Haile INPUT OUTPUT CLERK Unavailable [phone] Katelynn Ruiz INPUT OUTPUT CLERK Unavailable Tang Reed MD Unavailable Gilma Carrasco MD Unavailable Itzel Martinez INPUT OUTPUT CLERK Unavailable [phone] Elena Eason MD Unavailable [phone] Cruz Roberson MD Unavailable Nova Acevedo MD Unavailable Mar Keene MD Unavailable Rachel Saleem MD Unavailable [phone] Itzel Martinez INPUT OUTPUT CLERK Primary Care Provider Robert Michele MD Unavailable Cecil Barillas MD Unavailable Janae Lawrence MD Primary Care Provider Encounter Details Date Type Department Care Team (Late st Contact Info) Description 08/07/2018 Ancillary Orders Virtual Department 30 [place] [address] Liss Florian MD [address] [place] [address] Flank pain; Calculus of kidney with calculus [...] Description 03/11/2025 9:30 AM EST Office Visit [address] [address] Thomas Enriquez DO [address] [address] Toney Loco, PT 8 [place] [address] 03/13/2025 9:15 AM EST Office Visit [facility] 8 [place] [address] Thomas Enriquez DO [address] [address] Mindy Genao, PT 8 [place] [address] 03/18/2025 9:30 AM EST Office Visit [facility] 8 [place] [address] Thomas Enriquez DO [address] [address] Toney Loco, PT 8 [place] [address] [email or web address] 03/20/2025 9:30 AM EST Office Visit [facility] [address] [place] [address] Thomas Enriquez, DO [address] [place] [address] [place] [address] Toney Loco, PT 8 [place] [address] [email or web address] 03/24/2025 8:45 AM EST Office Visit [facility] [address] [place] [address] Thomas Enriquez, DO [address] [place] [address] [place] [address] Toney Loco, PT 8 [place] [address] [email or web address] 03/30/2025 9:15 AM EST Office Visit [facility] 8 [place] [address] Thomas Enriquez, DO [address] [place] [address] [place] [address] Mindy Genao, PT 8 [place] [address] [email or web address] 04/01/2025 8:45 AM EST Office Visit [facility] [address] [place] [address] Thomas Enriquez, DO [address] [place] [address] [place] [address] Toney Loco, PT 8 [place] [address] 04/06/2025 9:15 AM EST Office Visit [facility] 8 [place] [address] Thomas Enriquez DO [address] [place] [address] [place] [address] Mindy Genao, PT 8 [place] [address] 04/08/2025 8:45 AM EST Office Visit [facility] 8 [place] [address] Thomas Enriquez DO [address] [place] [address] [place] [address] Toney Loco, PT 8 [place] [address] [email or web address] 04/14/2025 8:45 AM EST Office Visit [facility] 8 [place] [address] Thomas Enriquez DO [address] [place] [address] [place] [address] Toney Loco, PT 8 [place] [address] [email or web address] 04/16/2025 8:45 AM EST Office Visit [facility] 8 [place] [address] Thomas Enriquez DO [address] [place] [address] [place] [address] Toney Loco, PT 8 [place] [address] 04/21/2025 8:45 AM EST Office Visit [facility] 8 [place] [address] Thomas Enriquez, DO [address] [place] [address] [place] [address] Toney Loco, PT 8 [place] [address] [email or web address] 04/23/2025 8:45 AM EST Office Visit [facility] 8 [place] [address] Thomas Enriquez, DO [address] [place] [address] [place] [address] Toney Loco, PT 8 [place] [address] [email or web address] 04/28/2025 8:45 AM EST Office Visit [facility] 8 [place] [address] Thomas Enriquez, DO [address] [address] Toney Loco, PT 8 [place] [address] [email or web address] 04/30/2025 8:45 AM EST Office Visit [facility] 8 [place] [address] Thomas Enriquez, DO [address] [place] [address] [place] [address] Toney Loco, PT 8 [place] [address] [email or web address] 05/05/2025 8:45 AM EST Office Visit [facility] 8 [place] [address] Thomas Enriquez, DO [address] [place] [address] [place] [address] Toney Loco, PT 8 [place] [address] [email or web address] 05/07/2025 8:45 AM EST Office Visit [facility] 8 [place] [address] Thomas Enriquez, DO [address] [place] [address] [place] [address] Toney Loco, PT 8 [place] [address] [email or web address] 05/12/2025 8:45 AM EST Office Visit [facility] 8 [place] [address] Thomas Enriquez, DO [address] [place] [address] [place] [address] Toney Loco, PT 8 [place] [address] [email or web address] 05/14/2025 8:45 AM EST Office Visit [facility] 8 [place] [address] Thomas Enriquez, DO [address] [place] [address] [place] [address] Toney Loco, PT 8 [place] [address] [email or web address] 05/19/2025 8:45 AM EST Office Visit [facility] 8 [place] [address] Thomas Enriquez, DO [address] [place] [address] [place] [address] Toney Loco, PT 8 [place] [address] [email or web address] 05/21/2025 8:45 AM EST Office Visit [facility] 8 [place] [address] Thomas Enriquez DO [address] [place] [place] [address] Toney Loco, PT 8 [place] [address] [email or web address] documented as of this encounter Results * US Kidneys (08/08/2018 10:28 AM EDT) Anatomical Region Laterality Modality Abdomen, Kidney Ultrasound 08/08/2018 4:23 PM EDT Impressions 08/08/2018 4:26 PM EDT 1. Nonobstructing left lower pole renal calculus measures 0.4 cm. 2. Multiple additional bilateral echogenic foci without shadowing or twinkle artifact could represent tiny nonobstructing stones. POS - [id number] Narrative 08/08/2018 4:26 PM EDT EXAM: US [...] is within normal limits for size and [id number] cm in sagittal dimension. Parenchyma is within [...] could represent tiny nonobstructing stones. POS - [id number] Liss Florian MD [facility] US RENAL Final Result documented in this encounter Visit Diagnoses Diagnosis Flank pain Abdominal pain, unspecified site Calculus of kidney with calculus of ureter Flank pain Abdominal pain, unspecified site Calculus of kidney with calculus of ureter documented in this encounter Care Teams Natural Remedy Consultant Relationship Specialty Start Date End Date Itzel Martinez NP [address] [place] [address] PCP - General Family Medicine 02/09/17 04/15/24 Janae Lawrence MD [address] [place] [phone] PCP - General Internal Medicine 04/16/24 Mariam Cooper CNM 30 [place] [address] Historical LMR Provider 01/21/17 2 Tila Haile NP 30 [place] [address] [email or web address] Historical LMR Provider 01/21/17 Katelynn Ruiz NP [address] [place] [address] [email or web address] Historical LMR Provider 01/21/17 04/09/21 Tang Reed MD [address] [place] [address], [address] [place] [address] Historical LMR Provider 01/21/17 04/09/21 Gilma Carrasco MD [address] [place] [address] Historical LMR Provider 01/21/17 Itzel Martinez NP [address] [place] [address] Historical LMR Provider 01/21/17 Elena Eason MD [address] [place] [address] Historical LMR Provider 01/21/17 2 Cruz Roberson MD [address] [place] [address] Historical LMR Provider 01/21/17 04/09/21 Nova Acevedo MD [address] [place] [phone] Historical LMR Provider 01/21/17 2 Mar Keene MD 22 [facility] [address] [place] [address] [email or web address] Historical LMR Provider 01/21/17 04/09/21 Rachel Saleem MD [address] [place] [id number] Historical LMR Provider 01/21/17 2 Robert Michele MD [address] [place] [address] [email or web address] Insurance Assigned Provider 07/06/18 12/07/18 Cecil Barillas MD [address] [place] [address] [address] [place] [phone] [email or web address] Assigned Provider 12/07/18 07/09/19 documented as of this encounter Additional Source Comments The information contained in this document represents components of the legal health record. It is not the complete legal health record.[facility]
--- OUTSIDE RECORDS SUMMARY | 2025-02-06 16:37 | XMS_ITS | Clinical Summary ---
Author Organization [facility] Address [address] [place] [address] Phone Care Team Providers Care Lab Clerk Name Role Phone Janae Lawrence Primary Care Provider [phone] Encounters Date Type Department Care Team Description 12/24/2024 1:30 PM EDT Consult [facility] Medicine Department [address] [place] [address] Mansoor Mccullough MD Labral tear of hip, degenerative (Primary Dx); DDH (developmental dysplasia of the hip) 12/24/2024 Travel 12/23/2024 - 12/23/2024 11:59 PM EDT Hospital Encounter [facility] [address] [address] Discharge Disposition: Home 12/23/2024 Travel 11/21/2024 9:01 AM EDT - 11/21/2024 11:59 PM EDT Hospital Encounter [facility] [address] [place] [address] Mindy Catalan RT Bilateral hip pain Discharge Disposition: Home 11/21/2024 Travel 11/18/2024 3:40 PM EDT Office Visit [facility] Medicine Department [address] [place] [phone] 11/18/2024 3:30 PM EDT Office Visit [facility] Sports Medicine Department [address] [place] [phone] Charlie De La O MD Hip impingement syndrome, right [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] (Primary Dx); Bilateral hip pain; Psoas tendinitis, right hip [M76.11] 11/18/2024 Travel 11/14/2024 Orders Only [facility] Department [address] [place] [address] Mee Kim PA-C from Last 3 Months Social History Tobacco Use Types Packs/Day Years Used Date Smoking Tobacco: Never Smokeless Tobacco: Never Tobacco Cessation:Counseling Given: Not Answered Comments Unknown Sex and Gender Information Value Date Recorded Sex Assigned at Female 12/23/2024 8:29 PM EDT Legal Sex Female 11:10 AM EDT Gender Identity Female 12/23/2024 8:29 PM EDT Sexual Orientation Straight 12/23/2024 8: 29 PM EDT Last Filed Vital Signs Vital Sign Reading Time Taken Comments Blood Pressure - - Pulse - - Temperature 36.4 C (97.5 F) 12/24/2024 1:13 PM EDT Respiratory Rate - - Oxygen Saturation - - Inhaled Oxygen Concentration - - Weight 66.8 kg (147 lb 4.3 oz) 12/24/2024 1:13 P M EDT Height 162.5 cm (5' 3.98 ) 12/24/2024 1:13 PM ED T Body Mass Index 25.3 12/24/2024 1:13 PM EDT Plan of Treatment Scheduled Procedures Name Priority Associated Diagnoses Date/Ti me HIP, RADHA DDH (developmental dysplasia of the hip) Health Maintenance Due Date Last Done Comments Chlamydia and Gonorrhea Screening 1975 HIV Screening 1975 MMR Vaccines (1 of 1 - Standard series) 08/10/1976 Anemia Screening 1987 Varicella Vaccines (1 of 2 - 13+ [...] Name Priority Date/Time Associated Diagnosis Comments MR OUTSIDE IMAGES ON PACS Routine 12/23/2024 8:[address] HIPS JAIMES BILATERAL WO IV CONTRAST POST PROC Routine 11/21/2024 11:00 AM EDT Bilateral hip pain [facility] AMB ORT TENDON SHEATH INJECTION Routine 11/18/2024 4:20 PM EDT Hip impingement syndrome, right [M25.851] Psoas tendinitis, right hip [M76.11] SPORTS MED. JOINT - LIMITED Routine 11/18/2024 3:35 PM EDT Bilateral hip pain from Last 3 Months Results * MR Outside Images On PACS (12/23/2024 8:42 AM EDT) Narrative [facility] RADIOLOGY PACS VR - 12/24/2024 8:42 AM EDT The images available with this report have been imported from an outside institution and are to be used for reference purposes only. Please note that these imported images might not be of diagnostic quality. Dictated by: SHEILA TURNER MD 12/24/24 Verified by: SHEILA TURNER MD 12/24/24 us Historic Provider IMG MRI PROCEDURES Final Resul t [facility] RADIOLOGY PACS VR * CT Hips Jaimes Bilateral WO IV Contrast Post Proc (11/21/2024 11:00 AM EDT) Anatomical Region Laterality Modality Lower Extremities, Hip Left Computed Tomography 11/21/2024 11:1 8 AM EDT Impressions 11/21/2024 11:39 PM EDT IMPRESSION: Femoral and acetabular version as described. END OF IMPRESSION Narrative 11/21/2024 11:39 PM EDT PROCEDURE: CT HIPS JAIMES BILATERAL WO IV CONTRAST POST PROC ACTIONABLE FINDINGS: None INDICATION: Jaimes protocol. Eval right hip anatomy 3D bone [...] periumbilical hernia. Procedure Note Claudio Charlton MD - 11/21/2024 PROCEDURE: CT HIPS JAIMES BILATERAL WO IV CONTRAST POST PROC ACTIONABLE FINDINGS: None INDICATION: Jaimes protocol. Eval right hip anatomy 3D bone [...] IMPRESSION us Charlie De La O MD IM CT PROCEDURES Final Result * Tendon Sheath Injection (11/18/2024 4:20 PM EDT) Charlie Browne MD - 11/18/2024 4:20 PM EDT Charlie [...] verify the correct patient, procedure, equipment, support clerk and site/side marked as required. Patient was prepped and draped in the usual sterile fashion. us Charlie De La O MD IN CLINIC/BEDSIDE ORDERA BLES Final Result * US SM Joint - Limited (11/18/2024 3:35 PM EDT) Narrative [facility] RADIOLOGY PACS VR - 11/18/2024 3:35 PM EDT Please see image section of visit note for details/results. us Charlie De La O MD IMG US PROCEDURES Final Result [facility] RADIOLOGY PACS VR from Last 3 Months Insurance [facility] MEDICARE [facility] MEDICARE Care Teams Lab Clerk Relationship Specialty Start Date End Date Janae Lawrence [address] [place] [phone] PCP - General 09/22/24
--- OUTSIDE RECORDS SUMMARY | 2025-02-06 16:37 | XMS_ITS | Encounter Summary ---
Author Organization [facility] Address [address] [facility] [address] [place] [address] Phone Care Team Providers Care Gas Or Petroleum Operator Name Role Phone Tila Haile MATERIALS SCIENTIST Unavailable [phone] Gilma Carrasco MD Unavailable Itzel Martinez MATERIALS SCIENTIST Unavailable [phone] Itzel Martinez NP Primary Care Provider [phone] Janae Lawrence MD Primary Care Provider Encounter Details Date Type Department Care Team (Late st Contact Info) Description 02/22/2024 Procedure [facility] - [address] [place] [address] Social History Tobacco Use Types Packs/Day Years [...] Description 03/11/2025 9:30 AM EST Office Visit [address] [address] Thomas Enriquez DO [address] [address] Toney Loco, PT 8 [place] [address] 03/13/2025 9:15 AM EST Office Visit [address] [address] Thomas Enriquez DO [address] [address] Mindy Genao, PT 8 [place] [address] 03/18/2025 9:30 AM EST Office Visit [facility] 8 [place] [address] Thomas Enriquez DO [address] [address] Toney Loco, PT 8 [place] [address] [email or web address] 03/20/2025 9:30 AM EST Office Visit [facility] [address] [place] [address] Thomas Enriquez, DO [address] [place] [address] [place] [address] Toney Loco, PT 8 [place] [address] [email or web address] 03/24/2025 8:45 AM EST Office Visit [address] [place] [address] Thomas Enriquez, DO [address] [place] [address] [place] [address] Toney Loco, PT 8 [place] [address] [email or web address] 03/30/2025 9:15 AM EST Office Visit [facility] 8 [place] [address] Thomas Enriquez, DO [address] [place] [address] [place] [address] Mindy Genao, PT 8 [place] [address] [email or web address] 04/01/2025 8:45 AM EST Office Visit [facility] [address] [place] [address] Thomas Enriquez, DO [address] [address] Toney Loco, PT 8 [place] [address] [email or web address] 04/06/2025 9:15 AM EST Office Visit [facility] 8 [place] [address] Thomas Enriquez DO [address] [place] [address] [place] [address] Mindy Genao, PT 8 [place] [address] 04/08/2025 8:45 AM EST Office Visit [facility] 8 [place] [address] Thomas Enriquez, DO [address] [place] [address] [place] [address] Toney Loco, PT 8 [place] [address] [email or web address] 04/14/2025 8:45 AM EST Office Visit [facility] 8 [place] [address] Thomas Enriquez, DO [address] [place] [address] [place] [address] Toney Loco, PT 8 [place] [address] [email or web address] 04/16/2025 8:45 AM EST Office Visit [facility] 8 [place] [address] Thomas Enriquez DO [address] [place] [address] [place] [address] Toney Loco, PT 8 [place] [address] [email or web address] 04/21/2025 8:45 AM EST Office Visit [facility] 8 [place] [address] Mina, Thomas, DO [address] [place] [address] [place] [address] Toney Loco, PT 8 [place] [address] [email or web address] 04/23/2025 8:45 AM EST Office Visit [facility] 8 [place] [address] Thomas Enriquez, DO [address] [place] [address] [place] [address] Toney Loco, PT 8 [place] [address] [email or web address] 04/28/2025 8:45 AM EST Office Visit [address] [address] Thomas Enriquez, DO [address] [place] [address] [place] [address] Toney Loco, PT 8 [place] [address] [email or web address] 04/30/2025 8:45 AM EST Office Visit [facility] 8 [place] [address] Thomas Enriquez DO [address] [place] [address] [place] [address] Toney Loco, PT 8 [place] [address] [email or web address] 05/05/2025 8:45 AM EST Office Visit [facility] 8 [place] [address] Thomas Enriquez DO [address] [place] [address] [place] [address] Toney Loco, PT 8 [place] [address] [email or web address] 05/07/2025 8:45 AM EST Office Visit [facility] 8 [place] [address] Thomas Enriquez, DO [address] [place] [address] [place] [address] Toney Loco, PT 8 [place] [address] [email or web address] 05/12/2025 8:45 AM EST Office Visit [facility] [address] [place] [address] Thomas Enriquez, DO [address] [place] [address] [place] [address] Toney Loco, PT 8 [place] [address] [email or web address] 05/14/2025 8:45 AM EST Office Visit [facility] 8 [place] [address] Thomas Enriquez, DO [address] [place] [address] [place] [address] Toney Loco, PT 8 [place] [address] [email or web address] 05/19/2025 8:45 AM EST Office Visit [facility] [address] [place] [address] Thomas Enriquez, DO [address] [place] [address] [place] [address] Toney Loco, PT 8 [place] [address] 05/21/2025 8:45 AM EST Office Visit [facility] 8 [place] [address] Thomas Enriquez DO [address] [place] [address] [place] [address] Claudy Jedfranklyn, PT 8 [place] [address] documented as of this encounter Visit Diagnoses Not on filedocumented in this encounter Care Teams Gas Or Petroleum Operator Relationship Specialty Start Date End Date Itzel Martinez NP [address] [place] [address] PCP - General Family Medicine 02/09/17 04/15/24 Janae Lawrence MD [address] [place] [address] PCP - General Internal Medicine 04/16/24 Tila Haile NP [address] [place] [address] Historical LMR Provider 01/21/17 Gilma Carrasco MD [address] [facility], [address] [place] [address] Historical LMR Provider 01/21/17 Itzel Martinez MATERIALS SCIENTIST [address] [place] [address] Historical LMR Provider 01/21/17 documented as of this encounter Additional Source Comments The information contained in this document represents components of the legal health record. It is not the complete legal health record.[facility]
--- OUTSIDE RECORDS SUMMARY | 2025-02-06 16:37 | XMS_ITS | Encounter Summary ---
Author Organization [facility] Address [address] [place] [phone] Care Team Providers Care Digital Advertising Specialist Name Role Phone No, Pcp (Do Not Change Name) Primary Care Provid er Unavailable Encounter Details Date Type Department Care Team (Late st Contact Info) Description 06/26/2018 Scanned Document [facility] [address] [place] [phone] Ramin Soares MD [address] [place] [phone] Social History Tobacco Use Types Packs/Day Years [...] on filedocumented in this encounter Care Teams Digital Advertising Specialist Relationship Specialty Start Date End Date No, Pcp (Do Not Change Name) PCP - General 06/27/18 documented as of this encounter
--- OUTSIDE RECORDS SUMMARY | 2025-02-06 16:37 | XMS_ITS | Encounter Summary ---
Author Organization [facility] Address [address] [facility] [address] [place] [address] Phone Care Team Providers Care Aircraft Engine Specialist Name Role Phone HarvardTila foster Leroy USED CAR RENOVATOR Unavailable [phone] Gilma Carrasco MD Unavailable Itzel Martinez USED CAR RENOVATOR Unavailable [phone] Janae Lawrence MD Primary Care Provider Encounter Details Date Type Department Care Team (Latest Contact Info) Description 02/06/2025 Plan of Care Documentation [facility] [address] [place], [place] [phone] Social History Tobacco Use Types Packs/Day Years [...] PM EDT documented as of this encounter Miscellaneous Notes * Outpatient Rehab Plan of Care - Toney Loco, PT - 02/06/2025 2:24 PM EST [facility] HEALTH CARE FINANCING ADMINISTRATION PLAN OF TREATMENT FOR OUTPATIENT REHABILITATION (Complete for Initial Claims Only) 1. PROVIDER NAME: Toney Loco PT 2. 3. ONSET DATE: 06/20/24 4. SOC DATE: 07/30/24 5. PRIMARY DIAGNOSIS: 1. Acute bilateral low back pain, unspecified whether sciatica present 6. VISITS FROM SOC: 27 7. PLAN OF TREATMENT FUNCTIONAL GOAL GOAL (Short Term): In 4wks, pt will: 1. Increase lumbar ROM by 25% or greater(Achieved) 2. Improve strength by 1/2 grade grade grossly (Partially met) 3. Be able to walk with more normalized gait for short distances(Ongoing) 4. Be able to perform transfers and bed mobility with greater ease(Partially met) OUTCOME (Senior Living): In 8-10wks, pt will: 1. Be able to perform self-care activities with minimal to no restrictions(Ongoing) 2. Negotiate flight of stairs reciprocally without railing(Ongoing) 3. Be able to walk community distances with reciprocal gait and no asymmetries(Ongoing) 4. Independent in most ADLs(Ongoing) 5. Exhibit 4/5 strength grossly(NEW) Patient Stated Goal: Feel better/ be able to move normally again PLAN Frequency and Duration: Patient will be seen 2 times per week for 8-10 weeks. Intervention: - Manual therapy - Therapeutic exercise - US - Mechanical traction - TENS - Self-care/HEP 8. SIGNATURE (professional establishing POC including prof. Designation): Toney Loco, PT 9. INITIAL ASSESSMENT (History, medical complications, level of function at start of care. Reason for referral) Please refer to initial assessment note for full documentation. 10. FUNCTIONAL LEVEL (End of Billing Period) PROGRESS REPORT: Continue Services Please refer to progress notes and Plan of Care for documentation of patient progress. documented in this encounter Plan of Treatment Upcoming Encounters Date Type Department Care Team (Late st Contact Info) Description 03/11/2025 9:30 AM EST Office Visit [address] [address] Thomas Enriquez DO [address] [place] [address] [place] [address] Toney Loco, PT 8 [place] [address] 03/13/2025 9:15 AM EST Office Visit [address] [address] Thomas Enriquez DO [address] [place] [address] [place] [address] Mindy Genao, PT 8 [place] [address] 03/18/2025 9:30 AM EST Office Visit [address] [address] Thomas Enriquez DO [address] [place] [address] [place] [address] Toney Loco, PT 8 [place] [address] 03/20/2025 9:30 AM EST Office Visit [address] [place] [address] Thomas Enriquez, DO [address] [place] [address] [place] [address] Toney Loco, PT 8 [place] [address] 03/24/2025 8:45 AM EST Office Visit [facility] [address] [place] [address] Thomas Enriquez, DO [address] [place] [address] [place] [address] Toney Loco, PT 8 [place] [address] 03/30/2025 9:15 AM EST Office Visit [facility] 8 [place] [address] Thomas Enriquez, DO [address] [place] [address] [place] [address] Mindy Genao, PT 8 [place] [address] 04/01/2025 8:45 AM EST Office Visit [facility] 8 [place] [address] Thomas Enriquez DO [address] [address] Toney Loco, PT 8 [place] [address] 04/06/2025 9:15 AM EST Office Visit [facility] [address] [place] [address] Thomas Enriquez DO [address] [address] Mindy Genao, PT 8 [place] [address] 04/08/2025 8:45 AM EST Office Visit [facility] 8 [place] [address] Thomas Enriquez, DO [address] [place] [address] [place] [address] Toney Loco, PT 8 [place] [address] 04/14/2025 8:45 AM EST Office Visit [facility] 8 [place] [address] Thomas Enriquez, DO [address] [place] [address] [place] [address] Toney Loco, PT 8 [place] [address] 04/16/2025 8:45 AM EST Office Visit [facility] 8 [place] [address] Thomas Enriquez, DO [address] [place] [address] [place] [address] Toney Loco, PT 8 [place] [address] 04/21/2025 8:45 AM EST Office Visit [facility] 8 [place] [address] Thomas Enriquez, DO [address] [place] [address] [place] [address] Toney Loco, PT 8 [place] [address] 04/23/2025 8:45 AM EST Office Visit [facility] [address] [place] [address] Thomas Enriquez, DO [address] [place] [address] [place] [address] Toney Loco, PT 8 [place] [address] 04/28/2025 8:45 AM EST Office Visit [facility] [address] [place] [address] Thomas Enriquez, DO [address] [place] [address] [place] [address] Toney Loco, PT 8 [place] [address] 04/30/2025 8:45 AM EST Office Visit [facility] [address] [place] [address] Thomas Enriquez, DO [address] [place] [address] [place] [address] Toney Loco, PT 8 [place] [address] 05/05/2025 8:45 AM EST Office Visit [facility] [address] [place] [address] Thomas Enriquez, DO [address] [place] [address] [place] [address] Toney Loco, PT 8 [place] [address] 05/07/2025 8:45 AM EST Office Visit [facility] 8 [place] [address] Thomas Enriquez, DO [address] [place] [address] [place] [address] Toney Loco, PT 8 [place] [address] 05/12/2025 8:45 AM EST Office Visit [facility] 8 [place] [address] Thomas Enriquez, DO [address] [place] [address] [place] [address] Toney Loco, PT 8 [place] [address] 05/14/2025 8:45 AM EST Office Visit [facility] 8 [place] [address] Thomas Enriquez, DO [address] [place] [address] [place] [address] Toney Loco, PT 8 [place] [address] 05/19/2025 8:45 AM EST Office Visit [facility] 8 [place] [address] Thomas Enriquez, DO [address] [place] [address] [place] [address] Toney Loco, PT 8 [place] [address] 05/21/2025 8:45 AM EST Office Visit [facility] [address] [place] [address] Thomas Enriquez DO [address] [place] [address] [place] [address] Claudy Toney, PT 8 [place] [address] [email or web address] documented as of this encounter Visit Diagnoses Not on filedocumented in this encounter Care Teams Aircraft Engine Specialist Relationship Specialty Start Date End Date Janae Lawrence MD [address] [place] [address] PCP - General Internal Medicine 04/16/24 Tila Haile NP [address] [place] [address] [email or web address] Historical LMR Provider 01/21/17 Gilma Carrasco MD [address] [facility], [address] [place] [address] Historical LMR Provider 01/21/17 Itzel Martinez NP [address] [place] [address] Historical LMR Provider 01/21/17 documented as of this encounter Additional Source Comments The information contained in this document represents components of the legal health record. It is not the complete legal health record.[facility]
--- OUTSIDE RECORDS SUMMARY | 2025-02-06 16:37 | XMS_ITS | Encounter Summary ---
Author Organization [facility] Address [address] [place] [phone] Care Team Providers Care Fire Investigation Lieutenant Name Role Phone No, Pcp (Do Not Change Name) Primary Care Provid er Unavailable Encounter Details Date Type Department Care Team (Late st Contact Info) Description 07/03/2018 Scanned Document [facility] at [address] [place] [phone] Ramin Soares MD [address] [place] [phone] Social History Tobacco Use Types Packs/Day Years [...] on filedocumented in this encounter Care Teams Fire Investigation Lieutenant Relationship Specialty Start Date End Date No, Pcp (Do Not Change Name) PCP - General 06/27/18 documented as of this encounter
--- OUTSIDE RECORDS SUMMARY | 2025-02-06 16:37 | XMS_ITS | Encounter Summary ---
Author Organization [facility] Address [address] [place] [address] [place] [address] Phone Care Team Providers Care Binder Lockstitch Name Role Phone Mariam Cooper CNM Unavailable Tila Haile [employer] Unavailable [phone] Katelynn Ruiz [employer] Unavailable Tang Reed MD Unavailable Gilma Carrasco MD Unavailable Itzel Martinez [employer] Unavailable [phone] Elena Eason MD Unavailable [phone] Cruz Roberson MD Unavailable Nova Acevedo MD Unavailable Mar Keene MD Unavailable Rachel Saleem MD Unavailable [phone] Itzel Martinez [employer] Primary Care Provider Robert Michele MD Unavailable Cecil Barillas MD Unavailable Janae Lawrence MD Primary Care Provider Encounter Details Date Type Department Care Team (Latest Contact Info) Description 11/07/2018 Transcribe Orders [facility] Phleb [place] [address] 2[address] Floor [place], [place] [id number] Diane Arrieta PA [address] [place] [address] Occult blood in stools (Primary Dx) Social [...] Description 03/11/2025 9:30 AM EST Office Visit [address] [address] Thomas Enriquez DO [address] [address] Toney Loco, PT 8 [place] [address] 03/13/2025 9:15 AM EST Office Visit [address] [address] Thomas Enriquez DO [address] [place] [address] [place] [address] Mindy Genao, PT 8 [place] [address] 03/18/2025 9:30 AM EST Office Visit [address] [address] Thomas Enriquez DO [address] [place] [address] [place] [address] Toney Loco, PT 8 [place] [address] 03/20/2025 9:30 AM EST Office Visit [facility] [address] [place] [address] Thomas Enriquez, DO [address] [place] [address] [place] [address] Toney Loco, PT 8 [place] [address] 03/24/2025 8:45 AM EST Office Visit [address] [place] [address] Thomas Enriquez, DO [address] [place] [address] [place] [address] Toney Loco, PT 8 [place] [address] 03/30/2025 9:15 AM EST Office Visit [facility] 8 [place] [address] Thomas Enriquez, DO [address] [place] [address] [place] [address] Mindy Genao, PT 8 [place] [address] 04/01/2025 8:45 AM EST Office Visit [facility] [address] [place] [address] Thomas Enriquez, DO [address] [address] Toney Loco, PT 8 [place] [address] 04/06/2025 9:15 AM EST Office Visit [facility] 8 [place] [address] Thomas Enriquez DO [address] [place] [address] [place] [address] Mindy Genao, PT 8 [place] [address] 04/08/2025 8:45 AM EST Office Visit [facility] 8 [place] [address] Thomas Enriquez, DO [address] [place] [address] [place] [address] Toney Loco, PT 8 [place] [address] 04/14/2025 8:45 AM EST Office Visit [facility] 8 [place] [address] Thomas Enriquez, DO [address] [place] [address] [place] [address] Toney Loco, PT 8 [place] [address] 04/16/2025 8:45 AM EST Office Visit [facility] 8 [place] [address] Thomas Enriquez DO [address] [place] [address] [place] [address] Toney Loco, PT 8 [place] [address] 04/21/2025 8:45 AM EST Office Visit [facility] 8 [place] [address] Mina, Thomas, DO [address] [place] [address] [place] [address] Toney Loco, PT 8 [place] [address] 04/23/2025 8:45 AM EST Office Visit [facility] 8 [place] [address] Thomas Enriquez, DO [address] [place] [address] [place] [address] Toney Loco, PT 8 [place] [address] 04/28/2025 8:45 AM EST Office Visit [address] [address] Thomas Enriquez, DO [address] [place] [address] [place] [address] Toney Loco, PT 8 [place] [address] 04/30/2025 8:45 AM EST Office Visit [facility] 8 [place] [address] Thomas Enriquez DO [address] [place] [address] [place] [address] Toney Loco, PT 8 [place] [address] 05/05/2025 8:45 AM EST Office Visit [facility] 8 [place] [address] Thomas Enriquez DO [address] [place] [address] [place] [address] Toney Loco, PT 8 [place] [address] 05/07/2025 8:45 AM EST Office Visit [facility] 8 [place] [address] Thomas Enriquez, DO [address] [place] [address] [place] [address] Toney Loco, PT 8 [place] [address] 05/12/2025 8:45 AM EST Office Visit [facility] [address] [place] [address] Thomas Enriquez, DO [address] [place] [address] [place] [address] Toney Loco, PT 8 [place] [address] 05/14/2025 8:45 AM EST Office Visit [facility] 8 [place] [address] Thomas Enriquez, DO [address] [place] [address] [place] [address] Toney Loco, PT 8 [place] [address] 05/19/2025 8:45 AM EST Office Visit [facility] [address] [place] [address] Thomas Enriquez, DO [address] [place] [address] [place] [address] Toney Loco, PT 8 [place] [address] 05/21/2025 8:45 AM EST Office Visit [facility] 8 [place] [address] Thomas Enriquez DO [address] [place] [address] [place] [address] Toney Loco, PT 8 [place] [address] documented as of this encounter Results * (ABNORMAL) CBC and differential (11/07/2018 11:44 AM EDT) WBC 9.80 3.40 - 11.20 K/uL [facility] RBC 4.43 3.80 - 4.80 M/uL [facility] HGB 14.4 12.0 - 15.0 g/dL [facility] HCT 42.3 36.0 - 46.0 % [facility] PLT 221 130 - 400 K/uL [facility] MCV 95.5 79.0 - 98.0 fL [facility] MCH 32.5 27.0 - 34.8 pg [facility] MCHC 34.0 31.5 - 36.0 g/dL [facility] RDW 12.5 10.8 - 14.6 % [facility] MPV 10.6 9.4 - 12.4 fl [facility] NRBC 0.00 0.00 /100 WBCs [facility] ABSOLUTE NRBC 0.00 0.00 K/uL [facility] DIFF METHOD Auto [facility] NEUTS 68.4 45.30 - 77.70 % [facility] LYMPHS 21.5 12.30 - 39.70 % [facility] MONOS 8.6 4.10 - 12.80 % [facility] EOS 1.0 0 - 7.2 % [facility] BASOS 0.4 0 - 2.80 % [facility] Granulocytes, immature (%) 0.1 0.0 - 0.9 % [facility] ABSOLUTE NEUTS 6.70 1.40 - 7.70 K/uL [facility] ABSOLUTE LYMPHS 2.11 0.60 - 3.20 K/uL [facility] ABSOLUTE MONOS 0.84(H) 0.11 - 0.59 K/uL [facility] ABSOLUTE EOS 0.10 0.01 - 0.50 K/uL [facility] ABSOLUTE BASOS 0.04 0.00 - 0.08 K/uL [facility] Granulocytes, immature 0.01 0.00 - 0.05 K/uL [facility] Blood 11/07/2018 11:4 4 AM EDT 11/07/2018 11:49 AM EDT us Diane GUDINO LAB BLOOD BKR ORDERABLES F inal Result [address] [address] documented in this encounter Visit Diagnoses Diagnosis Occult blood in stools- Primary Nonspecific abnormal finding in stool contents documented in this encounter Care Teams Binder Lockstitch Relationship Specialty Start Date End Date Itzel Martinez NP [address] [place] [address] PCP - General Family Medicine 02/09/17 04/15/24 Janae Lawrence MD [address] [phone] PCP - General Internal Medicine 04/16/24 Mariam Cooper CNM [address] [place] [address] Historical LMR Provider 01/21/17 2 Tila Haile NP [address] [place] [address] [email or web address] Historical LMR Provider 01/21/17 Katelynn Ruiz NP [address] [place] [address] [email or web address] Historical LMR Provider 01/21/17 04/09/21 Tang Reed MD [address] [place] [address], [address] [place] [address] Historical LMR Provider 01/21/17 04/09/21 Gilma Carrasco MD [address] [place] [address] Historical LMR Provider 01/21/17 Itzel Martinez NP [address] [place] [address] Historical LMR Provider 01/21/17 Elena Eason MD [address] [place] [address] Historical LMR Provider 01/21/17 2 Cruz Roberson MD [address] [place] [address] Historical LMR Provider 01/21/17 04/09/21 Nova Acevedo MD [address] [place] [phone] Historical LMR Provider 01/21/17 2 Mar Keene MD [address] [place] [address] Historical LMR Provider 01/21/17 04/09/21 Rachel Saleem MD [address] [place] [address] Historical LMR Provider 01/21/17 2 Robert Michele MD 70 [place] [address] [email or web address] Insurance Assigned Provider 07/06/18 12/07/18 Cecil Barillas MD [address] [place] [phone] [email or web address] Assigned Provider 12/07/18 07/09/19 documented as of this encounter Additional Source Comments The information contained in this document represents components of the legal health record. It is not the complete legal health record.[facility]
--- OUTSIDE RECORDS SUMMARY | 2025-02-06 16:37 | XMS_ITS | Encounter Summary ---
Author Organization [facility] Address [address] [place] [address] [place] [address] Phone Care Team Providers Care Store Assistant Name Role Phone Mariam Cooper CNM Unavailable Tila Haile WINDOW ASSEMBLER Unavailable Katelynn Ruiz WINDOW ASSEMBLER Unavailable Tang Reed MD Unavailable Gilma Carrasco MD Unavailable Itzel Martinez WINDOW ASSEMBLER Unavailable [phone] Elena Eason MD Unavailable [phone] Cruz Roberson MD Unavailable Nova Acevedo MD Unavailable Mar Keene MD Unavailable Rachel Saleem MD Unavailable [phone] Itzel Martinez WINDOW ASSEMBLER Primary Care Provider Robert Michele MD Unavailable Cecil Barillas MD Unavailable Janae Lawrence MD Primary Care Provider [phone] Encounter Details Date Type Department Care Team (Latest Contact Info) Description 02/09/2017 Transcribe Orders [facility] Phleb Main [address] [place] [address] Itzel Martinez, WINDOW ASSEMBLER [address] [place] [address] Fatigue, unspecified type (Primary Dx) Social History [...] Description 03/11/2025 9:30 AM EST Office Visit [facility] [address] [place] [address] Thomas Enriquez DO [address] [address] Toney Loco, PT 8 [place] [address] [email or web address] 03/13/2025 9:15 AM EST Office Visit [facility] [address] [place] [address] Thomas Enriquez DO [address] [address] Mindy Genao, PT 8 [place] [address] 03/18/2025 9:30 AM EST Office Visit [facility] [address] [place] [address] Thomas Enriquez DO [address] [address] Toney Loco, PT 8 [place] [address] [email or web address] 03/20/2025 9:30 AM EST Office Visit [facility] 8 [place] [address] Thomas Enriquez, DO [address] [place] [address] [place] [address] Toney Loco, PT 8 [place] [address] [email or web address] 03/24/2025 8:45 AM EST Office Visit [facility] 8 [place] [address] Thomas Enriquez, DO [address] [place] [address] [place] [address] Toney Lcoo, PT 8 [place] [address] [email or web address] 03/30/2025 9:15 AM EST Office Visit [facility] 8 [place] [address] Thomas Enriquez, DO [address] [place] [address] [place] [address] Mindy Genao, PT 8 [place] [address] 04/01/2025 8:45 AM EST Office Visit [facility] 8 [place] [address] Thomas Enriquez, DO [address] [place] [address] [place] [address] Toney Loco, PT 8 [place] [address] [email or web address] 04/06/2025 9:15 AM EST Office Visit [facility] [address] [place] [address] Thomas Enriquez, DO [address] [place] [address] [place] [address] Mindy Genao, PT 8 [place] [address] 04/08/2025 8:45 AM EST Office Visit [facility] 8 [place] [address] Thomas Enriquez, DO [address] [place] [address] [place] [address] Toney Loco, PT 8 [place] [address] [email or web address] 04/14/2025 8:45 AM EST Office Visit [address] [address] Thomas Enriquez, DO [address] [address] Toney Loco, PT 8 [place] [address] [email or web address] 04/16/2025 8:45 AM EST Office Visit [facility] 8 [place] [address] Thomas Enriquez, DO [address] [address] Toney Loco, PT 8 [place] [address] [email or web address] 04/21/2025 8:45 AM EST Office Visit [facility] 8 [place] [address] Thomas Enriquez, DO [address] [address] Toney Loco, PT 8 [place] [address] [email or web address] 04/23/2025 8:45 AM EST Office Visit [facility] [address] [place] [address] Thomas Enriquez, DO [address] [place] [address] [place] [address] Toney Loco, PT 8 [place] [address] 04/28/2025 8:45 AM EST Office Visit [facility] [address] [place] [address] Thomas Enriquez, DO [address] [place] [address] [place] [address] Toney Loco, PT 8 [place] [address] 04/30/2025 8:45 AM EST Office Visit [facility] 8 [place] [address] Thomas Enriquez, DO [address] [place] [address] [place] [address] Toney Loco, PT 8 [place] [address] 05/05/2025 8:45 AM EST Office Visit [facility] [address] [place] [address] Thomas Enriquez, DO [address] [place] [address] [place] [address] Toney Loco, PT 8 [place] [address] 05/07/2025 8:45 AM EST Office Visit [facility] [address] [place] [address] Thomas Enriquez DO [address] [place] [address] [place] [address] Toney Loco, PT 8 [place] [address] [email or web address] 05/12/2025 8:45 AM EST Office Visit [facility] [address] [place] [address] Thomas Enriquez DO [address] [place] [address] [place] [address] Toney Loco, PT 8 [place] [address] [email or web address] 05/14/2025 8:45 AM EST Office Visit [facility] 8 [place] [address] Thomas Enriquez, DO [address] [place] [address] [place] [address] Toney Loco, PT 8 [place] [address] [email or web address] 05/19/2025 8:45 AM EST Office Visit [facility] 8 [place] [address] Thomas Enriquez DO [address] [place] [address] [place] [address] Toney Loco, PT 8 [place] [address] [email or web address] 05/21/2025 8:45 AM EST Office Visit [facility] [address] [place] [address] [place], Thomas, DO [address] [place] [address] [place] [address] Toney Loco, PT 8 [place] [address] [email or web address] documented as of this encounter Results * (ABNORMAL) Basic metabolic panel (02/09/2017 1:46 PM EST) SODIUM 137 133 - 146 mmol/L [facility] CHLORIDE 99 96 - 108 mmol/L [facility] POTASSIUM 3.6 3.3 - 5.1 mmol/L [facility] CO2 26 21 - 35 mmol/L [facility] BUN 12 6 - 19 mg/dL [facility] CREATININE 0.60 0.5 - 1.5 mg/dL [facility] GLUCOSE 100(H) 70 - 99 mg/dL [facility] CALCIUM 8.8 8.4 - 10.3 mg/dL [facility] EGFR >60 60 - 1000 mL/min/1.7 3m2 [facility] Comment:Abnormal if <60. If patient is -[place] Citizen, multiply the result by 1.21. ANION GAP 16 10 - 20 mmol/L [facility] Blood 02/09/2017 1:46 PM EST 02/09/2017 1:48 PM EST us Itzel Martinez WINDOW ASSEMBLER LAB BLOOD BKR ORDERABLES Final Result Performing Organization Address City/State/[facility] Co de Phone Number [address] [address] documented in this encounter Visit Diagnoses Diagnosis Fatigue, unspecified type- Primary documented in this encounter Care Teams Store Assistant Relationship Specialty Start Date End Date Itzel Martinez NP [address] [place] [address] PCP - General Family Medicine 02/09/17 04/15/24 Janae Lawrence MD [address] [facility] [address] [place] [address] PCP - General Internal Medicine 04/16/24 Mariam Cooper CNM 30 [place] [address] Historical LMR Provider 01/21/17 2 Tila Haile NP 30 [place] [address] [email or web address] Historical LMR Provider 01/21/17 Katelynn Ruiz NP [address] [place] [address] [email or web address] Historical LMR Provider 01/21/17 04/09/21 Tang Reed MD [address] [place] [address], [address] [place] [address] [email or web address] Historical LMR Provider 01/21/17 04/09/21 Gilma Carrasco MD [address] [place] [address] Historical LMR Provider 01/21/17 Itzel Martinez NP [address] [place] [address] Historical LMR Provider 01/21/17 Elena Eason MD [address] [address] Historical LMR Provider 01/21/17 2 Cruz Roberson MD [address] [place] [address] Historical LMR Provider 01/21/17 04/09/21 Nova Acevedo MD [address] [place] [phone] Historical LMR Provider 01/21/17 2 Mar Keene MD [address] [facility] [address] [place] [address] [email or web address] Historical LMR Provider 01/21/17 04/09/21 Rachel Saleem MD [address], [place] [address] Historical LMR Provider 01/21/17 2 Robert Michele MD [address] [place] [address] [email or web address] Insurance Assigned Provider 07/06/18 12/07/18 Cecil Barillas MD [address] [place] [address] [place] [phone] [email or web address] Insurance Assigned Provider 12/07/18 07/09/19 documented as of this encounter Additional Source Comments The information contained in this document represents components of the legal health record. It is not the complete legal health record.[facility]
--- OUTSIDE RECORDS SUMMARY | 2025-02-06 16:37 | XMS_ITS | Clinical Summary ---
Author Organization [address] Address [address] [place] [phone] Phone Care Team Providers Care Branding Specialist Name Role Phone No, Pcp (Do [...] Colonoscopy 08/10/2020 Diabetes screening 08/10/2020 Influenza vaccine 10/31/2024 Covid-19 vaccine series ( - 2024- season) 2024 RSV Immunization (1 - 1-dose 75+ series) [...] GENERIC COMMERCIAL GENERIC COMMERCIAL GENERIC Care Teams Branding Specialist Relationship Specialty Start Date End Date No, Pcp (Do Not Change Name) PCP - General 06/27/18
--- OUTSIDE RECORDS SUMMARY | 2025-02-06 16:37 | XMS_ITS | Clinical Summary ---
Author Organization [facility] Address [address] [place] [address] Care Team Providers Care Information Assurance Officer Name Role Phone Itzel Martinez NP Primary Care Provider [phone] Allergies Active Allergy Reactions Criticality Noted Date [...] age to complete this topic Care Teams Information Assurance Officer Relationship Specialty Start Date End Date Itzel Martinez NP [address] [place] [phone] PCP - General Family Medicine 05/10/18
--- OUTSIDE RECORDS SUMMARY | 2025-02-06 16:37 | XMS_ITS | Encounter Summary ---
Author Organization [facility] Address [address] [place] [address] [place] [address] Phone Care Team Providers Care Quotation Clerk Name Role Phone Mariam Cooper CNM Unavailable Tila Haile MANAGER ENTRY Unavailable [phone] Katelynn Ruiz MANAGER ENTRY Unavailable Tang Reed MD Unavailable Gilma Carrasco MD Unavailable Itzel Martinez MANAGER ENTRY Unavailable [phone] Elena Eason MD Unavailable [phone] Cruz Roberson MD Unavailable Nova Acevedo MD Unavailable Mar Keene MD Unavailable Rachel Saleem MD Unavailable [phone] Itzel Martinez MANAGER ENTRY Primary Care Provider Robert Michele MD Unavailable Cecil Barillas MD Unavailable Janae Lawrence MD Primary Care Provider Encounter Details Date Type Department Care Team (Late st Contact Info) Description 02/08/2017 Ancillary Orders [facility], X-Ray - [address] [id number] Dusty Wu, TERESE [address] [place] [phone] Lumbar sprain, subsequent encounter Social History Tobacco [...] Description 03/11/2025 9:30 AM EST Office Visit [facility] [address] [place] [address] Thomas Enriquez DO [address] [address] Toney Loco, PT 8 [place] [address] [email or web address] 03/13/2025 9:15 AM EST Office Visit [facility] [address] [place] [address] Thomas Enriquez DO [address] [address] Mindy Genao, PT 8 [place] [address] 03/18/2025 9:30 AM EST Office Visit [facility] [address] [place] [address] Thomas Enriquez DO [address] [address] Toney Loco, PT 8 [place] [address] 03/20/2025 9:30 AM EST Office Visit [facility] 8 [place] [address] Thomas Enriquez, DO [address] [place] [address] [place] [address] Toney Loco, PT 8 [place] [address] [email or web address] 03/24/2025 8:45 AM EST Office Visit [facility] 8 [place] [address] Thomas Enriquez DO [address] [place] [address] [place] [address] Toney Loco, PT 8 [place] [address] [email or web address] 03/30/2025 9:15 AM EST Office Visit [facility] 8 [place] [address] Thomas Enriquez DO [address] [place] [address] [place] [address] Mindy Genao, PT 8 [place] [address] 04/01/2025 8:45 AM EST Office Visit [facility] [address] [place] [address] Thomas Enriquez DO [address] [place] [address] [place] [address] Toney Loco, PT 8 [place] [address] [email or web address] 04/06/2025 9:15 AM EST Office Visit [facility] [address] [place] [address] Thomas Enriquez, DO [address] [place] [address] [place] [address] Mindy Genao, PT 8 [place] [address] 04/08/2025 8:45 AM EST Office Visit [facility] 8 [place] [address] Thomas Enriquez, DO [address] [place] [address] [place] [address] Toney Loco, PT 8 [place] [address] [email or web address] 04/14/2025 8:45 AM EST Office Visit [facility] 8 [place] [address] Thomas Enriquez, DO [address] [place] [address] [place] [address] Toney Loco, PT 8 [place] [address] [email or web address] 04/16/2025 8:45 AM EST Office Visit [facility] 8 [place] [address] Thomas Enriquez, DO [address] [place] [address] [place] [address] Toney Loco, PT 8 [place] [address] [email or web address] 04/21/2025 8:45 AM EST Office Visit [facility] 8 [place] [address] Thomas Enriquez DO [address] [place] [address] [place] [address] Toney Loco, PT 8 [place] [address] [email or web address] 04/23/2025 8:45 AM EST Office Visit [facility] 8 [place] [address] Thomas Enriquez, DO [address] [place] [address] [place] [address] Toney Loco, PT 8 [place] [address] [email or web address] 04/28/2025 8:45 AM EST Office Visit [address] [address] Thomas Enriquez, DO [address] [place] [address] [place] [address] Toney Loco, PT 8 [place] [address] [email or web address] 04/30/2025 8:45 AM EST Office Visit [facility] 8 [place] [address] Thomas Enriquez, DO [address] [place] [address] [place] [address] Toney Loco, PT 8 [place] [address] 05/05/2025 8:45 AM EST Office Visit [address] [address] Thomas Enriquez, DO [address] [place] [address] [place] [address] Toney Loco, PT 8 [place] [address] [email or web address] 05/07/2025 8:45 AM EST Office Visit [facility] [address] [place] [address] Thomas Enriquez, DO [address] [place] [address] [place] [address] Toney Loco, PT 8 [place] [address] [email or web address] 05/12/2025 8:45 AM EST Office Visit [facility] [address] [place] [address] Thomas Enriquez, DO [address] [place] [address] [place] [address] Toney Loco, PT 8 [place] [address] [email or web address] 05/14/2025 8:45 AM EST Office Visit [facility] [address] [place] [address] Thomas Enriquez, DO [address] [place] [address] [place] [address] Toney Loco, PT 8 [place] [address] 05/19/2025 8:45 AM EST Office Visit [facility] [address] [place] [address] Thomas Enriquez, DO [address] [place] [address] [place] [address] Toney Loco, PT 8 [place] [address] [email or web address] 05/21/2025 8:45 AM EST Office Visit [facility] 8 [place] [address] MinaThomas, DO [address] [place] [address] [place] [address] Toney Loco, PT 8 [place] [address] documented as of this encounter Results * [...] strain, low back pain POS - [id number] Dusty GUDINO IMG XR SPINE Final Result documented in this encounter Visit Diagnoses Diagnosis Lumbar sprain, subsequent encounter Lumbar sprain, subsequent encounter documented in this encounter Care Teams Quotation Clerk Relationship Specialty Start Date End Date Itzel Martinez NP [address] [place] [address] PCP - General Family Medicine 02/09/17 04/15/24 Janae Lawrence MD [address] [phone] PCP - General Internal Medicine 04/16/24 Mariam Cooper CNM [address] [place] [address] Historical LMR Provider 01/21/17 2 Tila Haile NP [address] [place] [address] [email or web address] Historical LMR Provider 01/21/17 Katelynn Ruiz NP [address] [place] [address] [email or web address] Historical LMR Provider 01/21/17 04/09/21 Tang Reed MD [address] [place] [address] Historical LMR Provider 01/21/17 04/09/21 Gilma Carrasco MD [address] [place] [address] [email or web address] Historical LMR Provider 01/21/17 Itzel Martinez NP [address] [place] [address] Historical LMR Provider 01/21/17 Elena Eason MD [address] [place] [address] Historical LMR Provider 01/21/17 2 Cruz Roberson MD [address] [place] [address] [email or web address] Historical LMR Provider 01/21/17 04/09/21 Nova Acevedo MD [address] [place] [phone] Historical LMR Provider 01/21/17 2 Mar Keene MD [address] [place] [address] [email or web address] Historical LMR Provider 01/21/17 04/09/21 Rachel Saleem MD [address] [place] [address] Historical LMR Provider 01/21/17 2 Robert Michele MD [address] [place] [address] [email or web address] Insurance Assigned Provider 07/06/18 12/07/18 Cecil Barillas MD 230 [facility] [address] [place] [address] [email or web address] Assigned Provider 12/07/18 07/09/19 documented as of this encounter Additional Source Comments The information contained in this document represents components of the legal health record. It is not the complete legal health record.[facility]
--- OUTSIDE RECORDS SUMMARY | 2025-02-06 16:37 | XMS_ITS | Encounter Summary ---
Author Organization [facility] Address [address] [place] [address] [place] [address] Phone Care Team Providers Care Branch Controller Name Role Phone Mariam Cooper CNM Unavailable Tila Haile LICENSED OCCUPATIONAL THERAPY ASSISTANT Unavailable [phone] Katelynn Ruiz LICENSED OCCUPATIONAL THERAPY ASSISTANT Unavailable Tang Reed MD Unavailable Gilma Carrasco MD Unavailable Itzel Martinez LICENSED OCCUPATIONAL THERAPY ASSISTANT Unavailable [phone] Elena Eason MD Unavailable [phone] Cruz Roberson MD Unavailable Nova Acevedo MD Unavailable Mar Keene MD Unavailable [phone] Rachel Saleem MD Unavailable Itzel Martinez LICENSED OCCUPATIONAL THERAPY ASSISTANT Primary Care Provider Robert Michele MD Unavailable Cecil Barillas MD Unavailable Janae Lawrence MD Primary Care Provider Reason for Referral * MRI/CAT Scan - Closed Specialty Diagnoses / Procedures Referred By Contac t Referred To Contact Radiology Diagnoses Blood in stool Mucus in stool Change in stool Procedures CT Abdomen/Pelvis Thomas Ray MD Phone: tel: fax: [email or web address] Referral ID Status Reason Start Date Expiration Date Visits Re quested Visits Authorized [id number] Closed 08/07/2018 08/08/2019 1 1 Encounter Details Date Type Department Care Team (Latest Contact Info) Description 11/28/2018 Transcribe Orders Virtual Department [address] [place] [address] Thomas Ray MD [address] [address] [email or web address] Blood in stool (Primary Dx); Mucus in [...] 03/11/2025 9:30 AM EST Office Visit [facility] 8 [place] [address] Thomas Enriquez DO [address] [phone] Toney Loco, PT 8 [place] [address] [email or web address] 03/13/2025 9:15 AM EST Office Visit [facility] 8 [place] [address] Thomas Enriquez DO [address] [address] Mindy Genao, PT 8 [place] [address] 03/18/2025 9:30 AM EST Office Visit [facility] 8 [place] [address] Thomas Enriquez, DO [address] [place] [address] [place] [address] Toney Loco, PT 8 [place] [address] 03/20/2025 9:30 AM EST Office Visit [address] [address] Thomas Enriquez, DO [address] [place] [address] [place] [address] Toney Loco, PT 8 [place] [address] 03/24/2025 8:45 AM EST Office Visit [facility] 8 [place] [address] Thomas Enriquez, DO [address] [place] [address] [place] [address] Toney Loco, PT 8 [place] [address] 03/30/2025 9:15 AM EST Office Visit [address] [place] [address] Thomas Enriquez, DO [address] [place] [address] [place] [address] Mindy Genao, PT 8 [place] [address] 04/01/2025 8:45 AM EST Office Visit [facility] 8 [place] [address] Thomas Enriquez, DO [address] [place] [address] [place] [address] Toney Loco, PT 8 [place] [address] 04/06/2025 9:15 AM EST Office Visit [address] [address] Thomas Enriquez, DO [address] [place] [address] [place] [address] Mindy Genao, PT 8 [place] [address] 04/08/2025 8:45 AM EST Office Visit [facility] 8 [place] [address] Thomas Enriquez, DO [address] [place] [address] [place] [address] Toney Loco, PT 8 [place] [address] 04/14/2025 8:45 AM EST Office Visit [facility] 8 [place] [address] Thomas Enriquez, DO [address] [place] [address] [place] [address] Toney Loco, PT 8 [place] [address] 04/16/2025 8:45 AM EST Office Visit [facility] [address] [place] [address] Thomas Enriquez DO [address] [place] [address] [place] [address] Toney Loco, PT 8 [place] [address] 04/21/2025 8:45 AM EST Office Visit [facility] [address] [place] [address] Thomas Enriquez, DO [address] [place] [address] [place] [address] Toney Loco, PT 8 [place] [address] 04/23/2025 8:45 AM EST Office Visit [facility] 8 [place] [address] Thomas Enriquez, DO [address] [place] [address] [place] [address] Toney Loco, PT 8 [place] [address] 04/28/2025 8:45 AM EST Office Visit [facility] [address] [place] [address] Thomas Enriquez DO [address] [place] [address] [place] [address] Toney Loco, PT 8 [place] [address] 04/30/2025 8:45 AM EST Office Visit [facility] [address] [place] [address] Thomas Enriquez DO [address] [place] [address] [place] [address] Toney Loco, PT 8 [place] [address] 05/05/2025 8:45 AM EST Office Visit [facility] 8 [place] [address] Thomas Enriquez, DO [address] [place] [address] [place] [address] oTney Loco, PT 8 [place] [address] 05/07/2025 8:45 AM EST Office Visit [address] [address] Thomas Enriquez, DO [address] [place] [address] [place] [address] Toney Loco, PT 8 [place] [address] 05/12/2025 8:45 AM EST Office Visit [facility] 8 [place] [address] Thomas Enriquez, DO [address] [place] [address] [place] [address] Toney Loco, PT 8 [place] [address] 05/14/2025 8:45 AM EST Office Visit [facility] 8 [place] [address] Thomas Enriquez DO [address] [place] [address] [place] [address] Toney Loco, PT 8 [place] [address] 05/19/2025 8:45 AM EST Office Visit [facility] [address] [place] [address] Thomas Enriquez, DO [address] [place] [address] [place] [address] Toney Loco, PT 8 [place] [address] 05/21/2025 8:45 AM EST Office Visit [facility] 8 [place] [address] Thomas Enriquez, DO [address] [place] [address] [place] [address] Toney Loco, PT 8 [place] [address] documented as of this encounter Results * [...] mGy POS - [id number] Thomas Ray MD IM CT ABD/PELVIS Final Result documented in this encounter Visit Diagnoses Diagnosis Blood in stool- Primary Mucus in stool Nonspecific abnormal finding in stool contents Change in stool Blood in stool Mucus in stool Nonspecific abnormal finding in stool contents Change in stool documented in this encounter Care Teams Branch Controller Relationship Specialty Start Date End Date Itzel Martinez NP [address] [place] [address] PCP - General Family Medicine 02/09/17 04/15/24 Janae Lawrence MD [address] [facility] [address] [place] [address] PCP - General Internal Medicine 04/16/24 Mariam Cooper CNM [address] [place] [address] Historical LMR Provider 01/21/17 2 Tila Haile NP [address] [place] [address] [email or web address] Historical LMR Provider 01/21/17 Katelynn Ruiz NP [address] [place] [address] [email or web address] Historical LMR Provider 01/21/17 04/09/21 Tang Reed MD [address] [place] [address] Historical LMR Provider 01/21/17 04/09/21 Gilma Carrasco MD [address] [place] [address] Historical LMR Provider 01/21/17 Itzel Martinez NP [address] [place] [address] Historical LMR Provider 01/21/17 Elena Eason MD [address] [place] [address] Historical LMR Provider 01/21/17 2 Cruz Roberson MD [address] [place] [address] Historical LMR Provider 01/21/17 04/09/21 Nova Acevedo MD [address] [place] [phone] Historical LMR Provider 01/21/17 2 Mar Keene MD 22 [facility] [address] [place] [address] [email or web address] Historical LMR Provider 01/21/17 04/09/21 Rachel Saleem MD [address], [place] [address] Historical LMR Provider 01/21/17 2 Robert Michele MD [address] [place] [address] [email or web address] Insurance Assigned Provider 07/06/18 12/07/18 Cecil Barillas MD 230 [facility] [address] [place] [address] [email or web address] Insurance Assigned Provider 12/07/18 07/09/19 documented as of this encounter Additional Source Comments The information contained in this document represents components of the legal health record. It is not the complete legal health record.[facility]
--- OUTSIDE RECORDS SUMMARY | 2025-02-06 16:37 | XMS_ITS | Encounter Summary ---
Author Organization [facility] Address [address] [place] [address] [place] [address] Phone Care Team Providers Care Greek Professor Name Role Phone Mariam Cooper CNM Unavailable Tila Haile PRODUCT TEST ENGINEER Unavailable [phone] Katelynn Ruiz PRODUCT TEST ENGINEER Unavailable Tang Reed MD Unavailable Gilma Carrasco MD Unavailable Itzel Martinez PRODUCT TEST ENGINEER Unavailable [phone] Elena Eason MD Unavailable [phone] Cruz Roberson MD Unavailable Nova Acevedo MD Unavailable Mar Keene MD Unavailable Rachel Saleem MD Unavailable Itzel Martinez PRODUCT TEST ENGINEER Primary Care Provider Robert Michele MD Unavailable Cecil Barillas MD Unavailable Janae Lawrence MD Primary Care Provider Reason for Referral * MRI/CAT Scan - Closed Specialty Diagnoses / Procedures Referred By Contac t Referred To Contact Radiology Diagnoses Coccyx pain Procedures CT Pelvis Jose Dickinson MD Phone: tel: Referral ID Status Reason Start Date Expiration Date Visits Re quested Visits Authorized [id number] Closed 08/08/2018 08/09/2019 1 1 Encounter Details Date Type Department Care Team (Late Contact Info) Description 08/05/2018 Ancillary Orders Virtual Department 30 [place] [address] Jose Dickinson MD [address] [place] [address] Coccyx pain Social History Tobacco Use Types [...] Description 03/11/2025 9:30 AM EST Office Visit [facility] 8 [place] [address] Thomas Enriquez DO [address] [address] Toney Loco, PT 8 [place] [address] [email or web address] 03/13/2025 9:15 AM EST Office Visit [facility] 8 [place] [address] Thomas Enriquez DO [address] [address] Mindy Genao, PT 8 [place] [address] 03/18/2025 9:30 AM EST Office Visit [facility] 8 [place] [address] Thomas Enriquez, DO [address] [place] [address] [place] [address] Toney Loco, PT 8 [place] [address] [email or web address] 03/20/2025 9:30 AM EST Office Visit [facility] 8 [place] [address] Thomas Enriquez, DO [address] [place] [address] [place] [address] Toney Loco, PT 8 [place] [address] [email or web address] 03/24/2025 8:45 AM EST Office Visit [facility] 8 [place] [address] Thomas Enriquez DO [address] [place] [address] [place] [address] Toney Loco, PT 8 [place] [address] [email or web address] 03/30/2025 9:15 AM EST Office Visit [facility] 8 [place] [address] Thomas Enriquez, DO [address] [place] [address] [place] [address] Mindy Genao, PT 8 [place] [address] 04/01/2025 8:45 AM EST Office Visit [facility] 8 [place] [address] Thomas Enriquez DO [address] [place] [address] [place] [address] Toney Loco, PT 8 [place] [address] [email or web address] 04/06/2025 9:15 AM EST Office Visit [facility] [address] [place] [address] Thomas Enriquez, DO [address] [address] Mindy Genao, PT 8 [place] [address] [email or web address] 04/08/2025 8:45 AM EST Office Visit [address] [address] Thomas Enriquez, DO [address] [address] Toney Loco, PT 8 [place] [address] [email or web address] 04/14/2025 8:45 AM EST Office Visit [facility] 8 [place] [address] Thomas Enriquez, DO [address] [address] Toney Loco, PT 8 [place] [address] [email or web address] 04/16/2025 8:45 AM EST Office Visit [facility] 8 [place] [address] Thomas Enriquez, DO [address] [address] Toney Loco, PT 8 [place] [address] 04/21/2025 8:45 AM EST Office Visit [facility] 8 [place] [address] Thomas Enriquez, DO [address] [place] [address] [place] [address] Toney Loco, PT 8 [place] [address] 04/23/2025 8:45 AM EST Office Visit [facility] 8 [place] [address] Thomas Enriquez, DO [address] [place] [address] [place] [address] Toney Loco, PT 8 [place] [address] 04/28/2025 8:45 AM EST Office Visit [facility] 8 [place] [address] Thomas Enriquez, DO [address] [place] [address] [place] [address] Toney Loco, PT 8 [place] [address] 04/30/2025 8:45 AM EST Office Visit [facility] 8 [place] [address] Thomas Enriquez, DO [address] [place] [address] [place] [address] Toney Loco, PT 8 [place] [address] 05/05/2025 8:45 AM EST Office Visit [facility] 8 [place] [address] Thomas Enriquez DO [address] [place] [address] [place] [address] Toney Loco, PT 8 [place] [address] [email or web address] 05/07/2025 8:45 AM EST Office Visit [facility] 8 [place] [address] Thomas Enriquez, DO [address] [place] [address] [place] [address] Toney Loco, PT 8 [place] [address] [email or web address] 05/12/2025 8:45 AM EST Office Visit [facility] 8 [place] [address] Thomas Enriquez, DO [address] [place] [address] [place] [address] Toney Loco, PT 8 [place] [address] [email or web address] 05/14/2025 8:45 AM EST Office Visit [facility] 8 [place] [address] Thomas Enriquez DO [address] [place] [address] [place] [address] Toney Loco, PT 8 [place] [address] [email or web address] 05/19/2025 8:45 AM EST Office Visit [facility] 8 [place] [address] Refugio, Thomas, DO [address] [place] [address] [place] [address] Toney Loco, PT 8 [place] [address] [email or web address] 05/21/2025 8:45 AM EST Office Visit [facility] 8 [place] [address] Thomas Enriquez, DO [address] [place] [address] [place] [address] Toney Loco, PT 8 [place] [address] [email or web address] documented as of this encounter Results * [...] COMPARISON: Lumbar spine radiographs 02/09/2017. CT abdomen waafww1110/19/2008. TECHNIQUE: CT pelvis without IV/oral contrast. Multiplanar [...] coccyx documented in this encounter Care Teams Greek Professor Relationship Specialty Start Date End Date Itzel Martinez NP [address] [place] [address] PCP - General Family Medicine 02/09/17 04/15/24 Janae Lawrence MD [facility] [address] [place] [phone] PCP - General Internal Medicine 04/16/24 Mariam Cooper CNM 30 [place] [address] Historical LMR Provider 01/21/17 2 Tila Haile NP [address] [place] [address] [email or web address] Historical LMR Provider 01/21/17 Katelynn Ruiz NP [address] [place] [address] [email or web address] Historical LMR Provider 01/21/17 04/09/21 Tang Reed MD [address] [place] [address], [address] [place] [address] [email or web address] Historical LMR Provider 01/21/17 04/09/21 Gilma Carrasco MD [address] [place] [address] [email or web address] Historical LMR Provider 01/21/17 Itzel Martinez NP [address] [place] [address] Historical LMR Provider 01/21/17 Elena Eason MD [address], [place] [address] Historical LMR Provider 01/21/17 2 Cruz Roberson MD [address] [place] [address] [email or web address] Historical LMR Provider 01/21/17 04/09/21 Nova Acevedo MD [address] [place] [phone] Historical LMR Provider 01/21/17 2 Mar Keene MD 22 [facility] [address] [place] [address] [email or web address] Historical LMR Provider 01/21/17 04/09/21 Rachel Saleem MD [address], [place] Historical LMR Provider 01/21/17 2 Robert Michele MD [address] [place] [address] [email or web address] Insurance Assigned Provider 07/06/18 12/07/18 Cecil Barillas MD [address] [place] [address] [address] [place] [address] [email or web address] Assigned Provider 12/07/18 07/09/19 documented as of this encounter Additional Source Comments The information contained in this document represents components of the legal health record. It is not the complete legal health record.[facility]
--- OUTSIDE RECORDS SUMMARY | 2025-02-06 16:37 | XMS_ITS | Encounter Summary ---
Author Organization [facility] Address [address] [place] [address] [place] [address] Phone Care Team Providers Care Direct Support Specialist Name Role Phone Mariam Cooper CNM Unavailable Tila Haile ENVIRONMENTAL SERVICES TECHNICIAN Unavailable [phone] Katelynn Ruiz ENVIRONMENTAL SERVICES TECHNICIAN Unavailable Tang Reed MD Unavailable Gilma Carrasco MD Unavailable Itzel Martinez ENVIRONMENTAL SERVICES TECHNICIAN Unavailable [phone] Elena Eason MD Unavailable [phone] Cruz Roberson MD Unavailable Nova Acevedo MD Unavailable Mar Keene MD Unavailable Rachel Saleem MD Unavailable [phone] Itzel Martinez ENVIRONMENTAL SERVICES TECHNICIAN Primary Care Provider Robert Michele MD Unavailable Cecil Barillas MD Unavailable Janae Lawrence MD Primary Care Provider Encounter Details Date Type Department Care Team (Late st Contact Info) Description 08/07/2018 Ancillary Orders Virtual Department 30 [place] [address] Liss Florian MD [address] [place] [address] Flank pain Social History Tobacco Use Types [...] Description 03/11/2025 9:30 AM EST Office Visit [address] [address] Thomas Enriquez DO [address] [address] Toney Loco, PT 8 [place] [address] 03/13/2025 9:15 AM EST Office Visit [address] [address] Thomas Enriquez DO [address] [place] [address] [place] [address] Mindy Genao, PT 8 [place] [address] 03/18/2025 9:30 AM EST Office Visit [address] [address] Thomas Enriquez DO [address] [place] [address] [place] [address] Toney Loco, PT 8 [place] [address] 03/20/2025 9:30 AM EST Office Visit [facility] [address] [place] [address] Thomas Enriquez, DO [address] [place] [address] [place] [address] Toney Loco, PT 8 [place] [address] 03/24/2025 8:45 AM EST Office Visit [address] [address] Thomas Enriquez, DO [address] [place] [address] [place] [address] Toney Loco, PT 8 [place] [address] 03/30/2025 9:15 AM EST Office Visit [facility] 8 [place] [address] Thomas Enriquez, DO [address] [place] [address] [place] [address] Mindy Genao, PT 8 [place] [address] 04/01/2025 8:45 AM EST Office Visit [facility] 8 [place] [address] Thomas Enriquez DO [address] [place] [address] [place] [address] Toney Loco, PT 8 [place] [address] 04/06/2025 9:15 AM EST Office Visit [facility] [address] [place] [address] Thomas Enriquez DO [address] [place] [address] [place] [address] Mindy Genao, PT 8 [place] [address] 04/08/2025 8:45 AM EST Office Visit [facility] 8 [place] [address] Thomas Enriquez, DO [address] [place] [address] [place] [address] Toney Loco, PT 8 [place] [address] 04/14/2025 8:45 AM EST Office Visit [facility] 8 [place] [address] Thomas Enriquez DO [address] [place] [address] [place] [address] Toney Loco, PT 8 [place] [address] 04/16/2025 8:45 AM EST Office Visit [facility] [address] [place] [address] Thomas Enriquez DO [address] [place] [address] [place] [address] Toney Loco, PT 8 [place] [address] 04/21/2025 8:45 AM EST Office Visit [facility] [address] [place] [address] Mina, Thomas, DO [address] [place] [address] [place] [address] Toney Loco, PT 8 [place] [address] 04/23/2025 8:45 AM EST Office Visit [facility] 8 [place] [address] Thomas Enriquez, DO [address] [place] [address] [place] [address] Toney Loco, PT 8 [place] [address] 04/28/2025 8:45 AM EST Office Visit [address] [address] Thomas Enriquez, DO [address] [place] [address] [place] [address] Toney Loco, PT 8 [place] [address] 04/30/2025 8:45 AM EST Office Visit [facility] 8 [place] [address] Thomas Enriquez, DO [address] [place] [address] [place] [address] Toney Loco, PT 8 [place] [address] 05/05/2025 8:45 AM EST Office Visit [facility] 8 [place] [address] Thomas Enriquez DO [address] [place] [address] [place] [address] Toney Loco, PT 8 [place] [address] 05/07/2025 8:45 AM EST Office Visit [facility] [address] [place] [address] Thomas Enriquez, DO [address] [place] [address] [place] [address] Toney Loco, PT 8 [place] [address] 05/12/2025 8:45 AM EST Office Visit [facility] [address] [place] [address] Thomas Enriquez, DO [address] [place] [address] [place] [address] Toney Loco, PT 8 [place] [address] 05/14/2025 8:45 AM EST Office Visit [facility] 8 [place] [address] Thomas Enriquez, DO [address] [place] [address] [place] [address] Toney Loco, PT 8 [place] [address] 05/19/2025 8:45 AM EST Office Visit [facility] [address] [place] [address] Thomas Enriquez, DO [address] [place] [address] [place] [address] Toney Loco, PT 8 [place] [address] 05/21/2025 8:45 AM EST Office Visit [facility] 8 [place] [address] Thomas Enriquez DO [address] [place] [address] [place] [address] oTney Loco, PT 8 [place] [address] [email or web address] documented as of this encounter Visit Diagnoses Diagnosis Flank pain Abdominal pain, unspecified site documented in this encounter Care Teams Direct Support Specialist Relationship Specialty Start Date End Date Itzel Martinez NP [address] [place] [address] PCP - General Family Medicine 02/09/17 04/15/24 Janae Lawrence MD [address] [phone] PCP - General Internal Medicine 04/16/24 Mariam Cooper CNM 30 [place] [address] Historical LMR Provider 01/21/17 2 Tila Haile NP 30 [place] [address] [email or web address] Historical LMR Provider 01/21/17 Katelynn Ruiz NP [address] [place] [address] [email or web address] Historical LMR Provider 01/21/17 04/09/21 Tang Reed MD 22 [facility], 2nd [place] [address] Historical LMR Provider 01/21/17 04/09/21 Gilma Carrasco MD [address] [place] [address] Historical LMR Provider 01/21/17 Itzel Martinez NP [address] [place] [address] Historical LMR Provider 01/21/17 Elena Eason MD [address], [place] [address] Historical LMR Provider 01/21/17 2 Cruz Roberson MD [address] [place] [address] [email or web address] Historical LMR Provider 01/21/17 04/09/21 Nova Acevedo MD [address] [place] [phone] Historical LMR Provider 01/21/17 2 Mar Keene MD [address] [place] [address] Historical LMR Provider 01/21/17 04/09/21 Rachel Saleem MD [address] [address] Historical LMR Provider 01/21/17 2 Robert Michele MD [address] [place] [address] [email or web address] Insurance Assigned Provider 07/06/18 12/07/18 Cecil Barillas MD [address] [place] [address] [address] [place] [address] [email or web address] Insurance Assigned Provider 12/07/18 07/09/19 documented as of this encounter Additional Source Comments The information contained in this document represents components of the legal health record. It is not the complete legal health record.[facility]
--- OUTSIDE RECORDS SUMMARY | 2025-02-06 16:37 | XMS_ITS | Encounter Summary ---
Author Organization [facility] Address [address] [place] [address] [place] [address] Phone Care Team Providers Care Pill Coater Name Role Phone Mic Tila Harper DUMP TRUCK DRIVER Unavailable [phone] Gilma Carrasco MD Unavailable Itzel Martinez DUMP TRUCK DRIVER Unavailable [phone] Itzel Martinez NP Primary Care Provider [phone] Janae Lawrence MD Primary Care Provider [phone] Encounter Details Date Type Department Care Team (Latest Contact Info) Description 10/24/2021 Transcribe Orders [facility] [place] [address] 2nd [place] [address] Thomas Ray MD [address] [address] [email or web address] Diarrhea, unspecified type (Primary Dx); Blood in [...] Description 03/11/2025 9:30 AM EST Office Visit [facility] [address] [place] [address] Thomas Enriquez DO [address] [place] [address] [place] [address] Toney Loco, PT 8 [place] [address] 03/13/2025 9:15 AM EST Office Visit [address] [place] [address] Thomas Enriquez DO [address] [place] [address] [place] [address] Mindy Genao, PT 8 [place] [address] 03/18/2025 9:30 AM EST Office Visit [facility] 8 [place] [address] Thomas Enriquez DO [address] [address] Toney Loco, PT 8 [place] [address] 03/20/2025 9:30 AM EST Office Visit [facility] [address] [place] [address] Thomas Enriquez DO [address] [place] [address] [place] [address] Toney Loco, PT 8 [place] [address] 03/24/2025 8:45 AM EST Office Visit [facility] [address] [place] [address] Thomas Enriquez, DO [address] [place] [address] [place] [address] Toney Loco, PT 8 [place] [address] 03/30/2025 9:15 AM EST Office Visit [facility] [address] [place] [address] Thomas Enriquez DO [address] [place] [address] [place] [address] Mindy Genao, PT 8 [place] [address] 04/01/2025 8:45 AM EST Office Visit [facility] 8 [place] [address] Thomas Enriquez, DO [address] [place] [address] [place] [address] Toney Loco, PT 8 [place] [address] 04/06/2025 9:15 AM EST Office Visit [facility] 8 [place] [address] Thomas Enriquez DO [address] [place] [address] [place] [address] Mindy Genao, PT 8 [place] [address] 04/08/2025 8:45 AM EST Office Visit [facility] [address] [place] [address] Thomas Enriquez DO [address] [place] [address] [place] [address] Toney Loco, PT 8 [place] [address] 04/14/2025 8:45 AM EST Office Visit [facility] [address] [place] [address] Thomas Enriquez, DO [address] [place] [address] [place] [address] Toney Loco, PT 8 [place] [address] 04/16/2025 8:45 AM EST Office Visit [facility] [address] [place] [address] Thomas Enriquez, DO [address] [place] [address] [place] [address] Toney Loco, PT 8 [place] [address] 04/21/2025 8:45 AM EST Office Visit [facility] 8 [place] [address] Thomas Enriquez, DO [address] [place] [address] [place] [address] Toney Loco, PT 8 [place] [address] 04/23/2025 8:45 AM EST Office Visit [facility] [address] [place] [address] Thomas Enriquez, DO [address] [place] [address] [place] [address] Toney Loco, PT 8 [place] [address] 04/28/2025 8:45 AM EST Office Visit [facility] [address] [place] [address] Thomas Enriquez, DO [address] [place] [address] [place] [address] Toney Looc, PT 8 [place] [address] 04/30/2025 8:45 AM EST Office Visit [facility] [address] [place] [address] Thomas Enriquez, DO [address] [address] Toney Loco, PT 8 [place] [address] 05/05/2025 8:45 AM EST Office Visit [facility] [address] [place] [address] Thomas Enriquez, DO [address] [place] [address] [place] [address] Toney Loco, PT 8 [place] [address] 05/07/2025 8:45 AM EST Office Visit [facility] [address] [place] [address] Thomas Enriquez DO [address] [address] Toney Loco, PT 8 [place] [address] 05/12/2025 8:45 AM EST Office Visit [facility] [address] [place] [address] Thomas Enriquez, DO [address] [place] [address] [place] [address] Toney Loco, PT 8 [place] [address] 05/14/2025 8:45 AM EST Office Visit [facility] 8 [place] [address] Thomas Enriquez, DO [address] [place] [address] [place] [address] Toney Loco, PT 8 [place] [address] 05/19/2025 8:45 AM EST Office Visit [facility] 8 [place] [address] Thomas Enriquez, DO [address] [place] [address] [place] [address] Toney Loco, PT 8 [place] [address] 05/21/2025 8:45 AM EST Office Visit [facility] 8 [place] [address] Thomas Enriquez, DO [address] [place] [address] [place] [address] Toney Loco, PT 8 [place] [address] [email or web address] documented as of this encounter Results * Pancreatic Elastase, Stool (10/25/2021 7:51 AM EDT) Pancreatic Elastase, Feces >500 >200 (Normal) mcg/g [facility] Stool (Stool) 10/25/2021 7:5 1 AM EDT 10/25/2021 7:53 AM EDT Thomas Ray MD BODY FLUIDS AND STOOLS ORDERAB LES Final Result Performing Organization Address [facility] de Phone Number [facility] [address] [place] [address] * Calprotectin, stool (10/25/2021 7:51 AM EDT) STOOL CALPROTECTIN 22 mcg/g [facility] Comment: (NOTE) Reference Range: [...] 7:53 AM EDT us Thomas Ray MD LAB BODY FLUIDS AND STOOL ORDE RABSIGRID Final Result Performing Organization Address [facility] de Phone Number [facility] [address] [place] [address] documented in this encounter Visit Diagnoses Diagnosis Diarrhea, unspecified type- Primary Blood in stool documented in this encounter Care Teams Pill Coater Relationship Specialty Start Date End Date Itzel Martinez NP [address] [place] [address] PCP - General Family Medicine 02/09/17 04/15/24 Janae Lawrence MD [address] [place] [address] PCP - General Internal Medicine 04/16/24 Tila Haile NP 30 [place] [address] [email or web address] Historical LMR Provider 01/21/17 Gilma Carrasco MD [address] [address] [email or web address] Historical LMR Provider 01/21/17 Itzel Martinez NP [address] [place] [address] Historical LMR Provider 01/21/17 documented as of this encounter Additional Source Comments The information contained in this document represents components of the legal health record. It is not the complete legal health record.[facility]
--- OUTSIDE RECORDS SUMMARY | 2025-02-06 16:37 | XMS_ITS | Encounter Summary ---
Author Organization [facility] and [facility] Address [address] [place] [phone] Care Team Providers Care Flame Channeler Name Role Phone No, Pcp (Do Not Change Name) Primary Care Provid er Unavailable Encounter Details Date Type Department Care Team (Late st Contact Info) Description 10/24/2018 Scanned Document [facility] at [address] [place] [phone] Ramin Soares MD [address] [place] [phone] Social History Tobacco Use Types Packs/Day Years [...] on filedocumented in this encounter Care Teams Flame Channeler Relationship Specialty Start Date End Date No, Pcp (Do Not Change Name) PCP - General 06/27/18 documented as of this encounter
--- OUTSIDE RECORDS SUMMARY | 2025-02-06 16:37 | XMS_ITS | Encounter Summary ---
Author Organization [facility] and [facility] Address [address] [place] [phone] Care Team Providers Care Rn Transplant Name Role Phone No, Pcp (Do Not Change Name) Primary Care Provid er Unavailable Encounter Details Date Type Department Care Team (Late st Contact Info) Description 06/26/2018 Scanned Document [facility] at [address] [place] [phone] Ramin Soares MD [address] [place] [phone] Social History Tobacco Use Types Packs/Day Years [...] on filedocumented in this encounter Care Teams Rn Transplant Relationship Specialty Start Date End Date No, Pcp (Do Not Change Name) PCP - General 06/27/18 documented as of this encounter
--- OUTSIDE RECORDS SUMMARY | 2025-02-06 16:38 | XMS_ITS | Encounter Summary ---
Author Organization [facility] Address [address] [place] [address] [place] [phone] Phone Care Team Providers Care Hassock Maker Name Role Phone Mariam Cooper CNM Unavailable Tila Haile VANSTONE MACHINE OPERATOR Unavailable [phone] Katelynn Ruiz NP Unavailable Tang Reed MD Unavailable Gilma Carrasco MD Unavailable Itzel Martinez NP Unavailable [phone] Elena Eason MD Unavailable [phone] Cruz Roberson MD Unavailable [phone] [...] for rehabilitation Itzel Martinez NP Phone: tel: [address] [address] Phone: tel: Referral ID Status Reason Start Date Expiration Date Visits Re quested Visits Authorized [id number] Closed 09/24/2020 04/01/2021 99 99 Encounter Details Date Type Department Care Team (Latest Contact Info) Description 09/24/2020 Transcribe Orders [address] [place] [address] Itzel Martinez NP [address] [place] [phone] Encounter for rehabilitation (Primary Dx) Social History [...] 03/11/2025 9:30 AM EST Office Visit [address] [place] [address] Thomas Enriquez DO [address] [address] Toney Loco, PT [address] [place] [address] 03/13/2025 9:15 AM EST Office Visit [address] [place] [address] Thomas Enriquez DO [address] [address] Mindy Genao, PT [address] [place] [address] 03/18/2025 9:30 AM EST Office Visit [facility] [address] [place] [address] Thomas Enriquez DO [address] [place] [address] [place] [address] Toney Loco, PT [address] [place] [address] 03/20/2025 9:30 AM EST Office Visit [facility] [address] [place] [address] Thomas Enriquez DO [address] [place] [address] [place] [address] Toney Loco, PT [address] [place] [address] 03/24/2025 8:45 AM EST Office Visit [facility] [address] [place] [address] Thomas Enriquez DO [address] [place] [address] [place] [address] Toney Loco, PT [address] [place] [address] 03/30/2025 9:15 AM EST Office Visit [facility] [address] [place] [address] Thomas Enriquez DO [address] [place] [address] [place] [address] Mindy Genao, PT [address] [place] [address] 04/01/2025 8:45 AM EST Office Visit [facility] [address] [place] [address] Thomas Enriquez, DO [address] [place] [address] [place] [address] Toney Loco, PT [address] [place] [address] 04/06/2025 9:15 AM EST Office Visit [facility] [address] [place] [address] Thomas Enriquez, DO [address] [place] [address] [place] [address] Mindy Genao, PT [address] [place] [address] 04/08/2025 8:45 AM EST Office Visit [facility] [address] [place] [address] Thomas Enriquez, DO [address] [address] Toney Loco, PT [address] [place] [address] 04/14/2025 8:45 AM EST Office Visit [facility] [address] [place] [address] Thomas Enriquez DO [address] [address] Toney Loco, PT [address] [place] [address] 04/16/2025 8:45 AM EST Office Visit [facility] [address] [place] [address] Thomas Enriquez DO [address] [address] Toney Loco, PT [address] [place] [address] 04/21/2025 8:45 AM EST Office Visit [facility] [address] [place] [address] Thomas Enriquez, DO [address] [place] [address] [place] [address] Toney Loco, PT [address] [place] [address] 04/23/2025 8:45 AM EST Office Visit [address] [address] Thomas Enriquez, DO [address] [place] [address] [place] [address] Toney Loco, PT [address] [place] [address] 04/28/2025 8:45 AM EST Office Visit [facility] [address] [place] [address] Thomas Enriquez, DO [address] [place] [address] [place] [address] Toney Loco, PT [address] [place] [address] 04/30/2025 8:45 AM EST Office Visit [facility] 8 [place] [address] Thomas Enriquez, DO [address] [place] [address] [place] [address] Toney Loco, PT [address] [place] [address] 05/05/2025 8:45 AM EST Office Visit [facility] [address] [place] [address] Thomas Enriquez, DO [address] [place] [address] [place] [address] Toney Loco, PT [address] [place] [address] 05/07/2025 8:45 AM EST Office Visit [facility] [address] [place] [address] Thomas Enriquez, DO [address] [place] [address] [place] [address] Toney Loco, PT [address] [place] [address] 05/12/2025 8:45 AM EST Office Visit [facility] [address] [place] [address] Thomas Enriquez, DO [address] [place] [address] [place] [address] Toney Loco, PT [address] [place] [address] 05/14/2025 8:45 AM EST Office Visit [facility] [address] [place] [address] Thomas Enriquez, DO [address] [address] Toney Loco, PT [address] [place] [address] 05/19/2025 8:45 AM EST Office Visit [facility] [address] [place] [address] Thomas Enriquez, DO [address] [place] [address] [place] [address] Toney Loco, PT [address] [place] [address] [email or web address] 05/21/2025 8:45 AM EST Office Visit [facility] [address] [place] [address] Thomas Enriquez, [address] [place] [address] [place] [address] Jed Locofranklyn, PT [address] [place] [address] [email or web address] Scheduled Referrals Name Type Priority Associated Diagnoses Orde r Schedule Ambulatory referral to [facility] Physical Therapy Outpatient Referral Routine Encounter for rehabilitation Ordered: 09/24/2020 documented as of this encounter Visit Diagnoses Diagnosis Encounter for rehabilitation- Primary documented in this encounter Care Teams Hassock Maker Relationship Specialty Start Date End Date Itzel Martinez NP [address] [place] [address] PCP - General Family Medicine 02/09/17 04/15/24 [facility] [place] [address] PCP - General Internal Medicine 04/16/24 Mariam Cooper CNM [address] [place] [address] Historical LMR Provider 01/21/17 2 Tila Haile NP [address] [place] [address] Historical LMR Provider 01/21/17 Katelynn Ruiz NP [address] [place] [address] [email or web address] Historical LMR Provider 01/21/17 04/09/21 Tang Reed MD [address] [place] [address], [address] [place] [address] Historical LMR Provider 01/21/17 04/09/21 Gilma Carrasco MD [address] [place] [address] Historical LMR Provider 01/21/17 Itzel Martinez NP [address] [place] [address] Historical LMR Provider 01/21/17 Elena Eason MD [address] [place] [address] Historical LMR Provider 01/21/17 2 Cruz Roberson MD [address] [place] [address] Historical LMR Provider 01/21/17 04/09/21 Nova Acevedo MD [address] [place] [phone] Historical LMR Provider 01/21/17 2 Mar Keene MD [address] [place] [address] [email or web address] Historical LMR Provider 01/21/17 04/09/21 Rachel Saleem MD [address] [place] [phone] Historical LMR Provider 01/21/17 2 documented as of this encounter Additional Source Comments The information contained in this document represents components of the legal health record. It is not the complete legal health record.[facility]
--- OUTSIDE RECORDS SUMMARY | 2025-02-06 16:38 | XMS_ITS | Clinical Summary ---
Author Organization [facility] Address [address] [place] [address] [place] [phone] Phone Care Team Providers Care Senior Hardware Engineer Name Role Phone Mic, Tila aHrper RESEARCH INTERN Unavailable [phone] Gilma Carrasco MD Unavailable Itzel Martinez RESEARCH INTERN Unavailable [phone] Janae Lawrence MD Primary Care Provider [...] fluticasone propionate (FLONASE) 50 mcg/actuation nasal spray 8 Active ADDERALL XR 20 mg 24 hr capsule Take by mouth daily. 0 9 Active levonorgestrel (MIRENA) 20 mcg/24 hours (5 [...] tablet Take 20 mg by mouth daily. 2 Active dicyclomine (BENTYL) 20 mg tablet 2 Active albuterol sulfate (PROAIR HFA INHL) Inhale into the lungs. 1 Active lactulose bulk (CONSTULOSE) 10 gram/15 mL solution TAKE 15ML BY MOUTH ONCE FOR 1 DAY 2 Active traMADoL (ULTRAM) 50 mg tablet 2 Active meloxicam (MOBIC) 15 MG tablet Take 1 tablet by mouth every morning. 4 Active triamcinolone acetonide 0.1 % cream 4 Active meloxicam (MOBIC) 15 MG tablet Take 1 tablet (15 mg total) by mouth daily. 30 tablet 5 Active vibegron (GEMTESA) 75 mg tablet Take 75 mg by mouth. 5 Active Hospital, Clinic, or Other Facility Administered Medication [...] consider formal HbA1c checkup and PCP/diabetic nurse educator/fish hatchery superintendent consult. GIANNA positive 03/08/2020 Assessment & Plan [...] wants to search for a neurosurgeon in [place] since her prior surgeon is moving to [place]. She hopes to discuss possible surgical approach [...] EST): Proper hydration reviewed and strongly encouraged. jail current use of non -steroidal anti-inflammatories (NSAID) [...] Encounters Date Type Department Care Team Description 02/06/2025 8:00 AM EST Office Visit [address] [place] [address] Janae Lawrence MD West, Toney, PT Acute bilateral low back pain, unspecified whether sciatica present (Primary Dx) 02/06/2025 Plan of Care Documentation [address] [place] [address] 02/02/2025 1:45 PM EST Office Visit [address] [place] [address] Janae Lawrence MD Engel, Lori A, PT Acute bilateral low back pain, unspecified whether sciatica present (Primary Dx); Bilateral hip pain 01/27/2025 8:00 AM EDT Office Visit [facility] [address] [place] [address] Janae Lawrence MD West, Teingo, PT Acute bilateral low back pain, unspecified whether sciatica present (Primary Dx) 01/22/2025 8:00 AM EDT Office Visit [facility] [address] [place] [address] Janae Lawrence MD West, Teingo, PT Acute bilateral low back pain, unspecified whether sciatica present (Primary Dx); Bilateral hip pain 01/15/2025 8:45 AM EDT Office Visit [facility] [address] [place] [address] Janae Lawrence MD West, Teingo, PT Acute bilateral low back pain, unspecified whether sciatica present (Primary Dx); Bilateral hip pain 12/25/2024 1:00 PM EDT Office Visit [facility] [address] [place] [address] Janae Lawrence MD Engel, Lori A, PT Acute bilateral low back pain, unspecified whether sciatica present (Primary Dx) 12/18/2024 10:00 AM EDT Office Visit [facility] [address] [place] [address] Janae Lawrence MD Engel, Lori A, PT Acute bilateral low back pain, unspecified whether sciatica present (Primary Dx); Bilateral hip pain 12/11/2024 1:15 PM EDT Office Visit [facility] [address] [place] [address] Janae Lawrence MD West, Teingo, PT Acute bilateral low back pain, unspecified whether sciatica present (Primary Dx) 12/08/2024 9:20 AM EDT Office Visit [facility] at [address] [address] Nelly Mcneil, BUTTERMAKER Acute bacterial sinusitis (Primary Dx) 12/04/2024 8:30 AM EDT Office Visit [facility] [address] [place] [address] Janae Lawrence MD Engel, Lori A, PT Acute bilateral low back pain, unspecified whether sciatica present (Primary Dx) 11/27/2024 8:45 AM EDT Office Visit [facility] [address] [place] [address] Janae Lawrence MD West, Teingo, PT Acute bilateral low back pain, unspecified whether sciatica present (Primary Dx); Bilateral hip pain 11/25/2024 9:55 AM EDT Office Visit [address] [place] [address] Janae Lawrence MD West, Teingo, PT Acute bilateral low back pain, unspecified whether sciatica present (Primary Dx) 11/19/2024 10:15 AM EDT Office Visit [address] [place] [address] Janae Lawrence MD West, Teingo, PT Bilateral hip pain (Primary Dx); Acute bilateral low back pain, unspecified whether sciatica present 11/13/2024 9:30 AM EDT Office Visit [facility] [address] [place] [address] Janae Lawrence MD West, Teingo, PT Bilateral hip pain (Primary Dx); Acute bilateral low back pain, unspecified whether sciatica present 11/06/2024 10:15 AM EDT Office Visit [address] [place] [address] Janae Lawrence MD West, Teingo, PT Bilateral hip pain (Primary Dx); Acute bilateral low back pain, unspecified whether sciatica present from Last 3 Months Immunizations Immunization Administration Dates Next Due COVID-19 (Pre-01/22) Pfizer Vaccine, mRNA, PF 08/04/2020 [id number] 03/01/2009 INFLUENZA, SPLIT VIRUS, TRIV ALENT W/ [...] 06/22/2024 Are you denied basic needs s [facility] as food, clothing, or medical care? No [...] Description 03/11/2025 9:30 AM EST Office Visit [address] [address] Thomas Enriquez, DO [address] [place] [address] [place] [address] Toney Loco, PT [address] [place] [address] 03/13/2025 9:15 AM EST Office Visit [address] [address] Thomas Enriquez DO [address] [place] [address] [place] [address] Mindy Genao, PT [address] [place] [address] 03/18/2025 9:30 AM EST Office Visit [address] [address] Thomas Enriquez DO [address] [place] [address] [place] [address] Toney Loco, PT [address] [place] [address] 03/20/2025 9:30 AM EST Office Visit [facility] [address] [place] [address] Thomas Enriquez, DO [address] [place] [address] [place] [address] Toney Loco, PT 8 [place] [address] 03/24/2025 8:45 AM EST Office Visit [facility] [address] [place] [address] Thomas Enriquez DO [address] [place] [address] [place] [address] Toney Loco, PT [address] [place] [address] 03/30/2025 9:15 AM EST Office Visit [facility] [address] [place] [address] Thomas Enriquez, DO [address] [place] [address] [place] [address] Mindy Genao, PT 8 [place] [address] 04/01/2025 8:45 AM EST Office Visit [facility] [address] [place] [address] Thomas Enriquez DO [address] [address] Toney Loco, PT 8 [place] [address] 04/06/2025 9:15 AM EST Office Visit [facility] [address] [place] [address] Thomas Enriquez, DO [address] [place] [address] [place] [address] Mindy Genao, PT [address] [place] [address] 04/08/2025 8:45 AM EST Office Visit [facility] [address] [place] [address] Thomas Enriquez, DO [address] [place] [address] [place] [address] Toney Loco, PT 8 [place] [address] 04/14/2025 8:45 AM EST Office Visit [facility] [address] [place] [address] Thomas Enriquez, DO [address] [place] [address] [place] [address] Toney Loco, PT 8 [place] [address] 04/16/2025 8:45 AM EST Office Visit [facility] [address] [place] [address] Thomas Enriquez, DO [address] [place] [address] [place] [address] Toney Loco, PT 8 [place] [address] 04/21/2025 8:45 AM EST Office Visit [facility] [address] [place] [address] Thomas Enriquez DO [address] [place] [address] [place] [address] Toney Loco, PT 8 [place] [address] 04/23/2025 8:45 AM EST Office Visit [facility] [address] [place] [address] Thomas Enriquez, DO [address] [place] [address] [place] [address] Toney Loco, PT 8 [place] [address] 04/28/2025 8:45 AM EST Office Visit [address] [address] Thomas Enriquez, DO [address] [address] Toney Loco, PT 8 [place] [address] 04/30/2025 8:45 AM EST Office Visit [facility] [address] [place] [address] Thomas Enriquez, DO [address] [address] Toney Loco, PT 8 [place] [address] 05/05/2025 8:45 AM EST Office Visit [facility] [address] [place] [address] Thomas Enriquez, DO [address] [address] Toney Loco, PT 8 [place] [address] 05/07/2025 8:45 AM EST Office Visit [facility] [address] [place] [address] Thomas Enriquez, DO [address] [place] [address] [place] [address] Toney Loco, PT 8 [place] [address] 05/12/2025 8:45 AM EST Office Visit [facility] [address] [place] [address] Thomas Enriquez, DO [address] [place] [address] [place] [address] Toney Loco, PT 8 [place] [address] 05/14/2025 8:45 AM EST Office Visit [facility] [address] [place] [address] Thomas Enriquez, DO [address] [place] [address] [place] [address] Toney Loco, PT 8 [place] [address] 05/19/2025 8:45 AM EST Office Visit [facility] [address] [place] [address] Thomas Enriquez, DO [address] [place] [address] [place] [address] Toney Loco, PT 8 [place] [address] 05/21/2025 8:45 AM EST Office Visit [facility] [address] [place] [address] Thomas Enriquez DO [address] [facility] [address] [phone] Claudy Jedfranklyn, PT [address] [place] [address] [email or web address] Health Maintenance Due Date Last Done Comments MENINGOCOCCAL VACCINES (ACWY) (1 - Risk 2-dose series) 08/10/1977 MENINGOCOCCAL VACCINES (B) (1 of 4 - Increased Risk) 08/10/1985 DEPRESSION SCREENING 1987 PNEUMOCOCCAL VACCINES (0-49 years) (1 of 2 - PCV) 08/10/1994 COLOGUARD 08/10/2020 FIT TEST 08/10/2020 FOBT 08/10/2020 SIGMOIDOSCOPY 08/10/2020 VIRTUAL COLONOSCOPY 08/10/2020 LIPID PANEL 12/12/2021 12/12/2016 SCREENING FOR DIABETES 02/18/2023 02/19/2020 PAP SMEAR 06/06/2024 06/07/2023, 10/01, 08/06/2018, Additional history exists INFLUENZA VACCINE (#1) 2024 , 03/22/2021, 12/12/2016, Additional history exists COVID-19 VACCINE ( season) 2024 04/12/2021, 08/26/2020, 08/04/2020 MAMMOGRAM 08/12/2026 08/12/2024, 11/01, 11/22/2021 COLONOSCOPY 10/05/2026 06/04/2024, 07/0 08/2021, 12/11/2018 COLORECTAL CANCER SCREENING 10/05/2026 IUD 10/27/2029 10/27/2021 Adult Td,Tdap Booster 05/02/2034 05/02/2024, 007 HEPATITIS C SCREENING Completed 07/18/2023, 024 HIV ONE-TIME SCREENING (18-65 YEARS) Completed 07/18/2023 SMOKING STATUS SCREENING (Once After 26 Yrs) Completed 12/08/2024 HEPATITIS A VACCINES Aged Out No long er eligible based on patient's age to complete this topic HIB VACCINES Aged Out No longer eligi ble based on patient's age to complete this topic IPV VACCINES Aged Out No longer eligi ble based on patient's age to complete this topic Medical Devices Implanted Type Area Water Plant Operator Device Identifier Shelf Expiration Date Model / Serial / Lot Iud Implanted: (Quantity not on file) Intrauterine Device Procedures Procedure Name Priority Date/Time Associated Diagnosis Comments POCT COVID-19 RT-PCR/INFLUENZA A & B/RSV CEPHEID Routine 12/08/2024 9:32 AM EDT BI MAMMOGRAM SCREENING WITH TOMOSYNTHESIS WITH CAD (BILATERAL) Routine 08/12/2024 9:59 AM EDT Breast screening HM COLONOSCOPY FOR RESULT ENTRY ONLY Routine 06/04/2024 HEPATITIS C ANTIBODY, QUALITATIVE Routine 07/18/2023 10:04 AM EDT Need for hepatitis C screening test PAP TEST Routine 06/07/2023 12:00 AM EST from Last 3 Months or Most Recently Relevant to Health Maintenance Results * POCT COVID-19 RT-PCR/Influenza A & B/RSV (Cepheid) (12/08/2024 9:32 AM EDT) RSV PCR Negative Negative [facility] [employer] [facility] SARS-CoV-2 (COVID-19) Negative Negative [facility] Influenza A PCR Negative Negative [facility] Influenza B PCR Negative Negative [facility] 12/08/2024 9:32 AM EDT 12/08/2024 10:12 AM EDT us Nelly Mcneil BUTTERMAKER LAB POCT ENTER/EDIT ORDERAB LES Final Result [facility] AT [address] [address], [facility] [phone] * BI MAMMOGRAM SCREENING WITH TOMOSYNTHESIS WITH [...] of the results and recommendations. Itzel Martinez RESEARCH INTERN IMG MG EXAMS Final Result * COLONOSCOPY FOR RESULT ENTRY ONLY (06/04/2024) Colonoscopy External Historical Provider HEALTH MAINTENANCE Final Result * Hepatitis C antibody, qualitative (07/18/2023 10:04 AM EDT) HCV NON-REACTIV E NON-REACTI VE [facility] Blood 07/18/2023 10:0 4 AM EDT 07/18/2023 10:06 AM EDT us Mar Keene MD LAB BLOOD BKR ORDERABLES F inal Result [address] [address] * Pap Test (06/07/2023 12:00 AM EST) Report [address] [address] Electro Optical Engineer: Ellen Martinez MD SHELF STOCKER Cytology Report FINAL DIAGNOSIS A. PAP SMEAR [...] 59, 66, 68) Note: Testing performed by [employer] Onclarity HR-HPV analysis. Clinical correlation is advised. This HPV test was performed at [facility], [address] [place] [address]. This test has been FDA approved for both SurePath and ThinPrep cervical cytology specimens. The accuracy and precision of this test for all other specimen sources has been verified in the Cytopathology Laboratory of the [facility] and has not been cleared or approved by the U.S. Food and Drug Administration. Clinical correlation is advised. CLINICAL HISTORY Date of Last Menstrual Period: Not Provided Menstrual History: Loly-Menopausal Unknown Contraceptive History: IUD Infection History: HPV: OTHER HIGH RISK, 2021 Other Clinical Conditions: Screening Pap SPECIMEN SOURCE A: PAP SMEAR (SUREPATH) CE Patient Name: YULISA PAYNE : 1975 (Age: 47) Sex: F Institution: [facility] Location: [facility] Date of Collection: 06/07/2023 Date of Reported: 06/19/2023 12:24 Results to: Mar Keene MD [facility] Final Diagnosis A. PAP SMEAR (SUREPATH) CE: SPECIMEN ADEQUACY: Satisfactory for evaluation; transformation zone present. INTERPRETATION: NEGATIVE FOR INTRAEPITHELIAL LESION OR MALIGNANCY. [facility] Results\Inter pretation A. PAP SMEAR (SUREPATH) CE: Human Papilloma Virus TestNEGATIVE for high-risk Human Papilloma Virus types 16, 18, 45 and the Other high risk probe set (Includes 31, 33, 35, 39, 51, 52, 56, 58, 59, 66, 68)Note: Testing performed by [employer] Onclarity HR-HPV analysis. Clinical correlation is advised. This HPV test was performed at [facility], [address] [place] [address]. This test has been FDA approved for both SurePath and ThinPrep cervical cytology specimens. The accuracy and precision of this test for all other specimen sources has been verified in the Cytopathology Laboratory of the [facility] and has not been cleared or approved by the U.S. Food and Drug Administration. Clinical correlation is advised. [facility] Conversion Type (Conversion Source) 06/07/2023 06/08/2023 9:05 AM EST us Mar Keene MD CYTOLOGY ORDERABLES Edited Result - Final [facility] [address] [place] [address] from Last 3 Months or Most Recently Relevant to Health Maintenance Insurance MEDICARE PART A & B [employer] MEDEX SUPPLEMENT MEDICARE PART A & B [employer] CROSS MEDEX SUPPLEMENT MEDICARE PART A & B [employer] CROSS MEDEX SUPPLEMENT MEDICARE PART A & B [employer] MEDEX SUPPLEMENT MEDICARE PART A & B [employer] MEDEX SUPPLEMENT MEDICARE PART A & B [employer] MEDEX SUPPLEMENT MEDICARE PART A & B [employer] MEDEX SUPPLEMENT Member Subscriber Plan / Payer ([facility]Present) Name:Yulisa Payne Relation to Subscriber:Self Name:Yulisa Payne Payer ID:[id number] (NAIC) Type:Indemnity Address: [id number] [place] [address] MEDICARE PART A & B Member Subscriber Plan / Payer ([facility]2018[facility]Present) Name:Yulisa Payne Member ID:[id number] Relation to Subscriber:Self Name:Yulisa Payne Subscriber ID:[id number] Payer ID:[id number] Group ID:Not on file Type:Medicare Address: [employer] [address] [place] [address] [employer] MEDEX SUPPLEMENT Member Subscriber Plan / Payer ([facility]/01/2018-Present) Name:Yulisa Payne Relation to Subscriber:Self Name:Yulisa Payne Payer ID:[id number] (NAIC) Type:Indemnity Address: [facility] [id number] [place] [address] MEDICARE PART A & B [employer] MEDEX SUPPLEMENT [facility] INSURANCE [facility] Address: [address] [place] [address] MEDICARE PART A & B [employer] CROSS MEDEX SUPPLEMENT Care Teams Senior Hardware Engineer Relationship Specialty Start Date End Date Janae Lawrence MD [address] [place] [address] PCP - General Internal Medicine 04/16/24 Tila Haile NP [address] [place] [address] Historical LMR Provider 01/21/17 Gilma Carrasco MD [address] [facility] [address] [place] [address] Historical LMR Provider 01/21/17 Itzel Martinez NP [address] [place] [address] Historical LMR Provider 01/21/17 Additional Source Comments The information contained in this document represents components of the legal health record. It is not the complete legal health record.[facility]
--- OUTSIDE RECORDS SUMMARY | 2025-02-06 16:38 | XMS_ITS | Encounter Summary ---
Author Organization [facility] Address [address] [place] [address] [place] [address] Phone Care Team Providers Care Ui Software Engineer Name Role Phone Mariam Cooper CNM Unavailable Tila Haile SHEETFED PRESS OPERATOR Unavailable [phone] Katelynn Ruiz SHEETFED PRESS OPERATOR Unavailable Tang Reed MD Unavailable Gilma Carrasco MD Unavailable Itzel Martinez SHEETFED PRESS OPERATOR Unavailable [phone] Elena Eason MD Unavailable [phone] Cruz Roberson MD Unavailable Nova Acevedo MD Unavailable Mar Keene MD Unavailable Rachel Saleem MD Unavailable [phone] Itzel Martinez SHEETFED PRESS OPERATOR Primary Care Provider Cecil Barillas MD Unavailable Janae Lawrence MD Primary Care Provider Encounter Details Date Type Department Care Team (Late st Contact Info) Description 12/11/2018 Procedure Pass [facility] Endoscopy Admitting Dept [facility] Department [address] [place], [place] [id number] Social History Tobacco Use Types Packs/Day Years [...] Description 03/11/2025 9:30 AM EST Office Visit [facility] 8 [place] [address] Thomas Enriquez DO [address] [place] [address] [place] [address] Toney Loco, PT 8 [place] [address] 03/13/2025 9:15 AM EST Office Visit [facility] 8 [place] [address] Thomas Enriquez DO [address] [place] [address] [place] [address] Mindy Genao, PT 8 [place] [address] 03/18/2025 9:30 AM EST Office Visit [facility] 8 [place] [address] Thomas Enriquez DO [address] [address] Toney Loco, PT 8 [place] [address] 03/20/2025 9:30 AM EST Office Visit [facility] [address] [place] [address] Thomas Enriquez, DO [address] [place] [address] [place] [address] Toney Loco, PT 8 [place] [address] 03/24/2025 8:45 AM EST Office Visit [facility] 8 [place] [address] Thomas Enriquez, DO [address] [place] [address] [place] [address] Toney Loco, PT 8 [place] [address] 03/30/2025 9:15 AM EST Office Visit [facility] 8 [place] [address] Thomas Enriquez DO [address] [address] Mindy Genao, PT 8 [place] [address] 04/01/2025 8:45 AM EST Office Visit [facility] 8 [place] [address] Thomas Enriquez DO [address] [place] [address] [place] [address] Toney Loco, PT 8 [place] [address] 04/06/2025 9:15 AM EST Office Visit [facility] [address] [place] [address] Thomas Enriquez DO [address] [place] [address] [place] [address] Mindy Genao, PT 8 [place] [address] 04/08/2025 8:45 AM EST Office Visit [facility] 8 [place] [address] Thomas Enriquez, DO [address] [place] [address] [place] [address] Toney Loco, PT 8 [place] [address] 04/14/2025 8:45 AM EST Office Visit [address] [address] Thomas Enriquez, DO [address] [place] [address] [place] [address] Toney Loco, PT 8 [place] [address] 04/16/2025 8:45 AM EST Office Visit [facility] 8 [place] [address] Thomas Enriquez, DO [address] [place] [address] [place] [address] Toney Loco, PT 8 [place] [address] 04/21/2025 8:45 AM EST Office Visit [facility] 8 [place] [address] Thomas Enriquez, DO [address] [place] [address] [place] [address] Toney Loco, PT 8 [place] [address] 04/23/2025 8:45 AM EST Office Visit [facility] 8 [place] [address] Thomas Enriquez, DO [address] [place] [address] [place] [address] Toney Loco, PT 8 [place] [address] 04/28/2025 8:45 AM EST Office Visit [facility] [address] [place] [address] Thomas Enriquez, DO [address] [place] [address] [place] [address] Toney Loco, PT 8 [place] [address] 04/30/2025 8:45 AM EST Office Visit [facility] 8 [place] [address] Thomas Enriquez, DO [address] [place] [address] [place] [address] Toney Loco, PT 8 [place] [address] 05/05/2025 8:45 AM EST Office Visit [facility] 8 [place] [address] Thomas Enriquez, DO [address] [place] [address] [place] [address] Toney Loco, PT 8 [place] [address] 05/07/2025 8:45 AM EST Office Visit [facility] 8 [place] [address] Thomas Enriquez, DO [address] [place] [address] [place] [address] Toney Loco, PT 8 [place] [address] 05/12/2025 8:45 AM EST Office Visit [facility] [address] [place] [address] Thomas Enriquez, DO [address] [place] [address] [place] [address] Toney Loco, PT 8 [place] [address] 05/14/2025 8:45 AM EST Office Visit [facility] 8 [place] [address] Thomas Enriquez, DO [address] [place] [address] [place] [address] Toney Loco, PT 8 [place] [address] 05/19/2025 8:45 AM EST Office Visit [facility] 8 [place] [address] Thomas Enriquez, DO [address] [place] [address] [place] [address] Toney Loco, PT 8 [place] [address] 05/21/2025 8:45 AM EST Office Visit [facility] [address] [place] [address] Thomas Enriquez DO [address] [place] [address] [place] [address] Toney Loco, PT 8 [place] [address] [email or web address] documented as of this encounter Visit Diagnoses Not on filedocumented in this encounter Care Teams Ui Software Engineer Relationship Specialty Start Date End Date Itzel Martinez SHEETFED PRESS OPERATOR 70 [place] [address] PCP - General Family Medicine 02/09/17 04/15/24 Janae Lawrence MD 230 [facility] 6260 [place] [address] PCP - General Internal Medicine 04/16/24 Mariam Cooper CNM 30 [place] [address] Historical LMR Provider 01/21/17 2 Tila Haile NP [address] [place] [address] [email or web address] Historical LMR Provider 01/21/17 Katelynn Ruiz NP [address] [place] [address] [email or web address] Historical LMR Provider 01/21/17 04/09/21 Tang Reed MD [address] [place] [address], [address] [place] [address] Historical LMR Provider 01/21/17 04/09/21 Gilma Carrasco MD [address] [place] [address], [address] [place] [address] Historical LMR Provider 01/21/17 Itzel Martinez NP [address] [place] [address] Historical LMR Provider 01/21/17 Elena Eason MD [address] [address] Historical LMR Provider 01/21/17 2 Cruz Roberson MD [address] [place] [address] [email or web address] Historical LMR Provider 01/21/17 04/09/21 Nova Acevedo MD [address] [place] [phone] Historical LMR Provider 01/21/17 2 Mar Keene MD [address] [place] [address] [email or web address] Historical LMR Provider 01/21/17 04/09/21 Rachel Saleem MD [address] [place] [address] Historical LMR Provider 01/21/17 2 Cecil Barillas MD [address] [place] [address] [place] [phone] [email or web address] Provider 12/07/18 07/09/19 documented as of this encounter Additional Source Comments The information contained in this document represents components of the legal health record. It is not the complete legal health record.[facility]
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
--- OUTSIDE RECORDS SUMMARY | 2025-02-06 16:38 | XMS_ITS | Encounter Summary ---
Author Organization [facility] Address [address] [place] [address] [place] [address] Phone Care Team Providers Care Desktop Operator Name Role Phone Mic Tila Harper BUTCHER'S ASSISTANT Unavailable [phone] Gilma Carrasco MD Unavailable Itzel Martinez BUTCHER'S ASSISTANT Unavailable [phone] Itzel Martinez NP Primary Care Provider [phone] Janae Lawrence MD Primary Care Provider Encounter Details Date Type Department Care Team (Late st Contact Info) Description 09/20/2022 Procedure Pass [facility], [address] [address] Social History Tobacco Use Types Packs/Day Years [...] Description 03/11/2025 9:30 AM EST Office Visit [facility] 8 [place] [address] Thomas Enriquez DO [address] [place] [address] [place] [address] Toney Loco, PT 8 [place] [address] [email or web address] 03/13/2025 9:15 AM EST Office Visit [address] [address] Thomas Enriquez, DO [address] [place] [address] [place] [address] Mindy Genao, PT 8 [place] [address] [email or web address] 03/18/2025 9:30 AM EST Office Visit [facility] 8 [place] [address] Thomas Enriquez DO [address] [place] [place] [address] Toney Loco, PT 8 [place] [address] [email or web address] 03/20/2025 9:30 AM EST Office Visit [address] [address] Thomas Enriquez, DO [address] [place] [place] [address] Toney Loco, PT 8 [place] [address] [email or web address] 03/24/2025 8:45 AM EST Office Visit [facility] [address] [place] [address] Thomas Enriquez, DO [address] [place] [place] [address] Toney Loco, PT 8 [place] [address] [email or web address] 03/30/2025 9:15 AM EST Office Visit [facility] [address] [place] [address] Thomas Enriquez DO [address] [place] [place] [address] Mindy Genao, PT 8 [place] [address] [email or web address] 04/01/2025 8:45 AM EST Office Visit [facility] [address] [place] [address] Thomas Enriquez, DO [address] [place] [place] [address] Toney Loco, PT 8 [place] [address] [email or web address] 04/06/2025 9:15 AM EST Office Visit [facility] [address] [place] [address] Thomas Enriquez DO [address] [address] Mindy Genao, PT 8 [place] [address] [email or web address] 04/08/2025 8:45 AM EST Office Visit [facility] [address] [place] [address] Thomas Enriquez, DO [address] [place] [address] [place] [address] Toney Loco, PT 8 [place] [address] [email or web address] 04/14/2025 8:45 AM EST Office Visit [facility] 8 [place] [address] Thomas Enriquez, DO [address] [place] [place] [address] Toney Loco, PT 8 [place] [address] [email or web address] 04/16/2025 8:45 AM EST Office Visit [facility] 8 [place] [address] Thomas Enriquez, DO [address] [place] [place] [address] Toney Loco, PT 8 [place] [address] [email or web address] 04/21/2025 8:45 AM EST Office Visit [facility] 8 [place] [address] Thomas Enriquez, DO [address] [place] [address] Toney Loco, PT 8 [place] [address] [email or web address] 04/23/2025 8:45 AM EST Office Visit [facility] [address] [place] [address] Thomas Enriquez, DO [address] [place] [address] Toney Loco, PT 8 [place] [address] [email or web address] 04/28/2025 8:45 AM EST Office Visit [facility] 8 [place] [address] Thomas Enriquez, DO [address] [place] [address] Toney Loco, PT 8 [place] [address] [email or web address] 04/30/2025 8:45 AM EST Office Visit [address] [address] Thomas Enriquez, DO [address] [address] Toney Loco, PT 8 [place] [address] [email or web address] 05/05/2025 8:45 AM EST Office Visit [facility] 8 [place] [address] Thomas Enriquez, DO [address] [address] Toney Loco, PT 8 [place] [address] [email or web address] 05/07/2025 8:45 AM EST Office Visit [facility] 8 [place] [address] Thomas Enriquez, DO [address] [address] Toney Loco, PT 8 [place] [address] [email or web address] 05/12/2025 8:45 AM EST Office Visit [facility] [address] [place] [address] Thomas Enriquez, DO [address] [place] [address] Toney Loco, PT 8 [place] [address] 05/14/2025 8:45 AM EST Office Visit [address] [place] [address] Thomas Enriquez, DO [address] [place] [place] [address] Toney Loco, PT 8 [place] [address] [email or web address] 05/19/2025 8:45 AM EST Office Visit [facility] [address] [place] [address] Thomas Enriquez, DO [address] [place] [place] [address] Toney Loco, PT 8 [place] [address] 05/21/2025 8:45 AM EST Office Visit [facility] [address] [place] [address] Thomas Enriquez, DO [address] [place] [place] [address] Toney Loco, PT 8 [place] [address] [email or web address] documented as of this encounter Visit Diagnoses Not on filedocumented in this encounter Care Teams Desktop Operator Relationship Specialty Start Date End Date Itzel Martinez NP 70 [place] [address] PCP - General Family Medicine 02/09/17 04/15/24 Janae Lawrence MD 70 [place] [address] PCP - General Internal Medicine 04/16/24 Tila Haile NP [address] [place] [address] [email or web address] Historical LMR Provider 01/21/17 Gilma Carrasco MD [address] [address] Historical LMR Provider 01/21/17 Itzel Martinez NP 70 [place] [address] Historical LMR Provider 01/21/17 documented as of this encounter Additional Source Comments The information contained in this document represents components of the legal health record. It is not the complete legal health record.[facility]
--- OUTSIDE RECORDS SUMMARY | 2025-02-06 16:38 | XMS_ITS | Encounter Summary ---
Author Organization [facility] Address [address] [place] [address] [place] [address] Phone Care Team Providers Care Manager Utilization Name Role Phone Tila Haile LEAD BI DEVELOPER Unavailable [phone] Gilma Carrasco MD Unavailable Itzel Martinez LEAD BI DEVELOPER Unavailable [phone] Itzel Martinez NP Primary Care Provider [phone] Janae Lawrence MD Primary Care Provider Encounter Details Date Type Department Care Team (Late st Contact Info) Description 12/20/2021 Procedure Pass [address] [place] [address] Social History Tobacco Use Types Packs/Day Years [...] Description 03/11/2025 9:30 AM EST Office Visit [facility] [address] [place] [address] Thomas Enriquez DO [address] [place] [address] [place] [address] Toney Loco, PT 8 [place] [address] 03/13/2025 9:15 AM EST Office Visit [facility] 8 [place] [address] Thomas Enriquez, DO [address] [place] [address] [place] [address] Mindy Genao, PT 8 [place] [address] 03/18/2025 9:30 AM EST Office Visit [address] [address] Thomas Enriquez, DO [address] [address] Toney Loco, PT 8 [place] [address] 03/20/2025 9:30 AM EST Office Visit [facility] 8 [place] [address] Thomas Enriquez DO [address] [address] Toney Loco, PT 8 [place] [address] 03/24/2025 8:45 AM EST Office Visit [facility] 8 [place] [address] Thomas Enriquez, DO [address] [address] Toney Loco, PT 8 [place] [address] 03/30/2025 9:15 AM EST Office Visit [facility] [address] [place] [address] Thomas Enriquez, DO [address] [place] [address] [place] [address] Mindy Genao, PT 8 [place] [address] 04/01/2025 8:45 AM EST Office Visit [address] [place] [address] Thomas Enriquez, DO [address] [place] [address] [place] [address] Toney Loco, PT 8 [place] [address] 04/06/2025 9:15 AM EST Office Visit [address] [address] Thomas Enriquez, DO [address] [place] [address] [place] [address] Mindy Genao, PT 8 [place] [address] 04/08/2025 8:45 AM EST Office Visit [address] [place] [address] Thomas Enriquez, DO [address] [place] [address] [place] [address] Toney Loco, PT 8 [place] [address] 04/14/2025 8:45 AM EST Office Visit [facility] [address] [place] [address] Thomas Enriquez DO [address] [place] [address] [place] [address] Toney Loco, PT 8 [place] [address] 04/16/2025 8:45 AM EST Office Visit [facility] [address] [place] [address] Thomas Enriquez DO [address] [place] [address] [place] [address] Toney Loco, PT 8 [place] [address] 04/21/2025 8:45 AM EST Office Visit [facility] 8 [place] [address] Thomas Enriquez DO [address] [place] [address] [place] [address] Toney Loco, PT 8 [place] [address] 04/23/2025 8:45 AM EST Office Visit [facility] 8 [place] [address] Thomas Enriquez DO [address] [place] [address] [place] [address] Toney Loco, PT 8 [place] [address] 04/28/2025 8:45 AM EST Office Visit [facility] [address] [place] [address] Mina, Thomas, DO [address] [place] [address] [place] [address] Toney Loco, PT 8 [place] [address] 04/30/2025 8:45 AM EST Office Visit [facility] 8 [place] [address] Thomas Enriquez, DO [address] [place] [address] [place] [address] Toney Loco, PT 8 [place] [address] 05/05/2025 8:45 AM EST Office Visit [facility] 8 [place] [address] Thomas Enriquez, DO [address] [place] [address] [place] [address] Toney Loco, PT 8 [place] [address] 05/07/2025 8:45 AM EST Office Visit [facility] 8 [place] [address] Thomas Enriquez, DO [address] [place] [address] [place] [address] Toney Loco, PT 8 [place] [address] 05/12/2025 8:45 AM EST Office Visit [facility] 8 [place] [address] Thomas Enriquez, DO [address] [place] [address] [place] [address] Toney Loco, PT 8 [place] [address] 05/14/2025 8:45 AM EST Office Visit [facility] [address] [place] [address] Thomas Enriquez, DO [address] [place] [address] [place] [address] Toney Loco, PT 8 [place] [address] 05/19/2025 8:45 AM EST Office Visit [address] [address] Thomas Enriquez, DO [address] [place] [address] [place] [address] Toney Loco, PT 8 [place] [address] 05/21/2025 8:45 AM EST Office Visit [address] [address] Thomas Enriquez, DO [address] [place] [address] [place] [address] Toney Loco, PT 8 [place] [address] documented as of this encounter Visit Diagnoses Not on filedocumented in this encounter Care Teams Manager Utilization Relationship Specialty Start Date End Date Itzel Martinez NP [address] [place] [address] PCP - General Family Medicine 02/09/17 04/15/24 Janae Lawrence MD [address] [place] [address] PCP - General Internal Medicine 04/16/24 Tila Haile NP [address] [place] [address] [email or web address] Historical LMR Provider 01/21/17 Gilma Carrasco MD 22 [facility] [address] [place] [address] [email or web address] Historical LMR Provider 01/21/17 Itzel Martinez NP [address] [place] [address] Historical LMR Provider 01/21/17 documented as of this encounter Additional Source Comments The information contained in this document represents components of the legal health record. It is not the complete legal health record.[facility]
--- OUTSIDE RECORDS SUMMARY | 2025-02-06 16:38 | XMS_ITS | Encounter Summary ---
Author Organization [facility] Address [address] [place] [address] [place] [address] Phone Care Team Providers Care Experimental Physicist Name Role Phone Tila Haile TRACK REPAIR LABORER Unavailable [phone] Gilma Carrasco MD Unavailable Itzel Martinez TRACK REPAIR LABORER Unavailable [phone] Itzel Martinez NP Primary Care Provider [phone] Janae Lawrence MD Primary Care Provider Encounter Details Date Type Department Care Team (Late st Contact Info) Description 12/20/2021 Procedure Pass [address] [place] [address] Social History Tobacco Use Types Packs/Day Years [...] Description 03/11/2025 9:30 AM EST Office Visit [facility] [address] [place] [address] Thomas Enriquez DO [address] [place] [address] [place] [address] Toney Loco, PT 8 [place] [address] 03/13/2025 9:15 AM EST Office Visit [facility] 8 [place] [address] Thomas Enriquez, DO [address] [place] [address] [place] [address] Mindy Genao, PT 8 [place] [address] 03/18/2025 9:30 AM EST Office Visit [address] [address] Thomas Enriquez, DO [address] [address] Toney Loco, PT 8 [place] [address] 03/20/2025 9:30 AM EST Office Visit [facility] 8 [place] [address] Thomas Enriquez DO [address] [address] Toney Loco, PT 8 [place] [address] 03/24/2025 8:45 AM EST Office Visit [facility] 8 [place] [address] Thomas Enriquez, DO [address] [address] Toney Loco, PT 8 [place] [address] 03/30/2025 9:15 AM EST Office Visit [facility] [address] [place] [address] Thomas Enriquez, DO [address] [place] [address] [place] [address] Mindy Genao, PT 8 [place] [address] 04/01/2025 8:45 AM EST Office Visit [address] [place] [address] Thomas Enriquez, DO [address] [place] [address] [place] [address] Toney Loco, PT 8 [place] [address] 04/06/2025 9:15 AM EST Office Visit [address] [address] Thomas Enriquez, DO [address] [place] [address] [place] [address] Mindy Genao, PT 8 [place] [address] 04/08/2025 8:45 AM EST Office Visit [address] [place] [address] Thomas Enriquez, DO [address] [place] [address] [place] [address] Toney Loco, PT 8 [place] [address] 04/14/2025 8:45 AM EST Office Visit [facility] [address] [place] [address] Thomas Enriquez DO [address] [place] [address] [place] [address] Toney Loco, PT 8 [place] [address] 04/16/2025 8:45 AM EST Office Visit [facility] [address] [place] [address] Thomas Enriquez DO [address] [place] [address] [place] [address] Toney Loco, PT 8 [place] [address] 04/21/2025 8:45 AM EST Office Visit [facility] 8 [place] [address] Thomas Enriquez DO [address] [place] [address] [place] [address] Toney Loco, PT 8 [place] [address] 04/23/2025 8:45 AM EST Office Visit [facility] 8 [place] [address] Thomas Enriquez DO [address] [place] [address] [place] [address] Toney Loco, PT 8 [place] [address] 04/28/2025 8:45 AM EST Office Visit [facility] [address] [place] [address] Mina, Thomas, DO [address] [place] [address] [place] [address] Toney Loco, PT 8 [place] [address] 04/30/2025 8:45 AM EST Office Visit [facility] 8 [place] [address] Thomas Enriquez, DO [address] [place] [address] [place] [address] Toney Loco, PT 8 [place] [address] 05/05/2025 8:45 AM EST Office Visit [facility] 8 [place] [address] Thomas Enriquez, DO [address] [place] [address] [place] [address] Toney Loco, PT 8 [place] [address] 05/07/2025 8:45 AM EST Office Visit [facility] 8 [place] [address] Thomas Enriquez, DO [address] [place] [address] [place] [address] Toney Loco, PT 8 [place] [address] 05/12/2025 8:45 AM EST Office Visit [facility] 8 [place] [address] Thomas Enriquez, DO [address] [place] [address] [place] [address] Toney Loco, PT 8 [place] [address] 05/14/2025 8:45 AM EST Office Visit [facility] [address] [place] [address] Thomas Enriquez, DO [address] [place] [address] [place] [address] Toney Loco, PT 8 [place] [address] 05/19/2025 8:45 AM EST Office Visit [address] [address] Thomas Enriquez, DO [address] [place] [address] [place] [address] Toney Loco, PT 8 [place] [address] 05/21/2025 8:45 AM EST Office Visit [address] [address] Thomas Enriquez, DO [address] [place] [address] [place] [address] Toney Loco, PT 8 [place] [address] documented as of this encounter Visit Diagnoses Not on filedocumented in this encounter Care Teams Experimental Physicist Relationship Specialty Start Date End Date Itzel Martinez NP 70 [place] [address] PCP - General Family Medicine 02/09/17 04/15/24 Janae Lawrence MD 70 [place] [address] PCP - General Internal Medicine 04/16/24 Tila Haile NP 30 [place] [address] [email or web address] Historical LMR Provider 01/21/17 Gilma Carrasco MD 22 [facility] 102 [place] [address] [email or web address] Historical LMR Provider 01/21/17 Itzel Martinez NP [address] [place] [address] Historical LMR Provider 01/21/17 documented as of this encounter Additional Source Comments The information contained in this document represents components of the legal health record. It is not the complete legal health record.[facility]
== END 2025-02-06 16:55 | disposition home or self-care (01) ==
LOC: HO.HMCFM 15:34
PROVIDERS: PCP Internal Medicine; Visit Provider Internal Medicine
DX: M35.3 Polymyalgia rheumatica (principal); M25.511 Pain in right shoulder; G89.29 Other chronic pain; S73.121A Ischiocapsular ligament sprain of right hip, initial encounter; M48.02 Spinal stenosis, cervical region

== ENCOUNTER → 2025-02-06 15:33 | Outpatient (BNVA) | payer MEDICARE, SELFPAY | PROVIDERS: PCP Internal Medicine; Visit Provider Internal Medicine | DX: M35.3 Polymyalgia rheumatica (principal); M25.511 Pain in right shoulder; G89.29 Other chronic pain; M48.02 Spinal stenosis, cervical region; S73.121A Ischiocapsular ligament sprain of right hip, initial encounter; W19.XXXA Unspecified fall, initial encounter; Y93.9 Activity, unspecified; Y92.59 Other trade areas as the place of occurrence of the external cause; Y99.9 Unspecified external cause status | CPT/HCPCS: 99212 ==

== ENCOUNTER 2025-02-11 09:28 | Outpatient (REF) | payer MEDICARE, SELFPAY ==
--- OUTSIDE RECORDS SUMMARY | 2024-05-02 15:30 | XMS_ITS | Encounter Summary ---
Author Organization [facility] Address [address] [facility] [address] [place] [address] Phone Care Team Providers Care Top Spotter Name Role Phone MicTila foster Leroy GLOVE OPERATOR Unavailable [phone] Gilma Carrasco MD Unavailable Itzel Martinez GLOVE OPERATOR Unavailable [phone] Janae Lawrence MD Primary Care Provider [phone] Encounter Details Date Type Department Care Team (Late st Contact Info) Description 05/02/2024 3:30 PM [facility] Hospital Encounter [facility] [address] [place] [address] [phone] Talia Moy, INTERVIEWING CLERK [address] [place] [address] [email or web address] Social History Tobacco Use Types Packs/Day Years [...] 7:02 AM EDT Agustina Mckeon RN * [place] Suicide Severity Rating Scale (Screener/Recent Self-Report) Question [...] Description 03/11/2025 9:30 AM EST Office Visit [facility] [address] [place] [address] Thomas Enriquez DO [address] [place] [address] [place] [address] Toney Loco, PT 8 [place] [address] 03/13/2025 9:15 AM EST Office Visit [facility] [address] [place] [address] Thomas Enriquez DO [address] [place] [address] [place] [address] Mindy Genao, PT 8 [place] [address] 03/18/2025 9:30 AM EST Office Visit [facility] [address] [place] [address] Thomas Enriquez DO [address] [place] [address] [place] [address] Toney Loco, PT 8 [place] [address] 03/20/2025 9:30 AM EST Office Visit [facility] 8 [place] [address] Thomas Enriquez DO [address] [place] [address] [place] [address] Toney Loco, PT 8 [place] [address] 03/24/2025 8:45 AM EST Office Visit [facility] 8 [place] [address] Thomas Enriquez DO [address] [place] [address] [place] [address] Toney Loco, PT 8 [place] [address] 03/30/2025 9:15 AM EST Office Visit [facility] [address] [place] [address] Thomas Enriquez, DO [address] [place] [address] [place] [address] Mindy Genao, PT 8 [place] [address] 04/01/2025 8:45 AM EST Office Visit [facility] 8 [place] [address] Thomas Enriquez, DO [address] [place] [address] [place] [address] Toney Loco, PT 8 [place] [address] 04/06/2025 9:15 AM EST Office Visit [facility] 8 [place] [address] Thomas Enriquez DO [address] [place] [address] [place] [address] Mindy Genao, PT 8 [place] [address] 04/08/2025 8:45 AM EST Office Visit [facility] 8 [place] [address] Thomas Enriquez DO [address] [place] [address] [place] [address] Toney Loco, PT 8 [place] [address] 04/14/2025 8:45 AM EST Office Visit [facility] [address] [place] [address] Thomas Enriquez DO [address] [place] [address] [place] [address] Toney Loco, PT 8 [place] [address] 04/16/2025 8:45 AM EST Office Visit [facility] 8 [place] [address] Thomas Enriquez, DO [address] [place] [address] [place] [address] Toney Loco, PT 8 [place] [address] 04/21/2025 8:45 AM EST Office Visit [facility] 8 [place] [address] Thomas Enriquez, DO [address] [place] [address] [place] [address] Toney Loco, PT 8 [place] [address] 04/23/2025 8:45 AM EST Office Visit [facility] 8 [place] [address] Thomas Enriquez, DO [address] [place] [address] [place] [address] Toney Loco, PT 8 [place] [address] 04/28/2025 8:45 AM EST Office Visit [facility] 8 [place] [address] Thomas Enriquez, DO [address] [place] [address] [place] [address] Toney Loco, PT 8 [place] [address] 04/30/2025 8:45 AM EST Office Visit [facility] [address] [place] [address] Thomas Enriquez, DO [address] [place] [address] [place] [address] Toney Loco, PT 8 [place] [address] 05/05/2025 8:45 AM EST Office Visit [facility] [address] [place] [address] Thomas Enriquez DO [address] [place] [address] [place] [address] Toney Loco, PT 8 [place] [address] 05/07/2025 8:45 AM EST Office Visit [facility] 8 [place] [address] Thomas Enriquez DO [address] [place] [address] [place] [address] Toney Loco, PT 8 [place] [address] 05/12/2025 8:45 AM EST Office Visit [facility] 8 [place] [address] Thomas Enriquez, DO [address] [place] [address] [place] [address] Toney Loco, PT 8 [place] [address] 05/14/2025 8:45 AM EST Office Visit [facility] [address] [place] [address] Thomas Enriquez, DO [address] [place] [address] [place], [place] [phone] Toney Loco, PT 8 [place] [address] 05/19/2025 8:45 AM EST Office Visit [facility] [address] [place] [address] Thomas Enriquez, DO [address] [place] [address] [place] [address] Toney Loco, PT 8 [place] [address] 05/21/2025 8:45 AM EST Office Visit [facility] [address] [place] [address] Thomas Enriquez, DO [address] [place] [address] [place] [address] Toney Loco, PT 8 [place] [address] [email or web address] documented as of this encounter Procedures Procedure [...] clinician's provided indication for this examination in [facility]: Trauma; r/o retained cat claw COMPARISON: None available. Procedure Note Nahid Goel MBBS - 05/02/2024 XR HAND 3 OR MORE VIEWS (RIGHT) Referring clinician's provided indication for this examination in [facility]:Trauma; r/o retained cat claw COMPARISON: None available. IMPRESSION: FINDINGS/IMPRESSION: No fracture. Normal alignment. Normal joint spaces. No soft tissueswelling. No Radiopaque foreign body. Talia Moy INTERVIEWING CLERK IMG XR UPPER EXTREMITY Final Result documented in this encounter Visit Diagnoses Not on filedocumented in this encounter Care Teams Top Spotter Relationship Specialty Start Date End Date Janae Lawrence MD [address] [place] [address] PCP - General Internal Medicine 04/16/24 Tila Haile NP [address] [place] [address] [email or web address] Historical LMR Provider 01/21/17 Gilma Carrasco MD [address] [place] [address], [facility] [address] [place] [address] Historical LMR Provider 01/21/17 Itzel Martinez NP [address] [place] [address] Historical LMR Provider 01/21/17 documented as of this encounter Additional Source Comments The information contained in this document represents components of the legal health record. It is not the complete legal health record.[facility]
--- OUTSIDE RECORDS SUMMARY | 2025-02-06 08:00 | XMS_ITS | Encounter Summary ---
Author Organization [facility] Address [address] [place] [id number] Phone Care Team Providers Care Central Control Room Operator Name Role Phone MicTila foster Leroy OPERATOR SUPPLY Unavailable [phone] Gilma Carrasco MD Unavailable Itzel Martinez OPERATOR SUPPLY Unavailable [phone] Janae Lawrence MD Primary Care Provider [phone] Reason for Visit * Physical Therapy (Routine) - Authorized Specialty Diagnoses / Procedures Referred By Contac t Referred To Contact Physical Therapy Diagnoses Encounter for rehabilitation Fabiana Brandt, OPERATOR SUPPLY [address] [place] [address] Phone: tel: fax: [facility] [address] [place] [address] Phone: tel: Referral ID Status Reason Start Date Expiration Date V isits Requested Visits Authorized [id number] Authorized 02/19/2024 02/18/2025 99 99 Encounter Details Date Type Department Care Team (Late st Contact Info) Description 02/06/2025 8:00 AM EST Office Visit [facility] [address] [place] [address] Janae Lawrence MD [address] [place], [place] [id number] Toney Loco, PT [address] [place] [address] [email or web address] Acute bilateral low back [...] Physical Therapy. Referring MD: Janae Lawrence MD [address] [place] [address] [place] [address] Acute bilateral low back pain, unspecified whether [...] MFR lumbar paraspinals SCS R QL Supine BALANCE RECESSER at occiput MFR temporalis/frontalis Therex Pelvic tilts [...] mechanical traction as tolerated. Toney Loco PT [id number] documented in this encounter Plan of Treatment Upcoming Encounters Date Type Department Care Team (Late st Contact Info) Description 03/11/2025 9:30 AM EST Office Visit [facility] [address] [place] [address] Thomas Enriquez DO [address] [facility] [address] [place] [address] Toney Loco, PT [address] [place] [address] [email or web address] 03/13/2025 9:15 AM EST Office Visit [facility] [address] [place] [address] Thomas Enriquez, DO [address] [place] [address] [place] [address] Mindy Genao, PT [address] [place] [address] [email or web address] 03/18/2025 9:30 AM EST Office Visit [facility] [address] [place] [address] Thomas Enriquez, DO [address] [place] [address] [place] [address] Toney Loco, PT [address] [place] [address] [email or web address] 03/20/2025 9:30 AM EST Office Visit [facility] [address] [place] [address] Thomas Enriquez, DO [address] [place] [address] [place] [address] Toney Loco, PT [address] [place] [address] [email or web address] 03/24/2025 8:45 AM EST Office Visit [facility] [address] [place] [address] Thomas Enriquez, DO [address] [place] [address] [place] [address] Toney Loco, PT [address] [place] [address] [email or web address] 03/30/2025 9:15 AM EST Office Visit [facility] [address] [place] [address] Thomas Enriquez DO [address] [place] [address] [place] [address] Mindy Genao, PT [address] [place] [address] 04/01/2025 8:45 AM EST Office Visit [facility] [address] [place] [address] Thomas Enriquez, DO [address] [address] Toney Loco, PT [address] [place] [address] [email or web address] 04/06/2025 9:15 AM EST Office Visit [facility] [address] [place] [address] Thomas Enriquez, DO [address] [address] Mindy Genao, PT [address] [place] [address] 04/08/2025 8:45 AM EST Office Visit [facility] [address] [place] [address] Thomas Enriquez DO [address] [address] Toney Loco, PT [address] [place] [address] [email or web address] 04/14/2025 8:45 AM EST Office Visit [facility] [address] [place] [address] Thomas Enriquez, DO [address] [place] [address] [place] [address] Toney Loco, PT [address] [place] [address] [email or web address] 04/16/2025 8:45 AM EST Office Visit [facility] [address] [place] [address] Thomas Enriquez, DO [address] [place] [address] [place] [address] Toney Loco, PT [address] [place] [address] [email or web address] 04/21/2025 8:45 AM EST Office Visit [facility] [address] [place] [address] Thomas Enriquez, DO [address] [place] [address] [place] [address] Toney Loco, PT [address] [place] [address] [email or web address] 04/23/2025 8:45 AM EST Office Visit [facility] [address] [place] [address] Thomas Enriquez, DO [address] [place] [address] [place] [address] Toney Loco, PT [address] [place] [address] [email or web address] 04/28/2025 8:45 AM EST Office Visit [facility] [address] [place] [address] Thomas Enriquez, DO [address] [place] [address] [place] [address] Toney Loco, PT [address] [place] [address] [email or web address] 04/30/2025 8:45 AM EST Office Visit [facility] [address] [place] [address] Thomas Enriquez, DO [address] [address] Toney Loco, PT [address] [place] [address] [email or web address] 05/05/2025 8:45 AM EST Office Visit [address] [address] Thomas Enriquez, DO [address] [address] Toney Loco, PT [address] [place] [address] [email or web address] 05/07/2025 8:45 AM EST Office Visit [facility] [address] [place] [address] Thomas Enriquez, DO [address] [address] Toney Loco, PT [address] [place] [address] [email or web address] 05/12/2025 8:45 AM EST Office Visit [facility] 8 [place] [address] Thomas Enriquez, DO [address] [address] Toney Loco, PT [address] [place] [address] [email or web address] 05/14/2025 8:45 AM EST Office Visit [facility] 8 [place] [address] Thomas Enriquez, DO [address] [place] [address] [place] [address] Toney Loco, PT [address] [place] [address] [email or web address] 05/19/2025 8:45 AM EST Office Visit [address] [address] Thomas Enriquez, DO [address] [address] Toney Loco, PT [address] [place] [address] [email or web address] 05/21/2025 8:45 AM EST Office Visit [address] [address] Thomas Enriquez, DO [address] [address] Toney Loco, PT [address] [place] [address] [email or web address] documented as of this encounter Visit Diagnoses Diagnosis Acute bilateral low back pain, unspecified whether sciatica present- Primary documented in this encounter Care Teams Central Control Room Operator Relationship Specialty Start Date End Date Janae Lawrence MD [address] [place] [address] PCP - General Internal Medicine 04/16/24 Tila Haile NP [address] [place] [address] [email or web address] Historical LMR Provider 01/21/17 Gilma Carrasco MD [address] [place] [address] [address] [place] [address] [email or web address] Historical LMR Provider 01/21/17 Itzel Martinez NP [address] [place] [address] Historical LMR Provider 01/21/17 documented as of this encounter Additional Source Comments The information contained in this document represents components of the legal health record. It is not the complete legal health record.[facility]
--- OUTSIDE RECORDS SUMMARY | 2025-02-11 10:28 | XMS_ITS | Encounter Summary ---
Author Organization [facility] Address [address] [facility] [address] [place] [address] Phone Care Team Providers Care Community Center Coordinator Name Role Phone MicTila foster Leroy CARE COORDINATION MANAGER Unavailable [phone] Gilma Carrasco MD Unavailable Itzel Martinez CARE COORDINATION MANAGER Unavailable [phone] Janae Lawrence MD Primary Care Provider Encounter Details Date Type Department Care Team (Late st Contact Info) Description 06/22/2024 Procedure Pass [facility], [address] [address] Social History Tobacco Use Types Packs/Day Years [...] 7:02 AM EDT Agustina Mckeon RN * [place] Suicide Severity Rating Scale (Screener/Recent Self-Report) Question [...] 9:30 AM EST Office Visit [facility] 8 [place] [address] Thomas Enriquez DO [address] [place] [address] [place] [address] Toney Loco, PT 8 [place] [address] 03/13/2025 9:15 AM EST Office Visit [facility] [address] [place] [address] Thomas Enriquez DO [address] [address] Mindy Genao, PT 8 [place] [address] 03/18/2025 9:30 AM EST Office Visit [address] [address] Thomas Enriquez, DO [address] [address] Toney Loco, PT 8 [place] [address] 03/20/2025 9:30 AM EST Office Visit [address] [address] Thomas Enriquez, DO [address] [address] Toney Loco, PT 8 [place] [address] 03/24/2025 8:45 AM EST Office Visit [address] [address] Thomas Enriquez, DO [address] [address] Toney Loco, PT 8 [place] [address] 03/30/2025 9:15 AM EST Office Visit [address] [address] Thomas Enriquez, DO [address] [address] Mindy Genao, PT 8 [place] [address] 04/01/2025 8:45 AM EST Office Visit [facility] 8 [place] [address] Thomas Enriquez, DO [address] [place] [address] [place] [address] Toney Loco, PT 8 [place] [address] 04/06/2025 9:15 AM EST Office Visit [address] [place] [address] Thomas Enriquez, DO [address] [place] [address] [place] [address] Mindy Genao, PT 8 [place] [address] 04/08/2025 8:45 AM EST Office Visit [facility] 8 [place] [address] Thomas Enriquez, DO [address] [place] [address] [place] [address] Toney Loco, PT 8 [place] [address] 04/14/2025 8:45 AM EST Office Visit [facility] [address] [place] [address] Thomas Enriquez, DO [address] [place] [address] [place] [address] Toney Loco, PT 8 [place] [address] 04/16/2025 8:45 AM EST Office Visit [facility] [address] [place] [address] Thomas Enriquez DO [address] [place] [address] [place] [address] Toney Loco, PT 8 [place] [address] 04/21/2025 8:45 AM EST Office Visit [facility] [address] [place] [address] Thomas Enriquez DO [address] [place] [address] [place] [address] Toney Loco, PT 8 [place] [address] 04/23/2025 8:45 AM EST Office Visit [facility] 8 [place] [address] Thomas Enriquez, DO [address] [place] [address] [place] [address] Toney Loco, PT 8 [place] [address] 04/28/2025 8:45 AM EST Office Visit [facility] 8 [place] [address] Thomas Enriquez DO [address] [place] [address] [place] [address] Toney Loco, PT 8 [place] [address] 04/30/2025 8:45 AM EST Office Visit [facility] [address] [place] [address] Lafayette, Thomas, DO [address] [place] [address] [place] [address] Toney Loco, PT 8 [place] [address] 05/05/2025 8:45 AM EST Office Visit [facility] 8 [place] [address] Thomas Enriquez, DO [address] [place] [address] [place] [address] Toney Loco, PT 8 [place] [address] 05/07/2025 8:45 AM EST Office Visit [facility] 8 [place] [address] Thomas Enriquez, DO [address] [address] Toney Loco, PT 8 [place] [address] 05/12/2025 8:45 AM EST Office Visit [facility] 8 [place] [address] Thomas Enriquez, DO [address] [address] Toney Loco, PT 8 [place] [address] 05/14/2025 8:45 AM EST Office Visit [facility] 8 [place] [address] Thomas Enriquez, DO [address] [address] Jed Locofranklyn, PT 8 [place] [address] 05/19/2025 8:45 AM EST Office Visit [facility] 8 [place] [address] Thomas Enriquez, DO [address] [place] [address] [place] [address] Toney Loco, PT 8 [place] [address] 05/21/2025 8:45 AM EST Office Visit [facility] 8 [place] [address] Thomas Enriquez, DO [address] [place] [facility] [place] [address] Claudy Jedfranklyn, PT 8 [place] [address] documented as of this encounter Visit Diagnoses Not on filedocumented in this encounter Care Teams Community Center Coordinator Relationship Specialty Start Date End Date Janae Lawrence MD 70 [place] [address] PCP - General Internal Medicine 04/16/24 Tila Haile NP [address] [place] [address] Historical LMR Provider 01/21/17 Gilma Carrasco MD [address] [place] [address] Historical LMR Provider 01/21/17 Itzel Martinez NP [address] [place] [address] Historical LMR Provider 01/21/17 documented as of this encounter Additional Source Comments The information contained in this document represents components of the legal health record. It is not the complete legal health record.[facility]
--- OUTSIDE RECORDS SUMMARY | 2025-02-11 10:28 | XMS_ITS | Encounter Summary ---
Author Organization [facility] Address [address] [place] [address] [place] [address] Phone Care Team Providers Care High Density Talc Coater Operator Name Role Phone Mic Tila Harper WOODWIND REEDS CUTTER Unavailable [phone] Gilma Carrasco MD Unavailable Itzel Martinez WOODWIND REEDS CUTTER Unavailable [phone] Itzel Martinez NP Primary Care Provider [phone] Janae Lawrence MD Primary Care Provider [phone] Encounter Details Date Type Department Care Team (Late st Contact Info) Description 10/05/2021 Procedure Pass [facility] Admitting Dept Virtual Department 30 [place] [address] Social History Tobacco Use Types Packs/Day Years [...] Description 03/11/2025 9:30 AM EST Office Visit [facility] [address] [place] [address] Thomas Enriquez DO [address] [place] [address] [place] [address] Toney Loco, PT 8 [place] [address] 03/13/2025 9:15 AM EST Office Visit [facility] 8 [place] [address] Thomas Enriquez, DO [address] [place] [address] [place] [address] Mindy Genao, PT 8 [place] [address] 03/18/2025 9:30 AM EST Office Visit [address] [address] Thomas Enriquez, DO [address] [address] Toney Loco, PT 8 [place] [address] 03/20/2025 9:30 AM EST Office Visit [facility] 8 [place] [address] Thomas Enriquez DO [address] [address] Toney Loco, PT 8 [place] [address] 03/24/2025 8:45 AM EST Office Visit [facility] 8 [place] [address] Thomas Enriquez, DO [address] [address] Toney Loco, PT 8 [place] [address] 03/30/2025 9:15 AM EST Office Visit [facility] [address] [place] [address] Thomas Enriquez, DO [address] [place] [address] [place] [address] Mindy Genao, PT 8 [place] [address] 04/01/2025 8:45 AM EST Office Visit [address] [place] [address] Thomas Enriquez, DO [address] [place] [address] [place] [address] Toney Loco, PT 8 [place] [address] 04/06/2025 9:15 AM EST Office Visit [address] [address] Thomas Enriquez, DO [address] [place] [address] [place] [address] Mindy Genao, PT 8 [place] [address] 04/08/2025 8:45 AM EST Office Visit [address] [place] [address] Thomas Enriquez, DO [address] [place] [address] [place] [address] Toney Loco, PT 8 [place] [address] 04/14/2025 8:45 AM EST Office Visit [facility] [address] [place] [address] Thomas Enriquez DO [address] [place] [address] [place] [address] Toney Loco, PT 8 [place] [address] 04/16/2025 8:45 AM EST Office Visit [facility] [address] [place] [address] Thomas Enriquez DO [address] [place] [address] [place] [address] Toney Loco, PT 8 [place] [address] 04/21/2025 8:45 AM EST Office Visit [facility] 8 [place] [address] Thomas Enriquez DO [address] [place] [address] [place] [address] Toney Loco, PT 8 [place] [address] 04/23/2025 8:45 AM EST Office Visit [facility] 8 [place] [address] Thomas Enriquez DO [address] [place] [address] [place] [address] Toney Loco, PT 8 [place] [address] 04/28/2025 8:45 AM EST Office Visit [facility] [address] [place] [address] Mina, Thomas, DO [address] [place] [address] [place] [address] Toney Loco, PT 8 [place] [address] 04/30/2025 8:45 AM EST Office Visit [facility] 8 [place] [address] Thomas Enriquez, DO [address] [place] [address] [place] [address] Toney Loco, PT 8 [place] [address] 05/05/2025 8:45 AM EST Office Visit [facility] 8 [place] [address] Thomas Enriquez, DO [address] [place] [address] [place] [address] Toney Loco, PT 8 [place] [address] 05/07/2025 8:45 AM EST Office Visit [facility] 8 [place] [address] Thomas Enriquez, DO [address] [place] [address] [place] [address] Toney Loco, PT 8 [place] [address] 05/12/2025 8:45 AM EST Office Visit [facility] 8 [place] [address] Thomas Enriquez, DO [address] [place] [address] [place] [address] Toney Loco, PT 8 [place] [address] 05/14/2025 8:45 AM EST Office Visit [facility] [address] [place] [address] Thomas Enriquez, DO [address] [place] [address] [place] [address] Toney Loco, PT 8 [place] [address] 05/19/2025 8:45 AM EST Office Visit [address] [address] Thomas Enriquez, DO [address] [place] [address] [place] [address] Toney Loco, PT 8 [place] [address] 05/21/2025 8:45 AM EST Office Visit [address] [address] Thomas Enriquez, DO [address] [place] [address] [place] [address] Toney Loco, PT 8 [place] [address] documented as of this encounter Visit Diagnoses Not on filedocumented in this encounter Care Teams High Density Talc Coater Operator Relationship Specialty Start Date End Date Itzel Martinez NP 70 [place] [address] PCP - General Family Medicine 02/09/17 04/15/24 Janae Lawrence MD 70 [place] [address] PCP - General Internal Medicine 04/16/24 Tila Haile NP 30 [place] [address] [email or web address] Historical LMR Provider 01/21/17 Gilma Carrasco MD [facility] 102 [place] [address] [email or web address] Historical LMR Provider 01/21/17 Itzel Martinez NP [address] [place] [address] Historical LMR Provider 01/21/17 documented as of this encounter Additional Source Comments The information contained in this document represents components of the legal health record. It is not the complete legal health record.[facility]
--- OUTSIDE RECORDS SUMMARY | 2025-02-11 10:28 | XMS_ITS | Encounter Summary ---
Author Organization [facility] Address [address] [facility] [address] [place] [address] Phone Care Team Providers Care Deputy County Clerk Name Role Phone MicTila foster Leroy NAIL ASSEMBLY MACHINE OPERATOR Unavailable [phone] Gilma Carrasco MD Unavailable Itzel Martinez NAIL ASSEMBLY MACHINE OPERATOR Unavailable [phone] Janae Lawrence MD Primary Care Provider Encounter Details Date Type Department Care Team (Late st Contact Info) Description 06/22/2024 Procedure Pass [facility], Ct Scan - [address] [id number] Social History Tobacco Use Types Packs/Day Years [...] 7:02 AM EDT Agustina Mckeon RN * Timpson Suicide Severity Rating Scale (Screener/Recent Self-Report) Question [...] Description 03/11/2025 9:30 AM EST Office Visit [facility] [address] [place] [address] Thomas Enriquez DO [address] [address] Toney Loco, PT 8 [place] [address] 03/13/2025 9:15 AM EST Office Visit [facility] [address] [place] [address] Thomas Enriquez DO [address] [address] Mindy Genao, PT 8 [place] [address] 03/18/2025 9:30 AM EST Office Visit [facility] 8 [place] [address] Thomas Enriquez, DO [address] [address] Toney Loco, PT 8 [place] [address] 03/20/2025 9:30 AM EST Office Visit [address] [address] Thomas Enriquez, DO [address] [address] Toney Loco, PT 8 [place] [address] 03/24/2025 8:45 AM EST Office Visit [address] [address] Thomas Enriquez, DO [address] [address] Toney Loco, PT 8 [place] [address] 03/30/2025 9:15 AM EST Office Visit [address] [address] Thomas Enriquez, DO [address] [address] Mindy Genao, PT 8 [place] [address] 04/01/2025 8:45 AM EST Office Visit [facility] [address] [place] [address] Thomas Enriquez, DO [address] [place] [address] [place] [address] Toney Loco, PT 8 [place] [address] 04/06/2025 9:15 AM EST Office Visit [address] [place] [address] Thomas Enriquez, DO [address] [place] [address] [place] [address] Mindy Genao, PT 8 [place] [address] 04/08/2025 8:45 AM EST Office Visit [facility] 8 [place] [address] Thomas Enriquez, DO [address] [place] [address] [place] [address] Toney Loco, PT 8 [place] [address] 04/14/2025 8:45 AM EST Office Visit [address] [place] [address] Thomas Enriquez, DO [address] [place] [address] [place] [address] Toney Loco, PT 8 [place] [address] 04/16/2025 8:45 AM EST Office Visit [facility] [address] [place] [address] Thomas Enriquez DO [address] [place] [address] [place] [address] Toney Loco, PT 8 [place] [address] 04/21/2025 8:45 AM EST Office Visit [facility] [address] [place] [address] Thomas Enriquez DO [address] [place] [address] [place] [address] Toney Loco, PT 8 [place] [address] 04/23/2025 8:45 AM EST Office Visit [facility] 8 [place] [address] Thomas Enriquez DO [address] [place] [address] [place] [address] Toney Loco, PT 8 [place] [address] 04/28/2025 8:45 AM EST Office Visit [facility] 8 [place] [address] Thomas Enriquez DO [address] [place] [address] [place] [address] Toney Loco, PT 8 [place] [address] 04/30/2025 8:45 AM EST Office Visit [facility] [address] [place] [address] [place], Thomas, DO [address] [place] [address] [place] [address] Toney Loco, PT 8 [place] [address] 05/05/2025 8:45 AM EST Office Visit [facility] 8 [place] [address] Thomas Enriquez, DO [address] [place] [address] [place] [address] Toney Loco, PT 8 [place] [address] 05/07/2025 8:45 AM EST Office Visit [facility] 8 [place] [address] Thomas Enriquez, DO [address] [address] Toney Loco, PT 8 [place] [address] 05/12/2025 8:45 AM EST Office Visit [facility] 8 [place] [address] Thomas Enriquez, DO [address] [address] Toney Loco, PT 8 [place] [address] 05/14/2025 8:45 AM EST Office Visit [facility] 8 [place] [address] Thomas Enriquez, DO [address] [place] [address] [place] [address] Jed Locofranklyn, PT 8 [place] [address] 05/19/2025 8:45 AM EST Office Visit [facility] 8 [place] [address] Mina Thomas, DO [address] [place] [address] [place] [address] Toney Loco, PT 8 [place] [address] 05/21/2025 8:45 AM EST Office Visit [facility] 8 [place] [address] Thomas Enriquez, DO [address] [place] [facility] [place] [address] Claudy Jedfranklyn, PT 8 [place] [address] documented as of this encounter Visit Diagnoses Not on filedocumented in this encounter Care Teams Deputy County Clerk Relationship Specialty Start Date End Date Janae Lawrence MD 70 [place] [address] PCP - General Internal Medicine 04/16/24 Tila Haile NP [address] [place] [address] Historical LMR Provider 01/21/17 Gilma Carrasco MD [address] [address] Historical LMR Provider 01/21/17 Itzel Martinez NP 70 [place] [address] Historical LMR Provider 01/21/17 documented as of this encounter Additional Source Comments The information contained in this document represents components of the legal health record. It is not the complete legal health record.[facility]
--- OUTSIDE RECORDS SUMMARY | 2025-02-11 10:28 | XMS_ITS | Encounter Summary ---
Author Organization [facility] Address [address] [place] [address] [place] [address] Phone Care Team Providers Care Concrete Bucket Hooker Name Role Phone Mariam Cooper CNM Unavailable Tila Haile TOBACCO GROWER Unavailable [phone] Katelynn Ruiz TOBACCO GROWER Unavailable Tang Reed MD Unavailable Gilma Carrasco MD Unavailable Itzel Martinez TOBACCO GROWER Unavailable [phone] Elena Eason MD Unavailable [phone] Cruz Roberson MD Unavailable Nova Acevedo MD Unavailable Mar Keene MD Unavailable Rachel Saleem MD Unavailable [phone] Itzel Martinez TOBACCO GROWER Primary Care Provider Janae Lawrence MD Primary Care Provider Encounter Details Date Type Department Care Team (Latest Contact Info) Description 03/07/2021 Transcribe Orders [facility] Phleb Sarina [address] [phone] Lorraine Membreno PA 10 [place], [place] [phone] Diarrhea, unspecified type (Primary Dx) Social History [...] Description 03/11/2025 9:30 AM EST Office Visit [address] [place] [address] Thomas Enriquez DO [address] [address] Toney Loco, PT 8 [place] [address] 03/13/2025 9:15 AM EST Office Visit [address] [place] [address] Thomas Enriquez DO [address] [address] Mindy Genao, PT 8 [place] [address] 03/18/2025 9:30 AM EST Office Visit [address] [place] [address] Thomas Enriquez DO [address] [address] Toney Loco, PT 8 [place] [address] 03/20/2025 9:30 AM EST Office Visit [facility] [address] [place] [address] Thomas Enriquez DO [address] [place] [address] [place] [address] Toney Loco, PT 8 [place] [address] 03/24/2025 8:45 AM EST Office Visit [facility] [address] [place] [address] Thomas Enriquez DO [address] [place] [address] [place] [address] Toney Loco, PT 8 [place] [address] 03/30/2025 9:15 AM EST Office Visit [facility] 8 [place] [address] Thomas Enriquez DO [address] [place] [address] [place] [address] Mindy Genao, PT 8 [place] [address] 04/01/2025 8:45 AM EST Office Visit [facility] 8 [place] [address] Thomas Enriquez DO [address] [place] [address] [place] [address] Toney Loco, PT 8 [place] [address] 04/06/2025 9:15 AM EST Office Visit [facility] [address] [place] [address] [place], Thomas, DO [address] [place] [address] [place] [address] Mindy Genao, PT 8 [place] [address] 04/08/2025 8:45 AM EST Office Visit [facility] 8 [place] [address] Thomas Enriquez, DO [address] [place] [address] [place] [address] Toney Loco, PT 8 [place] [address] 04/14/2025 8:45 AM EST Office Visit [facility] 8 [place] [address] Thomas Enriquez, DO [address] [place] [address] [place] [address] Toney Loco, PT 8 [place] [address] 04/16/2025 8:45 AM EST Office Visit [facility] 8 [place] [address] Thomas Enriquez, DO [address] [place] [address] [place] [address] Toney Loco, PT 8 [place] [address] 04/21/2025 8:45 AM EST Office Visit [facility] 8 [place] [address] Thomas Enriquez, DO [address] [place] [address] [place] [address] Toney Loco, PT 8 [place] [address] 04/23/2025 8:45 AM EST Office Visit [facility] [address] [place] [address] Thomas Enriquez, DO [address] [place] [address] [place] [address] Toney Loco, PT 8 [place] [address] 04/28/2025 8:45 AM EST Office Visit [facility] 8 [place] [address] Thomas Enriquez, DO [address] [place] [address] [place] [address] Toney Loco, PT 8 [place] [address] 04/30/2025 8:45 AM EST Office Visit [facility] 8 [place] [address] Thomas Enriquez, DO [address] [place] [address] [place] [address] Toney Loco, PT 8 [place] [address] 05/05/2025 8:45 AM EST Office Visit [facility] [address] [place] [address] Thomas Enriquez, DO [address] [place] [address] [place] [address] Toney Loco, PT 8 [place] [address] 05/07/2025 8:45 AM EST Office Visit [facility] [address] [place] [address] Thomas Enriquez, DO [address] [place] [address] [place] [address] Toney Loco, PT 8 [place] [address] 05/12/2025 8:45 AM EST Office Visit [facility] [address] [place] [address] Thomas Enriquez DO [address] [place] [address] [place] [address] Toney Loco, PT 8 [place] [address] 05/14/2025 8:45 AM EST Office Visit [facility] 8 [place] [address] Thomas Enriquez, DO [address] [place] [address] [place] [address] Toney Loco, PT 8 [place] [address] 05/19/2025 8:45 AM EST Office Visit [facility] [address] [place] [address] Thomas Enriquez, DO [address] [place] [address] [place] [address] Toney Loco, PT 8 [place] [address] 05/21/2025 8:45 AM EST Office Visit [facility] [address] [place] [address] Thomas Enriquez DO [address] [place] [address] [place] [address] Toney Loco, PT 8 [place] [address] [email or web address] documented as of this encounter Results * (ABNORMAL) CBC and differential (03/07/2021 12:23 PM EST) WBC 6.92 4.00 - 11.00 K/uL [facility] RBC 4.45 3.72 - 5.30 M/uL [facility] HGB 15.0 10.6 - 15.5 g/dL [facility] HCT 44.2 32.0 - 45.0 % [facility] PLT 243 140 - 430 K/uL [facility] MCV 99.3(H) 78.0 - 97.0 fL [facility] MCH 33.7(H) 25.0 - 33.0 pg [facility] MCHC 33.9 32.0 - 36.0 g/dL [facility] RDW 12.1 11.0 - 16.0 % [facility] MPV 11.1 8.4 - 12.8 fl [facility] NRBC 0.00 0 /100 WBCs [facility] ABSOLUTE NRBC 0.00 0 K/uL [facility] DIFF METHOD Auto [facility] NEUTS 66.9 43.0 - 75.0 % [facility] LYMPHS 23.4 18.2 - 47.4 % [facility] MONOS 6.6 4.00 - 11.00 % [facility] EOS 2.2 0.0 - 8.0 % [facility] BASOS 0.6 0.0 - 2.0 % [facility] Granulocytes, immature (%) 0.3 0.0 - 0.9 % [facility] ABSOLUTE NEUTS 4.63 1.80 - 7.70 K/uL [facility] ABSOLUTE LYMPHS 1.62 1.00 - 3.10 K/uL [facility] ABSOLUTE MONOS 0.46 0.20 - 0.80 K/uL [facility] ABSOLUTE EOS 0.15 0.00 - 0.80 K/uL [facility] ABSOLUTE BASOS 0.04 0.00 - 0.09 K/uL [facility] Granulocytes, immature 0.02 0.00 - 0.05 K/uL [facility] Blood 03/07/2021 12:2 3 PM EST 03/07/2021 12:27 PM EST Lorraine GUDINO LAB BLOOD BKR ORDERABLES Fi nal Result [address] [address] * Immunoglobulin A (03/07/2021 12:23 PM EST) IgA 292 70 - 400 mg/dL [facility] Blood 03/07/2021 12:2 3 PM EST 03/07/2021 12:27 PM EST Lorraine GUDINO LAB BLOOD BKR ORDERABLES Fi nal Result Performing Organization Address [facility] Co de Phone Number [address] [address] * Tissue transglutaminase IgA (03/07/2021 12:23 PM EST) TTG IGA ANTIBODY <1.2 <4.0 (Negative) U/mL [facility] Blood 03/07/2021 12:2 3 PM EST 03/07/2021 12:27 PM EST Lorraine GUDINO LAB BLOOD BKR ORDERABLES Fi nal Result Performing Organization Address City/[facility]/ZIP Co de Phone Number [facility] [address] [place] [address] documented in this encounter Visit Diagnoses Diagnosis Diarrhea, unspecified type- Primary documented in this encounter Care Teams Concrete Bucket Hooker Relationship Specialty Start Date End Date Itzel Martinez NP 70 [place] [address] PCP - General Family Medicine 02/09/17 04/15/24 Janae Lawrence MD [address] [place] [address] PCP - General Internal Medicine 04/16/24 Mariam Cooper CNM 30 [place] [address] Historical LMR Provider 01/21/17 2 Tila Haile NP [address] [place] [address] [email or web address] Historical LMR Provider 01/21/17 Katelynn Ruiz NP [address] [place] [address] [email or web address] Historical LMR Provider 01/21/17 04/09/21 Tang Reed MD [address] [place] [address], [address] [place] [address] Historical LMR Provider 01/21/17 04/09/21 Gilma Carrasco MD [address] [place] [address], [address] [address] Historical LMR Provider 01/21/17 Itzel Martinez NP [address] [place] [address] Historical LMR Provider 01/21/17 Elena Eason MD [address] [address] Historical LMR Provider 01/21/17 2 Cruz Roberson MD [address] [place] [address] [email or web address] Historical LMR Provider 01/21/17 04/09/21 Nova Acevedo MD [address] [place] [phone] Historical LMR Provider 01/21/17 2 Mar Keene MD [address] [place] [address] [email or web address] Historical LMR Provider 01/21/17 04/09/21 Rachel Saleem MD [address] [place] [phone] Historical LMR Provider 01/21/17 2 documented as of this encounter Additional Source Comments The information contained in this document represents components of the legal health record. It is not the complete legal health record.[facility]
--- OUTSIDE RECORDS SUMMARY | 2025-02-11 10:28 | XMS_ITS | Encounter Summary ---
Author Organization [facility] Address [address] [place] [address] [place] [address] Phone Care Team Providers Care Sfdc Technical Architect Name Role Phone Mic, Tila Leroy PARKS AND RECREATION MANAGER Unavailable [phone] Gilma Carrasco MD Unavailable Itzel Martinez PARKS AND RECREATION MANAGER Unavailable [phone] Itzel Martinez NP Primary Care Provider [phone] Janae Lawrence MD Primary Care Provider Encounter Details Date Type Department Care Team (Latest Contact Info) Description 09/27/2021 Transcribe Orders [facility] Phleb [place] [address] [place] [address] Thomas Ray MD [address] [address] Diarrhea, unspecified type (Primary Dx) Social History [...] Description 03/11/2025 9:30 AM EST Office Visit [facility] [address] [place] [address] Thomas Enriquez DO [address] [place] [address] [place] [address] Toney Loco, PT 8 [place] [address] 03/13/2025 9:15 AM EST Office Visit [facility] [address] [place] [address] Thomas Enriquez DO [address] [place] [address] [place] [address] Mindy Genao, PT 8 [place] [address] 03/18/2025 9:30 AM EST Office Visit [facility] [address] [place] [address] Thomas Enriquez DO [address] [place] [address] [place] [address] Toney Loco, PT 8 [place] [address] 03/20/2025 9:30 AM EST Office Visit [facility] [address] [place] [address] Thomas Enriquez DO [address] [place] [address] [place] [address] Toney Loco, PT 8 [place] [address] 03/24/2025 8:45 AM EST Office Visit [facility] [address] [place] [address] Thomas Enriquez, DO [address] [place] [address] [place] [address] Toney Loco, PT 8 [place] [address] 03/30/2025 9:15 AM EST Office Visit [facility] [address] [place] [address] Thomas Enriquez, DO [address] [place] [address] [place] [address] Mindy Genao, PT 8 [place] [address] 04/01/2025 8:45 AM EST Office Visit [facility] [address] [place] [address] Thomas Enriquez, DO [address] [place] [address] [place] [address] Toney Loco, PT 8 [place] [address] 04/06/2025 9:15 AM EST Office Visit [facility] [address] [place] [address] Thomas Enriquez DO [address] [place] [address] [place] [address] Mindy Genao, PT 8 [place] [address] 04/08/2025 8:45 AM EST Office Visit [facility] [address] [place] [address] Thomas Enriquez DO [address] [place] [address] [place] [address] Toney Loco, PT 8 [place] [address] 04/14/2025 8:45 AM EST Office Visit [facility] 8 [place] [address] Thomas Enriquez, DO [address] [place] [address] [place] [address] Toney Loco, PT 8 [place] [address] 04/16/2025 8:45 AM EST Office Visit [facility] [address] [place] [address] Thomas Enriquez, DO [address] [place] [address] [place] [address] Toney Loco, PT 8 [place] [address] 04/21/2025 8:45 AM EST Office Visit [facility] 8 [place] [address] Thomas Enriquez, DO [address] [place] [address] [place] [address] Toney Loco, PT 8 [place] [address] 04/23/2025 8:45 AM EST Office Visit [facility] 8 [place] [address] Thomas Enriquez, DO [address] [place] [address] [place] [address] Toney Loco, PT 8 [place] [address] 04/28/2025 8:45 AM EST Office Visit [facility] [address] [place] [address] Thomas Enriquez, DO [address] [place] [address] [place] [address] Toney Loco, PT 8 [place] [address] 04/30/2025 8:45 AM EST Office Visit [facility] [address] [place] [address] Thomas Enriquez, DO [address] [place] [address] [place] [address] Toney Loco, PT 8 [place] [address] 05/05/2025 8:45 AM EST Office Visit [facility] [address] [place] [address] Thomas Enriquez, DO [address] [place] [address] [place] [address] Toney Loco, PT 8 [place] [address] 05/07/2025 8:45 AM EST Office Visit [facility] [address] [place] [address] Thomas Enriquez DO [address] [address] Toney Loco, PT 8 [place] [address] 05/12/2025 8:45 AM EST Office Visit [facility] 8 [place] [address] Thomas Enriquez, DO [address] [place] [address] [place] [address] Toney Loco, PT 8 [place] [address] 05/14/2025 8:45 AM EST Office Visit [facility] 8 [place] [address] Thomas Enriquez, DO [address] [place] [address] [place] [address] Toney Loco, PT 8 [place] [address] 05/19/2025 8:45 AM EST Office Visit [facility] 8 [place] [address] Thomas Enriquez, DO [address] [place] [address] [place] [address] Toney oLco, PT 8 [place] [address] 05/21/2025 8:45 AM EST Office Visit [facility] [address] [place] [address] Thomas Enriquez, DO [address] [place] [address] [place] [address] Tnoey Loco, PT 8 [place] [address] documented as of this encounter Results * C-Reactive Protein (09/27/2021 10:27 AM EDT) C REACTIVE PROTEIN <3.0 0.0 - 4.0 mg/L [facility] Blood 09/27/2021 10:2 7 AM EDT 09/27/2021 10:29 AM EDT us Thomas Ray MD LAB BLOOD BKR ORDERABLES Final Result Performing Organization Address [facility] Co de Phone Number [address] [address] * CBC (09/27/2021 10:27 AM EDT) WBC 6.28 4.00 - 11.00 K/uL [facility] RBC 4.19 3.72 - 5.30 M/uL [facility] HGB 13.5 10.6 - 15.5 g/dL [facility] HCT 40.3 32.0 - 45.0 % [facility] PLT 235 140 - 430 K/uL [facility] MCV 96.2 78.0 - 97.0 fL [facility] MCH 32.2 25.0 - 33.0 pg [facility] MCHC 33.5 32.0 - 36.0 g/dL [facility] RDW 11.8 11.0 - 16.0 % [facility] MPV 11.1 8.4 - 12.8 fl [facility] NRBC 0.00 0 /100 WBCs [facility] ABSOLUTE NRBC 0.00 0 K/uL [facility] Blood 09/27/2021 10:2 7 AM EDT 09/27/2021 10:29 AM EDT us Thomas Ray MD LAB BLOOD BKR ORDERABLES Final Result Performing Organization Address [facility]/ZIP Co de Phone Number [address] [address] documented in this encounter Visit Diagnoses Diagnosis Diarrhea, unspecified type- Primary documented in this encounter Care Teams Sfdc Technical Architect Relationship Specialty Start Date End Date Itzel Martinez NP [address] [place] [address] PCP - General Family Medicine 02/09/17 04/15/24 Janae Lawrence MD [address] [place] [address] PCP - General Internal Medicine 04/16/24 Tila Haile NP 30 [place] [address] [email or web address] Historical LMR Provider 01/21/17 Gilma Carrasco MD [address] [place] [address] [email or web address] Historical LMR Provider 01/21/17 Itzel Martinez NP [address] [place] [address] Historical LMR Provider 01/21/17 documented as of this encounter Additional Source Comments The information contained in this document represents components of the legal health record. It is not the complete legal health record.[facility]
--- OUTSIDE RECORDS SUMMARY | 2025-02-11 10:28 | XMS_ITS | Encounter Summary ---
Author Organization [facility] Address [address] [place] [address] [place] [address] Phone Care Team Providers Care Car Cleaning Supervisor Name Role Phone Mariam Cooper CNM Unavailable Tila Haile SAP PORTAL CONSULTANT Unavailable [phone] Katelynn Ruiz SAP PORTAL CONSULTANT Unavailable Tang Reed MD Unavailable Gilma Carrasco MD Unavailable Itzel Martinez SAP PORTAL CONSULTANT Unavailable [phone] Elena Eason MD Unavailable [phone] Cruz Roberson MD Unavailable Nova Acevedo MD Unavailable Mar Keene MD Unavailable Rachel Saleem MD Unavailable [phone] Itzel Martinez SAP PORTAL CONSULTANT Primary Care Provider Janae Lawrence MD Primary Care Provider Encounter Details Date Type Department Care Team (Late st Contact Info) Description 03/14/2021 Procedure Pass Echo Lab [address] [place] [address] Social History Tobacco Use Types Packs/Day [...] Description 03/11/2025 9:30 AM EST Office Visit [facility] 8 [place] [address] Thomas Enriquez DO [address] [place] [address] Toney Loco, PT 8 [place] [address] 03/13/2025 9:15 AM EST Office Visit [facility] [address] [place] [address] Thomas Enriquez DO [address] [place] [address] Mindy Genao, PT 8 [place] [address] 03/18/2025 9:30 AM EST Office Visit [facility] [address] [place] [address] Thomas Enriquez DO [address] [place] [address] [place] [address] Toney Loco, PT 8 [place] [address] [email or web address] 03/20/2025 9:30 AM EST Office Visit [facility] [address] [place] [address] Thomas Enriquez DO [address] [address] Toney Loco, PT 8 [place] [address] 03/24/2025 8:45 AM EST Office Visit [facility] 8 [place] [address] Thomas Enriquez, DO [address] [address] Toney Loco, PT 8 [place] [address] 03/30/2025 9:15 AM EST Office Visit [address] [address] Thomas Enriquez, DO [address] [address] Mindy Genao, PT 8 [place] [address] 04/01/2025 8:45 AM EST Office Visit [facility] 8 [place] [address] Thomas Enriquez, DO [address] [address] Toney Loco, PT 8 [place] [address] 04/06/2025 9:15 AM EST Office Visit [facility] 8 [place] [address] Thomas Enriquez DO [address] [address] Mindy Genao, PT 8 [place] [address] 04/08/2025 8:45 AM EST Office Visit [facility] [address] [place] [address] Thomas Enriquez, DO [address] [place] [address] Toney Loco, PT 8 [place] [address] 04/14/2025 8:45 AM EST Office Visit [address] [address] Thomas Enriquez, DO [address] [place] [address] Toney Loco, PT 8 [place] [address] 04/16/2025 8:45 AM EST Office Visit [facility] 8 [place] [address] Thomas Enriquez, DO [address] [place] [address] Toney Loco, PT 8 [place] [address] 04/21/2025 8:45 AM EST Office Visit [facility] [address] [place] [address] Thomas Enriquez, DO [address] [place] [address] Toney Loco, PT 8 [place] [address] 04/23/2025 8:45 AM EST Office Visit [facility] [address] [place] [address] Thomas Enriquez DO [address] [place] [address] [place] [address] Toney Loco, PT 8 [place] [address] 04/28/2025 8:45 AM EST Office Visit [facility] [address] [place] [address] Thomas Enriquez, DO [address] [place] [address] Toney Loco, PT 8 [place] [address] 04/30/2025 8:45 AM EST Office Visit [facility] 8 [place] [address] Thomas Enriquez, DO [address] [place] [address] Toney Loco, PT 8 [place] [address] 05/05/2025 8:45 AM EST Office Visit [facility] [address] [place] [address] Thomas Enriquez DO [address] [place] [address] Toney Loco, PT 8 [place] [address] 05/07/2025 8:45 AM EST Office Visit [facility] [address] [place] [address] Mina, Thomas, DO [address] [place] [address] Toney Loco, PT 8 [place] [address] 05/12/2025 8:45 AM EST Office Visit [facility] 8 [place] [address] Thomas Enriquez, DO [address] [place] [address] Toney Loco, PT 8 [place] [address] 05/14/2025 8:45 AM EST Office Visit [address] [address] Thomas Enriquez, DO [address] [address] Toney Loco, PT 8 [place] [address] 05/19/2025 8:45 AM EST Office Visit [facility] 8 [place] [address] Thomas Enriquez, DO [address] [address] Toney Loco, PT 8 [place] [address] 05/21/2025 8:45 AM EST Office Visit [facility] 8 [place] [address] Thomas Enriquez DO [address] [address] Toney Loco, PT 8 [place] [address] [email or web address] documented as of this encounter Visit Diagnoses Not on filedocumented in this encounter Care Teams Car Cleaning Supervisor Relationship Specialty Start Date End Date Itzel Martinez SAP PORTAL CONSULTANT [address] [place] [address] PCP - General Family Medicine 02/09/17 04/15/24 Janae Lawrence MD [address], [place] [address] PCP - General Internal Medicine 04/16/24 Mariam Cooper CNM 30 [place] [address] Historical LMR Provider 01/21/17 2 Tila Haile NP [address] [place] [address] [email or web address] Historical LMR Provider 01/21/17 Katelynn Ruiz NP [address] [place] [address] [email or web address] Historical LMR Provider 01/21/17 04/09/21 Tang Reed MD [address] [place] [address], [address] [place] [address] Historical LMR Provider 01/21/17 04/09/21 Gilma Carrasco MD [address] [place] [address], [address] [place] [address] Historical LMR Provider 01/21/17 Itzel Martinez NP [address] [place] [address] Historical LMR Provider 01/21/17 Elena Eason MD [address] [place] [address] Historical LMR Provider 01/21/17 2 Cruz Roberson MD [address] [place] [address] Historical LMR Provider 01/21/17 04/09/21 Nova Acevedo MD [address] [place] [phone] Historical LMR Provider 01/21/17 2 Mar Keene MD [address] [place] [address] Historical LMR Provider 01/21/17 04/09/21 Rachel Saleem MD [address] [place] [address] Historical LMR Provider 01/21/17 2 documented as of this encounter Additional Source Comments The information contained in this document represents components of the legal health record. It is not the complete legal health record.[facility]
--- OUTSIDE RECORDS SUMMARY | 2025-02-11 10:28 | XMS_ITS | Encounter Summary ---
Author Organization [facility] Address [address] [place] [address] Care Team Providers Care Auction Block Clerk Name Role Phone Janae Shah MD Primary Care Provider [phone] Encounter Details Date Type Department Care Team (Late st Contact Info) Description 02/09/[address] [facility] CJRI Pre-Admission Testing [address] [place] [address] Deepa Frey RN Social History Tobacco Use Types Packs/Day Years Used Date Smoking Tobacco: Former Cigarettes 0 2 025 - 2015 Smokeless Tobacco: Never Alcohol Use Standard Drinks/Week Comments Yes 0 (1 standard drink = 0.6 oz pur e alcohol) 1 drink month Comments No Sex and Gender Information Value Date Recorded Sex Assigned at Not on file Legal Sex Female 7:49 AM EST Gender Identity Not on file Sexual Orientation Not on file documented as of this encounter Progress Notes * Deepa Frey RN - 02/09/2025 11:28 AM EST Left vm for patient - asked for a call back re lab work that had been ordered. documented in this encounter Plan of Treatment Upcoming Encounters Date Type Department Care Team (Latest Contact Info) Description 02/23/2025 7:15 AM EST Hospital Encounter [facility] SIC OR [address] [place] [address] Thomas Enriquez, DO [address] [place] [address] 02/23/2025 7:15 AM EST - 02/23/2025 10:[address] [facility] SIC OR [address] [place] [phone] Thomas Enriquez, DO [address] [place] [address] C5-7 FUSION CERVICAL ANTERIOR MULTI LEVEL 2 [67005 (CPT )] Scheduled Procedures Name Priority Associated Diagnoses Date/Ti me FUSION CERVICAL ANTERIOR MULTI LEVEL 2 Lumbosacral radiculitis 02/23/2025 7:15 AM EST documented as of this encounter Goals Goal Patient Goal Type Associated Problems Recent Progress Patient-Stated? Author Autogenerat ed Goal Care Plan Autogenerated Problem No Ninoska Vasquez [place] documented as of this encounter Visit Diagnoses Not on filedocumented in this encounter Additional Health Concerns Active Problems Noted Date Diagnosed Date Autogenerated Problem 12/30/2024 documented as of this encounter Care Teams Auction Block Clerk Relationship Specialty Start Date End Date Janae Shah MD [address] [place] [phone] PCP - General Internal Medicine 01/19/25 documented as of this encounter
--- OUTSIDE RECORDS SUMMARY | 2025-02-11 10:28 | XMS_ITS | Encounter Summary ---
Author Organization [facility] Address [address] [place] [address] Care Team Providers Care Tearer Name Role Phone Janae Shah MD Primary Care Provider [phone] Encounter Details Date Type Department Care Team (Late st Contact Info) Description 02/06/2025 Telephone [facility] CJRI Pre-Admission Testing [address] [place] [address] Dalia Cifuentes RN Social History Tobacco Use Types Packs/Day [...] as of this encounter Progress Notes * Dalia Cifuentes RN - 02/06/2025 9:59 AM EST PCP office for past or current LFTs or Liver panel for baseline pre op clearance. None found in thepast year. documented in this encounter Plan of Treatment Upcoming Encounters Date Type Department Care Team (Latest Contact Info) Description 02/23/2025 7:15 AM EST Hospital Encounter [facility] SIC OR [address] [place] [address] Thomas Enriquez, DO [address] [place] [address] 02/23/2025 7:15 AM EST - 02/23/2025 10:00 AM EST Surgery [facility] SIC OR [address] [place] [phone] Thomas Enriquez, DO [address] [place], [place] [id number] C5-7 FUSION CERVICAL ANTERIOR MULTI LEVEL 2 [51551 (CPT )] Scheduled Procedures Name Priority Associated [...] documented as of this encounter Care Teams Tearer Relationship Specialty Start Date End Date Janae Shah MD [address] [place] [address] PCP - General Internal Medicine 01/19/25 documented as of this encounter
--- OUTSIDE RECORDS SUMMARY | 2025-02-11 10:29 | XMS_ITS | Encounter Summary ---
Author Organization [facility] Address [address] [place] [address] [place] [address] Phone Care Team Providers Care Slate Worker Name Role Phone Mariam Cooper CNM Unavailable Tila Haile MEDICAL RECORDS RECEPTIONIST Unavailable [phone] Katelynn Ruiz MEDICAL RECORDS RECEPTIONIST Unavailable Tang Reed MD Unavailable Gilma Carrasco MD Unavailable Itzel Martinez MEDICAL RECORDS RECEPTIONIST Unavailable [phone] Elena Eason MD Unavailable [phone] Cruz Roberson MD Unavailable Nova Acevedo MD Unavailable Mar Keene MD Unavailable [phone] Rachel Saleem MD Unavailable Itzel Martinez MEDICAL RECORDS RECEPTIONIST Primary Care Provider Robert Michele MD Unavailable Cecil Barillas MD Unavailable Janae Lawrence MD Primary Care Provider [phone] Reason for Referral * MRI/CAT Scan - Closed Specialty Diagnoses / Procedures Referred By Contac t Referred To Contact Radiology Diagnoses Blood in stool Mucus in stool Change in stool Procedures CT Abdomen/Pelvis Thomas Ray MD Phone: tel: fax: [email or web address] Referral ID Status Reason Start Date Expiration Date Visits Re quested Visits Authorized [id number] Closed 08/07/2018 08/08/2019 1 1 Encounter Details Date Type Department Care Team (Latest Contact Info) Description 11/28/2018 Transcribe Orders Virtual Department [address] [place] [address] Thomas Ray MD [address] [address] [email or web address] Blood in stool (Primary Dx); Mucus in [...] EST Office Visit [facility] 8 [place] [address] Thomas Enriquez DO [address] [phone] Toney Loco, PT 8 [place] [address] [email or web address] 03/13/2025 9:15 AM EST Office Visit [facility] 8 [place] [address] Thomas Enriquez DO [address] [address] Mindy Genao, PT 8 [place] [address] 03/18/2025 9:30 AM EST Office Visit [facility] 8 [place] [address] Thomas Enriquez, DO [address] [place] [address] Toney Loco, PT 8 [place] [address] 03/20/2025 9:30 AM EST Office Visit [address] [address] Thomas Enriquez, DO [address] [place] [address] Toney Loco, PT 8 [place] [address] 03/24/2025 8:45 AM EST Office Visit [facility] 8 [place] [address] Thomas Enriquez, DO [address] [place] [address] Toney Loco, PT 8 [place] [address] 03/30/2025 9:15 AM EST Office Visit [address] [place] [address] Thomas Enriquez, DO [address] [place] [address] Mindy Genao, PT 8 [place] [address] 04/01/2025 8:45 AM EST Office Visit [facility] 8 [place] [address] Thomas Enriquez, DO [address] [place] [address] Toney Loco, PT 8 [place] [address] 04/06/2025 9:15 AM EST Office Visit [address] [address] Thomas Enriquez, DO [address] [place] [place] [address] Mindy Genao, PT 8 [place] [address] 04/08/2025 8:45 AM EST Office Visit [facility] 8 [place] [address] Thomas Enriquez, DO [address] [place] [address] Toney Loco, PT 8 [place] [address] 04/14/2025 8:45 AM EST Office Visit [facility] 8 [place] [address] Thomas Enriquez, DO [address] [place] [address] Toney Loco, PT 8 [place] [address] 04/16/2025 8:45 AM EST Office Visit [facility] [address] [place] [address] Thomas Enriquez DO [address] [place] [address] Toney Loco, PT 8 [place] [address] 04/21/2025 8:45 AM EST Office Visit [facility] [address] [place] [address] Thomas Enriquez, DO [address] [place] [address] Toney Loco, PT 8 [place] [address] 04/23/2025 8:45 AM EST Office Visit [facility] 8 [place] [address] Thomas Enriquez, DO [address] [place] [address] Toney Loco, PT 8 [place] [address] 04/28/2025 8:45 AM EST Office Visit [facility] [address] [place] [address] Thomas Enriquez DO [address] [place] [address] Toney Loco, PT 8 [place] [address] 04/30/2025 8:45 AM EST Office Visit [facility] [address] [place] [address] Thomas Enriquez DO [address] [place] [place] [address] Toney Loco, PT 8 [place] [address] 05/05/2025 8:45 AM EST Office Visit [facility] 8 [place] [address] Thomas Enriquez, DO [address] [place] [address] Toney Loco, PT 8 [place] [address] 05/07/2025 8:45 AM EST Office Visit [address] [address] Thomas Enriquez, DO [address] [place] [address] Toney Lcoo, PT 8 [place] [address] 05/12/2025 8:45 AM EST Office Visit [facility] 8 [place] [address] Thomas Enriquez, DO [address] [place] [address] Toney Loco, PT 8 [place] [address] 05/14/2025 8:45 AM EST Office Visit [facility] 8 [place] [address] Thomas Enriquez DO [address] [place] [address] Toney Loco, PT 8 [place] [address] 05/19/2025 8:45 AM EST Office Visit [facility] [address] [place] [address] Thomas Enriquez, DO [address] [place] [address] Toney Loco, PT 8 [place] [address] 05/21/2025 8:45 AM EST Office Visit [facility] [address] [place] [address] Thomas Enriquez, DO [address] [place] [address] Toney Loco, PT 8 [place] [address] documented as of this encounter Results * [...] stool documented in this encounter Care Teams Slate Worker Relationship Specialty Start Date End Date Itzel Martinez NP [address] [place] [address] PCP - General Family Medicine 02/09/17 04/15/24 Janae Lawrence MD 230 [facility] [address] [place] [address] PCP - General Internal Medicine 04/16/24 Mariam oCoper CNM [address] [place] [address] Historical LMR Provider 01/21/17 2 Tila Haile NP [address] [place] [address] [email or web address] Historical LMR Provider 01/21/17 Katelynn Ruiz NP [address] [place] [address] [email or web address] Historical LMR Provider 01/21/17 04/09/21 Tang Reed MD [address] [place] [address] Historical LMR Provider 01/21/17 04/09/21 Gilma Carrasco MD [address] [place] [address] Historical LMR Provider 01/21/17 Itzel Martinez NP [address] [place] [address] Historical LMR Provider 01/21/17 Elena Eason MD [address] [place] [address] Historical LMR Provider 01/21/17 2 Cruz Roberson MD [address] [place] [address] Historical LMR Provider 01/21/17 04/09/21 Nova Acevedo MD [address] [place] [phone] Historical LMR Provider 01/21/17 2 Mar Keene MD 22 [facility] [address] [place] [address] [email or web address] Historical LMR Provider 01/21/17 04/09/21 Rachel Saleem MD [address] [address] Historical LMR Provider 01/21/17 2 Robert Michele MD [address] [place] [address] [email or web address] Insurance Assigned Provider 07/06/18 12/07/18 Cecil Barillas MD [address] [facility] [address] [place] [address] [email or web address] Assigned Provider 12/07/18 07/09/19 documented as of this encounter Additional Source Comments The information contained in this document represents components of the legal health record. It is not the complete legal health record.[facility]
--- OUTSIDE RECORDS SUMMARY | 2025-02-11 10:29 | XMS_ITS | Clinical Summary ---
Author Organization [facility] Address [address] [place] [address] Care Team Providers Care Roll Scale Worker Name Role Phone Itzel Martinez NP Primary Care Provider [phone] Allergies Active Allergy Reactions Criticality Noted Date [...] to complete this topic Care Teams Roll Scale Worker Relationship Specialty Start Date End Date Itzel Martinez NP [address] [place] [phone] PCP - General Family Medicine 05/10/18
--- OUTSIDE RECORDS SUMMARY | 2025-02-11 10:29 | XMS_ITS | Encounter Summary ---
Author Organization [facility] Address [address] [place] [address] [place] [address] Phone Care Team Providers Care Edi Manager Name Role Phone Mic Tila Harper TITLE ONE READING TEACHER Unavailable [phone] Gilma Carrasco MD Unavailable Itzel Martinez TITLE ONE READING TEACHER Unavailable [phone] Itzel Martinez NP Primary Care Provider [phone] Janae Lawrence MD Primary Care Provider [phone] Encounter Details Date Type Department Care Team (Latest Contact Info) Description 10/24/2021 Transcribe Orders [facility] [address] [place] [address] Thomas Ray MD [address] [address] [email or web address] Diarrhea, unspecified type (Primary Dx); Blood in [...] Description 03/11/2025 9:30 AM EST Office Visit [facility] [address] [place] [address] Thomas Enriquez DO [address] [place] [address] [place] [address] Toney Loco, PT 8 [place] [address] 03/13/2025 9:15 AM EST Office Visit [address] [place] [address] Thomas Enriquez DO [address] [place] [address] [place] [address] Mindy Genao, PT 8 [place] [address] 03/18/2025 9:30 AM EST Office Visit [facility] 8 [place] [address] Thomas Enriquez DO [address] [address] Toney Loco, PT 8 [place] [address] 03/20/2025 9:30 AM EST Office Visit [facility] [address] [place] [address] Thomas Enriquez DO [address] [place] [address] [place] [address] Toney Loco, PT 8 [place] [address] 03/24/2025 8:45 AM EST Office Visit [facility] [address] [place] [address] Thomas Enriquez, DO [address] [place] [address] [place] [address] Toney Loco, PT 8 [place] [address] 03/30/2025 9:15 AM EST Office Visit [facility] [address] [place] [address] Thomas Enriquez DO [address] [place] [address] [place] [address] Mindy Genao, PT 8 [place] [address] 04/01/2025 8:45 AM EST Office Visit [facility] 8 [place] [address] Thomas Enriquez, DO [address] [place] [address] [place] [address] Toney Loco, PT 8 [place] [address] 04/06/2025 9:15 AM EST Office Visit [facility] 8 [place] [address] Thomas Enriquez DO [address] [place] [address] [place] [address] Mindy Genao, PT 8 [place] [address] 04/08/2025 8:45 AM EST Office Visit [facility] [address] [place] [address] Thomas Enriquez DO [address] [place] [address] [place] [address] Toney Loco, PT 8 [place] [address] 04/14/2025 8:45 AM EST Office Visit [facility] [address] [place] [address] Thomas Enriquez, DO [address] [place] [address] [place] [address] Toney Loco, PT 8 [place] [address] 04/16/2025 8:45 AM EST Office Visit [facility] [address] [place] [address] Thomas Enriquez, DO [address] [place] [address] [place] [address] Toney Loco, PT 8 [place] [address] 04/21/2025 8:45 AM EST Office Visit [facility] 8 [place] [address] Thomas Enriquez, DO [address] [place] [address] [place] [address] Toney Loco, PT 8 [place] [address] 04/23/2025 8:45 AM EST Office Visit [facility] [address] [place] [address] Thomas Enriquez, DO [address] [place] [address] [place] [address] Toney Loco, PT 8 [place] [address] 04/28/2025 8:45 AM EST Office Visit [facility] [address] [place] [address] Thomas Enriquez, DO [address] [place] [address] [place] [address] Toney Loco, PT 8 [place] [address] 04/30/2025 8:45 AM EST Office Visit [facility] [address] [place] [address] Thomas Enriquez, DO [address] [address] Toney Loco, PT 8 [place] [address] 05/05/2025 8:45 AM EST Office Visit [facility] [address] [place] [address] Thomas Enriquez, DO [address] [place] [address] [place] [address] Toney Loco, PT 8 [place] [address] 05/07/2025 8:45 AM EST Office Visit [facility] [address] [place] [address] Thomas Enriquez DO [address] [address] Toney Loco, PT 8 [place] [address] 05/12/2025 8:45 AM EST Office Visit [facility] [address] [place] [address] Thomas Enriquez, DO [address] [place] [address] [place] [address] Toney Loco, PT 8 [place] [address] 05/14/2025 8:45 AM EST Office Visit [facility] 8 [place] [address] Thomas Enriquez, DO [address] [place] [address] [place] [address] Toney Loco, PT 8 [place] [address] 05/19/2025 8:45 AM EST Office Visit [facility] 8 [place] [address] Thomas Enriquez, DO [address] [place] [address] [place] [address] Toney Loco, PT 8 [place] [address] 05/21/2025 8:45 AM EST Office Visit [facility] 8 [place] [address] Thomas Enriquez, DO [address] [place] [address] [place] [address] Toney Loco, PT 8 [place] [address] documented as of this encounter Results * Pancreatic Elastase, Stool (10/25/2021 7:51 AM EDT) Pancreatic Elastase, Feces >500 >200 (Normal) mcg/g [facility] Stool (Stool) 10/25/2021 7:5 1 AM EDT 10/25/2021 7:53 AM EDT Thomas Ray MD BODY FLUIDS AND STOOLS ORDERAB LES Final Result Performing Organization Address [facility] de Phone Number [facility] [address] [place] [address] * Calprotectin, stool (10/25/2021 7:51 AM EDT) STOOL CALPROTECTIN 22 mcg/g [facility] Comment: (NOTE) Reference Range: <50 Normal 50-120 [...] ORDE RABSIGRID Final Result Performing Organization Address [facility] de Phone Number [facility] [address] [place] [address] documented in this encounter Visit Diagnoses Diagnosis Diarrhea, unspecified type- Primary Blood in stool documented in this encounter Care Teams Edi Manager Relationship Specialty Start Date End Date Itzel Martinez NP [address] [place] [address] PCP - General Family Medicine 02/09/17 04/15/24 Janae Lawrence MD [address] [place] [address] PCP - General Internal Medicine 04/16/24 Tila Haile NP 30 [place] [address] [email or web address] Historical LMR Provider 01/21/17 Gilma Carrasco MD [address] [address] [email or web address] Historical LMR Provider 01/21/17 Itzel Martinez NP [address] [place] [address] Historical LMR Provider 01/21/17 documented as of this encounter Additional Source Comments The information contained in this document represents components of the legal health record. It is not the complete legal health record.[facility]
--- OUTSIDE RECORDS SUMMARY | 2025-02-11 10:29 | XMS_ITS | Encounter Summary ---
Author Organization [facility] Address [address] [place] [phone] Care Team Providers Care Physical Therapy Attendant Name Role Phone No, Pcp (Do Not Change Name) Primary Care Provid er Unavailable Encounter Details Date Type Department Care Team (Late st Contact Info) Description 10/24/2018 Scanned Document [facility] [address] [place] [address] [phone] Ramin Soares MD [address] [place] [phone] Social History Tobacco Use Types Packs/Day Years [...] on filedocumented in this encounter Care Teams Physical Therapy Attendant Relationship Specialty Start Date End Date No, Pcp (Do Not Change Name) PCP - General 06/27/18 documented as of this encounter
--- OUTSIDE RECORDS SUMMARY | 2025-02-11 10:29 | XMS_ITS | Encounter Summary ---
Author Organization [facility] Address [address] [place] [phone] Care Team Providers Care Cna Gna Name Role Phone No, Pcp (Do Not Change Name) Primary Care Provid er Unavailable Encounter Details Date Type Department Care Team (Late st Contact Info) Description 07/03/2018 Scanned Document [facility] at [address] [place] [phone] Ramin Soares MD [address] [place] [phone] Social History Tobacco Use Types Packs/Day Years [...] on filedocumented in this encounter Care Teams Cna Gna Relationship Specialty Start Date End Date No, Pcp (Do Not Change Name) PCP - General 06/27/18 documented as of this encounter
--- OUTSIDE RECORDS SUMMARY | 2025-02-11 10:29 | XMS_ITS | Encounter Summary ---
Author Organization [facility] Address [address] [place] [phone] Care Team Providers Care Bar Tacker Name Role Phone No, Pcp (Do Not Change Name) Primary Care Provid er Unavailable Encounter Details Date Type Department Care Team (Late st Contact Info) Description 06/26/2018 Scanned Document [facility] at [address] [place] [phone] Ramin Soares MD [address] [place] [phone] Social History Tobacco Use Types Packs/Day Years [...] on filedocumented in this encounter Care Teams Bar Tacker Relationship Specialty Start Date End Date No, Pcp (Do Not Change Name) PCP - General 06/27/18 documented as of this encounter
--- OUTSIDE RECORDS SUMMARY | 2025-02-11 10:29 | XMS_ITS | Encounter Summary ---
Author Organization [facility] Address [address] [place] [address] [place] [address] Phone Care Team Providers Care Mold Shifter Name Role Phone Mariam Cooper CNM Unavailable Tila Haile BOX STACKER Unavailable [phone] Katelynn Ruiz BOX STACKER Unavailable Tang Reed MD Unavailable Gilma Carrasco MD Unavailable Itzel Martinez BOX STACKER Unavailable [phone] Elena Eason MD Unavailable [phone] Cruz Roberson MD Unavailable Nova Acevedo MD Unavailable Mar Keene MD Unavailable Rachel Saleem MD Unavailable [phone] Itzel Martinez BOX STACKER Primary Care Provider Robert Michele MD Unavailable Cecil Barillas MD Unavailable Janae Lawrence MD Primary Care Provider Encounter Details Date Type Department Care Team (Late st Contact Info) Description 08/07/2018 Ancillary Orders Virtual Department 30 [place] [address] Liss Florian MD [address] [place] [address] Flank pain; Calculus of kidney with calculus [...] Description 03/11/2025 9:30 AM EST Office Visit [address] [address] Thomas Enriquez DO [address] [address] Toney Loco, PT 8 [place] [address] 03/13/2025 9:15 AM EST Office Visit [facility] 8 [place] [address] Thomas Enriquez DO [address] [address] Mindy Genao, PT 8 [place] [address] 03/18/2025 9:30 AM EST Office Visit [facility] 8 [place] [address] Thomas Enriquez DO [address] [address] Toney Loco, PT 8 [place] [address] [email or web address] 03/20/2025 9:30 AM EST Office Visit [facility] 8 [place] [address] Thomas Enriquez, DO [address] [place] [place] [address] Toney Loco, PT 8 [place] [address] [email or web address] 03/24/2025 8:45 AM EST Office Visit [facility] [address] [place] [address] Thomas Enriquez, DO [address] [place] [address] [place] [address] Toney Loco, PT 8 [place] [address] [email or web address] 03/30/2025 9:15 AM EST Office Visit [facility] 8 [place] [address] Thomas Enriquez, DO [address] [place] [address] [place] [address] Mindy Genao, PT 8 [place] [address] [email or web address] 04/01/2025 8:45 AM EST Office Visit [facility] [address] [place] [address] Thomas Enriquez, DO [address] [place] [address] [place] [address] Toney Loco, PT 8 [place] [address] 04/06/2025 9:15 AM EST Office Visit [facility] 8 [place] [address] Thomas Enriquez DO [address] [place] [address] [place] [address] Mindy Genao, PT 8 [place] [address] 04/08/2025 8:45 AM EST Office Visit [facility] 8 [place] [address] Thomas Enriquez DO [address] [place] [address] [place] [address] Toney Loco, PT 8 [place] [address] [email or web address] 04/14/2025 8:45 AM EST Office Visit [facility] 8 [place] [address] Thomas Enriquez DO [address] [place] [address] [place] [address] Toney Loco, PT 8 [place] [address] [email or web address] 04/16/2025 8:45 AM EST Office Visit [facility] 8 [place] [address] Thomas Enriquez DO [address] [place] [address] [place] [address] Toney Loco, PT 8 [place] [address] 04/21/2025 8:45 AM EST Office Visit [facility] 8 [place] [address] Thomas Enriquez, DO [address] [place] [address] [place] [address] Toney Loco, PT 8 [place] [address] [email or web address] 04/23/2025 8:45 AM EST Office Visit [facility] 8 [place] [address] Thomas Enriquez, DO [address] [place] [address] [place] [address] Toney Loco, PT 8 [place] [address] [email or web address] 04/28/2025 8:45 AM EST Office Visit [facility] 8 [place] [address] Thomas Enriquez, DO [address] [address] Toney Loco, PT 8 [place] [address] [email or web address] 04/30/2025 8:45 AM EST Office Visit [facility] 8 [place] [address] Thomas Enriquez, DO [address] [place] [place] [address] Toney Loco, PT 8 [place] [address] [email or web address] 05/05/2025 8:45 AM EST Office Visit [facility] 8 [place] [address] Thomas Enriquez, DO [address] [place] [place] [address] Toney Loco, PT 8 [place] [address] [email or web address] 05/07/2025 8:45 AM EST Office Visit [facility] 8 [place] [address] Thomas Enriquez, DO [address] [place] [place] [address] Toney Loco, PT 8 [place] [address] [email or web address] 05/12/2025 8:45 AM EST Office Visit [facility] 8 [place] [address] Thomas Enriquez, DO [address] [place] [address] [place] [address] Toney Loco, PT 8 [place] [address] [email or web address] 05/14/2025 8:45 AM EST Office Visit [facility] 8 [place] [address] Thomas Enriquez, DO [address] [place] [address] [place] [address] Toney Loco, PT 8 [place] [address] [email or web address] 05/19/2025 8:45 AM EST Office Visit [facility] 8 [place] [address] Thomas Enriquez, DO [address] [place] [address] [place] [address] Toney Loco, PT 8 [place] [address] [email or web address] 05/21/2025 8:45 AM EST Office Visit [facility] 8 [place] [address] Thomas Enriquez DO [address] [place] [place] [address] Toney Loco, PT 8 [place] [address] documented as of this encounter Results * US Kidneys (08/08/2018 10:28 AM EDT) Anatomical Region Laterality Modality Abdomen, Kidney Ultrasound 08/08/2018 4:23 PM EDT Impressions 08/08/2018 4:26 PM EDT 1. Nonobstructing left lower pole renal calculus measures 0.4 cm. 2. Multiple additional bilateral echogenic foci without shadowing or twinkle artifact could represent tiny nonobstructing stones. POS - [id number] Narrative 08/08/2018 4:26 PM EDT EXAM: US [...] is within normal limits for size and [id number] cm in sagittal dimension. Parenchyma is within [...] could represent tiny nonobstructing stones. POS - [id number] Liss Florian MD [facility] US RENAL Final Result documented in this encounter Visit Diagnoses Diagnosis Flank pain Abdominal pain, unspecified site Calculus of kidney with calculus of ureter Flank pain Abdominal pain, unspecified site Calculus of kidney with calculus of ureter documented in this encounter Care Teams Mold Shifter Relationship Specialty Start Date End Date Itzel Martinez NP 70 [place] [address] PCP - General Family Medicine 02/09/17 04/15/24 Janae Lawrence MD [address] [place] [phone] PCP - General Internal Medicine 04/16/24 Mariam Cooper CNM 30 [place] [address] Historical LMR Provider 01/21/17 2 Tila Haile NP 30 [place] [address] [email or web address] Historical LMR Provider 01/21/17 Katelynn Ruiz NP [address] [place] [address] [email or web address] Historical LMR Provider 01/21/17 04/09/21 Tang Reed MD [address] [place] [address], [address] [place] [address] Historical LMR Provider 01/21/17 04/09/21 Gilma Carrasco MD [address] [place] [address] Historical LMR Provider 01/21/17 Itzel Martinez NP [address] [place] [address] Historical LMR Provider 01/21/17 Elena Eason MD [address] [place] [address] Historical LMR Provider 01/21/17 2 Cruz Roberson MD [address] [place] [address] Historical LMR Provider 01/21/17 04/09/21 Nova Acevedo MD [address] [place] [phone] Historical LMR Provider 01/21/17 2 Mar Keene MD [facility] [address] [place] [address] [email or web address] Historical LMR Provider 01/21/17 04/09/21 Rachel Saleem MD [address] [place] [phone] Historical LMR Provider 01/21/17 2 Robert Michele MD [address] [place] [address] [email or web address] Insurance Assigned Provider 07/06/18 12/07/18 Cecil Barillas MD [address] [place] [address] [address] [place] [phone] [email or web address] Insurance Assigned Provider 12/07/18 07/09/19 documented as of this encounter Additional Source Comments The information contained in this document represents components of the legal health record. It is not the complete legal health record.[facility]
--- OUTSIDE RECORDS SUMMARY | 2025-02-11 10:29 | XMS_ITS | Encounter Summary ---
Author Organization [facility] Address [address] [place] [phone] Care Team Providers Care Connie Scratcher Name Role Phone No, Pcp (Do Not Change Name) Primary Care Provid er Unavailable Encounter Details Date Type Department Care Team (Late st Contact Info) Description 06/26/2018 Scanned Document [facility] [address] [place] [phone] Ramin Soares MD [address] [place] [phone] Social History Tobacco Use Types Packs/Day Years [...] on filedocumented in this encounter Care Teams Connie Scratcher Relationship Specialty Start Date End Date No, Pcp (Do Not Change Name) PCP - General 06/27/18 documented as of this encounter
--- OUTSIDE RECORDS SUMMARY | 2025-02-11 10:29 | XMS_ITS | Encounter Summary ---
Author Organization [facility] Address [address] [place] [address] [place] [address] Phone Care Team Providers Care Field Evidence Technician Name Role Phone Mariam Cooper CNM Unavailable Tila Haile QUALITY MANAGER Unavailable [phone] Katelynn Ruiz NP Unavailable Tang Reed MD Unavailable Gilma Carrasco MD Unavailable Itzel Martinez QUALITY MANAGER Unavailable [phone] Elena Eason MD Unavailable [phone] Cruz Roberson MD Unavailable Nova Acevedo MD Unavailable Mar Keene MD Unavailable Rachel Saleem MD Unavailable [phone] Itzel Martinez QUALITY MANAGER Primary Care Provider Janae Lawrence MD Primary Care Provider Encounter Details Date Type Department Care Team (Late st Contact Info) Description 02/15/2021 Ancillary Orders [facility] [address] Floor, [address] [place], [place] [id number] Itzel Martinez, QUALITY MANAGER [address] [place] [address] Near syncope Social History Tobacco Use Types [...] EST Office Visit [facility] [address] [place] [address] Thomas Enriquez DO [address] [place] [address] [place] [address] Toney Loco, PT 8 [place] [address] 03/13/2025 9:15 AM EST Office Visit [facility] [address] [place] [address] Thomas Enriquez DO [address] [address] Mindy Genao, PT 8 [place] [address] 03/18/2025 9:30 AM EST Office Visit [facility] [address] [place] [address] Thomas Enriquez DO [address] [address] Toney Loco, PT 8 [place] [address] 03/20/2025 9:30 AM EST Office Visit [facility] 8 [place] [address] Thomas Enriquez, DO [address] [place] [address] [place] [address] Toney Lcoo, PT 8 [place] [address] 03/24/2025 8:45 AM EST Office Visit [facility] 8 [place] [address] Thomas Enriquez, DO [address] [place] [address] [place] [address] Toney Loco, PT 8 [place] [address] 03/30/2025 9:15 AM EST Office Visit [facility] 8 [place] [address] Thomas Enriquez, DO [address] [place] [address] [place] [address] Mindy Genao, PT 8 [place] [address] 04/01/2025 8:45 AM EST Office Visit [address] [address] Thomas Enriquez DO [address] [place] [address] [place] [address] Toney Loco, PT 8 [place] [address] 04/06/2025 9:15 AM EST Office Visit [facility] [address] [place] [address] Thomas Enriquez DO [address] [place] [address] [place] [address] Mindy Genao, PT 8 [place] [address] 04/08/2025 8:45 AM EST Office Visit [facility] 8 [place] [address] Thomas Enriquez, DO [address] [place] [address] [place] [address] Toney Loco, PT 8 [place] [address] 04/14/2025 8:45 AM EST Office Visit [address] [address] Thomas Enriquez, DO [address] [address] Toney Loco, PT 8 [place] [address] 04/16/2025 8:45 AM EST Office Visit [address] [address] Thomas Enriquez, DO [address] [address] Toney Loco, PT 8 [place] [address] 04/21/2025 8:45 AM EST Office Visit [address] [address] Thomas Enriquez, DO [address] [address] Toney Loco, PT 8 [place] [address] 04/23/2025 8:45 AM EST Office Visit [facility] [address] [place] [address] Thomas Enriquez, DO [address] [place] [address] [place] [address] Toney Loco, PT 8 [place] [address] 04/28/2025 8:45 AM EST Office Visit [facility] [address] [place] [address] Thomas Enriquez, DO [address] [place] [address] [place] [address] Toney Loco, PT 8 [place] [address] 04/30/2025 8:45 AM EST Office Visit [facility] 8 [place] [address] Thomas Enriquez, DO [address] [place] [address] [place] [address] Toney Loco, PT 8 [place] [address] 05/05/2025 8:45 AM EST Office Visit [facility] [address] [place] [address] Thomas Enriquez, DO [address] [place] [address] [place] [address] Toney Loco, PT 8 [place] [address] 05/07/2025 8:45 AM EST Office Visit [facility] [address] [place] [address] Thomas Enriquez DO [address] [place] [address] [place] [address] Toney Loco, PT 8 [place] [address] 05/12/2025 8:45 AM EST Office Visit [facility] [address] [place] [address] Thomas Enriquez, DO [address] [place] [address] [place] [address] Toney Loco, PT 8 [place] [address] 05/14/2025 8:45 AM EST Office Visit [facility] 8 [place] [address] Thomas Enriquez, DO [address] [place] [address] [place] [address] Toney Loco, PT 8 [place] [address] 05/19/2025 8:45 AM EST Office Visit [facility] 8 [place] [address] Thomas Enriquez DO [address] [place] [address] [place] [address] Toney Loco, PT 8 [place] [address] 05/21/2025 8:45 AM EST Office Visit [facility] [address] [place] [address] Thomas Enriquez DO [address] [place] [address] [place] [address] Claudy Toney, PT 8 [place] [address] [email or web address] Scheduled Orders Name Type Priority Associated Diagnoses Orde r Schedule MCT (Mobile Cardiac Telemetry) Cardiac Monitors Routine Near syncope Expected: 01/10/2021, Expires: 07/11/2021 documented as of this encounter Visit Diagnoses Diagnosis Near syncope documented in this encounter Care Teams Field Evidence Technician Relationship Specialty Start Date End Date Itzel Martinez NP [address] [place] [address] PCP - General Family Medicine 02/09/17 04/15/24 Janae Lawrence MD [address] [place] [address] PCP - General Internal Medicine 04/16/24 Mariam Cooper CNM [address] [place] [address] Historical LMR Provider 01/21/17 2 Tila Haile NP [address] [place] [address] [email or web address] Historical LMR Provider 01/21/17 Katelynn Ruiz NP [address] [place] [address] [email or web address] Historical LMR Provider 01/21/17 04/09/21 Tang Reed MD 22 [facility], 2nd [place] [address] Historical LMR Provider 01/21/17 04/09/21 Gilma Carrasco MD [address] [place] [address] Historical LMR Provider 01/21/17 Itzel Martinez NP [address] [place] [address] Historical LMR Provider 01/21/17 Elena Eason MD [address] [address] Historical LMR Provider 01/21/17 2 Cruz Rboerson MD [address] [place] [address] [email or web address] Historical LMR Provider 01/21/17 04/09/21 Nova Acevedo MD [address] [place] [phone] Historical LMR Provider 01/21/17 2 Mar Keene MD [address] [place] [address] Historical LMR Provider 01/21/17 04/09/21 Rachel Saleem MD [address] [place] [address] Historical LMR Provider 01/21/17 2 documented as of this encounter Additional Source Comments The information contained in this document represents components of the legal health record. It is not the complete legal health record.[facility]
--- OUTSIDE RECORDS SUMMARY | 2025-02-11 10:29 | XMS_ITS | Clinical Summary ---
Author Organization [facility] Address [address] [place] [address] Phone Care Team Providers Care Creasing And Cutting Press Feeder Name Role Phone Janae Lawrence Primary Care Provider [phone] Encounters Date Type Department Care Team Description 12/24/2024 1:30 PM EDT Consult [facility] [address] [place] [address] Mansoor Mccullough MD Labral tear of hip, degenerative (Primary Dx); DDH (developmental dysplasia of the hip) 12/24/2024 Travel 12/23/2024 - 12/23/2024 11:59 PM EDT Hospital Encounter [facility] [address] [address] Discharge Disposition: Home 12/23/2024 Travel 11/21/2024 9:01 AM EDT - 11/21/2024 11:59 PM EDT Hospital Encounter [facility] [address] [place] [address] Mindy Catalan RT Bilateral hip pain Discharge Disposition: Home 11/21/2024 Travel 11/18/2024 3:40 PM EDT Office Visit [facility] [address] [place] [phone] 11/18/2024 3:30 PM EDT Office Visit [facility] [address] [place] [phone] Charlie De La O MD Hip impingement syndrome, right [M25.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 JOINT - LIMITED Routine 11/18/2024 3:35 PM EDT Bilateral hip pain from Last 3 Months Results * MR Outside Images On PACS (12/23/2024 8:42 AM EDT) Narrative [facility] RADIOLOGY PACS VR - 12/24/2024 8:42 AM EDT The images available with this report have been imported from an outside institution and are to be used for reference purposes only. Please note that these imported images might not be of diagnostic quality. Dictated by: SHEILA TURNER MD 12/24/24 Verified by: SHEILA TURNER MD 12/24/24 us Historic Provider IMG MRI PROCEDURES Final Resul t [facility] RADIOLOGY PACS VR * CT Hips Jaimes [...] phleboliths. Small fat-containing periumbilical hernia. Procedure Note Clauido Charlton MD - 11/21/2024 PROCEDURE: CT HIPS [...] to verify the correct patient, procedure, equipment, business support assistant and site/side marked as required. Patient was prepped and draped in the usual sterile fashion. us Charlie De La O MD IN CLINIC/BEDSIDE ORDERA BLES Final Result * US SM Joint - Limited (11/18/2024 3:35 PM EDT) Narrative [facility] RADIOLOGY PACS VR - 11/18/2024 3:35 PM EDT Please see image section of visit note for details/results. us Charlie De La O MD IMG US PROCEDURES Final Result [facility] RADIOLOGY PACS VR from Last 3 Months Insurance [facility] MEDICARE [facility] MEDICARE Care Teams Creasing And Cutting Press Feeder Relationship Specialty Start Date End Date Janae Lawrence [address] [place] [address] PCP - General 09/22/24
--- OUTSIDE RECORDS SUMMARY | 2025-02-11 10:29 | XMS_ITS | Clinical Summary ---
Author Organization [address] Address [address] [place] [phone] Phone Care Team Providers Care Industrial Pipefitter Journeyman Name Role Phone No, Pcp (Do Not [...] GENERIC COMMERCIAL GENERIC COMMERCIAL GENERIC Care Teams Industrial Pipefitter Journeyman Relationship Specialty Start Date End Date No, Pcp (Do Not Change Name) PCP - General 06/27/18
--- OUTSIDE RECORDS SUMMARY | 2025-02-11 10:29 | XMS_ITS | Encounter Summary ---
Author Organization [facility] Address [address] [place] [address] [place] [address] Phone Care Team Providers Care Rn Mds Name Role Phone Mic, Tila Leroy DRAWING INSTRUCTOR Unavailable [phone] Gilma Carrasco MD Unavailable Itzel Martinez DRAWING INSTRUCTOR Unavailable [phone] Itzel Martinez NP Primary Care Provider [phone] Janae Lawrence MD Primary Care Provider Encounter Details Date Type Department Care Team (Late st Contact Info) Description 10/27/2021 Procedure Pass [address] [address] Social History Tobacco Use Types Packs/Day Years [...] Description 03/11/2025 9:30 AM EST Office Visit [facility] [address] [place] [address] [place], Thomas, DO [address] [place] [address] [place] [address] Toney Loco, PT 8 [place] [address] 03/13/2025 9:15 AM EST Office Visit [facility] 8 [place] [address] Thomas Enriquez, DO [address] [place] [address] [place] [address] Mindy Genao, PT 8 [place] [address] 03/18/2025 9:30 AM EST Office Visit [address] [address] Thomas Enriquez, DO [address] [place] [address] [place] [address] Toney Loco, PT 8 [place] [address] 03/20/2025 9:30 AM EST Office Visit [facility] [address] [place] [address] Thomas Enriquez, DO [address] [place] [address] [place] [address] Toney Loco, PT 8 [place] [address] 03/24/2025 8:45 AM EST Office Visit [facility] 8 [place] [address] Thomas Enriquez, DO [address] [address] Toney Loco PT 8 [place] [address] 03/30/2025 9:15 AM EST Office Visit [facility] [address] [place] [address] Thomas Enriquez, DO [address] [place] [address] [place] [address] Mindy Genao, PT 8 [place] [address] 04/01/2025 8:45 AM EST Office Visit [address] [place] [address] Thomas Enriquez, DO [address] [place] [address] [place] [address] Toney Loco, PT 8 [place] [address] 04/06/2025 9:15 AM EST Office Visit [facility] 8 [place] [address] Thomas Enriquez, DO [address] [place] [address] [place] [address] Mindy Genao, PT 8 [place] [address] 04/08/2025 8:45 AM EST Office Visit [address] [place] [address] Thomas Enriquez, DO [address] [place] [address] [place] [address] Toney Loco, PT 8 [place] [address] 04/14/2025 8:45 AM EST Office Visit [facility] [address] [place] [address] Thomas Enriquez DO [address] [place] [address] [place] [address] Toney Loco, PT 8 [place] [address] 04/16/2025 8:45 AM EST Office Visit [facility] [address] [place] [address] Thomas Enriquez DO [address] [place] [address] [place] [address] Toney Loco, PT 8 [place] [address] 04/21/2025 8:45 AM EST Office Visit [facility] [address] [place] [address] Thomas Enriquez DO [address] [place] [address] [place] [address] Toney Loco, PT 8 [place] [address] 04/23/2025 8:45 AM EST Office Visit [facility] 8 [place] [address] Thomas Enriquez DO [address] [place] [address] [place] [address] Toney Loco, PT 8 [place] [address] 04/28/2025 8:45 AM EST Office Visit [facility] [address] [place] [address] Thomas Enriquez, DO [address] [place] [address] [place] [address] Toney Loco, PT 8 [place] [address] 04/30/2025 8:45 AM EST Office Visit [facility] 8 [place] [address] Thomas Enriquez, DO [address] [place] [address] [place] [address] Toney Loco, PT 8 [place] [address] 05/05/2025 8:45 AM EST Office Visit [facility] 8 [place] [address] Thomas Enriquez, DO [address] [place] [address] [place] [address] Toney Loco, PT [address] [place] [address] 05/07/2025 8:45 AM EST Office Visit [facility] 8 [place] [address] Thomas Enriquez, DO [address] [place] [address] [place] [address] Toney Loco, PT [address] [place] [address] 05/12/2025 8:45 AM EST Office Visit [facility] [address] [place] [address] Thomas Enriquez, DO [address] [place] [address] [place] [address] Toney Loco, PT 8 [place] [address] 05/14/2025 8:45 AM EST Office Visit [facility] [address] [place] [address] Thomas Enriquez, DO [address] [place] [address] [place] [address] Toney Loco, PT [address] [place] [address] 05/19/2025 8:45 AM EST Office Visit [address] [address] Thomas Enriquez, DO [address] [place] [address] [place] [address] Toney Loco, PT [address] [place] [address] 05/21/2025 8:45 AM EST Office Visit [facility] 8 [place] [address] Thomas Enriquez, DO [address] [place] [address] [place] [address] Toney Loco, PT [address] [place] [address] documented as of this encounter Visit Diagnoses Not on filedocumented in this encounter Care Teams Rn Mds Relationship Specialty Start Date End Date Itzel Martinez NP [address] [place] [address] PCP - General Family Medicine 02/09/17 04/15/24 Janae Lawrence MD [address] [place] [address] PCP - General Internal Medicine 04/16/24 Tila Haile NP [address] [place] [address] [email or web address] Historical LMR Provider 01/21/17 Gilma Carrasco MD [address] [facility], [address] [place] [address] [email or web address] Historical LMR Provider 01/21/17 Itzel Martinez NP [address] [place] [address] Historical LMR Provider 01/21/17 documented as of this encounter Additional Source Comments The information contained in this document represents components of the legal health record. It is not the complete legal health record.[facility]
--- OUTSIDE RECORDS SUMMARY | 2025-02-11 10:29 | XMS_ITS | Encounter Summary ---
Author Organization [facility] Address [address] [place] [address] [place] [address] Phone Care Team Providers Care Can Maker Name Role Phone Mariam Cooper CNM Unavailable Tila Haile IT SYSTEMS ADMINISTRATOR Unavailable [phone] Katelynn Ruiz IT SYSTEMS ADMINISTRATOR Unavailable Tang Reed MD Unavailable Gilma Carrasco MD Unavailable Itzel Martinez IT SYSTEMS ADMINISTRATOR Unavailable [phone] Elena Eason MD Unavailable [phone] Cruz Roberson MD Unavailable Nova Acevedo MD Unavailable Mar Keene MD Unavailable Rachel Saleem MD Unavailable [phone] Itzel Martinez IT SYSTEMS ADMINISTRATOR Primary Care Provider Robert Michele MD Unavailable Cecil Barillas MD Unavailable Janae Lawrence MD Primary Care Provider Encounter Details Date Type Department Care Team (Latest Contact Info) Description 11/07/2018 Transcribe Orders [facility] [place] [address] [place], [place] [id number] Diane Arrieta PA [address] [place] [address] Occult blood in stools (Primary Dx) Social [...] Description 03/11/2025 9:30 AM EST Office Visit [address] [address] Thomas Enriquez DO [address] [address] Toney Loco, PT 8 [place] [address] 03/13/2025 9:15 AM EST Office Visit [address] [address] Thomas Enriquez DO [address] [place] [address] [place] [address] Mindy Genao, PT 8 [place] [address] 03/18/2025 9:30 AM EST Office Visit [address] [address] hTomas Enriquez DO [address] [place] [address] [place] [address] Toney Loco, PT 8 [place] [address] 03/20/2025 9:30 AM EST Office Visit [facility] [address] [place] [address] Thomas Enriquez, DO [address] [place] [address] [place] [address] Toney Loco, PT 8 [place] [address] 03/24/2025 8:45 AM EST Office Visit [address] [place] [address] Thomas Enriquez, DO [address] [place] [address] [place] [address] Toney Loco, PT 8 [place] [address] 03/30/2025 9:15 AM EST Office Visit [facility] 8 [place] [address] Thomas Enriquez, DO [address] [place] [address] [place] [address] Mindy Genao, PT 8 [place] [address] 04/01/2025 8:45 AM EST Office Visit [facility] [address] [place] [address] Thomas Enriquez, DO [address] [address] Toney Loco, PT 8 [place] [address] 04/06/2025 9:15 AM EST Office Visit [facility] 8 [place] [address] Thomas Enriquez DO [address] [place] [address] [place] [address] Mindy Genao, PT 8 [place] [address] 04/08/2025 8:45 AM EST Office Visit [facility] 8 [place] [address] Thomas Enriquez, DO [address] [place] [address] [place] [address] Toney Loco, PT 8 [place] [address] 04/14/2025 8:45 AM EST Office Visit [facility] 8 [place] [address] Thomas Enriquez, DO [address] [place] [address] [place] [address] Toney Loco, PT 8 [place] [address] 04/16/2025 8:45 AM EST Office Visit [facility] 8 [place] [address] Thomas Enriquez DO [address] [place] [address] [place] [address] Toney Loco, PT 8 [place] [address] 04/21/2025 8:45 AM EST Office Visit [facility] 8 [place] [address] Mina, Thomas, DO [address] [place] [address] [place] [address] Toney Loco, PT 8 [place] [address] 04/23/2025 8:45 AM EST Office Visit [facility] 8 [place] [address] Thomas Enriquez, DO [address] [place] [address] [place] [address] Toney Loco, PT 8 [place] [address] 04/28/2025 8:45 AM EST Office Visit [address] [address] Thomas Enriquez, DO [address] [place] [address] [place] [address] Toney Loco, PT 8 [place] [address] 04/30/2025 8:45 AM EST Office Visit [facility] 8 [place] [address] Thomas Enriquez DO [address] [place] [address] [place] [address] Toney Loco, PT 8 [place] [address] 05/05/2025 8:45 AM EST Office Visit [facility] 8 [place] [address] Thomas Enriquez DO [address] [place] [address] [place] [address] Toney Loco, PT 8 [place] [address] 05/07/2025 8:45 AM EST Office Visit [facility] 8 [place] [address] Thomas Enriquez, DO [address] [place] [address] [place] [address] Toney Loco, PT 8 [place] [address] 05/12/2025 8:45 AM EST Office Visit [facility] [address] [place] [address] Thomas Enriquez, DO [address] [place] [address] [place] [address] Toney Loco, PT 8 [place] [address] 05/14/2025 8:45 AM EST Office Visit [facility] 8 [place] [address] Thomas Enriquez, DO [address] [place] [address] [place] [address] Toney Loco, PT 8 [place] [address] 05/19/2025 8:45 AM EST Office Visit [facility] [address] [place] [address] Thomas Enriquez, DO [address] [place] [address] [place] [address] Toney Loco, PT 8 [place] [address] 05/21/2025 8:45 AM EST Office Visit [facility] 8 [place] [address] Thomas Enriquez DO [address] [place] [address] [place] [address] Toney Loco, PT 8 [place] [address] documented as of this encounter Results * (ABNORMAL) CBC and differential (11/07/2018 11:44 AM EDT) WBC 9.80 3.40 - 11.20 K/uL [facility] RBC 4.43 3.80 - 4.80 M/uL [facility] HGB 14.4 12.0 - 15.0 g/dL [facility] HCT 42.3 36.0 - 46.0 % [facility] PLT 221 130 - 400 K/uL [facility] MCV 95.5 79.0 - 98.0 fL [facility] MCH 32.5 27.0 - 34.8 pg [facility] MCHC 34.0 31.5 - 36.0 g/dL [facility] RDW 12.5 10.8 - 14.6 % [facility] MPV 10.6 9.4 - 12.4 fl [facility] NRBC 0.00 0.00 /100 WBCs [facility] ABSOLUTE NRBC 0.00 0.00 K/uL [facility] DIFF METHOD Auto [facility] NEUTS 68.4 45.30 - 77.70 % [facility] LYMPHS 21.5 12.30 - 39.70 % [facility] MONOS 8.6 4.10 - 12.80 % [facility] EOS 1.0 0 - 7.2 % [facility] BASOS 0.4 0 - 2.80 % [facility] Granulocytes, immature (%) 0.1 0.0 - 0.9 % [facility] ABSOLUTE NEUTS 6.70 1.40 - 7.70 K/uL [facility] ABSOLUTE LYMPHS 2.11 0.60 - 3.20 K/uL [facility] ABSOLUTE MONOS 0.84(H) 0.11 - 0.59 K/uL [facility] ABSOLUTE EOS 0.10 0.01 - 0.50 K/uL [facility] ABSOLUTE BASOS 0.04 0.00 - 0.08 K/uL [facility] Granulocytes, immature 0.01 0.00 - 0.05 K/uL [facility] Blood 11/07/2018 11:4 4 AM EDT 11/07/2018 11:49 AM EDT us Diane GUDINO LAB BLOOD BKR ORDERABLES F inal Result [address] [address] documented in this encounter Visit Diagnoses Diagnosis Occult blood in stools- Primary Nonspecific abnormal finding in stool contents documented in this encounter Care Teams Can Maker Relationship Specialty Start Date End Date Itzel Martinez NP [address] [place] [address] PCP - General Family Medicine 02/09/17 04/15/24 Janae Lawrence MD [address] [phone] PCP - General Internal Medicine 04/16/24 Mariam Cooper CNM [address] [place] [address] Historical LMR Provider 01/21/17 2 Tila Haile NP [address] [place] [address] [email or web address] Historical LMR Provider 01/21/17 Katelynn Ruiz NP [address] [place] [address] [email or web address] Historical LMR Provider 01/21/17 04/09/21 Tang Reed MD [address] [place] [address], [address] [place] [address] Historical LMR Provider 01/21/17 04/09/21 Gilma Carrasco MD [address] [place] [address] Historical LMR Provider 01/21/17 Itzel Martinez NP [address] [place] [address] Historical LMR Provider 01/21/17 Elena Eason MD [address] [place] [address] Historical LMR Provider 01/21/17 2 Cruz Roberson MD [address] [place] [address] Historical LMR Provider 01/21/17 04/09/21 Nova Acevedo MD [address] [place] [phone] Historical LMR Provider 01/21/17 2 Mar Keene MD [address] [place] [address] Historical LMR Provider 01/21/17 04/09/21 Rachel Saleem MD [address] [place] [address] Historical LMR Provider 01/21/17 2 Robert Michele MD 70 [place] [address] [email or web address] Insurance Assigned Provider 07/06/18 12/07/18 Cecil Barillas MD [address] [place] [phone] [email or web address] Assigned Provider 12/07/18 07/09/19 documented as of this encounter Additional Source Comments The information contained in this document represents components of the legal health record. It is not the complete legal health record.[facility]
--- OUTSIDE RECORDS SUMMARY | 2025-02-11 10:29 | XMS_ITS | Encounter Summary ---
Author Organization [facility] Address [address] [facility] [address] [place] [address] Phone Care Team Providers Care Hvac Installer Name Role Phone MicTila foster Leroy [employer] Unavailable [phone] Gilma Carrasco MD Unavailable Itzel Martinez [employer] Unavailable [phone] Janae Lawrence MD Primary Care Provider Encounter Details Date Type Department Care Team (Latest Contact Info) Description 02/06/2025 Plan of Care Documentation [facility] [address] [place], [place] [id number] Social History Tobacco Use Types Packs/Day Years [...] bed mobility with greater ease(Partially met) OUTCOME (Shelter): In 8-10wks, pt will: 1. Be able [...] Description 03/11/2025 9:30 AM EST Office Visit [address] [address] Thomas Enriquez DO [address] [place] [address] [place] [address] Toney Loco, PT 8 [place] [address] [email or web address] 03/13/2025 9:15 AM EST Office Visit [address] [address] Thomas Enriquez DO [address] [place] [address] [place] [address] Mindy Genao, PT 8 [place] [address] 03/18/2025 9:30 AM EST Office Visit [address] [address] Thomas Enriquez DO [address] [place] [address] [place] [address] Toney Loco, PT 8 [place] [address] [email or web address] 03/20/2025 9:30 AM EST Office Visit [address] [place] [address] Thomas Enriquez, DO [address] [place] [address] [place] [address] Toney Loco, PT 8 [place] [address] [email or web address] 03/24/2025 8:45 AM EST Office Visit [facility] [address] [place] [address] Thomas Enriquez, DO [address] [place] [address] [place] [address] Toney Loco, PT 8 [place] [address] [email or web address] 03/30/2025 9:15 AM EST Office Visit [facility] [address] [place] [address] Thomas Enriquez, DO [address] [place] [address] [place] [address] Mindy Genao, PT 8 [place] [address] 04/01/2025 8:45 AM EST Office Visit [facility] [address] [place] [address] Thomas Enriquez DO [address] [address] Toney Loco, PT 8 [place] [address] [email or web address] 04/06/2025 9:15 AM EST Office Visit [facility] [address] [place] [address] Thomas Enriquez DO [address] [address] Mindy Genao, PT 8 [place] [address] [email or web address] 04/08/2025 8:45 AM EST Office Visit [facility] [address] [place] [address] Thomas Enriquez, DO [address] [place] [address] [place] [address] Toney Loco, PT 8 [place] [address] [email or web address] 04/14/2025 8:45 AM EST Office Visit [facility] [address] [place] [address] Thomas Enriquez, DO [address] [place] [address] [place] [address] Toney Loco, PT 8 [place] [address] [email or web address] 04/16/2025 8:45 AM EST Office Visit [facility] [address] [place] [address] Thomas Enriquez, DO [address] [place] [address] [place] [address] Toney Loco, PT 8 [place] [address] [email or web address] 04/21/2025 8:45 AM EST Office Visit [facility] [address] [place] [address] Thomas Enriquez, DO [address] [place] [address] [place] [address] Toney Loco, PT 8 [place] [address] [email or web address] 04/23/2025 8:45 AM EST Office Visit [facility] [address] [place] [address] Thomas Enriquez, DO [address] [place] [address] [place] [address] Toney Loco, PT 8 [place] [address] 04/28/2025 8:45 AM EST Office Visit [facility] [address] [place] [address] Thomas Enriquez, DO [address] [place] [address] [place] [address] Toney Loco, PT 8 [place] [address] [email or web address] 04/30/2025 8:45 AM EST Office Visit [facility] [address] [place] [address] Thomas Enriquez, DO [address] [place] [address] [place] [address] Toney Loco, PT 8 [place] [address] 05/05/2025 8:45 AM EST Office Visit [facility] [address] [place] [address] Thomas Enriquez, DO [address] [place] [address] [place] [address] Toney Loco, PT 8 [place] [address] 05/07/2025 8:45 AM EST Office Visit [facility] [address] [place] [address] Thomas Enriquez, DO [address] [place] [address] [place] [address] Toney Loco, PT 8 [place] [address] [email or web address] 05/12/2025 8:45 AM EST Office Visit [facility] [address] [place] [address] Thomas Enriquez, DO [address] [place] [address] [place] [address] Toney Loco, PT 8 [place] [address] [email or web address] 05/14/2025 8:45 AM EST Office Visit [facility] [address] [place] [address] Thomas Enriquez, DO [address] [place] [address] [place] [address] Toney Loco, PT 8 [place] [address] [email or web address] 05/19/2025 8:45 AM EST Office Visit [facility] [address] [place] [address] Thomas Enriquez, DO [address] [place] [address] [place] [address] Toney Loco, PT 8 [place] [address] [email or web address] 05/21/2025 8:45 AM EST Office Visit [facility] [address] [place] [address] Thomas Enriquez DO [address] [place] [address] [place] [address] Claudy Toney, PT 8 [place] [address] [email or web address] documented as of this encounter Visit Diagnoses Not on filedocumented in this encounter Care Teams Hvac Installer Relationship Specialty Start Date End Date Janae Lawrence MD 70 [place] [address] PCP - General Internal Medicine 04/16/24 Tila Haile NP [address] [place] [address] [email or web address] Historical LMR Provider 01/21/17 Gilma Carrasco MD [address] [facility], [address] [place] [address] Historical LMR Provider 01/21/17 Itzel Martinez NP [address] [place] [address] Historical LMR Provider 01/21/17 documented as of this encounter Additional Source Comments The information contained in this document represents components of the legal health record. It is not the complete legal health record.[facility]
--- OUTSIDE RECORDS SUMMARY | 2025-02-11 10:29 | XMS_ITS | Clinical Summary ---
Author Organization [facility] Building Address [address] [place] [address] Phone Care Team Providers Care Millroom Supervisor Name Role Phone Janae Shah MD Primary Care Provider [phone] Allergies Active Allergy Reactions Criticality Noted Date Comments Erythromycin Rash Low 05/10/2018 Erythromycin Base Rash Low 05/03/2023 Sulfa (Sulfonamide Antibiotics) Rash Low 10/2018 Medications meloxicam (MOBIC) 15 mg tablet Take 1 tablet (15 mg total) by mouth 1 (one) time each day. Active atorvastatin (LIPITOR) 20 mg tablet Take 1 tablet (20 mg total) by mouth at bedtime. Active famotidine (PEPCID) 40 mg tablet Take 1 tablet (40 mg total) by mouth at bedtime. Active Gemtesa 75 mg tablet tablet Take 1 tablet (75 mg total) by mouth at bedtime. 5 Active valACYclovir (VALTREX) 1 gram tablet Take 2 tablets (2,000 mg total) by mouth every 12 (twelve) hours if needed (cold sore). for 1 day Active levonorgestreL (MIRENA) 21 mcg/24hr (up to 8 yrs) 52 mg IUD 1 Device (1 each total) by intrauterine route. 2 Active fluticasone propionate (FLONASE) 50 mcg/actuation nasal spray 1 (one) time if needed. 8 Active amphetamine-de xtroamphetamin e XR (Adderall XR) 20 mg 24 hr capsule Take by mouth daily. 9 025 Discontin ued(Thera py completed ) dextroamphetam ine/amphetamin e (ADDERALL ORAL) Take by mouth. 7 025 Discontin ued(Dupli jose order) TURMERIC ORAL Take 1 capsule by mouth daily. 025 Discontin ued(Thera py completed ) triamcinolone (KENALOG) 0.1 % cream 4 025 Discontin ued(Thera py completed ) traMADoL (ULTRAM) 50 mg tablet 2 025 Discontin ued(Thera py completed ) naproxen (NAPROSYN) 500 mg tablet Take 1 tablet (500 mg total) by mouth 2 times daily. 025 Discontin ued(Dupli jose order) lactulose (CHRONULAC) solution TAKE 15ML BY MOUTH ONCE FOR 1 DAY 2 025 Discontin ued(Thera py completed ) ibuprofen (ADVIL,MOTRIN) 800 mg tablet Take 1 tablet (800 mg total) by mouth every 6 hours as needed. 025 Discontin ued(Thera py completed ) Active Problems Problem Noted Date Diagnosed Date Vascular abnormality of brain 01/26/2025 Overview (01/26/2025): left pontine capillary telangiectasia Hyperglycemia 03/09/2020 Hypocomplementemia (CMS/HCC V24, CMS/HCC V28) GIANNA positive 03/08/2020 Brachial plexopathy 02/09/2020 Chronic fatigue 02/09/2020 Hair loss 02/09/2020 Hiatal hernia 02/09/2020 Assessment & Plan (02/04/2025 9:51 AM EST): Has GERD. No hx of GI bleeds. Stable on Pepcid. Continue outpatient management and follow up as needed. Kidney stones 02/09/2020 Assessment & Plan (02/04/2025 9:51 AM EST): Has chronic kidney stones. Had lithotripsy in the past. No current symptoms. Continue outpatient management and follow up. Migraine with aura and without status migrainosu s 02/09/2020 Assessment & Plan (02/04/2025 9:51 AM EST): Patient suffers from temporal and occipital headaches. She is not on preventive therapy. Follow up postoperatively as needed. Mild intermittent asthma without complication Assessment & Plan (02/04/2025 9:51 AM EST): Lungs clear on auscultation. Uses albuterol prn when allergies trigger condition. Condition controlled. Continue outpatient management and follow up. Myalgia 02/09/2020 Osteoarthritis of multiple joints 02/09/2020 Raynaud's disease without gangrene 02/09/2020 Assessment & Plan (02/04/2025 9:51 AM EST): Palpable DP and radial pulses with adequate capillary refill. No discoloration noted on exam. Spinal stenosis of cervical region 02/09/2020 Assessment & Plan (02/04/2025 9:51 AM EST): Chronic pain and limited mobility related to this condition. Defer further management to anesthesia team and surgical team day of surgery. Vitamin D insufficiency 02/09/2020 Photosensitivity dermatitis due to sun 0 Cervical disc disorder with radiculopathy of mid-cervical region 04/04/2019 Cervical high risk HPV (human papillomavirus) te st positive 08/15/2018 Overview (01/26/2025): 2019 - letter sent advising pap in one year, also on recall list 09/2021 - NILM/HPV+ --> neg ECC 06/2023 -NILM/HPV neg Repeat in 1 year Mood disorder (CMS/HCC V24) 06/01/2016 Encounters Date Type Department Care Team Description 02/11/2025 Telephone [facility]JRI Pre-Admission Testing [address] [place] [address] Dalia Cifuentes RN 02/09/2025 Telephone [facility] Pre-Admission Testing [address] [place] [address] Deepa Frey RN 02/06/2025 Telephone [facility] Pre-Admission Testing [address] [place] [address] Dalia Cifuentes RN 02/05/2025 Telephone Periop Testing - [place] [address] [place] [address] Myrtle Ding NP 02/05/2025 Telephone Periop Testing - [place] [address] [place] [address] Myrtle Ding NP 02/04/2025 9:00 AM EST Consult Periop Testing - [place] [address] [place] [address] Myrtle Ding NP Preoperative examination (Primary Dx); Spinal stenosis of cervical region; Raynaud's disease without gangrene; Mild intermittent asthma without complication; Migraine with aura and without status migrainosus, not intractable; Kidney stones; Hiatal hernia; History of changes to urinary frequency; Transaminitis 02/04/2025 8:20 AM EST Lab Draw [facility] [address] [place] [address] Elevated random blood glucose level; Pre-op evaluation 12/30/2024 1:30 PM EDT Office Visit Neurosurgery - [place] [address] [place] [address] Thomas Enriquez DO Cervical spinal stenosis (Primary Dx) 11/14/2024 9:00 AM EDT Office Visit Orthopedic Surgery - [place] [address] [place] [address] Christian Mariano MD Femoroacetabular impingement of both hips (Primary Dx) 11/12/2024 1:00 PM EDT Office Visit Neurosurgery - [place] [address] [place] [address] Thomas Enriquez DO Radiculopathy, lumbosacral region; Spinal stenosis, cervical region from Last 3 Months Surgical History Surgery Date Site/Laterality Comments LITHOTRIPSY PROCEDURE:LITHOTRIPSY LYMPHANGIOMA EXCISION PROCEDURE:LYMPHANGIOM A EXCISION- NECK COLONOSCOPY UPPER GASTROINTESTINAL ENDOSCOPY MEDIAL COLLATERAL LIGAMENT A ND LATERAL COLLATERAL LIGAMENT REPAIR, KNEE 04/02/2020 - 04/01/2021 Left Medical History Medical History Date Comments Asthma DX:Asthma Hyperlipidemia History of syncope 2021 Cardiac note - related to Neurology Cervical stenosis of spinal canal GERD (gastroesophageal reflux disease) Hiatal hernia Diverticulosis Hyperglycemia History of kidney stones Arthritis Migraine headache frequent GIANNA positive Anemia hist IUD (intrauterine device) in place Mirena Delayed emergence from general anesthesia slow to wake Peripheral neuropathy hands numb ness and tingling Family History Medical History Relation Name Comments No Known Problems Brother 1 No Known Problems Brother 2 Diabetes Father Pre DM Heart disease Father Hyperlipidemia Father Sleep apnea Father Cancer Mother Lymphoma Heart disease Mother Hyperlipidemia Mother Relation Name Status Comments Brother 1 Alive Brother 2 Alive Father Alive Mother Alive Social History Tobacco Use Types Packs/Day Years Used Date Smoking Tobacco: Former Cigarettes 0 2 025 - 2015 Smokeless Tobacco: Never Tobacco Cessation:Counseling Given: Not [...] Sign Reading Time Taken Comments Blood Pressure 111/72 02/04/2025 9:10 AM EST Pulse 53 02/04/2025 9:10 AM EST Temperature 36.6 C (97.9 F) 02/04/2025 9:10 AM EST Respiratory Rate 18 02/04/2025 9:10 AM EST Oxygen Saturation 100% 02/04/2025 9:10 AM EST Inhaled Oxygen Concentration - - Weight 68 kg (150 lb) 02/04/2025 9:10 AM EST Height 161 cm (5' 3.39 ) 02/04/2025 9:10 AM EST Body Mass Index 26.25 02/04/2025 9:10 AM EST Plan of Treatment Upcoming Encounters Date Type Department Care Team (Latest Contact Info) Description 02/23/2025 7:15 AM EST Hospital Encounter [facility] OR [address] [place] [address] Thomas Enriquez, DO [address] [place] [address] 02/23/2025 7:15 AM EST - 02/23/2025 10:00 AM EST Surgery [facility] SIC OR [address] [place] [address] Thomas Enriquez, DO [address] [place] [address] C5-7 FUSION CERVICAL ANTERIOR MULTI LEVEL 2 [29002 (CPT )] Scheduled Procedures Name Priority Associated Diagnoses Date/Ti me FUSION CERVICAL ANTERIOR MULTI LEVEL 2 Lumbosacral radiculitis 02/23/2025 7:15 AM EST Health Maintenance Due Date Last Done Comments Colorectal Cancer Screening: Colonoscopy 1975 Hepatitis B Vaccines (1 of 3 - 19+ 3-dose series) 08/10/1994 Pneumococcal Vaccine: Pediatrics (0 to 5 Years) and At-Risk Patients (6 to 49 Years) (1 of 2 - PCV) 08/10/1994 Cervical Cancer Screening: Pap Smear 08/10/1996 COVID-19 Vaccine (2 - Pfizer risk series) 08/25/2020 08/04/2020 HIV Screening 03/05/2022 Medicare Annual Wellness Visit 03/05/2022 Social Influencers of Health Screening 03/05/2022 Depression Screening 04/02/2024 Influenza Vaccine (#1) 2024 , 03/22/2021, 12/12/2016, Additional history exists Breast Cancer Screening 08/12/2026 08/12/2024 DTaP,Tdap,and Td Vaccines (3 - Td or Tdap) 05/02/2034 05/02/2024, 09/21/2006 RSV Immunization Adult Patients (1 - 1-dose 75+ series) 08/10/2050 Hepatitis C Screening Completed 07/18/2023 HIB Vaccines [...] on patient's age to complete this topic Goals Goal Patient Goal Type Associated Problems Recent Progress Patient-Stated? Author Autogenerat ed Goal Care Plan Autogenerated Problem No Ninoska Vasquez MA Procedures Procedure Name Priority Date/Time Associated Diagnosis Comments ECG 12-LEAD Routine 02/04/2025 9:14 AM EST Preoperative examination Spinal stenosis of cervical region Raynaud's disease without gangrene Mild intermittent asthma without complication Migraine with aura and without status migrainosus, not intractable Kidney stones Hiatal hernia CBC WITH AUTO DIFFERENTIAL Routine 02/04/2025 8:20 AM EST Elevated random blood glucose level Pre-op evaluation TYPE AND SCREEN Routine 02/04/2025 8:20 AM EST Pre-op evaluation HEMOGLOBIN A1C Routine 02/04/2025 8:20 AM EST Elevated random blood glucose level Pre-op evaluation CBC AND DIFFERENTIAL Routine 02/04/2025 8:20 AM EST Elevated random blood glucose level Pre-op evaluation COMPREHENSIVE METABOLIC PANEL Routine 02/04/2025 8:20 AM EST Elevated random blood glucose level Pre-op evaluation MR CERVICAL SPINE WO CONTRAST Routine 11/21/2024 11:34 AM EDT from Last 3 Months Results * ECG 12 lead (02/04/2025 9:14 AM EST) Narrative Tamara Brown MD - 02/04/2025 9:14 AM EST Sinus bradycardia at 52 bpm, early repolarization changes Myrtle Ding SEWING MACHINE REPAIRER ECG ORDERABLES Final Result * CBC auto differential (02/04/2025 8:20 AM EST) [facility] Signature WBC 6.6 4.0 - 10.5 K/mcL LAB HEMETOLOGY METHOD 02/04/2025 11:58 AM [facility] RBC 4.20 4.20 - 5.40 M/mcL LAB HEMETOLOGY METHOD 02/04/2025 11:58 AM [facility] Hemoglobin 13.6 12.5 - 16.0 g/dL LAB HEMETOLOGY METHOD 02/04/2025 11:58 AM [facility] Hematocrit 39.9 37.0 - 47.0 % LAB HEMETOLOGY METHOD 02/04/2025 11:58 AM [facility] MCV 95.1 78.0 - 100.0 FL LAB HEMETOLOGY METHOD 02/04/2025 11:58 AM [facility] MCH 32.4 25.0 - 33.0 pcg LAB HEMETOLOGY METHOD 02/04/2025 11:58 AM [facility] MCHC 34.1 32.0 - 36.0 g/dL LAB HEMETOLOGY METHOD 02/04/2025 11:58 AM [facility] RDW 12.7 12.1 - 16.2 % LAB HEMETOLOGY METHOD 02/04/2025 11:58 AM [facility] Platelets 201 150 - 450 K/mcL LAB HEMETOLOGY METHOD 02/04/2025 11:58 AM [facility] MPV 8.9 7.4 - 11.4 FL LAB HEMETOLOGY METHOD 02/04/2025 11:58 AM [facility] Neutrophils Relative 59.3 44.0 - 74.0 % LAB HEMETOLOGY METHOD 02/04/2025 11:58 AM EST [facility] Lymphocytes Relative 28.3 20.0 - 48.0 % LAB HEMETOLOGY METHOD 02/04/2025 11:58 AM EST [facility] Monocytes Relative 7.3 2.0 - 12.0 % LAB HEMETOLOGY METHOD 02/04/2025 11:58 AM EST [facility] Eosinophils Relative 4.3 0.0 - 6.0 % LAB HEMETOLOGY METHOD 02/04/2025 11:58 AM EST [facility] Basophils Relative 0.8 0.0 - 2.0 % LAB HEMETOLOGY METHOD 02/04/2025 11:58 AM EST [facility] Neutrophils Absolute 3.90 1.80 - 7.80 K/mcL LAB HEMETOLOGY METHOD 02/04/2025 11:58 AM EST [facility] Lymphocytes Absolute 1.90 1.00 - 3.20 K/mcL LAB HEMETOLOGY METHOD 02/04/2025 11:58 AM EST [facility] Monocytes Absolute 0.50 0.00 - 0.80 K/mcL LAB HEMETOLOGY METHOD 02/04/2025 11:58 AM EST [facility] Eosinophils Absolute 0.30 0.00 - 0.50 K/mcL LAB HEMETOLOGY METHOD 02/04/2025 11:58 AM EST [facility] Basophils Absolute 0.10 0.00 - 0.20 K/mcL LAB HEMETOLOGY METHOD 02/04/2025 11:58 AM [facility] Blood Venous blood specimen / Unknown Venipuncture / Unknown 02/04/2025 8:20 AM EST 02/04/2025 11:24 AM EST us Myrtle Ding NP LAB BLOOD ORDERABLES Final Re sult [facility] [address] [place] [address], [place] [phone] * Type and screen (02/04/2025 8:20 AM EST) ABO Group O 02/04/2025 1:18 PM EST [facility] Rh Type Negative 02/04/2025 1:18 PM EST [facility] Comment:No Blood Bank histor y. Need ABO/Rh ([id number]) ordered and collected prior to transfusion. Antibody Screen Negative 02/04/2025 1:18 PM EST [facility] Blood Venous blood specimen / Unknown Venipuncture / Unknown 02/04/2025 8:20 AM EST 02/04/2025 11:23 AM EST us Thomas Enriquez DO LAB BLOOD BANK TEST ORDERABLES Final Result [facility] [address] [place] [address], * Hemoglobin A1c (02/04/2025 8:20 AM EST) Hemoglobin A1C 5.4 <5.7 % LAB CHEMISTRY METHOD 02/04/2025 12:24 PM EST [facility] Mean Bld Glu Estim. 108 mg/dL LAB CHEMISTRY METHOD 02/04/2025 12:24 PM EST [facility] Blood Venous blood specimen / Unknown Venipuncture / Unknown 02/04/2025 8:20 AM EST 02/04/2025 11:24 AM EST Narrative [facility] - 02/04/2025 12:24 PM EST ADA Guidelines: Increased risk Diabetes Mellitus A1C 5.7 - 6.4% and Fasting Blood Glucose 100 - 125 mg/dl Diabetes Mellitus: A1C >6.5% and Fasting Blood Glucose >125 mg/dl us Myrtle Ding NP LAB BLOOD ORDERABLES Final Re sult [facility] [address] [place] [address], [place] [phone] * (ABNORMAL) Comprehensive metabolic panel (02/04/2025 8:20 AM EST) [facility] Sodium 141 135 - 145 mmol/L LAB CHEMISTRY METHOD 02/04/2025 11:59 AM [facility] Potassium 4.5 3.5 - 5.1 mmol/L LAB CHEMISTRY METHOD 02/04/2025 11:59 AM [facility] Chloride 104 98 - 107 mmol/L LAB CHEMISTRY METHOD 02/04/2025 11:59 AM [facility] CO2 31 24 - 32 mmol/L LAB CHEMISTRY METHOD 02/04/2025 11:59 AM [facility] Anion Gap 6 5 - 14 LAB CHEMISTRY METHOD 02/04/2025 11:59 AM [facility] Glucose 92 70 - 99 mg/dL LAB CHEMISTRY METHOD 02/04/2025 11:59 AM [facility] BUN 16 7 - 17 mg/dL LAB CHEMISTRY METHOD 02/04/2025 11:59 AM [facility] Creatinine 0.70 0.50 - 1.00 mg/dL LAB CHEMISTRY METHOD 02/04/2025 11:59 AM [facility] eGFR 106 >=60 mL/min/1. 73m2 LAB CHEMISTRY METHOD 02/04/2025 11:59 AM [facility] Comment:Calculation based on the Chronic Kidney Disease Epidemiology Collaboration (CKD-EPI) equation refit without adjustment for race. BUN/Creatinine Ratio 22.9(H) 12.0 - 20.0 LAB CHEMISTRY METHOD 02/04/2025 11:59 AM [facility] Calcium 9.0 8.4 - 10.2 mg/dL LAB CHEMISTRY METHOD 02/04/2025 11:59 AM [facility] AST (SGOT) 46(H) 5 - 40 unit/L LAB CHEMISTRY METHOD 02/04/2025 11:59 AM [facility] ALT (SGPT) 103(H) 7 - 52 unit/L LAB CHEMISTRY METHOD 02/04/2025 11:59 AM EST [facility] Alkaline Phosphatase 92 34 - 104 unit/L LAB CHEMISTRY METHOD 02/04/2025 11:59 AM [facility] Total Protein 6.3(L) 6.4 - 8.5 g/dL LAB CHEMISTRY METHOD 02/04/2025 11:59 AM [facility] Albumin 4.4 3.5 - 5.0 g/dL LAB CHEMISTRY METHOD 02/04/2025 11:59 AM [facility] Total Bilirubin 0.5 0.3 - 1.0 mg/dL LAB CHEMISTRY METHOD 02/04/2025 11:59 AM [facility] Blood Venous blood specimen / Unknown Venipuncture / Unknown 02/04/2025 8:20 AM EST 02/04/2025 11:23 AM EST Myrtle Ding NP LAB BLOOD ORDERABLES Final Re sult [facility] [address] [place] [address], * MR Cervical Spine wo Contrast (11/21/2024 11:34 AM EDT) Anatomical Region Laterality Modality C-spine, Spine Magnetic Resonan ce Historical Provider MD SILVA MRI PROCEDURES Final Result from Last 3 Months Additional Health Concerns Active Problems Noted Date Diagnosed Date Autogenerated Problem 12/30/2024 Insurance MEDICARE [employer] Care Teams Millroom Supervisor Relationship Specialty Start Date End Date Janae Shah MD [address] [place] [id number] PCP - General Internal Medicine 01/19/25
--- OUTSIDE RECORDS SUMMARY | 2025-02-11 10:29 | XMS_ITS | Encounter Summary ---
Author Organization [facility] Address [address] [place] [address] Care Team Providers Care Game Author Name Role Phone Janae Shah MD Primary Care Provider [phone] Encounter Details Date Type Department Care Team (Late st Contact Info) Description 02/11/2025 Telephone [facility]JRI Pre-Admission Testing [address] [place] [address] Dalia Cifuentes RN Social History Tobacco [...] Progress Notes * Dalia Cifuentes RN - 02/11/2025 9:17 AM EST Patient called to inquire if labs for [facility] will be done soon. Patient stated she was seen by her PCP on Tuesday 02/06 and PCP is ordering Labs including PT/INR requested by [facility] provider and will have the PCP office fax results to [facility]. documented in this encounter Plan of Treatment Upcoming Encounters Date Type Department Care Team (Latest Contact Info) Description 02/23/2025 7:15 AM EST Hospital Encounter [facility] SIC OR [address] [place] [address] Thomas Enriquez, DO [address] [place] [address] 02/23/2025 7:15 AM EST - 02/23/2025 10:00 AM EST Surgery [facility] SIC OR [address] [facility] [place] [address] Thomas Enriquez, DO [address] [place] [address] C5-7 FUSION CERVICAL ANTERIOR MULTI LEVEL 2 [39709 (CPT )] Scheduled Procedures Name Priority Associated [...] documented as of this encounter Care Teams Game Author Relationship Specialty Start Date End Date Janae Shah MD [address] [place] [address] PCP - General Internal Medicine 01/19/25 documented as of this encounter
--- OUTSIDE RECORDS SUMMARY | 2025-02-11 10:29 | XMS_ITS | Encounter Summary ---
Author Organization [facility] Address [address] [facility] [address] [place] [address] Phone Care Team Providers Care Dispatcher Clerk Name Role Phone MicTila foster Leroy COAL WASHER TENDER Unavailable [phone] Gilma Carrasco MD Unavailable Itzel Martinez COAL WASHER TENDER Unavailable [phone] Janae Lawrence MD Primary Care Provider Encounter Details Date Type Department Care Team (Late st Contact Info) Description 06/22/2024 Procedure Pass [facility], Ct Scan - [address] [id number] Social History Tobacco Use Types Packs/Day Years [...] 7:02 AM EDT Agustina Mckeon RN * [place] Suicide Severity Rating Scale (Screener/Recent Self-Report) Question [...] Description 03/11/2025 9:30 AM EST Office Visit [facility] [address] [place] [address] Thomas Enriquez DO [address] [address] Toney Loco, PT 8 [place] [address] 03/13/2025 9:15 AM EST Office Visit [facility] [address] [place] [address] Thomas Enriquez DO [address] [address] Mindy Genao, PT 8 [place] [address] [email or web address] 03/18/2025 9:30 AM EST Office Visit [facility] 8 [place] [address] Thomas Enriquez, DO [address] [address] Toney Loco, PT 8 [place] [address] [email or web address] 03/20/2025 9:30 AM EST Office Visit [address] [address] Thomas Enriquez, DO [address] [address] Toney Loco, PT 8 [place] [address] [email or web address] 03/24/2025 8:45 AM EST Office Visit [address] [address] Thomas Enriquez, DO [address] [address] Toney Loco, PT 8 [place] [address] [email or web address] 03/30/2025 9:15 AM EST Office Visit [address] [address] Thomas Enriquez, DO [address] [address] Mindy Genao, PT 8 [place] [address] [email or web address] 04/01/2025 8:45 AM EST Office Visit [facility] [address] [place] [address] Thomas Enriquez, DO [address] [place] [address] [place] [address] Toney Loco, PT 8 [place] [address] [email or web address] 04/06/2025 9:15 AM EST Office Visit [address] [place] [address] Thomas Enriquez, DO [address] [place] [address] [place] [address] Mindy Genao, PT 8 [place] [address] [email or web address] 04/08/2025 8:45 AM EST Office Visit [facility] 8 [place] [address] Thomas Enriquez, DO [address] [place] [address] [place] [address] Toney Loco, PT 8 [place] [address] 04/14/2025 8:45 AM EST Office Visit [address] [place] [address] Thomas Enriquze, DO [address] [place] [address] [place] [address] Toney Loco, PT 8 [place] [address] 04/16/2025 8:45 AM EST Office Visit [facility] [address] [place] [address] Thomas Enriquez DO [address] [place] [address] [place] [address] Toney Loco, PT 8 [place] [address] [email or web address] 04/21/2025 8:45 AM EST Office Visit [facility] [address] [place] [address] Thomas Enriquez DO [address] [place] [address] [place] [address] Toney Loco, PT 8 [place] [address] [email or web address] 04/23/2025 8:45 AM EST Office Visit [facility] 8 [place] [address] Thomas Enriquez DO [address] [place] [address] [place] [address] Toney Loco, PT 8 [place] [address] 04/28/2025 8:45 AM EST Office Visit [facility] 8 [place] [address] Thomas Enriquez DO [address] [place] [address] [place] [address] Toney Loco, PT 8 [place] [address] [email or web address] 04/30/2025 8:45 AM EST Office Visit [facility] [address] [place] [address] [place], Thomas, DO [address] [place] [address] [place] [address] Toney Loco, PT 8 [place] [address] [email or web address] 05/05/2025 8:45 AM EST Office Visit [facility] 8 [place] [address] Thomas Enriquez, DO [address] [place] [address] [place] [address] Toney Loco, PT 8 [place] [address] [email or web address] 05/07/2025 8:45 AM EST Office Visit [facility] 8 [place] [address] Thomas nEriquez, DO [address] [address] Toney Loco, PT 8 [place] [address] [email or web address] 05/12/2025 8:45 AM EST Office Visit [facility] 8 [place] [address] Thomas Enriquez, DO [address] [address] Toney Loco, PT 8 [place] [address] [email or web address] 05/14/2025 8:45 AM EST Office Visit [facility] 8 [place] [address] Thomas Enriquez, DO [address] [place] [address] [place] [address] Jed Locofranklyn, PT 8 [place] [address] 05/19/2025 8:45 AM EST Office Visit [facility] 8 [place] [address] Mina Thomas, DO [address] [place] [address] [place] [address] Toney Loco, PT 8 [place] [address] 05/21/2025 8:45 AM EST Office Visit [facility] 8 [place] [address] Thomas Enriquez, DO [address] [place] [facility] [place] [address] Claudy Jedfranklyn, PT 8 [place] [address] documented as of this encounter Visit Diagnoses Not on filedocumented in this encounter Care Teams Dispatcher Clerk Relationship Specialty Start Date End Date Janae Lawrence MD 70 [place] [address] PCP - General Internal Medicine 04/16/24 Tila Haile NP [address] [place] [address] Historical LMR Provider 01/21/17 Gilma Carrasco MD [address] [address] Historical LMR Provider 01/21/17 Itzel Martinez NP 70 [place] [address] Historical LMR Provider 01/21/17 documented as of this encounter Additional Source Comments The information contained in this document represents components of the legal health record. It is not the complete legal health record.[facility]
--- OUTSIDE RECORDS SUMMARY | 2025-02-11 10:30 | XMS_ITS | Encounter Summary ---
Author Organization [facility] Address [address] [place] [address] [place] [address] Phone Care Team Providers Care Cnc Lathe Programmer Name Role Phone Mariam Cooper CNM Unavailable Tila Haile OUTREACH CONSULTANT Unavailable Katelynn Ruiz OUTREACH CONSULTANT Unavailable Tang Reed MD Unavailable Gilma Carrasco MD Unavailable Itzel Martinez OUTREACH CONSULTANT Unavailable [phone] Elena Eason MD Unavailable [phone] Cruz Roberson MD Unavailable Nova Acevedo MD Unavailable Mar Keene MD Unavailable Rachel Saleem MD Unavailable [phone] Itzel Martinez OUTREACH CONSULTANT Primary Care Provider Robert Michele MD Unavailable Cecil Barillas MD Unavailable Janae Lawrence MD Primary Care Provider Encounter Details Date Type Department Care Team (Latest Contact Info) Description 02/09/2017 Transcribe Orders [facility] [address] [place] [address] Itzel Martinez, OUTREACH CONSULTANT 70 [place] [address] Fatigue, unspecified type (Primary Dx) Social History [...] Description 03/11/2025 9:30 AM EST Office Visit [facility] [address] [place] [address] Thomas Enriquez DO [address] [address] Toney Loco, PT 8 [place] [address] [email or web address] 03/13/2025 9:15 AM EST Office Visit [facility] [address] [place] [address] Thomas Enriquez DO [address] [address] Mindy Genao, PT 8 [place] [address] 03/18/2025 9:30 AM EST Office Visit [facility] [address] [place] [address] Thomas Enriquez DO [address] [address] Toney Loco, PT 8 [place] [address] [email or web address] 03/20/2025 9:30 AM EST Office Visit [facility] 8 [place] [address] Thomas Enriquez, DO [address] [place] [address] [place] [address] Toney Loco, PT 8 [place] [address] [email or web address] 03/24/2025 8:45 AM EST Office Visit [facility] 8 [place] [address] Thomas Enriquez, DO [address] [place] [address] [place] [address] Toney Loco, PT 8 [place] [address] [email or web address] 03/30/2025 9:15 AM EST Office Visit [facility] 8 [place] [address] Thomas Enriquez, DO [address] [place] [address] [place] [address] Mindy Genao, PT 8 [place] [address] 04/01/2025 8:45 AM EST Office Visit [facility] 8 [place] [address] Thomas Enriquez, DO [address] [place] [address] [place] [address] Toney Loco, PT 8 [place] [address] [email or web address] 04/06/2025 9:15 AM EST Office Visit [facility] [address] [place] [address] Thomas Enriquez, DO [address] [place] [address] [place] [address] Mindy Genao, PT 8 [place] [address] 04/08/2025 8:45 AM EST Office Visit [facility] 8 [place] [address] Thomas Enriquez, DO [address] [place] [address] [place] [address] Toney Loco, PT 8 [place] [address] [email or web address] 04/14/2025 8:45 AM EST Office Visit [address] [address] Thomas Enriquez, DO [address] [address] Toney Loco, PT 8 [place] [address] [email or web address] 04/16/2025 8:45 AM EST Office Visit [facility] 8 [place] [address] Thomas Enriquez, DO [address] [address] Toney Loco, PT 8 [place] [address] [email or web address] 04/21/2025 8:45 AM EST Office Visit [facility] 8 [place] [address] Thomas Enriquez, DO [address] [address] Toney Loco, PT 8 [place] [address] [email or web address] 04/23/2025 8:45 AM EST Office Visit [facility] [address] [place] [address] Thomas Enriquez, DO [address] [place] [address] [place] [address] Toney Loco, PT 8 [place] [address] 04/28/2025 8:45 AM EST Office Visit [facility] [address] [place] [address] Thomas Enriquez, DO [address] [place] [address] [place] [address] Tonye Loco, PT 8 [place] [address] 04/30/2025 8:45 AM EST Office Visit [facility] 8 [place] [address] Thomas Enriquez, DO [address] [place] [address] [place] [address] Toney Loco, PT 8 [place] [address] 05/05/2025 8:45 AM EST Office Visit [facility] [address] [place] [address] Thomas Enriquez, DO [address] [place] [address] [place] [address] Toney Loco, PT 8 [place] [address] 05/07/2025 8:45 AM EST Office Visit [facility] [address] [place] [address] Thomas Enriquez DO [address] [place] [address] [place] [address] Toney Loco, PT 8 [place] [address] [email or web address] 05/12/2025 8:45 AM EST Office Visit [facility] [address] [place] [address] Thomas Enriquez DO [address] [place] [address] [place] [address] Toney Loco, PT 8 [place] [address] [email or web address] 05/14/2025 8:45 AM EST Office Visit [facility] 8 [place] [address] Thomas Enriquez, DO [address] [place] [address] [place] [address] Toney Loco, PT 8 [place] [address] [email or web address] 05/19/2025 8:45 AM EST Office Visit [facility] 8 [place] [address] Thomas Enriquez DO [address] [place] [address] [place] [address] Toney Loco, PT 8 [place] [address] [email or web address] 05/21/2025 8:45 AM EST Office Visit [facility] [address] [place] [address] Mina, Thmoas, DO [address] [place] [address] [place] [address] Toney Loco, PT 8 [place] [address] [email or web address] documented as of this encounter Results * (ABNORMAL) Basic metabolic panel (02/09/2017 1:46 PM EST) SODIUM 137 133 - 146 mmol/L [facility] CHLORIDE 99 96 - 108 mmol/L [facility] POTASSIUM 3.6 3.3 - 5.1 mmol/L [facility] CO2 26 21 - 35 mmol/L [facility] BUN 12 6 - 19 mg/dL [facility] CREATININE 0.60 0.5 - 1.5 mg/dL [facility] GLUCOSE 100(H) 70 - 99 mg/dL [facility] CALCIUM 8.8 8.4 - 10.3 mg/dL [facility] EGFR >60 60 - 1000 mL/min/1.7 3m2 [facility] Comment:Abnormal if <60. If patient is -Haitian, multiply the result by 1.21. ANION GAP 16 10 - 20 mmol/L [facility] Blood 02/09/2017 1:46 PM EST 02/09/2017 1:48 PM EST us Itzel Martinez OUTREACH CONSULTANT LAB BLOOD BKR ORDERABLES Final Result Performing Organization Address City/State/[employer] Phone Number [address] [address] documented in this encounter Visit Diagnoses Diagnosis Fatigue, unspecified type- Primary documented in this encounter Care Teams Cnc Lathe Programmer Relationship Specialty Start Date End Date Itzel Martinez NP 70 [place] [address] PCP - General Family Medicine 02/09/17 04/15/24 Janae Lawrence MD [address] [facility] [address] [place] [address] PCP - General Internal Medicine 04/16/24 Mariam Cooper CNM 30 [place] [address] Historical LMR Provider 01/21/17 2 Tila Haile NP 30 [place] [address] [email or web address] Historical LMR Provider 01/21/17 Katelynn Ruiz NP [address] [place] [address] [email or web address] Historical LMR Provider 01/21/17 04/09/21 Tang Reed MD [address] [place] [address], [address] [place] [address] [email or web address] Historical LMR Provider 01/21/17 04/09/21 Gilma Carrasco MD [address] [place] [address] Historical LMR Provider 01/21/17 Itzel Martinez NP 70 [place] [address] Historical LMR Provider 01/21/17 Elena Eason MD [address], [place] [address] Historical LMR Provider 01/21/17 2 Cruz Roberson MD [address] [place] [address] Historical LMR Provider 01/21/17 04/09/21 Nova Acevedo MD [address] [place] [phone] Historical LMR Provider 01/21/17 2 Mar Keene MD [address] [facility], [address] [place] [address] [email or web address] Historical LMR Provider 01/21/17 04/09/21 Rachel Saleem MD [address] [address] Historical LMR Provider 01/21/17 2 Robert Michele MD [address] [place] [address] [email or web address] Insurance Assigned Provider 07/06/18 12/07/18 Cecil Barillas MD [address] [place] [address] [place] [phone] [email or web address] Insurance Assigned Provider 12/07/18 07/09/19 documented as of this encounter Additional Source Comments The information contained in this document represents components of the legal health record. It is not the complete legal health record.[facility]
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
--- OUTSIDE RECORDS SUMMARY | 2025-02-11 10:30 | XMS_ITS | Encounter Summary ---
Author Organization [facility] Address [address] [place] [address] [place] [address] Phone Care Team Providers Care Manager Beauty Name Role Phone Mariam Cooper CNM Unavailable Tila Haile RECREATIONAL FACILITIES MOTEL MANAGER Unavailable [phone] Katelynn Ruiz RECREATIONAL FACILITIES MOTEL MANAGER Unavailable Tang Reed MD Unavailable Gilma Carrasco MD Unavailable Itzel Martinez RECREATIONAL FACILITIES MOTEL MANAGER Unavailable [phone] Elena Eason MD Unavailable Cruz Roberson MD Unavailable Nova Acevedo MD Unavailable Mar Keene MD Unavailable Rachel Saleem MD Unavailable [phone] Itzel Martinez RECREATIONAL FACILITIES MOTEL MANAGER Primary Care Provider Robert Michele MD Unavailable Cecil Barillas MD Unavailable Janae Lawrence MD Primary Care Provider Encounter Details Date Type Department Care Team (Late st Contact Info) Description 02/08/2017 Ancillary Orders [facility], X-Ray - [address] [id number] Dusty Wu, TERESE [address] [place] [phone] Lumbar sprain, subsequent encounter Social History Tobacco [...] EST Office Visit [facility] [address] [place] [address] Thomas Enriquez DO [address] [address] Toney Loco, PT 8 [place] [address] [email or web address] 03/13/2025 9:15 AM EST Office Visit [facility] [address] [place] [address] Thomas Enriquez DO [address] [address] Mindy Genao, PT 8 [place] [address] 03/18/2025 9:30 AM EST Office Visit [facility] [address] [place] [address] Thomas Enriquez DO [address] [address] Toney Loco, PT 8 [place] [address] 03/20/2025 9:30 AM EST Office Visit [facility] 8 [place] [address] Thomas Enriquez, DO [address] [place] [address] [place] [address] Toney Loco, PT 8 [place] [address] [email or web address] 03/24/2025 8:45 AM EST Office Visit [facility] 8 [place] [address] Thomas Enriquez DO [address] [place] [address] [place] [address] Toney Loco, PT 8 [place] [address] [email or web address] 03/30/2025 9:15 AM EST Office Visit [facility] 8 [place] [address] Thomas Enriquez DO [address] [place] [address] [place] [address] Mindy Genao, PT 8 [place] [address] 04/01/2025 8:45 AM EST Office Visit [facility] 8 [place] [address] Thomas Enriquez DO [address] [place] [address] [place] [address] Toney Loco, PT 8 [place] [address] [email or web address] 04/06/2025 9:15 AM EST Office Visit [facility] 8 [place] [address] Thomas Enriquez, DO [address] [place] [address] [place] [address] Mindy Genao, PT 8 [place] [address] 04/08/2025 8:45 AM EST Office Visit [facility] 8 [place] [address] Thomas Enriquez, DO [address] [place] [address] [place] [address] Toney Loco, PT 8 [place] [address] [email or web address] 04/14/2025 8:45 AM EST Office Visit [facility] 8 [place] [address] Thomas Enriquez, DO [address] [place] [address] [place] [address] Toney Loco, PT 8 [place] [address] [email or web address] 04/16/2025 8:45 AM EST Office Visit [facility] 8 [place] [address] Thomas Enriquez, DO [address] [place] [address] [place] [address] Toney Loco, PT 8 [place] [address] [email or web address] 04/21/2025 8:45 AM EST Office Visit [facility] 8 [place] [address] Thomas Enriquez DO [address] [place] [address] [place] [address] Toney Loco, PT 8 [place] [address] [email or web address] 04/23/2025 8:45 AM EST Office Visit [facility] 8 [place] [address] Thomas Enriquez, DO [address] [place] [address] [place] [address] Toney Loco, PT 8 [place] [address] [email or web address] 04/28/2025 8:45 AM EST Office Visit [address] [address] Thomas Enriquez, DO [address] [place] [address] [place] [address] Toney Loco, PT 8 [place] [address] [email or web address] 04/30/2025 8:45 AM EST Office Visit [facility] 8 [place] [address] Thomas Enriquez, DO [address] [place] [address] [place] [address] Toney Loco, PT 8 [place] [address] 05/05/2025 8:45 AM EST Office Visit [address] [address] Thomas Enriquez, DO [address] [place] [address] [place] [address] Toney Loco, PT 8 [place] [address] [email or web address] 05/07/2025 8:45 AM EST Office Visit [facility] [address] [place] [address] Thomas Enriquez, DO [address] [place] [address] [place] [address] Toney Loco, PT 8 [place] [address] [email or web address] 05/12/2025 8:45 AM EST Office Visit [facility] [address] [place] [address] Thomas Enirquez, DO [address] [place] [address] [place] [address] Toney Loco, PT 8 [place] [address] [email or web address] 05/14/2025 8:45 AM EST Office Visit [facility] [address] [place] [address] Thomas Enriquez, DO [address] [place] [address] [place] [address] Toney Loco, PT 8 [place] [address] 05/19/2025 8:45 AM EST Office Visit [facility] [address] [place] [address] Thomas Enriquez, DO [address] [place] [address] [place] [address] Toney Loco, PT 8 [place] [address] [email or web address] 05/21/2025 8:45 AM EST Office Visit [facility] 8 [place] [address] MinaThomas, DO [address] [place] [address] [place] [address] Toney Loco, PT 8 [place] [address] documented as of this encounter Results * [...] encounter documented in this encounter Care Teams Manager Beauty Relationship Specialty Start Date End Date Itzel Martinez NP 70 [place] [address] PCP - General Family Medicine 02/09/17 04/15/24 Janae Lawrence MD [address] [phone] PCP - General Internal Medicine 04/16/24 Mariam Cooper CNM [address] [place] [address] Historical LMR Provider 01/21/17 2 Tila Haile NP [address] [place] [address] [email or web address] Historical LMR Provider 01/21/17 Katelynn Ruiz NP [address] [place] [address] [email or web address] Historical LMR Provider 01/21/17 04/09/21 Tang Reed MD [address] [place] [address] Historical LMR Provider 01/21/17 04/09/21 Gilma Carrasco MD [address] [place] [address] [email or web address] Historical LMR Provider 01/21/17 Itzel Martinez NP [address] [place] [address] Historical LMR Provider 01/21/17 Elena Eason MD [address] [place] [address] Historical LMR Provider 01/21/17 2 rCuz Roberson MD [address] [place] [address] [email or web address] Historical LMR Provider 01/21/17 04/09/21 Nova Acevedo MD [address] [place] [phone] Historical LMR Provider 01/21/17 2 Mar Keene MD [address] [place] [address] [email or web address] Historical LMR Provider 01/21/17 04/09/21 Rachel Saleem MD [address] [place] [address] Historical LMR Provider 01/21/17 2 Robert Michele MD [address] [place] [address] [email or web address] Insurance Assigned Provider 07/06/18 12/07/18 Cecil Barillas MD 230 [facility] [address] [place] [address] [email or web address] Insurance Assigned Provider 12/07/18 07/09/19 documented as of this encounter Additional Source Comments The information contained in this document represents components of the legal health record. It is not the complete legal health record.[facility]
--- OUTSIDE RECORDS SUMMARY | 2025-02-11 10:30 | XMS_ITS | Encounter Summary ---
Author Organization [facility] Address [address] [place] [address] [place] [address] Phone Care Team Providers Care Lens Polisher Name Role Phone Mariam Cooper CNM Unavailable Tila Haile PARTNER INTEGRATION PLANNER Unavailable [phone] Katelynn Ruiz PARTNER INTEGRATION PLANNER Unavailable Tang Reed MD Unavailable Gilma Carrasco MD Unavailable Itzel Martinez PARTNER INTEGRATION PLANNER Unavailable [phone] Elena Eason MD Unavailable [phone] Cruz Roberson MD Unavailable Nova Acevedo MD Unavailable Mar Keene MD Unavailable Rachel Saleme MD Unavailable Itzel Martinez PARTNER INTEGRATION PLANNER Primary Care Provider Robert Michele MD Unavailable Cecil Barillas MD Unavailable Janae Lawrence MD Primary Care Provider Reason for Referral * MRI/CAT Scan - Closed Specialty Diagnoses / Procedures Referred By Contac t Referred To Contact Radiology Diagnoses Coccyx pain Procedures CT Pelvis Jose Dickinson MD Phone: tel: Referral ID Status Reason Start Date Expiration Date Visits Re quested Visits Authorized [id number] Closed 08/08/2018 08/09/2019 1 1 Encounter Details Date Type Department Care Team (Late Contact Info) Description 08/05/2018 Ancillary Orders Virtual Department [address] [place] [address] Jose Dickinson MD [address] [place] [address] Coccyx pain Social History Tobacco Use Types [...] Description 03/11/2025 9:30 AM EST Office Visit [facility] 8 [place] [address] Thomas Enriquez DO [address] [address] Toney Loco, PT 8 [place] [address] [email or web address] 03/13/2025 9:15 AM EST Office Visit [facility] 8 [place] [address] Thomas Enriquez DO [address] [address] Mindy Genao, PT 8 [place] [address] 03/18/2025 9:30 AM EST Office Visit [facility] [address] [place] [address] Thomas Enriquez, DO [address] [place] [address] [place] [address] Toney Loco, PT 8 [place] [address] [email or web address] 03/20/2025 9:30 AM EST Office Visit [facility] [address] [place] [address] Thomas Enriquez, DO [address] [place] [address] [place] [address] Toney Loco, PT 8 [place] [address] [email or web address] 03/24/2025 8:45 AM EST Office Visit [facility] 8 [place] [address] Thoams Enriquez DO [address] [place] [address] [place] [address] Toney Loco, PT 8 [place] [address] [email or web address] 03/30/2025 9:15 AM EST Office Visit [facility] 8 [place] [address] Thomas Enriquez, DO [address] [place] [address] [place] [address] Mindy Genao, PT 8 [place] [address] 04/01/2025 8:45 AM EST Office Visit [facility] [address] [place] [address] Thomas Enriquez DO [address] [place] [address] [place] [address] Toney Loco, PT 8 [place] [address] [email or web address] 04/06/2025 9:15 AM EST Office Visit [facility] [address] [place] [address] Thomas Enriquez, DO [address] [address] Mindy Genao, PT 8 [place] [address] [email or web address] 04/08/2025 8:45 AM EST Office Visit [address] [address] Thomas Enriquez, DO [address] [address] Toney Loco, PT 8 [place] [address] [email or web address] 04/14/2025 8:45 AM EST Office Visit [facility] 8 [place] [address] Thomas Enriquez, DO [address] [address] Toney Loco, PT 8 [place] [address] [email or web address] 04/16/2025 8:45 AM EST Office Visit [facility] 8 [place] [address] Thomas Enriquez, DO [address] [address] Toney Loco, PT 8 [place] [address] 04/21/2025 8:45 AM EST Office Visit [facility] [address] [place] [address] Thomas Enriquez, DO [address] [place] [address] [place] [address] Toney Loco, PT 8 [place] [address] 04/23/2025 8:45 AM EST Office Visit [facility] [address] [place] [address] Thomas Enriquez, DO [address] [place] [address] [place] [address] Toney Loco, PT 8 [place] [address] 04/28/2025 8:45 AM EST Office Visit [facility] 8 [place] [address] Thomas Enriquez, DO [address] [place] [address] [place] [address] Toney Loco, PT 8 [place] [address] 04/30/2025 8:45 AM EST Office Visit [facility] [address] [place] [address] Thomas Enriquez, DO [address] [place] [address] [place] [address] Toney Loco, PT 8 [place] [address] 05/05/2025 8:45 AM EST Office Visit [facility] [address] [place] [address] Thomas Enriquez DO [address] [place] [address] [place] [address] Toney Loco, PT 8 [place] [address] [email or web address] 05/07/2025 8:45 AM EST Office Visit [facility] [address] [place] [address] Thomas Enriquez, DO [address] [place] [address] [place] [address] Toney Loco, PT 8 [place] [address] [email or web address] 05/12/2025 8:45 AM EST Office Visit [facility] 8 [place] [address] Thomas Enriquez, DO [address] [place] [address] [place] [address] Toney Loco, PT 8 [place] [address] [email or web address] 05/14/2025 8:45 AM EST Office Visit [facility] 8 [place] [address] Thomas Enriquez DO [address] [place] [address] [place] [address] Toney Loco, PT 8 [place] [address] [email or web address] 05/19/2025 8:45 AM EST Office Visit [facility] [address] [place] [address] Nora, Thomas, DO [address] [place] [address] [place] [address] Toney Loco, PT 8 [place] [address] [email or web address] 05/21/2025 8:45 AM EST Office Visit [facility] 8 [place] [address] Thomas Enriquez, DO [address] [place] [address] [place] [address] Toney Loco, PT 8 [place] [address] documented as of this encounter Results * [...] COMPARISON: Lumbar spine radiographs 02/09/2017. CT abdomen [id number]/19/2008. TECHNIQUE: CT pelvis without IV/oral contrast. Multiplanar [...] coccyx documented in this encounter Care Teams Lens Polisher Relationship Specialty Start Date End Date Itzel Martinez NP [address] [place] [address] PCP - General Family Medicine 02/09/17 04/15/24 Janae Lawrence MD 230 [facility] [address]60 [place] [phone] PCP - General Internal Medicine 04/16/24 Mariam Cooper CNM [address] [place] [address] Historical LMR Provider 01/21/17 2 Tila Haile NP [address] [place] [address] [email or web address] Historical LMR Provider 01/21/17 Katleynn Ruiz NP [address] [place] [address] [email or web address] Historical LMR Provider 01/21/17 04/09/21 Tang Reed MD [address] [place] [address], [address] [place] [address] [email or web address] Historical LMR Provider 01/21/17 04/09/21 Gilma Carrasco MD [address] [place] [address] [email or web address] Historical LMR Provider 01/21/17 Itzel Martinez NP [address] [place] [address] Historical LMR Provider 01/21/17 Elena Eason MD [address], [place] [address] Historical LMR Provider 01/21/17 2 Cruz Roberson MD [address] [place] [address] [email or web address] Historical LMR Provider 01/21/17 04/09/21 Nova Acevedo MD [address] [place] [phone] Historical LMR Provider 01/21/17 2 Mar Keene MD 22 [facility] [address] [place] [address] [email or web address] Historical LMR Provider 01/21/17 04/09/21 Rachel Saleem MD [address], [place] Historical LMR Provider 01/21/17 2 Robert Michele MD [address] [place] [address] [email or web address] Insurance Assigned Provider 07/06/18 12/07/18 Cecil Barillas MD [address] [place] [address] [address] [place] [address] [email or web address] Insurance Assigned Provider 12/07/18 07/09/19 documented as of this encounter Additional Source Comments The information contained in this document represents components of the legal health record. It is not the complete legal health record.[facility]
--- OUTSIDE RECORDS SUMMARY | 2025-02-11 10:31 | XMS_ITS | Encounter Summary ---
Author Organization [facility] Address [address] [place] [address] [place] [address] Phone Care Team Providers Care Electronic Data Interchange Specialist Name Role Phone Mariam Cooper CNM Unavailable Tila Haile FLUORESCENT LAMP REPLACER Unavailable [phone] Katelynn Ruiz FLUORESCENT LAMP REPLACER Unavailable Tang Reed MD Unavailable Gilma Carrasco MD Unavailable Itzel Martinez FLUORESCENT LAMP REPLACER Unavailable [phone] Elena Eason MD Unavailable [phone] Cruz Roberson MD Unavailable Nova Acevedo MD Unavailable Mar Keene MD Unavailable Rachel Saleem MD Unavailable [phone] Itzel Martinez FLUORESCENT LAMP REPLACER Primary Care Provider Janae Lawrence MD Primary Care Provider Encounter Details Date Type Department Care Team (Late st Contact Info) Description 07/09/2020 Ancillary Orders Virtual Department [address] [place] [address] Ciara Snyder MD [address] [place] [address] [phone] [email or web address] Dysphagia, unspecified type Social History Tobacco Use [...] Description 03/11/2025 9:30 AM EST Office Visit [facility] 8 [place] [address] Thomas Enriquez DO [address] [address] Toney Loco, PT 8 [place] [address] 03/13/2025 9:15 AM EST Office Visit [facility] 8 [place] [address] Thomas Enriquez DO [address] [address] Mindy Genao, PT 8 [place] [address] 03/18/2025 9:30 AM EST Office Visit [facility] [address] [place] [address] Thomas Enriquez DO [address] [address] Toney Loco, PT 8 [place] [address] 03/20/2025 9:30 AM EST Office Visit [facility] [address] [place] [address] Thomas Enriquez DO [address] [place] [address] [place] [address] Toney Loco, PT 8 [place] [address] 03/24/2025 8:45 AM EST Office Visit [facility] 8 [place] [address] Thomas Enriquez DO [address] [place] [address] [place] [address] Toney Loco, PT 8 [place] [address] 03/30/2025 9:15 AM EST Office Visit [facility] 8 [place] [address] Thomas Enriquez DO [address] [place] [address] [place] [address] Mindy Genao, PT 8 [place] [address] 04/01/2025 8:45 AM EST Office Visit [facility] 8 [place] [address] Thomas Enriquez DO [address] [place] [address] [place] [address] Toney Loco, PT 8 [place] [address] 04/06/2025 9:15 AM EST Office Visit [facility] [address] [place] [address] Thomas Enriquez, DO [address] [place] [address] [place] [address] Mindy Genao, PT 8 [place] [address] 04/08/2025 8:45 AM EST Office Visit [facility] [address] [place] [address] Thomas Enriquez, DO [address] [place] [address] [place] [address] Toney Loco, PT 8 [place] [address] 04/14/2025 8:45 AM EST Office Visit [facility] [address] [place] [address] Thomas Enriquez, DO [address] [place] [address] [place] [address] Toney Loco, PT 8 [place] [address] 04/16/2025 8:45 AM EST Office Visit [facility] 8 [place] [address] Thomas Enriquez DO [address] [place] [address] [place] [address] Toney Loco, PT 8 [place] [address] 04/21/2025 8:45 AM EST Office Visit [facility] [address] [place] [address] Thomas Enriquez DO [address] [place] [address] [place] [address] Toney Loco, PT 8 [place] [address] 04/23/2025 8:45 AM EST Office Visit [facility] [address] [place] [address] Thomas Enriuqez, DO [address] [place] [address] [place] [address] Toney Loco, PT 8 [place] [address] 04/28/2025 8:45 AM EST Office Visit [facility] [address] [place] [address] Thomas Enriquez, DO [address] [place] [address] [place] [address] Toney Loco, PT 8 [place] [address] 04/30/2025 8:45 AM EST Office Visit [facility] 8 [place] [address] Thomas Enriquez, DO [address] [place] [address] [place] [address] Toney Loco, PT 8 [place] [address] 05/05/2025 8:45 AM EST Office Visit [facility] [address] [place] [address] Thomas Enriquez, DO [address] [place] [address] [place] [address] Toney Loco, PT 8 [place] [address] 05/07/2025 8:45 AM EST Office Visit [facility] [address] [place] [address] Thomas Enriquez, DO [address] [place] [address] [place] [address] Toney Loco, PT 8 [place] [address] 05/12/2025 8:45 AM EST Office Visit [facility] [address] [place] [address] Thomas Enriquez, DO [address] [place] [address] [place] [address] Toney Loco, PT 8 [place] [address] 05/14/2025 8:45 AM EST Office Visit [facility] [address] [place] [address] Thomas Enriquez, DO [address] [place] [address] [place] [address] Toney Loco, PT 8 [place] [address] 05/19/2025 8:45 AM EST Office Visit [facility] [address] [place] [address] Thomas Enriquez, DO [address] [place] [address] [place] [address] Toney Loco, PT 8 [place] [address] 05/21/2025 8:45 AM EST Office Visit [facility] 8 [place] [address] Thomas Enriquez, DO [address] [place] [address] [place] [address] Toney Loco, PT 8 [place] [address] [email or web address] documented as of this encounter Visit Diagnoses Diagnosis Dysphagia, unspecified type documented in this encounter Care Teams Electronic Data Interchange Specialist Relationship Specialty Start Date End Date Itzel Martinez NP [address] [place] [address] PCP - General Family Medicine 02/09/17 04/15/24 Janae Lawrence MD [address], [place] [address] PCP - General Internal Medicine 04/16/24 Mariam Cooper CNM [address] [place] [address] Historical LMR Provider 01/21/17 2 Tila Haile NP [address] [place] [address] [email or web address] Historical LMR Provider 01/21/17 Katelynn Ruiz NP [address] [place] [address] [email or web address] Historical LMR Provider 01/21/17 04/09/21 Tang Reed MD [address] [facility], 2nd [place] [address] [email or web address] Historical LMR Provider 01/21/17 04/09/21 Gilma Carrasco MD [address] [place] [address] Historical LMR Provider 01/21/17 Itzel Martinez NP [address] [place] [address] Historical LMR Provider 01/21/17 Elena Eason MD [address] [place] [address] Historical LMR Provider 01/21/17 2 Cruz Roberson MD [address] [place] [address] Historical LMR Provider 01/21/17 04/09/21 Nova Acevedo MD [address] [place] [phone] Historical LMR Provider 01/21/17 2 Mar Keene MD [address] [place] [address] Historical LMR Provider 01/21/17 04/09/21 Rachel Saleem MD [address] [place] [address] Historical LMR Provider 01/21/17 2 documented as of this encounter Additional Source Comments The information contained in this document represents components of the legal health record. It is not the complete legal health record.[facility]
--- OUTSIDE RECORDS SUMMARY | 2025-02-11 10:31 | XMS_ITS | Encounter Summary ---
Author Organization [facility] Address [address] [place] [address] [place] [address] Phone Care Team Providers Care Director Of Academic Support Name Role Phone Tila Haile TREE WRAPPER Unavailable [phone] Gilma Carrasco MD Unavailable Itzel Martinez TREE WRAPPER Unavailable [phone] Itzel Martinez NP Primary Care Provider [phone] Janae Lawrence MD Primary Care Provider Encounter Details Date Type Department Care Team (Late st Contact Info) Description 12/20/2021 Procedure Pass [address] [place] [address] Social History Tobacco Use Types Packs/Day Years [...] Description 03/11/2025 9:30 AM EST Office Visit [facility] [address] [place] [address] Thomas Enriquez DO [address] [place] [address] [place] [address] Toney Loco, PT 8 [place] [address] 03/13/2025 9:15 AM EST Office Visit [facility] 8 [place] [address] Thomas Enriquez, DO [address] [place] [address] [place] [address] Mindy Genao, PT 8 [place] [address] 03/18/2025 9:30 AM EST Office Visit [address] [address] Thomas Enriquez, DO [address] [address] Toney Loco, PT 8 [place] [address] 03/20/2025 9:30 AM EST Office Visit [facility] 8 [place] [address] Thomas Enriquez DO [address] [address] Toney Loco, PT 8 [place] [address] 03/24/2025 8:45 AM EST Office Visit [facility] 8 [place] [address] Thomas Enriquez, DO [address] [address] Toney Loco, PT 8 [place] [address] 03/30/2025 9:15 AM EST Office Visit [facility] [address] [place] [address] Thomas Enriquez, DO [address] [place] [address] [place] [address] Mindy Genao, PT 8 [place] [address] 04/01/2025 8:45 AM EST Office Visit [address] [place] [address] Thomas Enriquez, DO [address] [place] [address] [place] [address] Toney Loco, PT 8 [place] [address] 04/06/2025 9:15 AM EST Office Visit [address] [address] Thomas Enriquez, DO [address] [place] [address] [place] [address] Mindy Genao, PT 8 [place] [address] 04/08/2025 8:45 AM EST Office Visit [address] [place] [address] Thomas Enriquez, DO [address] [place] [address] [place] [address] Toney Loco, PT 8 [place] [address] 04/14/2025 8:45 AM EST Office Visit [facility] [address] [place] [address] Thomas Enriquez DO [address] [place] [address] [place] [address] Toney Loco, PT 8 [place] [address] 04/16/2025 8:45 AM EST Office Visit [facility] [address] [place] [address] Thomas Enriquez DO [address] [place] [address] [place] [address] Toney Loco, PT 8 [place] [address] 04/21/2025 8:45 AM EST Office Visit [facility] 8 [place] [address] Thomas Enriquez DO [address] [place] [address] [place] [address] Toney Loco, PT 8 [place] [address] 04/23/2025 8:45 AM EST Office Visit [facility] 8 [place] [address] Thomas Enriquez DO [address] [place] [address] [place] [address] Toney Loco, PT 8 [place] [address] 04/28/2025 8:45 AM EST Office Visit [facility] [address] [place] [address] Mina, Thomas, DO [address] [place] [address] [place] [address] Toney Looc, PT 8 [place] [address] 04/30/2025 8:45 AM EST Office Visit [facility] 8 [place] [address] Thomas Enriquez, DO [address] [place] [address] [place] [address] Toney Loco, PT 8 [place] [address] 05/05/2025 8:45 AM EST Office Visit [facility] 8 [place] [address] Thomas Enriquez, DO [address] [place] [address] [place] [address] Toney Loco, PT 8 [place] [address] 05/07/2025 8:45 AM EST Office Visit [facility] 8 [place] [address] Thomas Enriquez, DO [address] [place] [address] [place] [address] Toeny Loco, PT 8 [place] [address] 05/12/2025 8:45 AM EST Office Visit [facility] 8 [place] [address] Thomas Enriquez, DO [address] [place] [address] [place] [address] Toney Loco, PT 8 [place] [address] 05/14/2025 8:45 AM EST Office Visit [facility] [address] [place] [address] Thomas Enriquez, DO [address] [place] [address] [place] [address] Toney Loco, PT 8 [place] [address] 05/19/2025 8:45 AM EST Office Visit [address] [address] Thomas Enriquez, DO [address] [place] [address] [place] [address] Toney Loco, PT 8 [place] [address] 05/21/2025 8:45 AM EST Office Visit [address] [address] Thomas Enriquez, DO [address] [place] [address] [place] [address] Toney Loco, PT 8 [place] [address] documented as of this encounter Visit Diagnoses Not on filedocumented in this encounter Care Teams Director Of Academic Support Relationship Specialty Start Date End Date Itzel Martinez NP [address] [place] [address] PCP - General Family Medicine 02/09/17 04/15/24 Janae Lawrence MD 70 [place] [address] PCP - General Internal Medicine 04/16/24 Tila Haile NP 30 [place] [address] [email or web address] Historical LMR Provider 01/21/17 Gilma Carrasco MD 22 [facility] [address] [place] [address] [email or web address] Historical LMR Provider 01/21/17 Itzel Martinez NP [address] [place] [address] Historical LMR Provider 01/21/17 documented as of this encounter Additional Source Comments The information contained in this document represents components of the legal health record. It is not the complete legal health record.[facility]
--- OUTSIDE RECORDS SUMMARY | 2025-02-11 10:31 | XMS_ITS | Encounter Summary ---
Author Organization [facility] Address [address] [place] [address] [place] [address] Phone Care Team Providers Care Yardage Control Operator Forming Name Role Phone Mic Tila Harper PHARMACY ORDER ENTRY TECHNICIAN Unavailable Gilma Carrasco MD Unavailable Itzel Martinez PHARMACY ORDER ENTRY TECHNICIAN Unavailable [phone] Itzle Martinez NP Primary Care Provider [phone] Janae Lawrence MD Primary Care Provider Encounter Details Date Type Department Care Team (Late st Contact Info) Description 09/20/2022 Procedure Pass [facility], [address] [address] Social History Tobacco Use Types Packs/Day Years [...] Description 03/11/2025 9:30 AM EST Office Visit [facility] 8 [place] [address] Thomas Enriquez DO [address] [place] [address] [place] [address] Toney Loco, PT 8 [place] [address] [email or web address] 03/13/2025 9:15 AM EST Office Visit [address] [address] Thomas Enriquez, DO [address] [place] [address] [place] [address] Mindy Genao, PT 8 [place] [address] [email or web address] 03/18/2025 9:30 AM EST Office Visit [facility] 8 [place] [address] Thomas Enriquez DO [address] [place] [address] [place] [address] Toney Loco, PT 8 [place] [address] [email or web address] 03/20/2025 9:30 AM EST Office Visit [address] [address] Thomas Enriquez, DO [address] [place] [address] [place] [address] Toney Loco, PT 8 [place] [address] [email or web address] 03/24/2025 8:45 AM EST Office Visit [facility] 8 [place] [address] Thomas Enrqiuez, DO [address] [place] [address] [place] [address] Toney Loco, PT 8 [place] [address] [email or web address] 03/30/2025 9:15 AM EST Office Visit [facility] 8 [place] [address] Thomas Enriquez DO [address] [place] [address] [place] [address] Mindy Genao, PT 8 [place] [address] [email or web address] 04/01/2025 8:45 AM EST Office Visit [facility] 8 [place] [address] Thomas Enriquez, DO [address] [place] [address] [place] [address] Toney Loco, PT 8 [place] [address] [email or web address] 04/06/2025 9:15 AM EST Office Visit [facility] 8 [place] [address] Thomas Enriquez DO [address] [address] Mindy Genao, PT 8 [place] [address] [email or web address] 04/08/2025 8:45 AM EST Office Visit [facility] 8 [place] [address] Thomas Enriquez, DO [address] [place] [address] [place] [address] Toney Loco, PT 8 [place] [address] [email or web address] 04/14/2025 8:45 AM EST Office Visit [facility] 8 [place] [address] Thomas Enriquez, DO [address] [place] [address] [place] [address] Toney Loco, PT 8 [place] [address] [email or web address] 04/16/2025 8:45 AM EST Office Visit [facility] 8 [place] [address] Thomas Enriquez, DO [address] [place] [address] [place] [address] Toney Loco, PT 8 [place] [address] [email or web address] 04/21/2025 8:45 AM EST Office Visit [facility] 8 [place] [address] Thomas Enriquez, DO [address] [place] [address] [place] [address] Toney Loco, PT 8 [place] [address] [email or web address] 04/23/2025 8:45 AM EST Office Visit [facility] [address] [place] [address] Thomas Enriquez, DO [address] [place] [address] [place] [address] Toney Loco, PT 8 [place] [address] [email or web address] 04/28/2025 8:45 AM EST Office Visit [facility] 8 [place] [address] Thomas Enriquez, DO [address] [place] [address] [place] [address] Toney Loco, PT 8 [place] [address] [email or web address] 04/30/2025 8:45 AM EST Office Visit [address] [address] Thomas Enriquez, DO [address] [address] Toney Loco, PT 8 [place] [address] [email or web address] 05/05/2025 8:45 AM EST Office Visit [facility] 8 [place] [address] Thomas Enriquez, DO [address] [address] Toney Loco, PT 8 [place] [address] [email or web address] 05/07/2025 8:45 AM EST Office Visit [facility] 8 [place] [address] Thomas Enriquez, DO [address] [address] Toney Loco, PT 8 [place] [address] [email or web address] 05/12/2025 8:45 AM EST Office Visit [facility] 8 [place] [address] Thomas Enriquez, DO [address] [place] [address] [place] [address] Toney Loco, PT 8 [place] [address] 05/14/2025 8:45 AM EST Office Visit [address] [place] [address] Thomas Enriquez, DO [address] [place] [address] [place] [address] Toney Loco, PT 8 [place] [address] [email or web address] 05/19/2025 8:45 AM EST Office Visit [facility] 8 [place] [address] Thomas Enriquez, DO [address] [place] [address] [place] [address] Toney Loco, PT 8 [place] [address] 05/21/2025 8:45 AM EST Office Visit [facility] [address] [place] [address] Thomas Enriquez, DO [address] [place] [address] [place] [address] Toney Loco, PT 8 [place] [address] [email or web address] documented as of this encounter Visit Diagnoses Not on filedocumented in this encounter Care Teams Yardage Control Operator Forming Relationship Specialty Start Date End Date Itzel Martinez NP [address] [place] [address] PCP - General Family Medicine 02/09/17 04/15/24 Janae Lawrence MD [address] [place] [address] PCP - General Internal Medicine 04/16/24 Tila Haile NP [address] [place] [address] [email or web address] Historical LMR Provider 01/21/17 Gilma Carrasco MD [address] [address] Historical LMR Provider 01/21/17 Itzel Martinez NP [address] [place] [address] Historical LMR Provider 01/21/17 documented as of this encounter Additional Source Comments The information contained in this document represents components of the legal health record. It is not the complete legal health record.[facility]
--- OUTSIDE RECORDS SUMMARY | 2025-02-11 10:31 | XMS_ITS | Encounter Summary ---
Author Organization [facility] Address [address] [place] [address] Phone Care Team Providers Care Cloth Picker Name Role Phone Mic, Tila Harper LINE WELDER Unavailable [phone] Gilma Carrasco MD Unavailable Itzel Martinez LINE WELDER Unavailable [phone] Itzel Martinez NP Primary Care Provider [phone] Janae Lawrence MD Primary Care Provider [phone] Encounter Details Date Type Department Care Team (Latest Contact Info) Description 02/22/2024 Transcribe Orders Virtual Department 30 [place] [address] Itzel Martinez, LINE WELDER 70 [place], [place] [phone] Breast screening (Primary Dx) Social History Tobacco [...] AM EST Sexual Orientation Don't know 01/28/2024 2 :03 PM EDT documented as of this encounter Plan of Treatment Upcoming Encounters Date Type Department Care Team (Late st Contact Info) Description 03/11/2025 9:30 AM EST Office Visit [facility] [address] [place] [address] Thomas Enriquez DO [address] [place] [address] [place] [address] Toney Loco, PT 8 [place] [address] [email or web address] 03/13/2025 9:15 AM EST Office Visit [facility] [address] [place] [address] Thomas Enriquez DO [address] [address] Mindy Genao, PT 8 [place] [address] 03/18/2025 9:30 AM EST Office Visit [facility] [address] [place] [address] Thomas Enriquez DO [address] [address] Toney Loco, PT 8 [place] [address] 03/20/2025 9:30 AM EST Office Visit [facility] 8 [place] [address] Thomas Enriquez, DO [address] [place] [address] [place] [address] Toney Loco, PT 8 [place] [address] [email or web address] 03/24/2025 8:45 AM EST Office Visit [facility] 8 [place] [address] Thomas Enriquez, DO [address] [place] [address] [place] [address] Toney Loco, PT 8 [place] [address] [email or web address] 03/30/2025 9:15 AM EST Office Visit [facility] 8 [place] [address] Thomas Enriquez, DO [address] [place] [address] [place] [address] Mindy Genao, PT 8 [place] [address] [email or web address] 04/01/2025 8:45 AM EST Office Visit [facility] 8 [place] [address] Thomas Enriquez, DO [address] [place] [address] [place] [address] Toney Loco, PT 8 [place] [address] [email or web address] 04/06/2025 9:15 AM EST Office Visit [facility] [address] [place] [address] Thomas Enriquez, DO [address] [place] [address] [place] [address] Mindy Genao, PT 8 [place] [address] 04/08/2025 8:45 AM EST Office Visit [facility] [address] [place] [address] Thomas Enriquez DO [address] [place] [address] [place] [address] Toney Loco, PT 8 [place] [address] [email or web address] 04/14/2025 8:45 AM EST Office Visit [facility] 8 [place] [address] Thomas Enriquez, DO [address] [place] [address] [place] [address] Toney Loco, PT 8 [place] [address] 04/16/2025 8:45 AM EST Office Visit [facility] [address] [place] [address] Thomas Enriquez DO [address] [address] Toney Loco, PT 8 [place] [address] 04/21/2025 8:45 AM EST Office Visit [facility] [address] [place] [address] Thomas Enriquez, DO [address] [place] [address] [place] [address] Toney Loco, PT 8 [place] [address] [email or web address] 04/23/2025 8:45 AM EST Office Visit [facility] [address] [place] [address] Thomas Enriquez, DO [address] [place] [address] [place] [address] Toney Loco, PT 8 [place] [address] [email or web address] 04/28/2025 8:45 AM EST Office Visit [facility] 8 [place] [address] Thomas Enriquez, DO [address] [place] [address] [place] [address] Toney Loco, PT 8 [place] [address] [email or web address] 04/30/2025 8:45 AM EST Office Visit [facility] 8 [place] [address] Thomas Enriquez, DO [address] [place] [address] [place] [address] Toney Loco, PT 8 [place] [address] [email or web address] 05/05/2025 8:45 AM EST Office Visit [facility] [address] [place] [address] Thomas Enriquez, DO [address] [place] [address] [place] [address] Toney Loco, PT 8 [place] [address] [email or web address] 05/07/2025 8:45 AM EST Office Visit [facility] 8 [place] [address] Thomas Enriquez, DO [address] [place] [address] [place] [address] Toney Loco, PT 8 [place] [address] [email or web address] 05/12/2025 8:45 AM EST Office Visit [address] [address] Thomas Enriquez, DO [address] [address] Toney Loco, PT 8 [place] [address] [email or web address] 05/14/2025 8:45 AM EST Office Visit [facility] 8 [place] [address] Thomas Enriquez, DO [address] [place] [address] [place] [address] Toney Loco, PT 8 [place] [address] [email or web address] 05/19/2025 8:45 AM EST Office Visit [facility] 8 [place] [address] Thomas Enriquez, DO [address] [address] Toney Loco, PT 8 [place] [address] [email or web address] 05/21/2025 8:45 AM EST Office Visit [facility] [address] [place] [address] MinaThomas DO [address] [place] [address] [place] [address] Toney Loco, PT 8 [place] [address] documented as of this encounter Results * [...] of the results and recommendations. Itzel Martinez LINE WELDER IMG MG EXAMS Final Result documented in this encounter Visit Diagnoses Diagnosis Breast screening- Primary Breast screening, unspecified Breast screening Breast screening, unspecified documented in this encounter Care Teams Cloth Picker Relationship Specialty Start Date End Date Itzel Martinez NP 70 [place] [address] PCP - General Family Medicine 02/09/17 04/15/24 Janae Lawrence MD 70 [place] [address] PCP - General Internal Medicine 04/16/24 Tila Haile NP [address] [place] [address] [email or web address] Historical LMR Provider 01/21/17 Gilma Carrasco MD [address] [place] [address], [address] [address] Historical LMR Provider 01/21/17 Itzel Martinez NP 70 [place] [address] Historical LMR Provider 01/21/17 documented as of this encounter Additional Source Comments The information contained in this document represents components of the legal health record. It is not the complete legal health record.[facility]
--- OUTSIDE RECORDS SUMMARY | 2025-02-11 10:31 | XMS_ITS | Encounter Summary ---
Author Organization [facility] Address [address] [place] [address] [place] [address] Phone Care Team Providers Care Wood Craftsman Name Role Phone Mariam Cooper CNM Unavailable Tila Haile VICE PRESIDENT INDUSTRIAL RELATIONS Unavailable [phone] Katelynn Ruiz NP Unavailable Tang Reed MD Unavailable Gilma Carrasco MD Unavailable Itzel Martinez NP Unavailable [phone] Elena Eason MD Unavailable Cruz Roberson MD Unavailable [phone] [place] [...] for rehabilitation Itzel Martinez NP Phone: tel: [address] [address] Phone: tel: Referral ID Status Reason Start Date Expiration Date Visits Re quested Visits Authorized [id number] Closed 09/24/2020 04/01/2021 99 99 Encounter Details Date Type Department Care Team (Latest Contact Info) Description 09/24/2020 Transcribe Orders [address] [place] [address] Itzel Martinez NP [address] [place] [address] Encounter for rehabilitation (Primary Dx) Social History [...] Description 03/11/2025 9:30 AM EST Office Visit [address] [place] [address] Thomas Enriquez DO [address] [address] Toney Loco, PT 8 [place] [address] 03/13/2025 9:15 AM EST Office Visit [address] [place] [address] Thomas Enriquez DO [address] [address] Mindy Genao, PT 8 [place] [address] 03/18/2025 9:30 AM EST Office Visit [facility] [address] [place] [address] Thomas Enriquez DO [address] [place] [address] [place] [address] Toney Loco, PT 8 [place] [address] [email or web address] 03/20/2025 9:30 AM EST Office Visit [facility] [address] [place] [address] Thomas Enriquez DO [address] [place] [address] [place] [address] Toney Loco, PT 8 [place] [address] [email or web address] 03/24/2025 8:45 AM EST Office Visit [facility] 8 [place] [address] Thomas Enriquez DO [address] [place] [address] [place] [address] Toney Loco, PT 8 [place] [address] [email or web address] 03/30/2025 9:15 AM EST Office Visit [facility] 8 [place] [address] Thomas Enriquez DO [address] [place] [address] [place] [address] Mindy Genao, PT 8 [place] [address] [email or web address] 04/01/2025 8:45 AM EST Office Visit [facility] 8 [place] [address] Thomas Enriquez, DO [address] [place] [address] [place] [address] Toney Loco, PT 8 [place] [address] [email or web address] 04/06/2025 9:15 AM EST Office Visit [facility] [address] [place] [address] Thomas Enriquez, DO [address] [place] [address] [place] [address] Mindy Genao, PT 8 [place] [address] [email or web address] 04/08/2025 8:45 AM EST Office Visit [facility] 8 [place] [address] Thomas Enriquez, DO [address] [address] Toney Loco, PT 8 [place] [address] [email or web address] 04/14/2025 8:45 AM EST Office Visit [facility] 8 [place] [address] Thomas Enriquez DO [address] [address] Toney Loco, PT 8 [place] [address] [email or web address] 04/16/2025 8:45 AM EST Office Visit [facility] [address] [place] [address] Thomas Enriquez DO [address] [address] Toney Loco, PT 8 [place] [address] [email or web address] 04/21/2025 8:45 AM EST Office Visit [facility] 8 [place] [address] Thomas Enriquez, DO [address] [place] [address] [place] [address] Toney Loco, PT 8 [place] [address] [email or web address] 04/23/2025 8:45 AM EST Office Visit [address] [address] Thomas Enriquez, DO [address] [place] [address] [place] [address] Toney Loco, PT 8 [place] [address] [email or web address] 04/28/2025 8:45 AM EST Office Visit [facility] 8 [place] [address] Thomas Enriquez, DO [address] [place] [address] [place] [address] Toney Loco, PT 8 [place] [address] [email or web address] 04/30/2025 8:45 AM EST Office Visit [facility] 8 [place] [address] Thomas Enriquez, DO [address] [place] [address] [place] [address] Toney Loco, PT 8 [place] [address] [email or web address] 05/05/2025 8:45 AM EST Office Visit [facility] [address] [place] [address] Thomas Enriquez, DO [address] [place] [address] [place] [address] Toney Loco, PT 8 [place] [address] 05/07/2025 8:45 AM EST Office Visit [facility] [address] [place] [address] Thomas Enriquez, DO [address] [place] [address] [place] [address] Toney Loco, PT 8 [place] [address] 05/12/2025 8:45 AM EST Office Visit [facility] 8 [place] [address] Thomas Enriquez, DO [address] [place] [address] [place] [address] Toney Loco, PT 8 [place] [address] 05/14/2025 8:45 AM EST Office Visit [facility] [address] [place] [address] Thomas Enriquez, DO [address] [address] Toney Loco, PT 8 [place] [address] [email or web address] 05/19/2025 8:45 AM EST Office Visit [facility] [address] [place] [address] Thomas Enriquez, DO [address] [place] [address] [place] [address] Toney Loco, PT 8 [place] [address] [email or web address] 05/21/2025 8:45 AM EST Office Visit [facility] 8 [place] [address] Thomas Enriquez, [address] [place] [address] [place] [address] Jed Locofranklyn, PT 8 [place] [address] [email or web address] Scheduled Referrals Name Type Priority Associated Diagnoses Orde r Schedule Ambulatory referral to [facility] Physical Therapy Outpatient Referral Routine Encounter for rehabilitation Ordered: 09/24/2020 documented as of this encounter Visit Diagnoses Diagnosis Encounter for rehabilitation- Primary documented in this encounter Care Teams Wood Craftsman Relationship Specialty Start Date End Date Itzel Martinez NP [address] [place] [address] PCP - General Family Medicine 02/09/17 04/15/24 [facility] [place] [address] PCP - General Internal Medicine 04/16/24 Mariam Cooper CNM 30 [place] [address] Historical LMR Provider 01/21/17 2 Tila Haile NP 30 [place] [address] Historical LMR Provider 01/21/17 Katelynn Ruiz NP [address] [place] [address] [email or web address] Historical LMR Provider 01/21/17 04/09/21 Tang Reed MD [address] [place] [address], [address] [place] [address] Historical LMR Provider 01/21/17 04/09/21 Gilma Carrasco MD [address] [place] [address] Historical LMR Provider 01/21/17 Itzel Martinez NP [address] [place] [address] Historical LMR Provider 01/21/17 Elena Eason MD [address] [place] [address] Historical LMR Provider 01/21/17 2 Cruz Roberson MD [address] [place] [address] Historical LMR Provider 01/21/17 04/09/21 Nova Acevedo MD [address] [place] [phone] Historical LMR Provider 01/21/17 2 Mar Keene MD [address] [place] [address] [email or web address] Historical LMR Provider 01/21/17 04/09/21 Rachel Saleem MD [address] [place] [phone] Historical LMR Provider 01/21/17 2 documented as of this encounter Additional Source Comments The information contained in this document represents components of the legal health record. It is not the complete legal health record.[facility]
--- OUTSIDE RECORDS SUMMARY | 2025-02-11 10:31 | XMS_ITS | Encounter Summary ---
Author Organization [facility] Address [address] [place] [address] [place] [address] Phone Care Team Providers Care Squadron Worker Name Role Phone Tila Haile TRIM OPERATOR Unavailable [phone] Gilma Carrasco MD Unavailable Itzel Martinez TRIM OPERATOR Unavailable [phone] Itzel Martinez NP Primary Care Provider [phone] Janae Lawrence MD Primary Care Provider Encounter Details Date Type Department Care Team (Late st Contact Info) Description 12/20/2021 Procedure Pass [address] [place] [address] Social History Tobacco Use Types Packs/Day Years [...] Visit [facility] [address] [place] [address] Thomas Enriquez DO [address] [place] [address] [place] [address] Toney Loco, PT 8 [place] [address] [email or web address] 03/13/2025 9:15 AM EST Office Visit [facility] 8 [place] [address] Thomas Enriquez, DO [address] [place] [address] [place] [address] Mindy Genao, PT 8 [place] [address] [email or web address] 03/18/2025 9:30 AM EST Office Visit [address] [address] Thomas Enriquez, DO [address] [address] Toney Loco, PT 8 [place] [address] [email or web address] 03/20/2025 9:30 AM EST Office Visit [facility] 8 [place] [address] Thomas Enriquez DO [address] [address] Toney Loco, PT 8 [place] [address] [email or web address] 03/24/2025 8:45 AM EST Office Visit [facility] 8 [place] [address] Thomas Enriquez, DO [address] [address] Toney Loco, PT 8 [place] [address] [email or web address] 03/30/2025 9:15 AM EST Office Visit [facility] 8 [place] [address] Thomas Enriquez, DO [address] [place] [address] [place] [address] Midny Genao, PT 8 [place] [address] [email or web address] 04/01/2025 8:45 AM EST Office Visit [address] [place] [address] Thomas Enriquez, DO [address] [place] [address] [place] [address] Toney Loco, PT 8 [place] [address] [email or web address] 04/06/2025 9:15 AM EST Office Visit [address] [address] Thomas Enriquez, DO [address] [place] [address] [place] [address] Mindy Genao, PT 8 [place] [address] [email or web address] 04/08/2025 8:45 AM EST Office Visit [address] [place] [address] Thomas Enriquez, DO [address] [place] [address] [place] [address] Toney Loco, PT 8 [place] [address] 04/14/2025 8:45 AM EST Office Visit [facility] [address] [place] [address] Thomas Enriquez DO [address] [place] [address] [place] [address] Toney Loco, PT 8 [place] [address] 04/16/2025 8:45 AM EST Office Visit [facility] [address] [place] [address] Thomas Enriquez DO [address] [place] [address] [place] [address] Toney Loco, PT 8 [place] [address] [email or web address] 04/21/2025 8:45 AM EST Office Visit [facility] 8 [place] [address] Thomas Enriquez DO [address] [place] [address] [place] [address] Toney Loco, PT 8 [place] [address] 04/23/2025 8:45 AM EST Office Visit [facility] 8 [place] [address] Thomas Enriquez DO [address] [place] [address] [place] [address] Toney Loco, PT 8 [place] [address] 04/28/2025 8:45 AM EST Office Visit [facility] [address] [place] [address] Mina, Thomas, DO [address] [place] [address] [place] [address] Toney Loco, PT 8 [place] [address] [email or web address] 04/30/2025 8:45 AM EST Office Visit [facility] 8 [place] [address] Thomas Enriquez, DO [address] [place] [address] [place] [address] Toney Loco, PT 8 [place] [address] [email or web address] 05/05/2025 8:45 AM EST Office Visit [facility] 8 [place] [address] Thomas Enriquez, DO [address] [place] [address] [place] [address] Toney Loco, PT 8 [place] [address] [email or web address] 05/07/2025 8:45 AM EST Office Visit [facility] 8 [place] [address] Thomas Enriquez, DO [address] [place] [address] [place] [address] Toney Loco, PT 8 [place] [address] [email or web address] 05/12/2025 8:45 AM EST Office Visit [facility] 8 [place] [address] Thomas Enriquez, DO [address] [place] [address] [place] [address] Toney Loco, PT 8 [place] [address] [email or web address] 05/14/2025 8:45 AM EST Office Visit [facility] [address] [place] [address] Thomas Enriquez, DO [address] [place] [address] [place] [address] Toney Loco, PT 8 [place] [address] [email or web address] 05/19/2025 8:45 AM EST Office Visit [address] [address] Thomas Enriquez, DO [address] [place] [address] [place] [address] Toney Loco, PT 8 [place] [address] [email or web address] 05/21/2025 8:45 AM EST Office Visit [address] [address] Thomas Enriquez, DO [address] [place] [address] [place] [address] Toney Loco, PT 8 [place] [address] [email or web address] documented as of this encounter Visit Diagnoses Not on filedocumented in this encounter Care Teams Squadron Worker Relationship Specialty Start Date End Date Itzel Martinez NP 70 [place] [address] PCP - General Family Medicine 02/09/17 04/15/24 Janae Lawrence MD 70 [place] [address] PCP - General Internal Medicine 04/16/24 Tila Haile NP 30 [place] [address] [email or web address] Historical LMR Provider 01/21/17 Gilma Carrasco MD 22 [facility] [address] [place] [address] [email or web address] Historical LMR Provider 01/21/17 Itzel Martinez NP [address] [place] [address] Historical LMR Provider 01/21/17 documented as of this encounter Additional Source Comments The information contained in this document represents components of the legal health record. It is not the complete legal health record.[facility]
[2025-02-11 12:16] LABS: INTERNATIONAL NORM RATIO 0.9 (0.9-1.1); Prothrombin Time 11.3 SEC (11.2-13.5)
[2025-02-11 12:19] LABS: Partial Thromboplastin Time 29.0 SEC (26.7-34.1)
[2025-02-11 12:42] LABS: Alanine Aminotransferase 131 U/L (0-31); Albumin Level 4.8 g/dL (3.5-5.0); Alkaline Phosphatase 102 U/L (39-117); Anion Gap 11 (12-20); Aspartate Amino Transferase 53 U/L (5-31); Blood Urea Nitrogen 21 mg/dL (9-16); Calcium 9.4 mg/dL (8.4-10.2); Carbon Dioxide 26 mmol/L (22-29); Chloride 106 mmol/L (96-108); Estimated Glomerular Filt Rate > 60; Potassium 3.7 mmol/L (3.3-5.1); Sodium 139 mmol/L (135-145); Total Protein 7.2 g/dL (6.5-8.0)
[2025-02-11 12:58] LABS: HBS Num1 15.59 mIU/mL (0-7.99); HBc Num1 0.05 S/CO (0.00-0.79); HBsAGNum1 0.56 S/CO (0.00-0.99); Hepatitis B Surface Antigen Negative (Negative); ~HepC Num1 0.04 S/CO (0.00-0.79); ~Hepatitis B Surface Antibody REACTIVE (Nonreactive); ~Hepatitis C Antibody Nonreactive (Nonreactive)
== END 2025-02-11 09:29 | disposition home or self-care (01) ==
LOC: HO.WFDLDS 09:28
PROVIDERS: Urology; Visit Provider Internal Medicine
DX: R79.89 Other specified abnormal findings of blood chemistry (principal)
CPT/HCPCS: 36415; 80048; 80076; 85610; 85730; 86704; 86706; 86803; 87340

== ENCOUNTER 2025-02-16 08:01 | Outpatient (REF) | payer MEDICARE, SELFPAY ==
--- NOTE | ~2025-02-16 | US_ITS ---
CLINICAL HISTORY: R79.89 - Other specified abnormal findings of blood chemistry US abdomen limited Comparison: None provided Findings: Fatty infiltration of the liver without focal abnormality. Right lobe 15.1 cm length. Main portal vein patent with antegrade flow. Visualized pancreas unremarkable. Gallbladder unremarkable without stones. Common duct 4.4 mm. No wall thickening. Right kidney normal, 9.9 cm in length. Impression: Fatty infiltration of the liver Otherwise unremarkable This document has been electronically signed by: Yair Olmos MD on 02/17/2025 00:22:17
== END 2025-02-16 08:02 | disposition home or self-care (01) ==
LOC: HO.US 08:01
PROVIDERS: PCP Internal Medicine; Visit Provider Internal Medicine
DX: R79.89 Other specified abnormal findings of blood chemistry (principal)
CPT/HCPCS: 76705

== ENCOUNTER → 2025-02-16 08:02 | Outpatient (BNV) | payer MEDICARE, SELFPAY | PROVIDERS: PCP Internal Medicine; Visit Provider Radiology Diagnostic Radiology | DX: K76.0 Fatty (change of) liver, not elsewhere classified (principal) | CPT/HCPCS: 76705 ==